=== PATIENT | female | born 1995 | race Caucasian/White ===

== ENCOUNTER 2021-10-31 20:53 | Inpatient (IN) | payer OTHER ==
--- OUTSIDE RECORDS SUMMARY | 2021-10-31 21:09 | EXTERNAL MEDICAL SUMMARY RPT | Continuity of Care Document ---
:1995 Author Organization [facility] Address [address] [place] [address] Phone Allergies and Intolerances date description facility type (no date) No Known Drug Allergies [facility] (unkn own) Encounters No information. Functional Status No information. Immunizations No information. Medications date description facility [id number] 0.5 ML Bordetella pertussis [facility] hemagglutinin vaccine, inactivated 0.01 MG/ML / Bordetella pertussis fimbriae 2/3 vacc ine, inactivated 0.01 MG/ML / Bordetella pert ussis pertactin vaccine, inactivated 0.006 MG/ ML / Bordetella pertussis toxoid vaccine, inactivated 0.005 MG/ML / diphtheria tox oid vaccine, inactivated 4 UNT/ML / tetanus toxoid vaccine, inactivated 10 UNT/ML Prefilled Syringe Problems No information. Procedures date description facility +0000 [facility] [id number] [facility] [id number] [facility] Results/Labs test date author facility value unit interpret ation Result panel 1 (unknown) (no (unknown) (unknown) (no value) (units (unk nown) date) unknown) (unknown) (no (unknown) (unknown) (no value) (units (unk nown) date) unknown) (unknown) (no (unknown) (unknown) (no value) (units (unk nown) date) unknown) (unknown) (no (unknown) (unknown) 08/03/21 (units (unkno wn) date) unknown) (unknown) (no (unknown) (unknown) 13:40 (units (unkno wn) date) unknown) (unknown) (no (unknown) (unknown) [place], [place] (units ( unknown) date) [id number] unknown) (unknown) (no (unknown) (unknown) Draft (units (unkno wn) date) unknown) (unknown) (no (unknown) (unknown) [facility] ([facility] unknown) (unknown) (no (unknown) (unknown) Gynecology Visit (units (unknown) date) unknown) (unknown) (no (unknown) (unknown) (no value) (units (unk nown) date) unknown) (unknown) (no (unknown) (unknown) [id number] (units (unkn own) date) unknown) (unknown) (no (unknown) (unknown) 08/03/21 (units (unkno wn) date) unknown) (unknown) (no (unknown) (unknown) Age/Sex: 25 / F (units (unknown) date) Date of unknown) Service: (unknown) (no (unknown) (unknown) Allergies (units (unkn own) date) unknown) (unknown) (no (unknown) (unknown) Attending Dr: (units ( unknown) date) Katharine Martinez MD unknown) (unknown) (no (unknown) (unknown) BMI 25.7 (units (un known) date) unknown) (unknown) (no (unknown) (unknown) BP 106/62 (units (u nknown) date) unknown) (unknown) (no (unknown) (unknown) Blood Pressure (units (unknown) date) Location Rt unknown) brachial (unknown) (no (unknown) (unknown) : 1995 (units (unknown) date) Acct:[id number] unknown) (unknown) (no (unknown) (unknown) Dept at (units (unkno wn) date) . unknown) (unknown) (no (unknown) (unknown) Diet and (units (unkno wn) date) Exercise unknown) (unknown) (no (unknown) (unknown) Documented By: (units (unknown) date) Katharine Martinez MD unknown) 08/03/21 1339 (unknown) (no (unknown) (unknown) Family History (units (unknown) date) (Updated 04/08/21 unknown) @ 08:07 by Sena Espinal RN) (unknown) (no (unknown) (unknown) Father (units (unkno wn) date) Metabolic unknown) syndrome (unknown) (no (unknown) (unknown) Grandmother (units (un known) date) Breast cancer unknown) (unknown) (no (unknown) (unknown) H/O wisdom tooth (units (unknown) date) extraction unknown) (unknown) (no (unknown) (unknown) Height 5 ft (units (unknown) date) unknown) (unknown) (no (unknown) (unknown) History of PCOS (units (unknown) date) unknown) (unknown) (no (unknown) (unknown) Intake (units (unkno wn) date) unknown) (unknown) (no (unknown) (unknown) Intake Note: (units (u nknown) date) unknown) (unknown) (no (unknown) (unknown) Loc: [facility] (units (unkno wn) date) unknown) (unknown) (no (unknown) (unknown) Medical History (units (unknown) date) (Updated 04/08/21 unknown) @ 08:06 by Sena Espinal RN) (unknown) (no (unknown) (unknown) No Known Drug (units ( unknown) date) Allergies Allergy unknown) (Unverified 07/22/21 15:29) (unknown) (no (unknown) (unknown) PFSH (units (unkno wn) date) unknown) (unknown) (no (unknown) (unknown) Patient: (units (unkno wn) date) Sally Thurston Y unknown) MR#: M (unknown) (no (unknown) (unknown) Position (units (unkno wn) date) Sitting unknown) (unknown) (no (unknown) (unknown) 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) (unknown) (no (unknown) (unknown) Reason For Visit (units (unknown) date) unknown) (unknown) (no (unknown) (unknown) Safety (units (unkno wn) date) unknown) (unknown) (no (unknown) (unknown) Signed By: (units (unk nown) date) unknown) (unknown) (no (unknown) (unknown) Smoking Status: (units (unknown) date) Never smoker unknown) (unknown) (no (unknown) (unknown) Social History (units (unknown) date) unknown) (unknown) (no (unknown) (unknown) Surgical History (units (unknown) date) (Updated 04/08/21 unknown) @ 08:06 by Sena Espinal RN) (unknown) (no (unknown) (unknown) This note may (units ( unknown) date) have been all or unknown) partially generated using voice recognition (unknown) (no (unknown) (unknown) Tobacco + (units (unkn own) date) Substance Use unknown) (unknown) (no (unknown) (unknown) Tobacco Status (units (unknown) date) unknown) (unknown) (no (unknown) (unknown) Type(s) of (units (unk nown) date) exercise: unknown) irregular exercise (unknown) (no (unknown) (unknown) Visit Reasons: (units (unknown) date) 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 unknown) (unknown) (no (unknown) (unknown) Vitals (units (unkno wn) date) unknown) (unknown) (no (unknown) (unknown) Weight 132 lb (units (unknown) date) unknown) (unknown) (no (unknown) (unknown) alcohol intake: (units (unknown) date) former (stopped unknown) with , always light) (unknown) (no (unknown) (unknown) caffeine: Yes (units ( unknown) date) (200mg) unknown) (unknown) (no (unknown) (unknown) carbon monox (units (u nknown) date) detector in home: unknown) Yes (unknown) (no (unknown) (unknown) current (units (unkno wn) date) occupational unknown) exposures/hazards : No (unknown) (no (unknown) (unknown) daily servings (units (unknown) date) fruits/ve-1 unknown) (unknown) (no (unknown) (unknown) do you feel safe (units (unknown) date) at home: Yes unknown) (unknown) (no (unknown) (unknown) during the past (units (unknown) date) year weight has: unknown) remained stable (unknown) (no (unknown) (unknown) education level: (units (unknown) date) other (YVONNE) unknown) (unknown) (no (unknown) (unknown) fire (units (unkno wn) date) extinguisher in unknown) home: No (unknown) (no (unknown) (unknown) firearms in (units (un known) date) home: No unknown) (unknown) (no (unknown) (unknown) have occurred. (units (unknown) date) If there are any unknown) questions, please contact the Medical Records (unknown) (no (unknown) (unknown) household (units (unkn own) date) members: spouse unknown) (unknown) (no (unknown) (unknown) housing: house (units (unknown) date) unknown) (unknown) (no (unknown) (unknown) lives (units (unkno wn) date) independently: unknown) Yes (unknown) (no (unknown) (unknown) marital status: (units (unknown) date) unknown) (unknown) (no (unknown) (unknown) may occur. (units (unk nown) date) Occasional unknown) wrong-word or 'sound-alike' substitutions may have (unknown) (no (unknown) (unknown) number of (units (unkn own) date) children: 0 unknown) (unknown) (no (unknown) (unknown) occupational (units (u nknown) date) status: employed unknown) (unknown) (no (unknown) (unknown) occurred due to (units (unknown) date) the inherent unknown) limitations of voice recognition software. Please (unknown) (no (unknown) (unknown) pets and (units (unkno wn) date) animals: No unknown) (unknown) (no (unknown) (unknown) read the note (units ( unknown) date) carefully and unknown) recognize, using context, where these substitutions (unknown) (no (unknown) (unknown) seatbelt use: (units ( unknown) date) always unknown) (unknown) (no (unknown) (unknown) second hand (units (un known) date) exposure: No unknown) (unknown) (no (unknown) (unknown) software. (units (unkn own) date) Although every unknown) effort is made to edit content, director family errors (unknown) (no (unknown) (unknown) substance use (units ( unknown) date) type: does not unknown) use (unknown) (no (unknown) (unknown) water heater (units (u nknown) date) temp set < 120 unknown) deg: Yes (will check) (unknown) (no (unknown) (unknown) well-balanced (units ( unknown) date) diet: about half unknown) the time (unknown) (no (unknown) (unknown) working smoke (units ( unknown) date) detector in home: unknown) Yes Result panel 2 (unknown) (no (unknown) (unknown) (no value) (units (unk nown) date) unknown) (unknown) (no (unknown) (unknown) 10/20/19 5-6 (units (u nknown) date) spontaneous unknown) (unknown) (no (unknown) (unknown) N Yes no (units (unknown) date) 146 absent unknown) 4 wks (unknown) (no (unknown) (unknown) N Yes no (units (unknown) date) 150 21 unknown) absent 4 wks (unknown) (no (unknown) (unknown) This patient is (units (unknown) date) a 25yo @11+0 unknown) presenting to follow up 10 days of brown (unknown) (no (unknown) (unknown) This patient is (units (unknown) date) a 25yo @12+4 unknown) presenting for routine obstetric care. (unknown) (no (unknown) (unknown) This patient is (units (unknown) date) a 25yo @16+4 unknown) presenting for routine OB care. Patient (unknown) (no (unknown) (unknown) This patient is (units (unknown) date) a 25yo @22+0 unknown) presenting for routine OB care. Patient (unknown) (no (unknown) (unknown) This patient is (units (unknown) date) a 25yo unknown) @8+4 presenting to initiate care. (unknown) (no (unknown) (unknown) (no value) (units (unk nown) date) unknown) (unknown) (no (unknown) (unknown) none (units (unkno wn) date) unknown) (unknown) (no (unknown) (unknown) (no value) (units (unk nown) date) unknown) (unknown) (no (unknown) (unknown) (+2 lb 1 oz) (units (u nknown) date) 104/58 N unknown) (unknown) (no (unknown) (unknown) (+2 lb 3 oz) (units (u nknown) date) 106/60 N unknown) (unknown) (no (unknown) (unknown) (+20 lb) (units (unkno wn) date) 92/58 N unknown) (unknown) (no (unknown) (unknown) (+3 lb) (units (unkno wn) date) 100/60 N unknown) (unknown) (no (unknown) (unknown) (+9 lb 7 oz) (units (u nknown) date) 110/60 N unknown) (unknown) (no (unknown) (unknown) 04/19/21 (units (unkno wn) date) unknown) (unknown) (no (unknown) (unknown) 05/06/21 (units (unkno wn) date) unknown) (unknown) (no (unknown) (unknown) 05/17/21 (units (unkno wn) date) unknown) (unknown) (no (unknown) (unknown) 06/14/21 (units (unkno wn) date) unknown) (unknown) (no (unknown) (unknown) 07/22/21 (units (unkno wn) date) unknown) (unknown) (no (unknown) (unknown) 08/03/21 (units (unkno wn) date) unknown) (unknown) (no (unknown) (unknown) 11w 0d 113 lb (units (unknown) date) unknown) (unknown) (no (unknown) (unknown) 12w 4d 112 lb (units (unknown) date) 3 oz unknown) (unknown) (no (unknown) (unknown) 13:40 (units (unkno wn) date) unknown) (unknown) (no (unknown) (unknown) 16w 4d 119 lb (units (unknown) date) 7 oz unknown) (unknown) (no (unknown) (unknown) 22w 0d 130 lb (units (unknown) date) unknown) (unknown) (no (unknown) (unknown) 8w 4d 112 lb (units (unknown) date) 1 oz unknown) (unknown) (no (unknown) (unknown) [place], [place] (units ( unknown) date) [id number] unknown) (unknown) (no (unknown) (unknown) Cancelled (units (unkn own) date) unknown) (unknown) (no (unknown) (unknown) Current Estimate (units (unknown) date) 11/25/21 unknown) Ultrasound #1 23w 5d (unknown) (no (unknown) (unknown) Draft (units (unkno wn) date) unknown) (unknown) (no (unknown) (unknown) Estimated (units (unkn own) date) Delivery Date unknown) Method Current (unknown) (no (unknown) (unknown) [facility] ([facility] unknown) (unknown) (no (unknown) (unknown) Gynecology Visit (units (unknown) date) unknown) (unknown) (no (unknown) (unknown) KF (units (unkno wn) date) unknown) (unknown) (no (unknown) (unknown) N 167 (units (unkno wn) date) absent wnl unknown) (unknown) (no (unknown) (unknown) OB Office Visit (units (unknown) date) unknown) (unknown) (no (unknown) (unknown) Other Estimates (units (unknown) date) 11/09/21 unknown) LMP (Uncertain) 26w 0d (unknown) (no (unknown) (unknown) TR 152 (units (unkn own) date) absent 4 w unknown) (unknown) (no (unknown) (unknown) TR 164 (units (unkn own) date) absent wnl unknown) (unknown) (no (unknown) (unknown) (no value) (units (unk nown) date) unknown) (unknown) (no (unknown) (unknown) 4 wks (units (unkno wn) date) unknown) (unknown) (no (unknown) (unknown) Genetic (units (unkn own) date) Screening/Teratol unknown) ogy Counseling - Includes patient, baby's father, or (unknown) (no (unknown) (unknown) - Bipolar - (units (un known) date) Stable on unknown) lamotrigine, fluoxitine, and wellbutrin. Of note, did not (unknown) (no (unknown) (unknown) - Declined (units (unk nown) date) aneuploidy unknown) screening, for MSAFP (unknown) (no (unknown) (unknown) - New OB labs (units ( unknown) date) showed UTI, for unknown) MCKENZIE- sent 05/17 (unknown) (no (unknown) (unknown) - Placenta low (units (unknown) date) lying at 1.8cm, unknown) for follow up at 28 weeks. (unknown) (no (unknown) (unknown) - Varicella (units (un known) date) non-immune unknown) (unknown) (no (unknown) (unknown) -?-?-?-?-?-?-?-? (units (unknown) date) -?-?-?-?- unknown) (unknown) (no (unknown) (unknown) [id number] (units (unkn own) date) unknown) (unknown) (no (unknown) (unknown) 08/03/21 (units (unkno wn) date) unknown) (unknown) (no (unknown) (unknown) Abnormal lab (units (u nknown) date) values 1st unknown) trimester: discussed (unknown) (no (unknown) (unknown) Abnormal lab (units (u nknown) date) values 2nd unknown) trimester: discussed (unknown) (no (unknown) (unknown) Add'l Plan (units (unk nown) date) Details unknown) (unknown) (no (unknown) (unknown) Age/Sex: 25 / F (units (unknown) date) Date of unknown) Service: (unknown) (no (unknown) (unknown) Allergies (units (unkn own) date) unknown) (unknown) (no (unknown) (unknown) Aneuploidy (units (unk nown) date) Screening unknown) Offered: Accepted (considering options) (unknown) (no (unknown) (unknown) Anticipated (units (un known) date) course of unknown) care: discussed (unknown) (no (unknown) (unknown) Assessment and (units (unknown) date) Plan unknown) (unknown) (no (unknown) (unknown) Attending Dr: (units ( unknown) date) Katharine Martinez MD unknown) (unknown) (no (unknown) (unknown) BMI 25.7 (units (un known) date) unknown) (unknown) (no (unknown) (unknown) BP 106/62 (units (u nknown) date) unknown) (unknown) (no (unknown) (unknown) (units (unkno wn) date) Plan/Preferences unknown) (unknown) (no (unknown) (unknown) Planning (units (unknown) date) unknown) (unknown) (no (unknown) (unknown) Blood Pressure (units (unknown) date) Location Rt unknown) brachial (unknown) (no (unknown) (unknown) Blood (units (unkno wn) date) transfusions?: unknown) yes (unknown) (no (unknown) (unknown) Breastfeed (units (unk nown) date) Preg Comp Name unknown) (unknown) (no (unknown) (unknown) CRL, no gross (units ( unknown) date) abnormalities unknown) noted. Ovaries not visualized. (unknown) (no (unknown) (unknown) Caffeine use, (units ( unknown) date) Exercise and unknown) activity, work/environmenta l/hazards, Sexual (unknown) (no (unknown) (unknown) Childbirth (units (unk nown) date) Classes: unknown) discussed (unknown) (no (unknown) (unknown) Current (units (unkno wn) date) History unknown) (unknown) (no (unknown) (unknown) : 1995 (units (unknown) date) Acct:[id number] unknown) (unknown) (no (unknown) (unknown) Date (units (unkno wn) date) unknown) (unknown) (no (unknown) (unknown) Date of positive (units (unknown) date) home unknown) test: 03/20/21 (unknown) (no (unknown) (unknown) Del. Date (units (unkn own) date) GA/Weeks Labor unknown) Lgth Wt Sex Route Outcome Anesthesia Place (unknown) (no (unknown) (unknown) Delv (units (unkno wn) date) unknown) (unknown) (no (unknown) (unknown) Denies Congenital (units (unknown) date) Heart Defect, unknown) Denies Down Syndrome, Denies Muscular Dystrophy, (unknown) (no (unknown) (unknown) Denies Maternal (units (unknown) date) Metabolic unknown) Disorder (EG,TYPE 1 Diabetes, PKU), Denies Patient or (unknown) (no (unknown) (unknown) Denies Neural (units ( unknown) date) Tube Defect unknown) (Meningomyelocele , Spina Bifida, or Anencephaly), (unknown) (no (unknown) (unknown) Denies Sickle (units ( unknown) date) Cell Disease or unknown) Trait (), Denies Hemophilia or other blood (unknown) (no (unknown) (unknown) Denies Moustapha-Sachs (units (unknown) date) (Ashkenazi unknown) Adventism, Cajun, English Nigerien), Denies Sebastián (unknown) (no (unknown) (unknown) Denies other (units (u nknown) date) unknown) (unknown) (no (unknown) (unknown) Denies over the (units (unknown) date) counter unknown) medications, Denies alcohol, Denies illicit drugs and (unknown) (no (unknown) (unknown) Depression: (units (un known) date) discussed unknown) (unknown) (no (unknown) (unknown) Dept at (units (unkno wn) date) . unknown) (unknown) (no (unknown) (unknown) Diet and (units (unkno wn) date) Exercise unknown) (unknown) (no (unknown) (unknown) Discussed (units (unkn own) date) Zofran. Patient unknown) declines aneuploidy screening, MSAFP at next visit. (unknown) (no (unknown) (unknown) Disease (units (unkno wn) date) (Ashkenazi unknown) Adventism), Denies Familial Dysautonomia (Ashkenazi Adventism), (unknown) (no (unknown) (unknown) Documented By: (units (unknown) date) Katharine Martinez MD unknown) 08/03/21 1339 (unknown) (no (unknown) (unknown) Documented By: (units (unknown) date) Katharine Martinez MD unknown) 08/03/21 1352 (unknown) (no (unknown) (unknown) RERE Calculator (units (unknown) date) unknown) (unknown) (no (unknown) (unknown) EGA Weight BP (units ( unknown) date) UGlucose unknown) (unknown) (no (unknown) (unknown) Family History (units (unknown) date) (Updated 04/08/21 unknown) @ 08:07 by Sena Espinal RN) (unknown) (no (unknown) (unknown) Father (units (unkno wn) date) Metabolic unknown) syndrome (unknown) (no (unknown) (unknown) Father of Baby: (units (unknown) date) Abiam unknown) (unknown) (no (unknown) (unknown) First Trimester (units (unknown) date) Education unknown) Checklist (unknown) (no (unknown) (unknown) Genetic (units (unkno wn) date) Screening unknown) (unknown) (no (unknown) (unknown) Genetic (units (unkno wn) date) Screening + unknown) Counseling (unknown) (no (unknown) (unknown) Grandmother (units (un known) date) Breast cancer unknown) (unknown) (no (unknown) (unknown) 2 (units (unknown) date) Multiple unknown) births (unknown) (no (unknown) (unknown) H/O wisdom tooth (units (unknown) date) extraction unknown) (unknown) (no (unknown) (unknown) HIV risk (units (unkno wn) date) evaluation: low unknown) risk (unknown) (no (unknown) (unknown) Health Center (units ( unknown) date) Education unknown) (unknown) (no (unknown) (unknown) Health center (units ( unknown) date) information: unknown) nature of practice discussed, personnel (unknown) (no (unknown) (unknown) Height 5 ft (units (unknown) date) unknown) (unknown) (no (unknown) (unknown) Hepatitis C risk (units (unknown) date) evaluation: low unknown) risk (unknown) (no (unknown) (unknown) History of (units (unk nown) date) Hepatitis B: No unknown) (unknown) (no (unknown) (unknown) History of (units (unk nown) date) Hepatitis C: No unknown) (unknown) (no (unknown) (unknown) History of PCOS (units (unknown) date) unknown) (unknown) (no (unknown) (unknown) Hospital[facility] (units (u nknown) date) unknown) (unknown) (no (unknown) (unknown) [facility] (units (u nknown) date) Chorea, Denies unknown) Other inherited genetic or chromosomal disorder, (unknown) (no (unknown) (unknown) Hx # (units (u nknown) date) Pregnancies unknown) Elective abortions (unknown) (no (unknown) (unknown) Hx # Term (units (unkn own) date) Pregnancies unknown) Ectopic pregnancies (unknown) (no (unknown) (unknown) will be (units (unknown) date) adopted?: no unknown) (unknown) (no (unknown) (unknown) Infection (units (unkn own) date) History unknown) (unknown) (no (unknown) (unknown) Infectious (units (unk nown) date) Disease Education unknown) (unknown) (no (unknown) (unknown) Infectious (units (unk nown) date) disease exposure: unknown) chicken pox immunity discussed, hepatitis risk (unknown) (no (unknown) (unknown) Initial Weight: (units (unknown) date) 110 lb unknown) (unknown) (no (unknown) (unknown) Initials (units (unkno wn) date) unknown) (unknown) (no (unknown) (unknown) Intake (units (unkno wn) date) unknown) (unknown) (no (unknown) (unknown) Intake Note: (units (u nknown) date) unknown) (unknown) (no (unknown) (unknown) Live with (units (unkn own) date) someone with TB unknown) or exposed to TB: No (unknown) (no (unknown) (unknown) Loc: [facility] (units (unkno wn) date) unknown) (unknown) (no (unknown) (unknown) Marital status: (units (unknown) date) unknown) (unknown) (no (unknown) (unknown) Medical History (units (unknown) date) (Updated 04/08/21 unknown) @ 08:06 by Sena Espinal RN) (unknown) (no (unknown) (unknown) No Known Drug (units ( unknown) date) Allergies Allergy unknown) (Unverified 07/22/21 15:29) (unknown) (no (unknown) (unknown) Notes (units (unkno wn) date) unknown) (unknown) (no (unknown) (unknown) Number of Living (units (unknown) date) Children unknown) (unknown) (no (unknown) (unknown) Number of (units (unkn own) date) fetuses:: Single unknown) (unknown) (no (unknown) (unknown) Nutrition and (units ( unknown) date) weight gain unknown) counseling: special diet: discussed (unknown) (no (unknown) (unknown) OB Visit Log (units (u nknown) date) unknown) (unknown) (no (unknown) (unknown) On control (units (unknown) date) at conception?: unknown) No (unknown) (no (unknown) (unknown) PFSH (units (unkno wn) date) unknown) (unknown) (no (unknown) (unknown) Para 0 (units ( unknown) date) Spontaneous unknown) abortions 1 (unknown) (no (unknown) (unknown) Partner history (units (unknown) date) of STD: denies hx unknown) (unknown) (no (unknown) (unknown) Partner history (units (unknown) date) of genital unknown) herpes: No (unknown) (no (unknown) (unknown) Partner: Abiam (units (unknown) date) unknown) (unknown) (no (unknown) (unknown) Past Pregnancies (units (unknown) date) unknown) (unknown) (no (unknown) (unknown) Patient was (units (un known) date) recently treated unknown) for UTI with resolution of symptoms, no further (unknown) (no (unknown) (unknown) Patient's age 33 (units (unknown) date) years or older as unknown) of estimated date of delivery: No (unknown) (no (unknown) (unknown) Patient: (units (unkno wn) date) Sally Thurston Y unknown) MR#: M (unknown) (no (unknown) (unknown) 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) (unknown) (no (unknown) (unknown) Personal history (units (unknown) date) of STD: denies hx unknown) (unknown) (no (unknown) (unknown) Personal history (units (unknown) date) of genital unknown) herpes: No (unknown) (no (unknown) (unknown) Position (units (unkno wn) date) Sitting unknown) (unknown) (no (unknown) (unknown) (units (unkn own) date) History unknown) (unknown) (no (unknown) (unknown) type:: (units (unknown) date) Other Normal unknown) (unknown) (no (unknown) (unknown) (units (unkno wn) date) Education unknown) (unknown) (no (unknown) (unknown) Initial (units (unknown) date) Assessment unknown) (unknown) (no (unknown) (unknown) (units (unkno wn) date) Specific unknown) Issues/Plans (unknown) (no (unknown) (unknown) (units (unkno wn) date) Testing: unknown) discussed (unknown) (no (unknown) (unknown) Visit (units (unknown) date) unknown) (unknown) (no (unknown) (unknown) (units (unkno wn) date) education packet: unknown) Child education/plan, symptoms, (unknown) (no (unknown) (unknown) Primary Care (units (u nknown) date) Provider: MANISH unknown) Kristopher (unknown) (no (unknown) (unknown) Primary Ob (units (unk nown) date) Provider: unknown) [place] ([place]) (no (unknown) (unknown) Providers (units (unkn own) date) unknown) (unknown) (no (unknown) (unknown) 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) (unknown) (no (unknown) (unknown) 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) (unknown) (no (unknown) (unknown) Rash or viral (units ( unknown) date) illness since unknown) last menstrual period: No (unknown) (no (unknown) (unknown) Reason For Visit (units (unknown) date) unknown) (unknown) (no (unknown) (unknown) Recurrent (units (unkn own) date) loss or unknown) a stillbirth: No (unknown) (no (unknown) (unknown) Safety (units (unkno wn) date) unknown) (unknown) (no (unknown) (unknown) Seatbelt use and (units (unknown) date) Influenza vaccine unknown) (ad thia fall) (unknown) (no (unknown) (unknown) Second Trimester (units (unknown) date) Education unknown) Checklist (unknown) (no (unknown) (unknown) Signed By: (units (unk nown) date) unknown) (unknown) (no (unknown) (unknown) Smoking Status: (units (unknown) date) Never smoker unknown) (unknown) (no (unknown) (unknown) Social History (units (unknown) date) unknown) (unknown) (no (unknown) (unknown) Surgical History (units (unknown) date) (Updated 04/08/21 unknown) @ 08:06 by Sena Espinal RN) (unknown) (no (unknown) (unknown) Surrogate (units (unkn own) date) ?: no unknown) (unknown) (no (unknown) (unknown) Symptoms since (units (unknown) date) LMP: Reports unknown) amenorrhea, nausea, vomiting, breast tenderness, (unknown) (no (unknown) (unknown) Tdap status: (units (u nknown) date) immunized unknown) (unknown) (no (unknown) (unknown) Teratogen (units (unkn own) date) Exposures since unknown) LMP/Conception: Denies prescription medications, (unknown) (no (unknown) (unknown) Testing (units (unkno wn) date) Education unknown) (unknown) (no (unknown) (unknown) Testing (units (unkno wn) date) education unknown) completed: Genetic testing, group B strep and Spina bifida (unknown) (no (unknown) (unknown) The patient has (units (unknown) date) irregular menses, unknown) and was dated by ultrasound today. She denies (unknown) (no (unknown) (unknown) This note may (units ( unknown) date) have been all or unknown) partially generated using voice recognition (unknown) (no (unknown) (unknown) Tobacco + (units (unkn own) date) Substance Use unknown) (unknown) (no (unknown) (unknown) Tobacco Status (units (unknown) date) unknown) (unknown) (no (unknown) (unknown) Type(s) of (units (unk nown) date) exercise: unknown) irregular exercise (unknown) (no (unknown) (unknown) UProtein Movement (units (unknown) date) PreLabor FHR Fndl unknown) Ht Pres Edema Cerv Exam US/Comment Next Appt (unknown) (no (unknown) (unknown) Ultrasound (units (unk nown) date) unknown) (unknown) (no (unknown) (unknown) Ultrasound (units (unk nown) date) Details:: TAUS unknown) performed. Viable SIUP visualized measuring 8+4 by (unknown) (no (unknown) (unknown) Varicella/chicke (units (unknown) date) n pox status: unknown) immunized (unknown) (no (unknown) (unknown) Visit Date: (units (un known) date) 04/19/21 Last unknown) Updated by: Katharine Martinez MD (unknown) (no (unknown) (unknown) Visit Date: (units (un known) date) 05/06/21 Last unknown) Updated by: Katharine Martinez MD (unknown) (no (unknown) (unknown) Visit Date: (units (un known) date) 05/17/21 Last unknown) Updated by: Katharine Martinez MD (unknown) (no (unknown) (unknown) Visit Date: (units (un known) date) 06/14/21 Last unknown) Updated by: Katharine Martinez MD (unknown) (no (unknown) (unknown) Visit Date: (units (un known) date) 07/22/21 Last unknown) Updated by: Katharine Martinez MD (unknown) (no (unknown) (unknown) Visit Reasons: (units (unknown) date) 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 unknown) (unknown) (no (unknown) (unknown) Vitals (units (unkno wn) date) unknown) (unknown) (no (unknown) (unknown) Vitamins and (units (u nknown) date) iron, Diet and unknown) weight gain, Fish and mercury intake, Smoking, (unknown) (no (unknown) (unknown) WG (units (unkno wn) date) unknown) (unknown) (no (unknown) (unknown) Weight 132 lb (units (unknown) date) unknown) (unknown) (no (unknown) (unknown) Zika virus (units (unk nown) date) exposure: No unknown) (unknown) (no (unknown) (unknown) activity, X-ray (units (unknown) date) exposure, unknown) Medication use, ETOH use, Sauna/hot tub use, Dental (unknown) (no (unknown) (unknown) alcohol intake: (units (unknown) date) former (stopped unknown) with , always light) (unknown) (no (unknown) (unknown) aneuploidy (units (unk nown) date) screening. unknown) (unknown) (no (unknown) (unknown) any significant (units (unknown) date) history, unknown) medications for bipolar disorder were discussed with (unknown) (no (unknown) (unknown) anyone in either (units (unknown) date) family with: unknown) (unknown) (no (unknown) (unknown) baby's father (units ( unknown) date) had a child with unknown) defects not listed above and Denies Other (unknown) (no (unknown) (unknown) bloating and (units (u nknown) date) other (night unknown) sweats, constipation) (unknown) (no (unknown) (unknown) but no other (units (u nknown) date) abnormal unknown) discharge. Patient today reports longstanding dizziness (unknown) (no (unknown) (unknown) caffeine: Yes (units ( unknown) date) (200mg) unknown) (unknown) (no (unknown) (unknown) carbon monox (units (u nknown) date) detector in home: unknown) Yes (unknown) (no (unknown) (unknown) care, HIV (units (unkn own) date) education, unknown) Marijuana use, Substance use, Domestic violence, Travel, (unknown) (no (unknown) (unknown) cramping or (units (un known) date) bleeding. Patient unknown) does report that nausea was worse over the (unknown) (no (unknown) (unknown) current (units (unkno wn) date) occupational unknown) exposures/hazards : No (unknown) (no (unknown) (unknown) daily servings (units (unknown) date) fruits/ve-1 unknown) (unknown) (no (unknown) (unknown) defects. Care in (units (unknown) date) our clinic and unknown) aneuploidy screening discussed. Antepartum (unknown) (no (unknown) (unknown) described, visit (units (unknown) date) schedule unknown) reviewed, ultrasounds policy reviewed, coverage 24 (unknown) (no (unknown) (unknown) discussed and (units ( unknown) date) ordered. unknown) Antepartum precautions discussed. (unknown) (no (unknown) (unknown) discussed (units (unkno wn) date) precautions for unknown) return. Ovaries not visualized on TAUS today. Declines (unknown) (no (unknown) (unknown) discussed, (units (unk nown) date) tuberculosis unknown) exposure discussed, CMV discussed, Toxoplasmosis (unknown) (no (unknown) (unknown) disorders, (units (unk nown) date) Denies Cystic unknown) Fibrosis, Denies Mental Retardation/Autis m, Denies (unknown) (no (unknown) (unknown) do you feel safe (units (unknown) date) at home: Yes unknown) (unknown) (no (unknown) (unknown) during the past (units (unknown) date) year weight has: unknown) remained stable (unknown) (no (unknown) (unknown) education level: (units (unknown) date) other (YVONNE) unknown) (unknown) (no (unknown) (unknown) endorse at (units (unk nown) date) initial visit. unknown) (unknown) (no (unknown) (unknown) fire (units (unkno wn) date) extinguisher in unknown) home: No (unknown) (no (unknown) (unknown) firearms in (units (un known) date) home: No unknown) (unknown) (no (unknown) (unknown) have occurred. (units (unknown) date) If there are any unknown) questions, please contact the Medical Records (unknown) (no (unknown) (unknown) hours a day and (units (unknown) date) participation of unknown) father in care and office visits (unknown) (no (unknown) (unknown) household (units (unkn own) date) members: spouse unknown) (unknown) (no (unknown) (unknown) housing: house (units (unknown) date) unknown) (unknown) (no (unknown) (unknown) ks (units (unkno wn) date) unknown) (unknown) (no (unknown) (unknown) lives (units (unkno wn) date) independently: unknown) Yes (unknown) (no (unknown) (unknown) marital status: (units (unknown) date) unknown) (unknown) (no (unknown) (unknown) may occur. (units (unk nown) date) Occasional unknown) wrong-word or 'sound-alike' substitutions may have (unknown) (no (unknown) (unknown) movement. No (units (u nknown) date) other symptoms or unknown) concerns, anatomy scan already scheduled. MSAFP (unknown) (no (unknown) (unknown) number of (units (unkn own) date) children: 0 unknown) (unknown) (no (unknown) (unknown) occupational (units (u nknown) date) status: employed unknown) (unknown) (no (unknown) (unknown) occurred due to (units (unknown) date) the inherent unknown) limitations of voice recognition software. Please (unknown) (no (unknown) (unknown) pets and (units (unkno wn) date) animals: No unknown) (unknown) (no (unknown) (unknown) placenta 1.8 cm (units (unknown) date) from os unknown) posteriorly, discussed follow up at 28 weeks. Also 88%, (unknown) (no (unknown) (unknown) precautions (units (un known) date) discussed. unknown) (unknown) (no (unknown) (unknown) precautions, (units (u nknown) date) Listeriosis unknown) prevention and Rubella Immunization (unknown) (no (unknown) (unknown) predating her (units ( unknown) date) . UA unknown) wnl, plans to try OTC monistat 7 instead of Affirm, (unknown) (no (unknown) (unknown) read the note (units ( unknown) date) carefully and unknown) recognize, using context, where these substitutions (unknown) (no (unknown) (unknown) reports feeling (units (unknown) date) movement, no ctx unknown) no LOF or VB. Recent anatomy scan showing (unknown) (no (unknown) (unknown) reports feeling (units (unknown) date) well with no UTI unknown) sx, no cramping or bleeding, starting to feel (unknown) (no (unknown) (unknown) seatbelt use: (units ( unknown) date) always unknown) (unknown) (no (unknown) (unknown) second hand (units (un known) date) exposure: No unknown) (unknown) (no (unknown) (unknown) software. (units (unkn own) date) Although every unknown) effort is made to edit content, director family errors (unknown) (no (unknown) (unknown) spotting and RLQ (units (unknown) date) cramping. Viable unknown) SIUP seen via TAUS, +movement. 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 (unknown) (no (unknown) (unknown) well-balanced (units ( unknown) date) diet: about half unknown) the time (unknown) (no (unknown) (unknown) will do growth (units (unknown) date) US at that time. unknown) Antepartum precautions discussed. (unknown) (no (unknown) (unknown) working smoke (units ( unknown) date) detector in home: unknown) Yes Result panel 3 (unknown) (no (unknown) (unknown) (no value) (units (unk nown) date) unknown) (unknown) (no (unknown) (unknown) 10/20/19 5-6 (units (u nknown) date) spontaneous unknown) (unknown) (no (unknown) (unknown) N Yes no (units (unknown) date) 146 absent unknown) 4 wks (unknown) (no (unknown) (unknown) N Yes no (units (unknown) date) 150 21 unknown) absent 4 wks (unknown) (no (unknown) (unknown) This patient is (units (unknown) date) a 25yo @11+0 unknown) presenting to follow up 10 days of brown (unknown) (no (unknown) (unknown) This patient is (units (unknown) date) a 25yo @12+4 unknown) presenting for routine obstetric care. (unknown) (no (unknown) (unknown) This patient is (units (unknown) date) a 25yo @16+4 unknown) presenting for routine OB care. Patient (unknown) (no (unknown) (unknown) This patient is (units (unknown) date) a 25yo @22+0 unknown) presenting for routine OB care. Patient (unknown) (no (unknown) (unknown) This patient is (units (unknown) date) a 25yo unknown) @8+4 presenting to initiate care. (unknown) (no (unknown) (unknown) (no value) (units (unk nown) date) unknown) (unknown) (no (unknown) (unknown) none (units (unkno wn) date) unknown) (unknown) (no (unknown) (unknown) (no value) (units (unk nown) date) unknown) (unknown) (no (unknown) (unknown) (+2 lb 1 oz) (units (u nknown) date) 104/58 N unknown) (unknown) (no (unknown) (unknown) (+2 lb 3 oz) (units (u nknown) date) 106/60 N unknown) (unknown) (no (unknown) (unknown) (+20 lb) (units (unkno wn) date) 92/58 N unknown) (unknown) (no (unknown) (unknown) (+3 lb) (units (unkno wn) date) 100/60 N unknown) (unknown) (no (unknown) (unknown) (+9 lb 7 oz) (units (u nknown) date) 110/60 N unknown) (unknown) (no (unknown) (unknown) 04/19/21 (units (unkno wn) date) unknown) (unknown) (no (unknown) (unknown) 05/06/21 (units (unkno wn) date) unknown) (unknown) (no (unknown) (unknown) 05/17/21 (units (unkno wn) date) unknown) (unknown) (no (unknown) (unknown) 06/14/21 (units (unkno wn) date) unknown) (unknown) (no (unknown) (unknown) 07/22/21 (units (unkno wn) date) unknown) (unknown) (no (unknown) (unknown) 08/03/21 (units (unkno wn) date) unknown) (unknown) (no (unknown) (unknown) 11w 0d 113 lb (units (unknown) date) unknown) (unknown) (no (unknown) (unknown) 12w 4d 112 lb (units (unknown) date) 3 oz unknown) (unknown) (no (unknown) (unknown) 13:40 (units (unkno wn) date) unknown) (unknown) (no (unknown) (unknown) 16w 4d 119 lb (units (unknown) date) 7 oz unknown) (unknown) (no (unknown) (unknown) 22w 0d 130 lb (units (unknown) date) unknown) (unknown) (no (unknown) (unknown) 8w 4d 112 lb (units (unknown) date) 1 oz unknown) (unknown) (no (unknown) (unknown) [place], [place] (units ( unknown) date) [id number] unknown) (unknown) (no (unknown) (unknown) Current Estimate (units (unknown) date) 11/25/21 unknown) Ultrasound #1 23w 5d (unknown) (no (unknown) (unknown) Draft (units (unkno wn) date) unknown) (unknown) (no (unknown) (unknown) Estimated (units (unkn own) date) Delivery Date unknown) Method Current (unknown) (no (unknown) (unknown) [facility]) (unknown) (no (unknown) (unknown) KF (units (unkno wn) date) unknown) (unknown) (no (unknown) (unknown) N 167 (units (unkno wn) date) absent wnl unknown) (unknown) (no (unknown) (unknown) OB Office Visit (units (unknown) date) unknown) (unknown) (no (unknown) (unknown) Other Estimates (units (unknown) date) 11/09/21 unknown) LMP (Uncertain) 26w 0d (unknown) (no (unknown) (unknown) TR 152 (units (unkn own) date) absent 4 w unknown) (unknown) (no (unknown) (unknown) TR 164 (units (unkn own) date) absent wnl unknown) (unknown) (no (unknown) (unknown) (no value) (units (unk nown) date) unknown) (unknown) (no (unknown) (unknown) 4 wks (units (unkno wn) date) unknown) (unknown) (no (unknown) (unknown) Genetic (units (unkn own) date) Screening/Teratol unknown) ogy Counseling - Includes patient, baby's father, or (unknown) (no (unknown) (unknown) - Bipolar - (units (un known) date) Stable on unknown) lamotrigine, fluoxitine, and wellbutrin. Of note, did not (unknown) (no (unknown) (unknown) - Declined (units (unk nown) date) aneuploidy unknown) screening, for MSAFP (unknown) (no (unknown) (unknown) - New OB labs (units ( unknown) date) showed UTI, for unknown) MCKENZIE- sent 05/17 (unknown) (no (unknown) (unknown) - Placenta low (units (unknown) date) lying at 1.8cm, unknown) for follow up at 28 weeks. (unknown) (no (unknown) (unknown) - Varicella (units (un known) date) non-immune unknown) (unknown) (no (unknown) (unknown) -?-?-?-?-?-?-?-? (units (unknown) date) -?-?-?-?- unknown) (unknown) (no (unknown) (unknown) [id number] (units (unkn own) date) unknown) (unknown) (no (unknown) (unknown) 08/03/21 (units (unkno wn) date) unknown) (unknown) (no (unknown) (unknown) Abnormal lab (units (u nknown) date) values 1st unknown) trimester: discussed (unknown) (no (unknown) (unknown) Abnormal lab (units (u nknown) date) values 2nd unknown) trimester: discussed (unknown) (no (unknown) (unknown) Add'l Plan (units (unk nown) date) Details unknown) (unknown) (no (unknown) (unknown) Age/Sex: 25 / F (units (unknown) date) Date of unknown) Service: (unknown) (no (unknown) (unknown) Allergies (units (unkn own) date) unknown) (unknown) (no (unknown) (unknown) Aneuploidy (units (unk nown) date) Screening unknown) Offered: Accepted (considering options) (unknown) (no (unknown) (unknown) Anticipated (units (un known) date) course of unknown) care: discussed (unknown) (no (unknown) (unknown) Assessment and (units (unknown) date) Plan unknown) (unknown) (no (unknown) (unknown) Attending Dr: (units ( unknown) date) Katharine Martinez MD unknown) (unknown) (no (unknown) (unknown) BMI 25.7 (units (un known) date) unknown) (unknown) (no (unknown) (unknown) BP 106/62 (units (u nknown) date) unknown) (unknown) (no (unknown) (unknown) (units (unkno wn) date) Plan/Preferences unknown) (unknown) (no (unknown) (unknown) Planning (units (unknown) date) unknown) (unknown) (no (unknown) (unknown) Blood Pressure (units (unknown) date) Location Rt unknown) brachial (unknown) (no (unknown) (unknown) Blood (units (unkno wn) date) transfusions?: unknown) yes (unknown) (no (unknown) (unknown) Breastfeed (units (unk nown) date) Preg Comp Name unknown) (unknown) (no (unknown) (unknown) CRL, no gross (units ( unknown) date) abnormalities unknown) noted. Ovaries not visualized. (unknown) (no (unknown) (unknown) Caffeine use, (units ( unknown) date) Exercise and unknown) activity, work/environmenta l/hazards, Sexual (unknown) (no (unknown) (unknown) Childbirth (units (unk nown) date) Classes: unknown) discussed (unknown) (no (unknown) (unknown) Current (units (o wn) date) History unknown) (unknown) (no (unknown) (unknown) : 1995 (units (unknown) date) Acct:[id number] unknown) (unknown) (no (unknown) (unknown) Date (units (unkno wn) date) unknown) (unknown) (no (unknown) (unknown) Date of positive (units (unknown) date) home unknown) test: 03/20/21 (unknown) (no (unknown) (unknown) Del. Date (units (unkn own) date) GA/Weeks Labor unknown) Lgth Wt Sex Route Outcome Anesthesia Place (unknown) (no (unknown) (unknown) Delv (units (unkno wn) date) unknown) (unknown) (no (unknown) (unknown) Denies Congenital (units (unknown) date) Heart Defect, unknown) Denies Down Syndrome, Denies Muscular Dystrophy, (unknown) (no (unknown) (unknown) Denies Maternal (units (unknown) date) Metabolic unknown) Disorder (EG,TYPE 1 Diabetes, PKU), Denies Patient or (unknown) (no (unknown) (unknown) Denies Neural (units ( unknown) date) Tube Defect unknown) (Meningomyelocele , Spina Bifida, or Anencephaly), (unknown) (no (unknown) (unknown) Denies Sickle (units ( unknown) date) Cell Disease or unknown) Trait (), Denies Hemophilia or other blood (unknown) (no (unknown) (unknown) Denies Moustapha-Sachs (units (unknown) date) (Ashkenazi unknown) Adventism, Cajun, English Nigerien), Denies Sebastián (unknown) (no (unknown) (unknown) Denies other (units (u nknown) date) unknown) (unknown) (no (unknown) (unknown) Denies over the (units (unknown) date) counter unknown) medications, Denies alcohol, Denies illicit drugs and (unknown) (no (unknown) (unknown) Depression: (units (un known) date) discussed unknown) (unknown) (no (unknown) (unknown) Dept at (units (unkno wn) date) . unknown) (unknown) (no (unknown) (unknown) Diet and (units (unkno wn) date) Exercise unknown) (unknown) (no (unknown) (unknown) Discussed (units (unkn own) date) Zofran. Patient unknown) declines aneuploidy screening, MSAFP at next visit. (unknown) (no (unknown) (unknown) Disease (units (unkno wn) date) (Ashkenazi unknown) Adventism), Denies Familial Dysautonomia (Ashkenazi Adventism), (unknown) (no (unknown) (unknown) Documented By: (units (unknown) date) Katharine Martinez MD unknown) 08/03/21 1352 (unknown) (no (unknown) (unknown) RERE Calculator (units (unknown) date) unknown) (unknown) (no (unknown) (unknown) EGA Weight BP (units ( unknown) date) UGlucose unknown) (unknown) (no (unknown) (unknown) Family History (units (unknown) date) (Updated 04/08/21 unknown) @ 08:07 by Sena Espinal RN) (unknown) (no (unknown) (unknown) Father (units (unkno wn) date) Metabolic unknown) syndrome (unknown) (no (unknown) (unknown) Father of Baby: (units (unknown) date) Abiam unknown) (unknown) (no (unknown) (unknown) First Trimester (units (unknown) date) Education unknown) Checklist (unknown) (no (unknown) (unknown) Monday naval was (units (unknown) date) 'full of liquid' unknown) pt flushed w/bulb syringe (unknown) (no (unknown) (unknown) Genetic (units (unkno wn) date) Screening unknown) (unknown) (no (unknown) (unknown) Genetic (units (unkno wn) date) Screening + unknown) Counseling (unknown) (no (unknown) (unknown) Grandmother (units (un known) date) Breast cancer unknown) (unknown) (no (unknown) (unknown) 2 (units (unknown) date) Multiple unknown) births (unknown) (no (unknown) (unknown) H/O wisdom tooth (units (unknown) date) extraction unknown) (unknown) (no (unknown) (unknown) HIV risk (units (unkno wn) date) evaluation: low unknown) risk (unknown) (no (unknown) (unknown) Health Center (units ( unknown) date) Education unknown) (unknown) (no (unknown) (unknown) Health center (units ( unknown) date) information: unknown) nature of practice discussed, personnel (unknown) (no (unknown) (unknown) Height 5 ft (units (unknown) date) unknown) (unknown) (no (unknown) (unknown) Hepatitis C risk (units (unknown) date) evaluation: low unknown) risk (unknown) (no (unknown) (unknown) History of (units (unk nown) date) Hepatitis B: No unknown) (unknown) (no (unknown) (unknown) History of (units (unk nown) date) Hepatitis C: No unknown) (unknown) (no (unknown) (unknown) History of PCOS (units (unknown) date) unknown) (unknown) (no (unknown) (unknown) Hospital[facility] (units (u nknown) date) unknown) (unknown) (no (unknown) (unknown) [facility] (units (u nknown) date) Chorea, Denies unknown) Other inherited genetic or chromosomal disorder, (unknown) (no (unknown) (unknown) Hx # (units (u nknown) date) Pregnancies unknown) Elective abortions (unknown) (no (unknown) (unknown) Hx # Term (units (unkn own) date) Pregnancies unknown) Ectopic pregnancies (unknown) (no (unknown) (unknown) will be (units (unknown) date) adopted?: no unknown) (unknown) (no (unknown) (unknown) Infection (units (unkn own) date) History unknown) (unknown) (no (unknown) (unknown) Infectious (units (unk nown) date) Disease Education unknown) (unknown) (no (unknown) (unknown) Infectious (units (unk nown) date) disease exposure: unknown) chicken pox immunity discussed, hepatitis risk (unknown) (no (unknown) (unknown) Initial Weight: (units (unknown) date) 110 lb unknown) (unknown) (no (unknown) (unknown) Initials (units (unkno wn) date) unknown) (unknown) (no (unknown) (unknown) Intake (units (unkno wn) date) unknown) (unknown) (no (unknown) (unknown) Intake Note: (units (u nknown) date) unknown) (unknown) (no (unknown) (unknown) Live with (units (unkn own) date) someone with TB unknown) or exposed to TB: No (unknown) (no (unknown) (unknown) Loc: [facility] (units (unkno wn) date) unknown) (unknown) (no (unknown) (unknown) Marital status: (units (unknown) date) unknown) (unknown) (no (unknown) (unknown) Medical History (units (unknown) date) (Updated 04/08/21 unknown) @ 08:06 by Sena Espinal RN) (unknown) (no (unknown) (unknown) No Known Drug (units ( unknown) date) Allergies Allergy unknown) (Unverified 07/22/21 15:29) (unknown) (no (unknown) (unknown) Notes (units (unkno wn) date) unknown) (unknown) (no (unknown) (unknown) Number of Living (units (unknown) date) Children unknown) (unknown) (no (unknown) (unknown) Number of (units (unkn own) date) fetuses:: Single unknown) (unknown) (no (unknown) (unknown) Nutrition and (units ( unknown) date) weight gain unknown) counseling: special diet: discussed (unknown) (no (unknown) (unknown) OB Visit Log (units (u nknown) date) unknown) (unknown) (no (unknown) (unknown) On control (units (unknown) date) at conception?: unknown) No (unknown) (no (unknown) (unknown) PFSH (units (unkno wn) date) unknown) (unknown) (no (unknown) (unknown) Para 0 (units ( unknown) date) Spontaneous unknown) abortions 1 (unknown) (no (unknown) (unknown) Partner history (units (unknown) date) of STD: denies hx unknown) (unknown) (no (unknown) (unknown) Partner history (units (unknown) date) of genital unknown) herpes: No (unknown) (no (unknown) (unknown) Partner: Abiam (units (unknown) date) unknown) (unknown) (no (unknown) (unknown) Past Pregnancies (units (unknown) date) unknown) (unknown) (no (unknown) (unknown) Patient was (units (un known) date) recently treated unknown) for UTI with resolution of symptoms, no further (unknown) (no (unknown) (unknown) Patient's age 33 (units (unknown) date) years or older as unknown) of estimated date of delivery: No (unknown) (no (unknown) (unknown) Patient: (units (unkno wn) date) Sally Thurston Y unknown) MR#: M (unknown) (no (unknown) (unknown) 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) (unknown) (no (unknown) (unknown) Personal history (units (unknown) date) of STD: denies hx unknown) (unknown) (no (unknown) (unknown) Personal history (units (unknown) date) of genital unknown) herpes: No (unknown) (no (unknown) (unknown) Position (units (unkno wn) date) Sitting unknown) (unknown) (no (unknown) (unknown) (units (unkn own) date) History unknown) (unknown) (no (unknown) (unknown) type:: (units (unknown) date) Other Normal unknown) (unknown) (no (unknown) (unknown) (units (unkno wn) date) Education unknown) (unknown) (no (unknown) (unknown) Initial (units (unknown) date) Assessment unknown) (unknown) (no (unknown) (unknown) (units (unkno wn) date) Specific unknown) Issues/Plans (unknown) (no (unknown) (unknown) (units (unkno wn) date) Testing: unknown) discussed (unknown) (no (unknown) (unknown) Visit (units (unknown) date) unknown) (unknown) (no (unknown) (unknown) (units (unkno wn) date) education packet: unknown) Child education/plan, symptoms, (unknown) (no (unknown) (unknown) Primary Care (units (u nknown) date) Provider: MANISH unknown) Kristopher (unknown) (no (unknown) (unknown) Primary Ob (units (unk nown) date) Provider: unknown) Katharine Martinez (unknown) (no (unknown) (unknown) Providers (units (unkn own) date) unknown) (unknown) (no (unknown) (unknown) 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 (unknown) (no (unknown) (unknown) Rash or viral (units ( unknown) date) illness since unknown) last menstrual period: No (unknown) (no (unknown) (unknown) Reason For Visit (units (unknown) date) unknown) (unknown) (no (unknown) (unknown) Recurrent (units (unkn own) date) loss or unknown) a stillbirth: No (unknown) (no (unknown) (unknown) Safety (units (unkno wn) date) unknown) (unknown) (no (unknown) (unknown) Seatbelt use and (units (unknown) date) Influenza vaccine unknown) (ad thia fall) (unknown) (no (unknown) (unknown) Second Trimester (units (unknown) date) Education unknown) Checklist (unknown) (no (unknown) (unknown) Signed By: (units (unk nown) date) unknown) (unknown) (no (unknown) (unknown) Smoking Status: (units (unknown) date) Never smoker unknown) (unknown) (no (unknown) (unknown) Social History (units (unknown) date) unknown) (unknown) (no (unknown) (unknown) Surgical History (units (unknown) date) (Updated 04/08/21 unknown) @ 08:06 by Sena Espinal RN) (unknown) (no (unknown) (unknown) Surrogate (units (unkn own) date) ?: no unknown) (unknown) (no (unknown) (unknown) Symptoms since (units (unknown) date) LMP: Reports unknown) amenorrhea, nausea, vomiting, breast tenderness, (unknown) (no (unknown) (unknown) Tdap status: (units (u nknown) date) immunized unknown) (unknown) (no (unknown) (unknown) Teratogen (units (unkn own) date) Exposures since unknown) LMP/Conception: Denies prescription medications, (unknown) (no (unknown) (unknown) Testing (units (unkno wn) date) Education unknown) (unknown) (no (unknown) (unknown) Testing (units (unkno wn) date) education unknown) completed: Genetic testing, group B strep and Spina bifida (unknown) (no (unknown) (unknown) The patient has (units (unknown) date) irregular menses, unknown) and was dated by ultrasound today. She denies (unknown) (no (unknown) (unknown) This note may (units ( unknown) date) have been all or unknown) partially generated using voice recognition (unknown) (no (unknown) (unknown) Tobacco + (units (unkn own) date) Substance Use unknown) (unknown) (no (unknown) (unknown) Tobacco Status (units (unknown) date) unknown) (unknown) (no (unknown) (unknown) Type(s) of (units (unk nown) date) exercise: unknown) irregular exercise (unknown) (no (unknown) (unknown) UProtein Movement (units (unknown) date) PreLabor FHR Fndl unknown) Ht Pres Edema Cerv Exam US/Comment Next Appt (unknown) (no (unknown) (unknown) Ultrasound (units (unk nown) date) unknown) (unknown) (no (unknown) (unknown) Ultrasound (units (unk nown) date) Details:: TAUS unknown) performed. Viable SIUP visualized measuring 8+4 by (unknown) (no (unknown) (unknown) Varicella/chicke (units (unknown) date) n pox status: unknown) immunized (unknown) (no (unknown) (unknown) Visit Date: (units (un known) date) 04/19/21 Last unknown) Updated by: Katharine Martinez MD (unknown) (no (unknown) (unknown) Visit Date: (units (un known) date) 05/06/21 Last unknown) Updated by: Katharine Martinez MD (unknown) (no (unknown) (unknown) Visit Date: (units (un known) date) 05/17/21 Last unknown) Updated by: Katharine Martinez MD (unknown) (no (unknown) (unknown) Visit Date: (units (un known) date) 06/14/21 Last unknown) Updated by: Katharine Martinez MD (unknown) (no (unknown) (unknown) Visit Date: (units (un known) date) 07/22/21 Last unknown) Updated by: Katharine Martinez MD (unknown) (no (unknown) (unknown) Visit Reasons: (units (unknown) date) 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 unknown) (unknown) (no (unknown) (unknown) Vitals (units (unkno wn) date) unknown) (unknown) (no (unknown) (unknown) Vitamins and (units (u nknown) date) iron, Diet and unknown) weight gain, Fish and mercury intake, Smoking, (unknown) (no (unknown) (unknown) WG (units (unkno wn) date) unknown) (unknown) (no (unknown) (unknown) Weight 132 lb (units (unknown) date) unknown) (unknown) (no (unknown) (unknown) Zika virus (units (unk nown) date) exposure: No unknown) (unknown) (no (unknown) (unknown) activity, X-ray (units (unknown) date) exposure, unknown) Medication use, ETOH use, Sauna/hot tub use, Dental (unknown) (no (unknown) (unknown) alcohol intake: (units (unknown) date) former (stopped unknown) with , always light) (unknown) (no (unknown) (unknown) aneuploidy (units (unk nown) date) screening. unknown) (unknown) (no (unknown) (unknown) any significant (units (unknown) date) history, unknown) medications for bipolar disorder were discussed with (unknown) (no (unknown) (unknown) anyone in either (units (unknown) date) family with: unknown) (unknown) (no (unknown) (unknown) baby's father (units ( unknown) date) had a child with unknown) defects not listed above and Denies Other (unknown) (no (unknown) (unknown) bloating and (units (u nknown) date) other (night unknown) sweats, constipation) (unknown) (no (unknown) (unknown) but no other (units (u nknown) date) abnormal unknown) discharge. Patient today reports longstanding dizziness (unknown) (no (unknown) (unknown) caffeine: Yes (units ( unknown) date) (200mg) unknown) (unknown) (no (unknown) (unknown) carbon monox (units (u nknown) date) detector in home: unknown) Yes (unknown) (no (unknown) (unknown) care, HIV (units (unkn own) date) education, unknown) Marijuana use, Substance use, Domestic violence, Travel, (unknown) (no (unknown) (unknown) cramping or (units (un known) date) bleeding. Patient unknown) does report that nausea was worse over the (unknown) (no (unknown) (unknown) current (units (unkno wn) date) occupational unknown) exposures/hazards : No (unknown) (no (unknown) (unknown) daily servings (units (unknown) date) fruits/ve-1 unknown) (unknown) (no (unknown) (unknown) defects. Care in (units (unknown) date) our clinic and unknown) aneuploidy screening discussed. Antepartum (unknown) (no (unknown) (unknown) described, visit (units (unknown) date) schedule unknown) reviewed, ultrasounds policy reviewed, coverage 24 (unknown) (no (unknown) (unknown) discussed and (units ( unknown) date) ordered. unknown) Antepartum precautions discussed. (unknown) (no (unknown) (unknown) discussed (units (unkno wn) date) precautions for unknown) return. Ovaries not visualized on TAUS today. Declines (unknown) (no (unknown) (unknown) discussed, (units (unk nown) date) tuberculosis unknown) exposure discussed, CMV discussed, Toxoplasmosis (unknown) (no (unknown) (unknown) disorders, (units (unk nown) date) Denies Cystic unknown) Fibrosis, Denies Mental Retardation/Autis m, Denies (unknown) (no (unknown) (unknown) do you feel safe (units (unknown) date) at home: Yes unknown) (unknown) (no (unknown) (unknown) during the past (units (unknown) date) year weight has: unknown) remained stable (unknown) (no (unknown) (unknown) education level: (units (unknown) date) other (YVONNE) unknown) (unknown) (no (unknown) (unknown) endorse at (units (unk nown) date) initial visit. unknown) (unknown) (no (unknown) (unknown) fire (units (unkno wn) date) extinguisher in unknown) home: No (unknown) (no (unknown) (unknown) firearms in (units (un known) date) home: No unknown) (unknown) (no (unknown) (unknown) have occurred. (units (unknown) date) If there are any unknown) questions, please contact the Medical Records (unknown) (no (unknown) (unknown) hours a day and (units (unknown) date) participation of unknown) father in care and office visits (unknown) (no (unknown) (unknown) household (units (unkn own) date) members: spouse unknown) (unknown) (no (unknown) (unknown) housing: house (units (unknown) date) unknown) (unknown) (no (unknown) (unknown) ks (units (unkno wn) date) unknown) (unknown) (no (unknown) (unknown) lives (units (unkno wn) date) independently: unknown) Yes (unknown) (no (unknown) (unknown) marital status: (units (unknown) date) unknown) (unknown) (no (unknown) (unknown) may occur. (units (unk nown) date) Occasional unknown) wrong-word or 'sound-alike' substitutions may have (unknown) (no (unknown) (unknown) movement. No (units (u nknown) date) other symptoms or unknown) concerns, anatomy scan already scheduled. MSAFP (unknown) (no (unknown) (unknown) noticed foul odor (units (unknown) date) of last unknown) week and some debris in naval denies any pain (unknown) (no (unknown) (unknown) number of (units (unkn own) date) children: 0 unknown) (unknown) (no (unknown) (unknown) occupational (units (u nknown) date) status: employed unknown) (unknown) (no (unknown) (unknown) occurred due to (units (unknown) date) the inherent unknown) limitations of voice recognition software. Please (unknown) (no (unknown) (unknown) pets and (units (unkno wn) date) animals: No unknown) (unknown) (no (unknown) (unknown) placenta 1.8 cm (units (unknown) date) from os unknown) posteriorly, discussed follow up at 28 weeks. Also 88%, (unknown) (no (unknown) (unknown) precautions (units (un known) date) discussed. unknown) (unknown) (no (unknown) (unknown) precautions, (units (u nknown) date) Listeriosis unknown) prevention and Rubella Immunization (unknown) (no (unknown) (unknown) predating her (units ( unknown) date) . UA unknown) wnl, plans to try OTC monistat 7 instead of Affirm, (unknown) (no (unknown) (unknown) read the note (units ( unknown) date) carefully and unknown) recognize, using context, where these substitutions (unknown) (no (unknown) (unknown) reports feeling (units (unknown) date) movement, no ctx unknown) no LOF or VB. Recent anatomy scan showing (unknown) (no (unknown) (unknown) reports feeling (units (unknown) date) well with no UTI unknown) sx, no cramping or bleeding, starting to feel (unknown) (no (unknown) (unknown) seatbelt use: (units ( unknown) date) always unknown) (unknown) (no (unknown) (unknown) second hand (units (un known) date) exposure: No unknown) (unknown) (no (unknown) (unknown) software. (units (unkn own) date) Although every unknown) effort is made to edit content, director family errors (unknown) (no (unknown) (unknown) spotting and RLQ (units (unknown) date) cramping. Viable unknown) SIUP seen via TAUS, +movement. 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 (unknown) (no (unknown) (unknown) well-balanced (units ( unknown) date) diet: about half unknown) the time (unknown) (no (unknown) (unknown) will do growth (units (unknown) date) US at that time. unknown) Antepartum precautions discussed. (unknown) (no (unknown) (unknown) working smoke (units ( unknown) date) detector in home: unknown) Yes Result panel 4 (unknown) (no (unknown) (unknown) (no value) (units (unk nown) date) unknown) (unknown) (no (unknown) (unknown) 10/20/19 5-6 (units (u nknown) date) spontaneous unknown) (unknown) (no (unknown) (unknown) N Yes no (units (unknown) date) 146 absent unknown) 4 wks (unknown) (no (unknown) (unknown) N Yes no (units (unknown) date) 150 21 unknown) absent 4 wks (unknown) (no (unknown) (unknown) This patient is (units (unknown) date) a 25yo @11+0 unknown) presenting to follow up 10 days of brown (unknown) (no (unknown) (unknown) This patient is (units (unknown) date) a 25yo @12+4 unknown) presenting for routine obstetric care. (unknown) (no (unknown) (unknown) This patient is (units (unknown) date) a 25yo @16+4 unknown) presenting for routine OB care. Patient (unknown) (no (unknown) (unknown) This patient is (units (unknown) date) a 25yo @22+0 unknown) presenting for routine OB care. Patient (unknown) (no (unknown) (unknown) This patient is (units (unknown) date) a 25yo @23+5 unknown) presenting for an unscheduled visit due (unknown) (no (unknown) (unknown) This patient is (units (unknown) date) a 25yo unknown) @8+4 presenting to initiate care. (unknown) (no (unknown) (unknown) (no value) (units (unk nown) date) unknown) (unknown) (no (unknown) (unknown) none (units (unkno wn) date) unknown) (unknown) (no (unknown) (unknown) (no value) (units (unk nown) date) unknown) (unknown) (no (unknown) (unknown) (+2 lb 1 oz) (units (u nknown) date) 104/58 N unknown) (unknown) (no (unknown) (unknown) (+2 lb 3 oz) (units (u nknown) date) 106/60 N unknown) (unknown) (no (unknown) (unknown) (+20 lb) (units (unkno wn) date) 92/58 N unknown) (unknown) (no (unknown) (unknown) (+22 lb) (units (unkno wn) date) 106/62 unknown) (unknown) (no (unknown) (unknown) (+3 lb) (units (unkno wn) date) 100/60 N unknown) (unknown) (no (unknown) (unknown) (+9 lb 7 oz) (units (u nknown) date) 110/60 N unknown) (unknown) (no (unknown) (unknown) 04/19/21 (units (unkno wn) date) unknown) (unknown) (no (unknown) (unknown) 05/06/21 (units (unkno wn) date) unknown) (unknown) (no (unknown) (unknown) 05/17/21 (units (unkno wn) date) unknown) (unknown) (no (unknown) (unknown) 06/14/21 (units (unkno wn) date) unknown) (unknown) (no (unknown) (unknown) 07/22/21 (units (unkno wn) date) unknown) (unknown) (no (unknown) (unknown) 08/03/21 (units (unkno wn) date) unknown) (unknown) (no (unknown) (unknown) 08/03/21 1414 (units ( unknown) date) unknown) (unknown) (no (unknown) (unknown) 11w 0d 113 lb (units (unknown) date) unknown) (unknown) (no (unknown) (unknown) 12w 4d 112 lb (units (unknown) date) 3 oz unknown) (unknown) (no (unknown) (unknown) 13:40 (units (unkno wn) date) unknown) (unknown) (no (unknown) (unknown) 16w 4d 119 lb (units (unknown) date) 7 oz unknown) (unknown) (no (unknown) (unknown) 22w 0d 130 lb (units (unknown) date) unknown) (unknown) (no (unknown) (unknown) 23w 5d 132 lb (units (unknown) date) unknown) (unknown) (no (unknown) (unknown) 8w 4d 112 lb (units (unknown) date) 1 oz unknown) (unknown) (no (unknown) (unknown) ROSARIO Jeong (units ( unknown) date) 19702 unknown) (unknown) (no (unknown) (unknown) Current Estimate (units (unknown) date) 11/25/21 unknown) Ultrasound #1 23w 5d (unknown) (no (unknown) (unknown) Estimated (units (unkn own) date) Delivery Date unknown) Method Current (unknown) (no (unknown) (unknown) [facility]) (unknown) (no (unknown) (unknown) KF (units (unkno wn) date) unknown) (unknown) (no (unknown) (unknown) N 167 (units (unkno wn) date) absent wnl unknown) (unknown) (no (unknown) (unknown) OB Office Visit (units (unknown) date) unknown) (unknown) (no (unknown) (unknown) Other Estimates (units (unknown) date) 11/09/21 unknown) LMP (Uncertain) 26w 0d (unknown) (no (unknown) (unknown) Signed (units (unkno wn) date) unknown) (unknown) (no (unknown) (unknown) TR 152 (units (unkn own) date) absent 4 w unknown) (unknown) (no (unknown) (unknown) TR 164 (units (unkn own) date) absent wnl unknown) (unknown) (no (unknown) (unknown) Yes no (units (u nknown) date) 153 absent unknown) (unknown) (no (unknown) (unknown) (no value) (units (unk nown) date) unknown) (unknown) (no (unknown) (unknown) 4 wks (units (unkno wn) date) unknown) (unknown) (no (unknown) (unknown) as scheduled (units (u nknown) date) unknown) (unknown) (no (unknown) (unknown) Genetic (units (unkn own) date) Screening/Teratol unknown) ogy Counseling - Includes patient, baby's father, or (unknown) (no (unknown) (unknown) - Bipolar - (units (un known) date) Stable on unknown) lamotrigine, fluoxitine, and wellbutrin. Of note, did not (unknown) (no (unknown) (unknown) - Declined (units (unk nown) date) aneuploidy unknown) screening, for MSAFP (unknown) (no (unknown) (unknown) - New OB labs (units ( unknown) date) showed UTI, for unknown) MCKENZIE- sent 05/17 (unknown) (no (unknown) (unknown) - Placenta low (units (unknown) date) lying at 1.8cm, unknown) for follow up at 28 weeks. (unknown) (no (unknown) (unknown) - Varicella (units (un known) date) non-immune unknown) (unknown) (no (unknown) (unknown) -?-?-?-?-?-?-?-? (units (unknown) date) -?-?-?-?- unknown) (unknown) (no (unknown) (unknown) [id number] (units (unkn own) date) unknown) (unknown) (no (unknown) (unknown) 08/03/21 (units (unkno wn) date) unknown) (unknown) (no (unknown) (unknown) Abnormal lab (units (u nknown) date) values 1st unknown) trimester: discussed (unknown) (no (unknown) (unknown) Abnormal lab (units (u nknown) date) values 2nd unknown) trimester: discussed (unknown) (no (unknown) (unknown) Add'l Plan (units (unk nown) date) Details unknown) (unknown) (no (unknown) (unknown) Age/Sex: 25 / F (units (unknown) date) Date of unknown) Service: (unknown) (no (unknown) (unknown) Allergies (units (unkn own) date) unknown) (unknown) (no (unknown) (unknown) Aneuploidy (units (unk nown) date) Screening unknown) Offered: Accepted (considering options) (unknown) (no (unknown) (unknown) Anticipated (units (un known) date) course of unknown) care: discussed (unknown) (no (unknown) (unknown) Assessment and (units (unknown) date) Plan unknown) (unknown) (no (unknown) (unknown) Attending Dr: (units ( unknown) date) Katharine Martinez MD unknown) (unknown) (no (unknown) (unknown) BMI 25.7 (units (un known) date) unknown) (unknown) (no (unknown) (unknown) BP 106/62 (units (u nknown) date) unknown) (unknown) (no (unknown) (unknown) (units (unkno wn) date) Plan/Preferences unknown) (unknown) (no (unknown) (unknown) Planning (units (unknown) date) unknown) (unknown) (no (unknown) (unknown) Blood Pressure (units (unknown) date) Location Rt unknown) brachial (unknown) (no (unknown) (unknown) Blood (units (unkno wn) date) transfusions?: unknown) yes (unknown) (no (unknown) (unknown) Breastfeed (units (unk nown) date) Preg Comp Name unknown) (unknown) (no (unknown) (unknown) CRL, no gross (units ( unknown) date) abnormalities unknown) noted. Ovaries not visualized. (unknown) (no (unknown) (unknown) Caffeine use, (units ( unknown) date) Exercise and unknown) activity, work/environmenta l/hazards, Sexual (unknown) (no (unknown) (unknown) Childbirth (units (unk nown) date) Classes: unknown) discussed (unknown) (no (unknown) (unknown) Current (units (unkno wn) date) History unknown) (unknown) (no (unknown) (unknown) : 1995 (units (unknown) date) Acct:[id number] unknown) (unknown) (no (unknown) (unknown) Date (units (unkno wn) date) unknown) (unknown) (no (unknown) (unknown) Date of positive (units (unknown) date) home unknown) test: 03/20/21 (unknown) (no (unknown) (unknown) Del. Date (units (unkn own) date) GA/Weeks Labor unknown) Lgth Wt Sex Route Outcome Anesthesia Place (unknown) (no (unknown) (unknown) Delv (units (unkno wn) date) unknown) (unknown) (no (unknown) (unknown) Denies Congenital (units (unknown) date) Heart Defect, unknown) Denies Down Syndrome, Denies Muscular Dystrophy, (unknown) (no (unknown) (unknown) Denies Maternal (units (unknown) date) Metabolic unknown) Disorder (EG,TYPE 1 Diabetes, PKU), Denies Patient or (unknown) (no (unknown) (unknown) Denies Neural (units ( unknown) date) Tube Defect unknown) (Meningomyelocele , Spina Bifida, or Anencephaly), (unknown) (no (unknown) (unknown) Denies Sickle (units ( unknown) date) Cell Disease or unknown) Trait (), Denies Hemophilia or other blood (unknown) (no (unknown) (unknown) Denies Moustapha-Sachs (units (unknown) date) (Ashkenazi unknown) Adventism, Cajun, English Nigerien), Denies Sebastián (unknown) (no (unknown) (unknown) Denies other (units (u nknown) date) unknown) (unknown) (no (unknown) (unknown) Denies over the (units (unknown) date) counter unknown) medications, Denies alcohol, Denies illicit drugs and (unknown) (no (unknown) (unknown) Depression: (units (un known) date) discussed unknown) (unknown) (no (unknown) (unknown) Dept at (units (unkno wn) date) . unknown) (unknown) (no (unknown) (unknown) Diet and (units (unkno wn) date) Exercise unknown) (unknown) (no (unknown) (unknown) Discussed (units (unkn own) date) Zofran. Patient unknown) declines aneuploidy screening, MSAFP at next visit. (unknown) (no (unknown) (unknown) Disease (units (unkno wn) date) (Ashkenazi unknown) Adventism), Denies Familial Dysautonomia (Ashkenazi Adventism), (unknown) (no (unknown) (unknown) Documented By: (units (unknown) date) Katharine Martinez MD unknown) 08/03/21 1352 (unknown) (no (unknown) (unknown) RERE Calculator (units (unknown) date) unknown) (unknown) (no (unknown) (unknown) EGA Weight BP (units ( unknown) date) UGlucose unknown) (unknown) (no (unknown) (unknown) Family History (units (unknown) date) (Updated 04/08/21 unknown) @ 08:07 by Sena Espinal RN) (unknown) (no (unknown) (unknown) Father (units (unkno wn) date) Metabolic unknown) syndrome (unknown) (no (unknown) (unknown) Father of Baby: (units (unknown) date) Abiam unknown) (unknown) (no (unknown) (unknown) First Trimester (units (unknown) date) Education unknown) Checklist (unknown) (no (unknown) (unknown) Monday naval was (units (unknown) date) 'full of liquid' unknown) pt flushed w/bulb syringe (unknown) (no (unknown) (unknown) Genetic (units (unkno wn) date) Screening unknown) (unknown) (no (unknown) (unknown) Genetic (units (unkno wn) date) Screening + unknown) Counseling (unknown) (no (unknown) (unknown) Grandmother (units (un known) date) Breast cancer unknown) (unknown) (no (unknown) (unknown) 2 (units (unknown) date) Multiple unknown) births (unknown) (no (unknown) (unknown) H/O wisdom tooth (units (unknown) date) extraction unknown) (unknown) (no (unknown) (unknown) HIV risk (units (unkno wn) date) evaluation: low unknown) risk (unknown) (no (unknown) (unknown) Health Center (units ( unknown) date) Education unknown) (unknown) (no (unknown) (unknown) Health center (units ( unknown) date) information: unknown) nature of practice discussed, personnel (unknown) (no (unknown) (unknown) Height 5 ft (units (unknown) date) unknown) (unknown) (no (unknown) (unknown) Hepatitis C risk (units (unknown) date) evaluation: low unknown) risk (unknown) (no (unknown) (unknown) History of (units (unk nown) date) Hepatitis B: No unknown) (unknown) (no (unknown) (unknown) History of (units (unk nown) date) Hepatitis C: No unknown) (unknown) (no (unknown) (unknown) History of PCOS (units (unknown) date) unknown) (unknown) (no (unknown) (unknown) [facility] ([facility] unknown) (unknown) (no (unknown) (unknown) Vahid's (units (u nknown) date) Chorea, Denies unknown) Other inherited genetic or chromosomal disorder, (unknown) (no (unknown) (unknown) Hx # (units (u nknown) date) Pregnancies unknown) Elective abortions (unknown) (no (unknown) (unknown) Hx # Term (units (unkn own) date) Pregnancies unknown) Ectopic pregnancies (unknown) (no (unknown) (unknown) will be (units (unknown) date) adopted?: no unknown) (unknown) (no (unknown) (unknown) Infection (units (unkn own) date) History unknown) (unknown) (no (unknown) (unknown) Infectious (units (unk nown) date) Disease Education unknown) (unknown) (no (unknown) (unknown) Infectious (units (unk nown) date) disease exposure: unknown) chicken pox immunity discussed, hepatitis risk (unknown) (no (unknown) (unknown) Initial Weight: (units (unknown) date) 110 lb unknown) (unknown) (no (unknown) (unknown) Initials (units (unkno wn) date) unknown) (unknown) (no (unknown) (unknown) Intake (units (unkno wn) date) unknown) (unknown) (no (unknown) (unknown) Intake Note: (units (u nknown) date) unknown) (unknown) (no (unknown) (unknown) Live with (units (unkn own) date) someone with TB unknown) or exposed to TB: No (unknown) (no (unknown) (unknown) Loc: [facility] (units (unkno wn) date) unknown) (unknown) (no (unknown) (unknown) Marital status: (units (unknown) date) unknown) (unknown) (no (unknown) (unknown) Medical History (units (unknown) date) (Updated 04/08/21 unknown) @ 08:06 by Sena Espinal RN) (unknown) (no (unknown) (unknown) No Known Drug (units ( unknown) date) Allergies Allergy unknown) (Unverified 07/22/21 15:29) (unknown) (no (unknown) (unknown) Notes (units (unkno wn) date) unknown) (unknown) (no (unknown) (unknown) Number of Living (units (unknown) date) Children unknown) (unknown) (no (unknown) (unknown) Number of (units (unkn own) date) fetuses:: Single unknown) (unknown) (no (unknown) (unknown) Nutrition and (units ( unknown) date) weight gain unknown) counseling: special diet: discussed (unknown) (no (unknown) (unknown) OB Visit Log (units (u nknown) date) unknown) (unknown) (no (unknown) (unknown) On control (units (unknown) date) at conception?: unknown) No (unknown) (no (unknown) (unknown) PFSH (units (unkno wn) date) unknown) (unknown) (no (unknown) (unknown) Para 0 (units ( unknown) date) Spontaneous unknown) abortions 1 (unknown) (no (unknown) (unknown) Partner history (units (unknown) date) of STD: denies hx unknown) (unknown) (no (unknown) (unknown) Partner history (units (unknown) date) of genital unknown) herpes: No (unknown) (no (unknown) (unknown) Partner: Abiam (units (unknown) date) unknown) (unknown) (no (unknown) (unknown) Past Pregnancies (units (unknown) date) unknown) (unknown) (no (unknown) (unknown) Patient was (units (un known) date) recently treated unknown) for UTI with resolution of symptoms, no further (unknown) (no (unknown) (unknown) Patient's age 33 (units (unknown) date) years or older as unknown) of estimated date of delivery: No (unknown) (no (unknown) (unknown) Patient: (units (unkno wn) date) Sally Thurston Y unknown) MR#: M (unknown) (no (unknown) (unknown) 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) (unknown) (no (unknown) (unknown) Personal history (units (unknown) date) of STD: denies hx unknown) (unknown) (no (unknown) (unknown) Personal history (units (unknown) date) of genital unknown) herpes: No (unknown) (no (unknown) (unknown) Position (units (unkno wn) date) Sitting unknown) (unknown) (no (unknown) (unknown) (units (unkn own) date) History unknown) (unknown) (no (unknown) (unknown) type:: (units (unknown) date) Other Normal unknown) (unknown) (no (unknown) (unknown) (units (unkno wn) date) Education unknown) (unknown) (no (unknown) (unknown) Initial (units (unknown) date) Assessment unknown) (unknown) (no (unknown) (unknown) (units (unkno wn) date) Specific unknown) Issues/Plans (unknown) (no (unknown) (unknown) (units (unkno wn) date) Testing: unknown) discussed (unknown) (no (unknown) (unknown) Visit (units (unknown) date) unknown) (unknown) (no (unknown) (unknown) (units (unkno wn) date) education packet: unknown) Child education/plan, symptoms, (unknown) (no (unknown) (unknown) Primary Care (units (u nknown) date) Provider: MANISH unknownSaeid Summers (unknown) (no (unknown) (unknown) Primary Ob (units (unk nown) date) Provider: unknown) Katharine Martinez (unknown) (no (unknown) (unknown) Providers (units (unkn own) date) unknown) (unknown) (no (unknown) (unknown) 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 (unknown) (no (unknown) (unknown) Rash or viral (units ( unknown) date) illness since unknown) last menstrual period: No (unknown) (no (unknown) (unknown) Reason For Visit (units (unknown) date) unknown) (unknown) (no (unknown) (unknown) Recurrent (units (unkn own) date) loss or unknown) a stillbirth: No (unknown) (no (unknown) (unknown) Safety (units (unkno wn) date) unknown) (unknown) (no (unknown) (unknown) Seatbelt use and (units (unknown) date) Influenza vaccine unknown) (ad thia fall) (unknown) (no (unknown) (unknown) Second Trimester (units (unknown) date) Education unknown) Checklist (unknown) (no (unknown) (unknown) Signed By: (units (unk nown) date) <Electronically unknown) signed by Katharine Martinez MD> (unknown) (no (unknown) (unknown) Smoking Status: (units (unknown) date) Never smoker unknown) (unknown) (no (unknown) (unknown) Social History (units (unknown) date) unknown) (unknown) (no (unknown) (unknown) Surgical History (units (unknown) date) (Updated 04/08/21 unknown) @ 08:06 by Sena Espinal RN) (unknown) (no (unknown) (unknown) Surrogate (units (unkn own) date) ?: no unknown) (unknown) (no (unknown) (unknown) Symptoms since (units (unknown) date) LMP: Reports unknown) amenorrhea, nausea, vomiting, breast tenderness, (unknown) (no (unknown) (unknown) Tdap status: (units (u nknown) date) immunized unknown) (unknown) (no (unknown) (unknown) Teratogen (units (unkn own) date) Exposures since unknown) LMP/Conception: Denies prescription medications, (unknown) (no (unknown) (unknown) Testing (units (unkno wn) date) Education unknown) (unknown) (no (unknown) (unknown) Testing (units (unkno wn) date) education unknown) completed: Genetic testing, group B strep and Spina bifida (unknown) (no (unknown) (unknown) The patient has (units (unknown) date) irregular menses, unknown) and was dated by ultrasound today. She denies (unknown) (no (unknown) (unknown) The umbilicus (units ( unknown) date) was cleaned with unknown) a chlorhexadine swab, and we discussed keeping (unknown) (no (unknown) (unknown) This note may (units ( unknown) date) have been all or unknown) partially generated using voice recognition (unknown) (no (unknown) (unknown) Tobacco + (units (unkn own) date) Substance Use unknown) (unknown) (no (unknown) (unknown) Tobacco Status (units (unknown) date) unknown) (unknown) (no (unknown) (unknown) Type(s) of (units (unk nown) date) exercise: unknown) irregular exercise (unknown) (no (unknown) (unknown) UProtein Movement (units (unknown) date) PreLabor FHR Fndl unknown) Ht Pres Edema Cerv Exam US/Comment Next Appt (unknown) (no (unknown) (unknown) Ultrasound (units (unk nown) date) unknown) (unknown) (no (unknown) (unknown) Ultrasound (units (unk nown) date) Details:: TAUS unknown) performed. Viable SIUP visualized measuring 8+4 by (unknown) (no (unknown) (unknown) Varicella/chicke (units (unknown) date) n pox status: unknown) immunized (unknown) (no (unknown) (unknown) Visit Date: (units (un known) date) 04/19/21 Last unknown) Updated by: Katharine Martinez MD (unknown) (no (unknown) (unknown) Visit Date: (units (un known) date) 05/06/21 Last unknown) Updated by: Katharine Martinez MD (unknown) (no (unknown) (unknown) Visit Date: (units (un known) date) 05/17/21 Last unknown) Updated by: Katharine Martinez MD (unknown) (no (unknown) (unknown) Visit Date: (units (un known) date) 06/14/21 Last unknown) Updated by: Katharine Martinez MD (unknown) (no (unknown) (unknown) Visit Date: (units (un known) date) 07/22/21 Last unknown) Updated by: Katharine Martinez MD (unknown) (no (unknown) (unknown) Visit Date: (units (un known) date) 08/03/21 Last unknown) Updated by: Katharine Martinez MD (unknown) (no (unknown) (unknown) Visit Reasons: (units (unknown) date) 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 unknown) (unknown) (no (unknown) (unknown) Vitals (units (unkno wn) date) unknown) (unknown) (no (unknown) (unknown) Vitamins and (units (u nknown) date) iron, Diet and unknown) weight gain, Fish and mercury intake, Smoking, (unknown) (no (unknown) (unknown) WG (units (unkno wn) date) unknown) (unknown) (no (unknown) (unknown) Weight 132 lb (units (unknown) date) unknown) (unknown) (no (unknown) (unknown) Zika virus (units (unk nown) date) exposure: No unknown) (unknown) (no (unknown) (unknown) activity, X-ray (units (unknown) date) exposure, unknown) Medication use, ETOH use, Sauna/hot tub use, Dental (unknown) (no (unknown) (unknown) alcohol intake: (units (unknown) date) former (stopped unknown) with , always light) (unknown) (no (unknown) (unknown) aneuploidy (units (unk nown) date) screening. unknown) (unknown) (no (unknown) (unknown) any significant (units (unknown) date) history, unknown) medications for bipolar disorder were discussed with (unknown) (no (unknown) (unknown) anyone in either (units (unknown) date) family with: unknown) (unknown) (no (unknown) (unknown) baby's father (units ( unknown) date) had a child with unknown) defects not listed above and Denies Other (unknown) (no (unknown) (unknown) bloating and (units (u nknown) date) other (night unknown) sweats, constipation) (unknown) (no (unknown) (unknown) but no other (units (u nknown) date) abnormal unknown) discharge. Patient today reports longstanding dizziness (unknown) (no (unknown) (unknown) caffeine: Yes (units ( unknown) date) (200mg) unknown) (unknown) (no (unknown) (unknown) carbon monox (units (u nknown) date) detector in home: unknown) Yes (unknown) (no (unknown) (unknown) care, HIV (units (unkn own) date) education, unknown) Marijuana use, Substance use, Domestic violence, Travel, (unknown) (no (unknown) (unknown) cramping or (units (un known) date) bleeding. Patient unknown) does report that nausea was worse over the (unknown) (no (unknown) (unknown) current (units (unkno wn) date) occupational unknown) exposures/hazards : No (unknown) (no (unknown) (unknown) daily servings (units (unknown) date) fruits/ve-1 unknown) (unknown) (no (unknown) (unknown) defects. Care in (units (unknown) date) our clinic and unknown) aneuploidy screening discussed. Antepartum (unknown) (no (unknown) (unknown) described, visit (units (unknown) date) schedule unknown) reviewed, ultrasounds policy reviewed, coverage 24 (unknown) (no (unknown) (unknown) despite her (units (un known) date) efforts to keep unknown) the area clean with a bulb syringe. She denies (unknown) (no (unknown) (unknown) discussed and (units ( unknown) date) ordered. unknown) Antepartum precautions discussed. (unknown) (no (unknown) (unknown) discussed (units (unkno wn) date) precautions for unknown) return. Ovaries not visualized on TAUS today. Declines (unknown) (no (unknown) (unknown) discussed, (units (unk nown) date) tuberculosis unknown) exposure discussed, CMV discussed, Toxoplasmosis (unknown) (no (unknown) (unknown) disorders, (units (unk nown) date) Denies Cystic unknown) Fibrosis, Denies Mental Retardation/Autis m, Denies (unknown) (no (unknown) (unknown) do you feel safe (units (unknown) date) at home: Yes unknown) (unknown) (no (unknown) (unknown) during the past (units (unknown) date) year weight has: unknown) remained stable (unknown) (no (unknown) (unknown) education level: (units (unknown) date) other (YVONNE) unknown) (unknown) (no (unknown) (unknown) encouraged to (units ( unknown) date) call with any unknown) questions or concerns. (unknown) (no (unknown) (unknown) endorse at (units (unk nown) date) initial visit. unknown) (unknown) (no (unknown) (unknown) fevers, chills, (units (unknown) date) or any other unknown) symptoms or obstetrical complaints. The area was (unknown) (no (unknown) (unknown) fire (units (unkno wn) date) extinguisher in unknown) home: No (unknown) (no (unknown) (unknown) firearms in (units (un known) date) home: No unknown) (unknown) (no (unknown) (unknown) green, opaque (units ( unknown) date) drainage from her unknown) belly button. This has continued intermittently (unknown) (no (unknown) (unknown) have occurred. (units (unknown) date) If there are any unknown) questions, please contact the Medical Records (unknown) (no (unknown) (unknown) hours a day and (units (unknown) date) participation of unknown) father in care and office visits (unknown) (no (unknown) (unknown) household (units (unkn own) date) members: spouse unknown) (unknown) (no (unknown) (unknown) housing: house (units (unknown) date) unknown) (unknown) (no (unknown) (unknown) ks (units (unkno wn) date) unknown) (unknown) (no (unknown) (unknown) lives (units (unkno wn) date) independently: unknown) Yes (unknown) (no (unknown) (unknown) marital status: (units (unknown) date) unknown) (unknown) (no (unknown) (unknown) may occur. (units (unk nown) date) Occasional unknown) wrong-word or 'sound-alike' substitutions may have (unknown) (no (unknown) (unknown) movement. No (units (u nknown) date) other symptoms or unknown) concerns, anatomy scan already scheduled. MSAFP (unknown) (no (unknown) (unknown) noted to be (units (un known) date) mildly unknown) erythmatous. A forceps was used to spread the umbilicus and (unknown) (no (unknown) (unknown) noticed foul odor (units (unknown) date) of last unknown) week and some debris in naval denies any pain (unknown) (no (unknown) (unknown) number of (units (unkn own) date) children: 0 unknown) (unknown) (no (unknown) (unknown) occupational (units (u nknown) date) status: employed unknown) (unknown) (no (unknown) (unknown) occurred due to (units (unknown) date) the inherent unknown) limitations of voice recognition software. Please (unknown) (no (unknown) (unknown) pets and (units (unkno wn) date) animals: No unknown) (unknown) (no (unknown) (unknown) placenta 1.8 cm (units (unknown) date) from os unknown) posteriorly, discussed follow up at 28 weeks. Also 88%, (unknown) (no (unknown) (unknown) precautions (units (un known) date) discussed. unknown) (unknown) (no (unknown) (unknown) precautions, (units (u nknown) date) Listeriosis unknown) prevention and Rubella Immunization (unknown) (no (unknown) (unknown) predating her (units ( unknown) date) . UA unknown) wnl, plans to try OTC monistat 7 instead of Affirm, (unknown) (no (unknown) (unknown) read the note (units ( unknown) date) carefully and unknown) recognize, using context, where these substitutions (unknown) (no (unknown) (unknown) reports feeling (units (unknown) date) movement, no ctx unknown) no LOF or VB. Recent anatomy scan showing (unknown) (no (unknown) (unknown) reports feeling (units (unknown) date) well with no UTI unknown) sx, no cramping or bleeding, starting to feel (unknown) (no (unknown) (unknown) seatbelt use: (units ( unknown) date) always unknown) (unknown) (no (unknown) (unknown) second hand (units (un known) date) exposure: No unknown) (unknown) (no (unknown) (unknown) software. (units (unkn own) date) Although every unknown) effort is made to edit content, director family errors (unknown) (no (unknown) (unknown) spotting and RLQ (units (unknown) date) cramping. Viable unknown) SIUP seen via TAUS, +movement. Reports the (unknown) (no (unknown) (unknown) spotting has (units (un known) date) resolved and the unknown) cramping remains moderate, some vaginal irritation (unknown) (no (unknown) (unknown) still having (units (u nknown) date) small amount of unknown) discharge (unknown) (no (unknown) (unknown) substance use (units ( unknown) date) type: does not unknown) use (unknown) (no (unknown) (unknown) testing (units (unkno wn) date) unknown) (unknown) (no (unknown) (unknown) the area clean (units (unknown) date) and dry, using unknown) topical antifungal cream, and monitoring. She was (unknown) (no (unknown) (unknown) to belly button (units (unknown) date) drainage. 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 (unknown) (no (unknown) (unknown) water heater (units (u nknown) date) temp set < 120 unknown) deg: Yes (will check) (unknown) (no (unknown) (unknown) weekend, did (units (u nknown) date) have streaks of unknown) blood in her vomit x1 that has since resolved. (unknown) (no (unknown) (unknown) well-balanced (units ( unknown) date) diet: about half unknown) the time (unknown) (no (unknown) (unknown) will do growth (units (unknown) date) US at that time. unknown) Antepartum precautions discussed. (unknown) (no (unknown) (unknown) working smoke (units ( unknown) date) detector in home: unknown) Yes Result panel 5 (unknown) (no date) (unknown) (unknown) 12.0 g/dL (unkn own) (unknown) (no date) (unknown) (unknown) 34.3 % (unkn own) Result panel 6 (unknown) (no (unknown) (unknown) (no value) (units (unk nown) date) unknown) (unknown) (no (unknown) (unknown) 10/20/19 5-6 (units (u nknown) date) spontaneous unknown) (unknown) (no (unknown) (unknown) N Yes no (units (unknown) date) 146 absent unknown) 4 wks (unknown) (no (unknown) (unknown) N Yes no (units (unknown) date) 150 21 unknown) absent 4 wks (unknown) (no (unknown) (unknown) This patient is (units (unknown) date) a 25yo @11+0 unknown) presenting to follow up 10 days of brown (unknown) (no (unknown) (unknown) This patient is (units (unknown) date) a 25yo @12+4 unknown) presenting for routine obstetric care. (unknown) (no (unknown) (unknown) This patient is (units (unknown) date) a 25yo @16+4 unknown) presenting for routine OB care. Patient (unknown) (no (unknown) (unknown) This patient is (units (unknown) date) a 25yo @22+0 unknown) presenting for routine OB care. Patient (unknown) (no (unknown) (unknown) This patient is (units (unknown) date) a 25yo @23+5 unknown) presenting for an unscheduled visit due (unknown) (no (unknown) (unknown) This patient is (units (unknown) date) a 25yo unknown) @8+4 presenting to initiate care. (unknown) (no (unknown) (unknown) (no value) (units (unk nown) date) unknown) (unknown) (no (unknown) (unknown) none (units (unkno wn) date) unknown) (unknown) (no (unknown) (unknown) (no value) (units (unk nown) date) unknown) (unknown) (no (unknown) (unknown) (+2 lb 1 oz) (units (u nknown) date) 104/58 N unknown) (unknown) (no (unknown) (unknown) (+2 lb 3 oz) (units (u nknown) date) 106/60 N unknown) (unknown) (no (unknown) (unknown) (+20 lb) (units (unkno wn) date) 92/58 N unknown) (unknown) (no (unknown) (unknown) (+22 lb) (units (unkno wn) date) 106/62 unknown) (unknown) (no (unknown) (unknown) (+3 lb) (units (unkno wn) date) 100/60 N unknown) (unknown) (no (unknown) (unknown) (+9 lb 7 oz) (units (u nknown) date) 110/60 N unknown) (unknown) (no (unknown) (unknown) 04/19/21 (units (unkno wn) date) unknown) (unknown) (no (unknown) (unknown) 05/06/21 (units (unkno wn) date) unknown) (unknown) (no (unknown) (unknown) 05/17/21 (units (unkno wn) date) unknown) (unknown) (no (unknown) (unknown) 06/14/21 (units (unkno wn) date) unknown) (unknown) (no (unknown) (unknown) 07/22/21 (units (unkno wn) date) unknown) (unknown) (no (unknown) (unknown) 08/03/21 (units (unkno wn) date) unknown) (unknown) (no (unknown) (unknown) 08/23/21 (units (unkno wn) date) unknown) (unknown) (no (unknown) (unknown) 11w 0d 113 lb (units (unknown) date) unknown) (unknown) (no (unknown) (unknown) 12w 4d 112 lb (units (unknown) date) 3 oz unknown) (unknown) (no (unknown) (unknown) 16:38 (units (unkno wn) date) unknown) (unknown) (no (unknown) (unknown) 16w 4d 119 lb (units (unknown) date) 7 oz unknown) (unknown) (no (unknown) (unknown) 22w 0d 130 lb (units (unknown) date) unknown) (unknown) (no (unknown) (unknown) 23w 5d 132 lb (units (unknown) date) unknown) (unknown) (no (unknown) (unknown) 8w 4d 112 lb (units (unknown) date) 1 oz unknown) (unknown) (no (unknown) (unknown) ROSARIO Jeong (units ( unknown) date) [id number] unknown) (unknown) (no (unknown) (unknown) Current Estimate (units (unknown) date) 11/25/21 unknown) Ultrasound #1 26w 4d (unknown) (no (unknown) (unknown) Draft (units (unkno wn) date) unknown) (unknown) (no (unknown) (unknown) Estimated (units (unkn own) date) Delivery Date unknown) Method Current (unknown) (no (unknown) (unknown) [facility] (unknown) (no (unknown) (unknown) [facility] (units (unkno wn) date) unknown) (unknown) (no (unknown) (unknown) N 167 (units (unkno wn) date) absent wnl unknown) (unknown) (no (unknown) (unknown) OB Office Visit (units (unknown) date) unknown) (unknown) (no (unknown) (unknown) Other Estimates (units (unknown) date) 11/09/21 unknown) LMP (Uncertain) 28w 6d (unknown) (no (unknown) (unknown) TR 152 (units (unkn own) date) absent 4 w unknown) (unknown) (no (unknown) (unknown) TR 164 (units (unkn own) date) absent wnl unknown) (unknown) (no (unknown) (unknown) Yes no (units (u nknown) date) 153 absent unknown) (unknown) (no (unknown) (unknown) (no value) (units (unk nown) date) unknown) (unknown) (no (unknown) (unknown) 4 wks (units (unkno wn) date) unknown) (unknown) (no (unknown) (unknown) as scheduled (units (u nknown) date) unknown) (unknown) (no (unknown) (unknown) Genetic (units (unkn own) date) Screening/Teratol unknown) ogy Counseling - Includes patient, baby's father, or (unknown) (no (unknown) (unknown) - Bipolar - (units (un known) date) Stable on unknown) lamotrigine, fluoxitine, and wellbutrin. Of note, did not (unknown) (no (unknown) (unknown) - Declined (units (unk nown) date) aneuploidy unknown) screening, for MSAFP (unknown) (no (unknown) (unknown) - New OB labs (units ( unknown) date) showed UTI, for unknown) MCKENZIE- sent 05/17 (unknown) (no (unknown) (unknown) - Placenta low (units (unknown) date) lying at 1.8cm, unknown) for follow up at 28 weeks. (unknown) (no (unknown) (unknown) - Varicella (units (un known) date) non-immune unknown) (unknown) (no (unknown) (unknown) -?-?-?-?-?-?-?-? (units (unknown) date) -?-?-?-?- unknown) (unknown) (no (unknown) (unknown) [phone] (units (unkn own) date) unknown) (unknown) (no (unknown) (unknown) 08/23/21 (units (unkno wn) date) unknown) (unknown) (no (unknown) (unknown) Abnormal lab (units (u nknown) date) values 1st unknown) trimester: discussed (unknown) (no (unknown) (unknown) Abnormal lab (units (u nknown) date) values 2nd unknown) trimester: discussed (unknown) (no (unknown) (unknown) Add'l Plan (units (unk nown) date) Details unknown) (unknown) (no (unknown) (unknown) Age/Sex: 25 / F (units (unknown) date) Date of unknown) Service: (unknown) (no (unknown) (unknown) Allergies (units (unkn own) date) unknown) (unknown) (no (unknown) (unknown) Aneuploidy (units (unk nown) date) Screening unknown) Offered: Accepted (considering options) (unknown) (no (unknown) (unknown) Anticipated (units (un known) date) course of unknown) care: discussed (unknown) (no (unknown) (unknown) Assessment and (units (unknown) date) Plan unknown) (unknown) (no (unknown) (unknown) Attending Dr: (units ( unknown) date) Katharine Martinez MD unknown) (unknown) (no (unknown) (unknown) BMI 27.1 (units (un known) date) unknown) (unknown) (no (unknown) (unknown) BP 94/52 L (units ( unknown) date) unknown) (unknown) (no (unknown) (unknown) (units (unkno wn) date) Plan/Preferences unknown) (unknown) (no (unknown) (unknown) Planning (units (unknown) date) unknown) (unknown) (no (unknown) (unknown) Blood Pressure (units (unknown) date) Location Rt unknown) brachial (unknown) (no (unknown) (unknown) Blood (units (unkno wn) date) transfusions?: unknown) yes (unknown) (no (unknown) (unknown) Breastfeed (units (unk nown) date) Preg Comp Name unknown) (unknown) (no (unknown) (unknown) CRL, no gross (units ( unknown) date) abnormalities unknown) noted. Ovaries not visualized. (unknown) (no (unknown) (unknown) Caffeine use, (units ( unknown) date) Exercise and unknown) activity, work/environmenta l/hazards, Sexual (unknown) (no (unknown) (unknown) Childbirth (units (unk nown) date) Classes: unknown) discussed (unknown) (no (unknown) (unknown) Current (units (unkno wn) date) History unknown) (unknown) (no (unknown) (unknown) : 1995 (units (unknown) date) Acct:[id number] unknown) (unknown) (no (unknown) (unknown) Date (units (unkno wn) date) unknown) (unknown) (no (unknown) (unknown) Date of positive (units (unknown) date) home unknown) test: 03/20/21 (unknown) (no (unknown) (unknown) Del. Date (units (unkn own) date) GA/Weeks Labor unknown) Lgth Wt Sex Route Outcome Anesthesia Place (unknown) (no (unknown) (unknown) Delv (units (unkno wn) date) unknown) (unknown) (no (unknown) (unknown) Denies Congenital (units (unknown) date) Heart Defect, unknown) Denies Down Syndrome, Denies Muscular Dystrophy, (unknown) (no (unknown) (unknown) Denies Maternal (units (unknown) date) Metabolic unknown) Disorder (EG,TYPE 1 Diabetes, PKU), Denies Patient or (unknown) (no (unknown) (unknown) Denies Neural (units ( unknown) date) Tube Defect unknown) (Meningomyelocele , Spina Bifida, or Anencephaly), (unknown) (no (unknown) (unknown) Denies Sickle (units ( unknown) date) Cell Disease or unknown) Trait (), Denies Hemophilia or other blood (unknown) (no (unknown) (unknown) Denies Moustapha-Sachs (units (unknown) date) (Ashkenazi unknown) Adventism, Cajun, English Nigerien), Denies Sebastián (unknown) (no (unknown) (unknown) Denies other (units (u nknown) date) unknown) (unknown) (no (unknown) (unknown) Denies over the (units (unknown) date) counter unknown) medications, Denies alcohol, Denies illicit drugs and (unknown) (no (unknown) (unknown) Depression: (units (un known) date) discussed unknown) (unknown) (no (unknown) (unknown) Dept at (units (unkno wn) date) . unknown) (unknown) (no (unknown) (unknown) Diet and (units (unkno wn) date) Exercise unknown) (unknown) (no (unknown) (unknown) Discussed (units (unkn own) date) Zofran. Patient unknown) declines aneuploidy screening, MSAFP at next visit. (unknown) (no (unknown) (unknown) Disease (units (unkno wn) date) (Ashkenazi unknown) Adventism), Denies Familial Dysautonomia (Ashkenazi Adventism), (unknown) (no (unknown) (unknown) Documented By: (units (unknown) date) Katharine Martinez MD unknown) 08/23/21 1637 (unknown) (no (unknown) (unknown) RERE Calculator (units (unknown) date) unknown) (unknown) (no (unknown) (unknown) EGA Weight BP (units ( unknown) date) UGlucose unknown) (unknown) (no (unknown) (unknown) Family History (units (unknown) date) (Updated 04/08/21 unknown) @ 08:07 by Sena Espinal RN) (unknown) (no (unknown) (unknown) Father (units (unkno wn) date) Metabolic unknown) syndrome (unknown) (no (unknown) (unknown) Father of Baby: (units (unknown) date) Abiam unknown) (unknown) (no (unknown) (unknown) First Trimester (units (unknown) date) Education unknown) Checklist (unknown) (no (unknown) (unknown) Genetic (units (unkno wn) date) Screening unknown) (unknown) (no (unknown) (unknown) Genetic (units (unkno wn) date) Screening + unknown) Counseling (unknown) (no (unknown) (unknown) Grandmother (units (un known) date) Breast cancer unknown) (unknown) (no (unknown) (unknown) 2 (units (unknown) date) Multiple unknown) births (unknown) (no (unknown) (unknown) H/O wisdom tooth (units (unknown) date) extraction unknown) (unknown) (no (unknown) (unknown) HIV risk (units (unkno wn) date) evaluation: low unknown) risk (unknown) (no (unknown) (unknown) Health Center (units ( unknown) date) Education unknown) (unknown) (no (unknown) (unknown) Health center (units ( unknown) date) information: unknown) nature of practice discussed, personnel (unknown) (no (unknown) (unknown) Height 5 ft (units (unknown) date) unknown) (unknown) (no (unknown) (unknown) Hepatitis C risk (units (unknown) date) evaluation: low unknown) risk (unknown) (no (unknown) (unknown) History of (units (unk nown) date) Hepatitis B: No unknown) (unknown) (no (unknown) (unknown) History of (units (unk nown) date) Hepatitis C: No unknown) (unknown) (no (unknown) (unknown) History of PCOS (units (unknown) date) unknown) (unknown) (no (unknown) (unknown) [facility] (units (u nknown) date) unknown) (unknown) (no (unknown) (unknown) Vahid's (units (u nknown) date) Chorea, Denies unknown) Other inherited genetic or chromosomal disorder, (unknown) (no (unknown) (unknown) Hx # (units (u nknown) date) Pregnancies unknown) Elective abortions (unknown) (no (unknown) (unknown) Hx # Term (units (unkn own) date) Pregnancies unknown) Ectopic pregnancies (unknown) (no (unknown) (unknown) Infant will be (units (unknown) date) adopted?: no unknown) (unknown) (no (unknown) (unknown) Infection (units (unkn own) date) History unknown) (unknown) (no (unknown) (unknown) Infectious (units (unk nown) date) Disease Education unknown) (unknown) (no (unknown) (unknown) Infectious (units (unk nown) date) disease exposure: unknown) chicken pox immunity discussed, hepatitis risk (unknown) (no (unknown) (unknown) Initial Weight: (units (unknown) date) 110 lb unknown) (unknown) (no (unknown) (unknown) Initials (units (unkno wn) date) unknown) (unknown) (no (unknown) (unknown) Intake (units (unkno wn) date) unknown) (unknown) (no (unknown) (unknown) Intake Clinical (units (unknown) date) Staff unknown) (unknown) (no (unknown) (unknown) Intake Note: (units (u nknown) date) unknown) (unknown) (no (unknown) (unknown) Intake performed (units (unknown) date) by: Jeniffer Akers unknown) (unknown) (no (unknown) (unknown) Live with (units (unkn own) date) someone with TB unknown) or exposed to TB: No (unknown) (no (unknown) (unknown) Loc: [facility] (units (unkno wn) date) unknown) (unknown) (no (unknown) (unknown) Marital status: (units (unknown) date) unknown) (unknown) (no (unknown) (unknown) Medical History (units (unknown) date) (Updated 04/08/21 unknown) @ 08:06 by Sena Espinal RN) (unknown) (no (unknown) (unknown) No Known Drug (units ( unknown) date) Allergies Allergy unknown) (Unverified 07/22/21 15:29) (unknown) (no (unknown) (unknown) Notes (units (unkno wn) date) unknown) (unknown) (no (unknown) (unknown) Number of Living (units (unknown) date) Children unknown) (unknown) (no (unknown) (unknown) Number of (units (unkn own) date) fetuses:: Single unknown) (unknown) (no (unknown) (unknown) Nutrition and (units ( unknown) date) weight gain unknown) counseling: special diet: discussed (unknown) (no (unknown) (unknown) OB Visit Log (units (u nknown) date) unknown) (unknown) (no (unknown) (unknown) On control (units (unknown) date) at conception?: unknown) No (unknown) (no (unknown) (unknown) PFSH (units (unkno wn) date) unknown) (unknown) (no (unknown) (unknown) Para 0 (units ( unknown) date) Spontaneous unknown) abortions 1 (unknown) (no (unknown) (unknown) Partner history (units (unknown) date) of STD: denies hx unknown) (unknown) (no (unknown) (unknown) Partner history (units (unknown) date) of genital unknown) herpes: No (unknown) (no (unknown) (unknown) Partner: Abiam (units (unknown) date) unknown) (unknown) (no (unknown) (unknown) Past Pregnancies (units (unknown) date) unknown) (unknown) (no (unknown) (unknown) Patient was (units (un known) date) recently treated unknown) for UTI with resolution of symptoms, no further (unknown) (no (unknown) (unknown) Patient's age 33 (units (unknown) date) years or older as unknown) of estimated date of delivery: No (unknown) (no (unknown) (unknown) Patient: (units (unkno wn) date) Sally Thurston Y unknown) MR#: M (unknown) (no (unknown) (unknown) 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) (unknown) (no (unknown) (unknown) Personal history (units (unknown) date) of STD: denies hx unknown) (unknown) (no (unknown) (unknown) Personal history (units (unknown) date) of genital unknown) herpes: No (unknown) (no (unknown) (unknown) Position (units (unkno wn) date) Sitting unknown) (unknown) (no (unknown) (unknown) (units (unkn own) date) History unknown) (unknown) (no (unknown) (unknown) type:: (units (unknown) date) Other Normal unknown) (unknown) (no (unknown) (unknown) (units (unkno wn) date) Education unknown) (unknown) (no (unknown) (unknown) Initial (units (unknown) date) Assessment unknown) (unknown) (no (unknown) (unknown) (units (unkno wn) date) Specific unknown) Issues/Plans (unknown) (no (unknown) (unknown) (units (unkno wn) date) Testing: unknown) discussed (unknown) (no (unknown) (unknown) Visit (units (unknown) date) unknown) (unknown) (no (unknown) (unknown) (units (unkno wn) date) education packet: unknown) Child education/plan, symptoms, (unknown) (no (unknown) (unknown) Primary Care (units (u nknown) date) Provider: MANISH unknown) Kristopher (unknown) (no (unknown) (unknown) Primary Ob (units (unk nown) date) Provider: unknown) Katharine Martinez (unknown) (no (unknown) (unknown) Providers (units (unkn own) date) unknown) (unknown) (no (unknown) (unknown) Pt here for OB (units (unknown) date) Check unknown) (unknown) (no (unknown) (unknown) Rash or viral (units ( unknown) date) illness since unknown) last menstrual period: No (unknown) (no (unknown) (unknown) Reason For Visit (units (unknown) date) unknown) (unknown) (no (unknown) (unknown) Recurrent (units (unkn own) date) loss or unknown) a stillbirth: No (unknown) (no (unknown) (unknown) Safety (units (unkno wn) date) unknown) (unknown) (no (unknown) (unknown) Seatbelt use and (units (unknown) date) Influenza vaccine unknown) (ad thia fall) (unknown) (no (unknown) (unknown) Second Trimester (units (unknown) date) Education unknown) Checklist (unknown) (no (unknown) (unknown) Signed By: (units (unk nown) date) unknown) (unknown) (no (unknown) (unknown) Smoking Status: (units (unknown) date) Never smoker unknown) (unknown) (no (unknown) (unknown) Social History (units (unknown) date) unknown) (unknown) (no (unknown) (unknown) Surgical History (units (unknown) date) (Updated 04/08/21 unknown) @ 08:06 by Sena Espinal RN) (unknown) (no (unknown) (unknown) Surrogate (units (unkn own) date) ?: no unknown) (unknown) (no (unknown) (unknown) Symptoms since (units (unknown) date) LMP: Reports unknown) amenorrhea, nausea, vomiting, breast tenderness, (unknown) (no (unknown) (unknown) Tdap status: (units (u nknown) date) immunized unknown) (unknown) (no (unknown) (unknown) Teratogen (units (unkn own) date) Exposures since unknown) LMP/Conception: Denies prescription medications, (unknown) (no (unknown) (unknown) Testing (units (unkno wn) date) Education unknown) (unknown) (no (unknown) (unknown) Testing (units (unkno wn) date) education unknown) completed: Genetic testing, group B strep and Spina bifida (unknown) (no (unknown) (unknown) The patient has (units (unknown) date) irregular menses, unknown) and was dated by ultrasound today. She denies (unknown) (no (unknown) (unknown) The umbilicus (units ( unknown) date) was cleaned with unknown) a chlorhexadine swab, and we discussed keeping (unknown) (no (unknown) (unknown) This note may (units ( unknown) date) have been all or unknown) partially generated using voice recognition (unknown) (no (unknown) (unknown) Tobacco + (units (unkn own) date) Substance Use unknown) (unknown) (no (unknown) (unknown) Tobacco Status (units (unknown) date) unknown) (unknown) (no (unknown) (unknown) Trimester:: 2nd (units (unknown) date) Trimester unknown) (14-<28wks) (unknown) (no (unknown) (unknown) Type(s) of (units (unk nown) date) exercise: unknown) irregular exercise (unknown) (no (unknown) (unknown) UProtein Movement (units (unknown) date) PreLabor FHR Fndl unknown) Ht Pres Edema Cerv Exam US/Comment Next Appt (unknown) (no (unknown) (unknown) Ultrasound (units (unk nown) date) unknown) (unknown) (no (unknown) (unknown) Ultrasound (units (unk nown) date) Details:: TAUS unknown) performed. Viable SIUP visualized measuring 8+4 by (unknown) (no (unknown) (unknown) Varicella/chicke (units (unknown) date) n pox status: unknown) immunized (unknown) (no (unknown) (unknown) Visit Date: (units (un known) date) 04/19/21 Last unknown) Updated by: Katharine Martinez MD (unknown) (no (unknown) (unknown) Visit Date: (units (un known) date) 05/06/21 Last unknown) Updated by: Katharine Martinez MD (unknown) (no (unknown) (unknown) Visit Date: (units (un known) date) 05/17/21 Last unknown) Updated by: Katharine Martinez MD (unknown) (no (unknown) (unknown) Visit Date: (units (un known) date) 06/14/21 Last unknown) Updated by: Katharine Martinez MD (unknown) (no (unknown) (unknown) Visit Date: (units (un known) date) 07/22/21 Last unknown) Updated by: Katharine Martinez MD (unknown) (no (unknown) (unknown) Visit Date: (units (un known) date) 08/03/21 Last unknown) Updated by: Katharine Martinez MD (unknown) (no (unknown) (unknown) Visit Reasons: (units (unknown) date) OB Check unknown) (unknown) (no (unknown) (unknown) Vitals (units (unkno wn) date) unknown) (unknown) (no (unknown) (unknown) Vitamins and (units (u nknown) date) iron, Diet and unknown) weight gain, Fish and mercury intake, Smoking, (unknown) (no (unknown) (unknown) WG (units (unkno wn) date) unknown) (unknown) (no (unknown) (unknown) Weeks (units (unkno wn) date) gestation:: 26 unknown) (unknown) (no (unknown) (unknown) Weight 139 lb (units (unknown) date) unknown) (unknown) (no (unknown) (unknown) Zika virus (units (unk nown) date) exposure: No unknown) (unknown) (no (unknown) (unknown) activity, X-ray (units (unknown) date) exposure, unknown) Medication use, ETOH use, Sauna/hot tub use, Dental (unknown) (no (unknown) (unknown) alcohol intake: (units (unknown) date) former (stopped unknown) with , always light) (unknown) (no (unknown) (unknown) aneuploidy (units (unk nown) date) screening. unknown) (unknown) (no (unknown) (unknown) any significant (units (unknown) date) history, unknown) medications for bipolar disorder were discussed with (unknown) (no (unknown) (unknown) anyone in either (units (unknown) date) family with: unknown) (unknown) (no (unknown) (unknown) baby's father (units ( unknown) date) had a child with unknown) defects not listed above and Denies Other (unknown) (no (unknown) (unknown) bloating and (units (u nknown) date) other (night unknown) sweats, constipation) (unknown) (no (unknown) (unknown) but no other (units (u nknown) date) abnormal unknown) discharge. Patient today reports longstanding dizziness (unknown) (no (unknown) (unknown) caffeine: Yes (units ( unknown) date) (200mg) unknown) (unknown) (no (unknown) (unknown) carbon monox (units (u nknown) date) detector in home: unknown) Yes (unknown) (no (unknown) (unknown) care, HIV (units (unkn own) date) education, unknown) Marijuana use, Substance use, Domestic violence, Travel, (unknown) (no (unknown) (unknown) cramping or (units (un known) date) bleeding. Patient unknown) does report that nausea was worse over the (unknown) (no (unknown) (unknown) current (units (unkno wn) date) occupational unknown) exposures/hazards : No (unknown) (no (unknown) (unknown) daily servings (units (unknown) date) fruits/ve-1 unknown) (unknown) (no (unknown) (unknown) defects. Care in (units (unknown) date) our clinic and unknown) aneuploidy screening discussed. Antepartum (unknown) (no (unknown) (unknown) described, visit (units (unknown) date) schedule unknown) reviewed, ultrasounds policy reviewed, coverage 24 (unknown) (no (unknown) (unknown) despite her (units (un known) date) efforts to keep unknown) the area clean with a bulb syringe. She denies (unknown) (no (unknown) (unknown) discussed and (units ( unknown) date) ordered. unknown) Antepartum precautions discussed. (unknown) (no (unknown) (unknown) discussed (units (unkno wn) date) precautions for unknown) return. Ovaries not visualized on TAUS today. Declines (unknown) (no (unknown) (unknown) discussed, (units (unk nown) date) tuberculosis unknown) exposure discussed, CMV discussed, Toxoplasmosis (unknown) (no (unknown) (unknown) disorders, (units (unk nown) date) Denies Cystic unknown) Fibrosis, Denies Mental Retardation/Autis m, Denies (unknown) (no (unknown) (unknown) do you feel safe (units (unknown) date) at home: Yes unknown) (unknown) (no (unknown) (unknown) during the past (units (unknown) date) year weight has: unknown) remained stable (unknown) (no (unknown) (unknown) education level: (units (unknown) date) other (YVONNE) unknown) (unknown) (no (unknown) (unknown) encouraged to (units ( unknown) date) call with any unknown) questions or concerns. (unknown) (no (unknown) (unknown) endorse at (units (unk nown) date) initial visit. unknown) (unknown) (no (unknown) (unknown) fevers, chills, (units (unknown) date) or any other unknown) symptoms or obstetrical complaints. The area was (unknown) (no (unknown) (unknown) fire (units (unkno wn) date) extinguisher in unknown) home: No (unknown) (no (unknown) (unknown) firearms in (units (un known) date) home: No unknown) (unknown) (no (unknown) (unknown) green, opaque (units ( unknown) date) drainage from her unknown) belly button. This has continued intermittently (unknown) (no (unknown) (unknown) have occurred. (units (unknown) date) If there are any unknown) questions, please contact the Medical Records (unknown) (no (unknown) (unknown) hours a day and (units (unknown) date) participation of unknown) father in care and office visits (unknown) (no (unknown) (unknown) household (units (unkn own) date) members: spouse unknown) (unknown) (no (unknown) (unknown) housing: house (units (unknown) date) unknown) (unknown) (no (unknown) (unknown) ks (units (unkno wn) date) unknown) (unknown) (no (unknown) (unknown) lives (units (unkno wn) date) independently: unknown) Yes (unknown) (no (unknown) (unknown) marital status: (units (unknown) date) unknown) (unknown) (no (unknown) (unknown) may occur. (units (unk nown) date) Occasional unknown) wrong-word or 'sound-alike' substitutions may have (unknown) (no (unknown) (unknown) movement. No (units (u nknown) date) other symptoms or unknown) concerns, anatomy scan already scheduled. MSAFP (unknown) (no (unknown) (unknown) noted to be (units (un known) date) mildly unknown) erythmatous. A forceps was used to spread the umbilicus and (unknown) (no (unknown) (unknown) number of (units (unkn own) date) children: 0 unknown) (unknown) (no (unknown) (unknown) occupational (units (u nknown) date) status: employed unknown) (unknown) (no (unknown) (unknown) occurred due to (units (unknown) date) the inherent unknown) limitations of voice recognition software. Please (unknown) (no (unknown) (unknown) pets and (units (unkno wn) date) animals: No unknown) (unknown) (no (unknown) (unknown) placenta 1.8 cm (units (unknown) date) from os unknown) posteriorly, discussed follow up at 28 weeks. Also 88%, (unknown) (no (unknown) (unknown) precautions (units (un known) date) discussed. unknown) (unknown) (no (unknown) (unknown) precautions, (units (u nknown) date) Listeriosis unknown) prevention and Rubella Immunization (unknown) (no (unknown) (unknown) predating her (units ( unknown) date) . UA unknown) wnl, plans to try OTC monistat 7 instead of Affirm, (unknown) (no (unknown) (unknown) read the note (units ( unknown) date) carefully and unknown) recognize, using context, where these substitutions (unknown) (no (unknown) (unknown) reports feeling (units (unknown) date) movement, no ctx unknown) no LOF or VB. Recent anatomy scan showing (unknown) (no (unknown) (unknown) reports feeling (units (unknown) date) well with no UTI unknown) sx, no cramping or bleeding, starting to feel (unknown) (no (unknown) (unknown) seatbelt use: (units ( unknown) date) always unknown) (unknown) (no (unknown) (unknown) second hand (units (un known) date) exposure: No unknown) (unknown) (no (unknown) (unknown) software. (units (unkn own) date) Although every unknown) effort is made to edit content, director family errors (unknown) (no (unknown) (unknown) spotting and RLQ (units (unknown) date) cramping. Viable unknown) SIUP seen via TAUS, +movement. Reports the (unknown) (no (unknown) (unknown) spotting has (units (un known) date) resolved and the unknown) cramping remains moderate, some vaginal irritation (unknown) (no (unknown) (unknown) substance use (units ( unknown) date) type: does not unknown) use (unknown) (no (unknown) (unknown) testing (units (unkno wn) date) unknown) (unknown) (no (unknown) (unknown) the area clean (units (unknown) date) and dry, using unknown) topical antifungal cream, and monitoring. She was (unknown) (no (unknown) (unknown) to belly button (units (unknown) date) drainage. 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 (unknown) (no (unknown) (unknown) water heater (units (u nknown) date) temp set < 120 unknown) deg: Yes (will check) (unknown) (no (unknown) (unknown) weekend, did (units (u nknown) date) have streaks of unknown) blood in her vomit x1 that has since resolved. (unknown) (no (unknown) (unknown) well-balanced (units ( unknown) date) diet: about half unknown) the time (unknown) (no (unknown) (unknown) will do growth (units (unknown) date) US at that time. unknown) Antepartum precautions discussed. (unknown) (no (unknown) (unknown) working smoke (units ( unknown) date) detector in home: unknown) Yes Result panel 7 (unknown) (no date) (unknown) (unknown) 132 mg/dL (unkn own) Result panel 8 (unknown) (no (unknown) (unknown) (no value) (units (unk nown) date) unknown) (unknown) (no (unknown) (unknown) 10/20/19 5-6 (units (u nknown) date) spontaneous unknown) (unknown) (no (unknown) (unknown) N Yes no (units (unknown) date) 146 absent unknown) 4 wks (unknown) (no (unknown) (unknown) N Yes no (units (unknown) date) 150 21 unknown) absent 4 wks (unknown) (no (unknown) (unknown) This patient is (units (unknown) date) a 25yo @11+0 unknown) presenting to follow up 10 days of brown (unknown) (no (unknown) (unknown) This patient is (units (unknown) date) a 25yo @12+4 unknown) presenting for routine obstetric care. (unknown) (no (unknown) (unknown) This patient is (units (unknown) date) a 25yo @16+4 unknown) presenting for routine OB care. Patient (unknown) (no (unknown) (unknown) This patient is (units (unknown) date) a 25yo @22+0 unknown) presenting for routine OB care. Patient (unknown) (no (unknown) (unknown) This patient is (units (unknown) date) a 25yo @23+5 unknown) presenting for an unscheduled visit due (unknown) (no (unknown) (unknown) This patient is (units (unknown) date) a 25yo @26+4 unknown) presenting for routine care. (unknown) (no (unknown) (unknown) This patient is (units (unknown) date) a 25yo unknown) @8+4 presenting to initiate care. (unknown) (no (unknown) (unknown) (no value) (units (unk nown) date) unknown) (unknown) (no (unknown) (unknown) none (units (unkno wn) date) unknown) (unknown) (no (unknown) (unknown) (no value) (units (unk nown) date) unknown) (unknown) (no (unknown) (unknown) (+2 lb 1 oz) (units (u nknown) date) 104/58 N unknown) (unknown) (no (unknown) (unknown) (+2 lb 3 oz) (units (u nknown) date) 106/60 N unknown) (unknown) (no (unknown) (unknown) (+20 lb) (units (unkno wn) date) 92/58 N unknown) (unknown) (no (unknown) (unknown) (+22 lb) (units (unkno wn) date) 106/62 unknown) (unknown) (no (unknown) (unknown) (+29 lb) (units (unkno wn) date) 94/52 N unknown) (unknown) (no (unknown) (unknown) (+3 lb) (units (unkno wn) date) 100/60 N unknown) (unknown) (no (unknown) (unknown) (+9 lb 7 oz) (units (u nknown) date) 110/60 N unknown) (unknown) (no (unknown) (unknown) 04/19/21 (units (unkno wn) date) unknown) (unknown) (no (unknown) (unknown) 05/06/21 (units (unkno wn) date) unknown) (unknown) (no (unknown) (unknown) 05/17/21 (units (unkno wn) date) unknown) (unknown) (no (unknown) (unknown) 06/14/21 (units (unkno wn) date) unknown) (unknown) (no (unknown) (unknown) 07/22/21 (units (unkno wn) date) unknown) (unknown) (no (unknown) (unknown) 08/03/21 (units (unkno wn) date) unknown) (unknown) (no (unknown) (unknown) 08/23/21 (units (unkno wn) date) unknown) (unknown) (no (unknown) (unknown) 08/24/21 1558 (units ( unknown) date) unknown) (unknown) (no (unknown) (unknown) 11w 0d 113 lb (units (unknown) date) unknown) (unknown) (no (unknown) (unknown) 12w 4d 112 lb (units (unknown) date) 3 oz unknown) (unknown) (no (unknown) (unknown) 16:38 (units (unkno wn) date) unknown) (unknown) (no (unknown) (unknown) 16w 4d 119 lb (units (unknown) date) 7 oz unknown) (unknown) (no (unknown) (unknown) 22w 0d 130 lb (units (unknown) date) unknown) (unknown) (no (unknown) (unknown) 23w 5d 132 lb (units (unknown) date) unknown) (unknown) (no (unknown) (unknown) 26w 4d 139 lb (units (unknown) date) unknown) (unknown) (no (unknown) (unknown) 8w 4d 112 lb (units (unknown) date) 1 oz unknown) (unknown) (no (unknown) (unknown) [place], [place] (units ( unknown) date) [id number] unknown) (unknown) (no (unknown) (unknown) Current Estimate (units (unknown) date) 11/25/21 unknown) Ultrasound #1 26w 5d (unknown) (no (unknown) (unknown) Estimated (units (unkn own) date) Delivery Date unknown) Method Current (unknown) (no (unknown) (unknown) [facility]) (unknown) (no (unknown) (unknown) KF (units (unkno wn) date) unknown) (unknown) (no (unknown) (unknown) N 167 (units (unkno wn) date) absent wnl unknown) (unknown) (no (unknown) (unknown) OB Office Visit (units (unknown) date) unknown) (unknown) (no (unknown) (unknown) Other Estimates (units (unknown) date) 11/09/21 unknown) LMP (Uncertain) 29w 0d (unknown) (no (unknown) (unknown) Signed (units (unkno wn) date) unknown) (unknown) (no (unknown) (unknown) TR 152 (units (unkn own) date) absent 4 w unknown) (unknown) (no (unknown) (unknown) TR 164 (units (unkn own) date) absent wnl unknown) (unknown) (no (unknown) (unknown) TR (units (unkno wn) date) unknown) (unknown) (no (unknown) (unknown) Yes no (units (u nknown) date) 153 absent unknown) (unknown) (no (unknown) (unknown) (no value) (units (unk nown) date) unknown) (unknown) (no (unknown) (unknown) N Yes no (units (unknown) date) 148 27 unknown) Breech absent See below 3 (unknown) (no (unknown) (unknown) 4 wks (units (unkno wn) date) unknown) (unknown) (no (unknown) (unknown) as scheduled (units (u nknown) date) unknown) (unknown) (no (unknown) (unknown) Genetic (units (unkn own) date) Screening/Teratol unknown) ogy Counseling - Includes patient, baby's father, or (unknown) (no (unknown) (unknown) - Bipolar - (units (un known) date) Stable on unknown) lamotrigine, fluoxitine, and wellbutrin. Of note, did not (unknown) (no (unknown) (unknown) - Declined (units (unk nown) date) aneuploidy unknown) screening, MSAFP wnl (unknown) (no (unknown) (unknown) - New OB labs (units ( unknown) date) showed UTI, for unknown) MCKENZIE- sent 05/17 (unknown) (no (unknown) (unknown) - Placenta (units (unk nown) date) previously low unknown) lying, resolved (unknown) (no (unknown) (unknown) - Varicella (units (un known) date) non-immune unknown) (unknown) (no (unknown) (unknown) -?-?-?-?-?-?-?-? (units (unknown) date) -?-?-?-?- unknown) (unknown) (no (unknown) (unknown) [id number] (units (unkn own) date) unknown) (unknown) (no (unknown) (unknown) 08/23/21 (units (unkno wn) date) unknown) (unknown) (no (unknown) (unknown) 2#2, 53%, MVP (units ( unknown) date) 4.3cm. Breech unknown) presentation. Antepartum precautions discussed. (unknown) (no (unknown) (unknown) Abnormal lab (units (u nknown) date) values 1st unknown) trimester: discussed (unknown) (no (unknown) (unknown) Abnormal lab (units (u nknown) date) values 2nd unknown) trimester: discussed (unknown) (no (unknown) (unknown) Add'l Plan (units (unk nown) date) Details unknown) (unknown) (no (unknown) (unknown) Age/Sex: 25 / F (units (unknown) date) Date of unknown) Service: (unknown) (no (unknown) (unknown) Allergies (units (unkn own) date) unknown) (unknown) (no (unknown) (unknown) Aneuploidy (units (unk nown) date) Screening unknown) Offered: Accepted (considering options) (unknown) (no (unknown) (unknown) Anticipated (units (un known) date) course of unknown) care: discussed (unknown) (no (unknown) (unknown) Assessment and (units (unknown) date) Plan unknown) (unknown) (no (unknown) (unknown) Attending Dr: (units ( unknown) date) Katharine Martinez MD unknown) (unknown) (no (unknown) (unknown) BMI 27.1 (units (un known) date) unknown) (unknown) (no (unknown) (unknown) BP 94/52 L (units ( unknown) date) unknown) (unknown) (no (unknown) (unknown) (units (unkno wn) date) Plan/Preferences unknown) (unknown) (no (unknown) (unknown) Planning (units (unknown) date) unknown) (unknown) (no (unknown) (unknown) Blood Pressure (units (unknown) date) Location Rt unknown) brachial (unknown) (no (unknown) (unknown) Blood (units (unkno wn) date) transfusions?: unknown) yes (unknown) (no (unknown) (unknown) Breastfeed (units (unk nown) date) Preg Comp Name unknown) (unknown) (no (unknown) (unknown) CRL, no gross (units ( unknown) date) abnormalities unknown) noted. Ovaries not visualized. (unknown) (no (unknown) (unknown) Caffeine use, (units ( unknown) date) Exercise and unknown) activity, work/environmenta l/hazards, Sexual (unknown) (no (unknown) (unknown) Childbirth (units (unk nown) date) Classes: unknown) discussed (unknown) (no (unknown) (unknown) Current (units (unkno wn) date) History unknown) (unknown) (no (unknown) (unknown) : 1995 (units (unknown) date) Acct:[id number] unknown) (unknown) (no (unknown) (unknown) Date (units (unkno wn) date) unknown) (unknown) (no (unknown) (unknown) Date of positive (units (unknown) date) home unknown) test: 03/20/21 (unknown) (no (unknown) (unknown) Del. Date (units (unkn own) date) GA/Weeks Labor unknown) Lgth Wt Sex Route Outcome Anesthesia Place (unknown) (no (unknown) (unknown) Delv (units (unkno wn) date) unknown) (unknown) (no (unknown) (unknown) Denies Congenital (units (unknown) date) Heart Defect, unknown) Denies Down Syndrome, Denies Muscular Dystrophy, (unknown) (no (unknown) (unknown) Denies Neural (units ( unknown) date) Tube Defect unknown) (Meningomyelocele , Spina Bifida, or Anencephaly), (unknown) (no (unknown) (unknown) Denies Sickle (units ( unknown) date) Cell Disease or unknown) Trait (), Denies Hemophilia or other blood (unknown) (no (unknown) (unknown) Denies Moustapha-Sachs (units (unknown) date) (Ashkenazi unknown) Adventism, Cajun, English Nigerien), Denies Sebastián (unknown) (no (unknown) (unknown) Denies other (units (u nknown) date) unknown) (unknown) (no (unknown) (unknown) Denies over the (units (unknown) date) counter unknown) medications, Denies alcohol, Denies illicit drugs and (unknown) (no (unknown) (unknown) Depression: (units (un known) date) discussed unknown) (unknown) (no (unknown) (unknown) Dept at (units (unkno wn) date) . unknown) (unknown) (no (unknown) (unknown) Diet and (units (unkno wn) date) Exercise unknown) (unknown) (no (unknown) (unknown) Discussed (units (unkn own) date) Zofran. Patient unknown) declines aneuploidy screening, MSAFP at next visit. (unknown) (no (unknown) (unknown) Disease (units (unkno wn) date) (Ashkenazi unknown) Adventism), Denies Familial Dysautonomia (Ashkenazi Adventism), (unknown) (no (unknown) (unknown) Documented By: (units (unknown) date) [place],Katharine RAMÍREZ unknown) 08/23/21 1637 (unknown) (no (unknown) (unknown) RERE Calculator (units (unknown) date) unknown) (unknown) (no (unknown) (unknown) EGA Weight BP (units ( unknown) date) UGlucose unknown) (unknown) (no (unknown) (unknown) Family History (units (unknown) date) (Updated 04/08/21 unknown) @ 08:07 by Sena Espinal RN) (unknown) (no (unknown) (unknown) Father (units (unkno wn) date) Metabolic unknown) syndrome (unknown) (no (unknown) (unknown) Father of Baby: (units (unknown) date) Abiam unknown) (unknown) (no (unknown) (unknown) First Trimester (units (unknown) date) Education unknown) Checklist (unknown) (no (unknown) (unknown) Genetic (units (unkno wn) date) Screening unknown) (unknown) (no (unknown) (unknown) Genetic (units (unkno wn) date) Screening + unknown) Counseling (unknown) (no (unknown) (unknown) Grandmother (units (un known) date) Breast cancer unknown) (unknown) (no (unknown) (unknown) 2 (units (unknown) date) Multiple unknown) births (unknown) (no (unknown) (unknown) H/O wisdom tooth (units (unknown) date) extraction unknown) (unknown) (no (unknown) (unknown) HIV risk (units (unkno wn) date) evaluation: low unknown) risk (unknown) (no (unknown) (unknown) Health Center (units ( unknown) date) Education unknown) (unknown) (no (unknown) (unknown) Health center (units ( unknown) date) information: unknown) nature of practice discussed, personnel (unknown) (no (unknown) (unknown) Height 5 ft (units (unknown) date) unknown) (unknown) (no (unknown) (unknown) Hepatitis C risk (units (unknown) date) evaluation: low unknown) risk (unknown) (no (unknown) (unknown) History of (units (unk nown) date) Hepatitis B: No unknown) (unknown) (no (unknown) (unknown) History of (units (unk nown) date) Hepatitis C: No unknown) (unknown) (no (unknown) (unknown) History of PCOS (units (unknown) date) unknown) (unknown) (no (unknown) (unknown) [facility] (units (u [facility]known[facility]) unknown) (unknown) (no (unknown) (unknown) [facility] (units (u nknown) date) Chorea, Denies unknown) Other inherited genetic or chromosomal disorder, De (unknown) (no (unknown) (unknown) Hx # (units (u nknown) date) Pregnancies unknown) Elective abortions (unknown) (no (unknown) (unknown) Hx # Term (units (unkn own) date) Pregnancies unknown) Ectopic pregnancies (unknown) (no (unknown) (unknown) will be (units (unknown) date) adopted?: no unknown) (unknown) (no (unknown) (unknown) Infection (units (unkn own) date) History unknown) (unknown) (no (unknown) (unknown) Infectious (units (unk nown) date) Disease Education unknown) (unknown) (no (unknown) (unknown) Infectious (units (unk nown) date) disease exposure: unknown) chicken pox immunity discussed, hepatitis risk (unknown) (no (unknown) (unknown) Initial Weight: (units (unknown) date) 110 lb unknown) (unknown) (no (unknown) (unknown) Initials (units (unkno wn) date) unknown) (unknown) (no (unknown) (unknown) Intake (units (unkno wn) date) unknown) (unknown) (no (unknown) (unknown) Intake Clinical (units (unknown) date) Staff unknown) (unknown) (no (unknown) (unknown) Intake Note: (units (u nknown) date) unknown) (unknown) (no (unknown) (unknown) Intake performed (units (unknown) date) by: Jeniffer Akers unknown) (unknown) (no (unknown) (unknown) Live with (units (unkn own) date) someone with TB unknown) or exposed to TB: No (unknown) (no (unknown) (unknown) Loc: [facility] (units (unkno wn) date) unknown) (unknown) (no (unknown) (unknown) Marital status: (units (unknown) date) unknown) (unknown) (no (unknown) (unknown) Medical History (units (unknown) date) (Updated 04/08/21 unknown) @ 08:06 by Sena Espinal RN) (unknown) (no (unknown) (unknown) No Known Drug (units ( unknown) date) Allergies Allergy unknown) (Unverified 07/22/21 15:29) (unknown) (no (unknown) (unknown) Notes (units (unkno wn) date) unknown) (unknown) (no (unknown) (unknown) Number of Living (units (unknown) date) Children unknown) (unknown) (no (unknown) (unknown) Number of (units (unkn own) date) fetuses:: Single unknown) (unknown) (no (unknown) (unknown) Nutrition and (units ( unknown) date) weight gain unknown) counseling: special diet: discussed (unknown) (no (unknown) (unknown) OB Visit Log (units (u nknown) date) unknown) (unknown) (no (unknown) (unknown) On control (units (unknown) date) at conception?: unknown) No (unknown) (no (unknown) (unknown) PFSH (units (unkno wn) date) unknown) (unknown) (no (unknown) (unknown) Para 0 (units ( unknown) date) Spontaneous unknown) abortions 1 (unknown) (no (unknown) (unknown) Partner history (units (unknown) date) of STD: denies hx unknown) (unknown) (no (unknown) (unknown) Partner history (units (unknown) date) of genital unknown) herpes: No (unknown) (no (unknown) (unknown) Partner: Abiam (units (unknown) date) unknown) (unknown) (no (unknown) (unknown) Past Pregnancies (units (unknown) date) unknown) (unknown) (no (unknown) (unknown) Patient was (units (un known) date) recently treated unknown) for UTI with resolution of symptoms, no further (unknown) (no (unknown) (unknown) Patient's age 33 (units (unknown) date) years or older as unknown) of estimated date of delivery: No (unknown) (no (unknown) (unknown) Patient: (units (unkno wn) date) Sally Tuhrston unknown) MR#: M (unknown) (no (unknown) (unknown) 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) (unknown) (no (unknown) (unknown) Personal history (units (unknown) date) of STD: denies hx unknown) (unknown) (no (unknown) (unknown) Personal history (units (unknown) date) of genital unknown) herpes: No (unknown) (no (unknown) (unknown) Position (units (unkno wn) date) Sitting unknown) (unknown) (no (unknown) (unknown) (units (unkn own) date) History unknown) (unknown) (no (unknown) (unknown) type:: (units (unknown) date) Other Normal unknown) (unknown) (no (unknown) (unknown) (units (unkno wn) date) Education unknown) (unknown) (no (unknown) (unknown) Initial (units (unknown) date) Assessment unknown) (unknown) (no (unknown) (unknown) (units (unkno wn) date) Specific unknown) Issues/Plans (unknown) (no (unknown) (unknown) (units (unkno wn) date) Testing: unknown) discussed (unknown) (no (unknown) (unknown) Visit (units (unknown) date) unknown) (unknown) (no (unknown) (unknown) (units (unkno wn) date) education packet: unknown) Child education/plan, symptoms, (unknown) (no (unknown) (unknown) Primary Care (units (u nknown) date) Provider: MANISH unknown) Kristopher (unknown) (no (unknown) (unknown) Primary Ob (units (unk nown) date) Provider: unknown) Katharine Martinez (unknown) (no (unknown) (unknown) Providers (units (unkn own) date) unknown) (unknown) (no (unknown) (unknown) Pt here for OB (units (unknown) date) Check unknown) (unknown) (no (unknown) (unknown) Rash or viral (units ( unknown) date) illness since unknown) last menstrual period: No (unknown) (no (unknown) (unknown) Reason For Visit (units (unknown) date) unknown) (unknown) (no (unknown) (unknown) Recurrent (units (unkn own) date) loss or unknown) a stillbirth: No (unknown) (no (unknown) (unknown) Referred for 3rd (units (unknown) date) tri labs. unknown) (unknown) (no (unknown) (unknown) Reports good (units (u nknown) date) movement, unknown) no LOF or VB, no ctx, no further umbilical drain (unknown) (no (unknown) (unknown) Safety (units (unkno wn) date) unknown) (unknown) (no (unknown) (unknown) Seatbelt use and (units (unknown) date) Influenza vaccine unknown) (ad thia fall) (unknown) (no (unknown) (unknown) Second Trimester (units (unknown) date) Education unknown) Checklist (unknown) (no (unknown) (unknown) Signed By: (units (unk nown) date) <Electronically unknown) signed by Katharine Martinez MD> (unknown) (no (unknown) (unknown) Smoking Status: (units (unknown) date) Never smoker unknown) (unknown) (no (unknown) (unknown) Social History (units (unknown) date) unknown) (unknown) (no (unknown) (unknown) Surgical History (units (unknown) date) (Updated 04/08/21 unknown) @ 08:06 by Sena Espinal RN) (unknown) (no (unknown) (unknown) Surrogate (units (unkn own) date) ?: no unknown) (unknown) (no (unknown) (unknown) Symptoms since (units (unknown) date) LMP: Reports unknown) amenorrhea, nausea, vomiting, breast tenderness, (unknown) (no (unknown) (unknown) Tdap status: (units (u nknown) date) immunized unknown) (unknown) (no (unknown) (unknown) Teratogen (units (unkn own) date) Exposures since unknown) LMP/Conception: Denies prescription medications, (unknown) (no (unknown) (unknown) Testing (units (unkno wn) date) Education unknown) (unknown) (no (unknown) (unknown) Testing (units (unkno wn) date) education unknown) completed: Genetic testing, group B strep and Spina bifida (unknown) (no (unknown) (unknown) The patient has (units (unknown) date) irregular menses, unknown) and was dated by ultrasound today. She denies (unknown) (no (unknown) (unknown) The umbilicus (units ( unknown) date) was cleaned with unknown) a chlorhexadine swab, and we discussed keeping (unknown) (no (unknown) (unknown) This note may (units ( unknown) date) have been all or unknown) partially generated using voice recognition (unknown) (no (unknown) (unknown) Tobacco + (units (unkn own) date) Substance Use unknown) (unknown) (no (unknown) (unknown) Tobacco Status (units (unknown) date) unknown) (unknown) (no (unknown) (unknown) Trimester:: 2nd (units (unknown) date) Trimester unknown) (14-<28wks) (unknown) (no (unknown) (unknown) Type(s) of (units (unk nown) date) exercise: unknown) irregular exercise (unknown) (no (unknown) (unknown) UProtein Movement (units (unknown) date) PreLabor FHR Fndl unknown) Ht Pres Edema Cerv Exam US/Comment Next Appt (unknown) (no (unknown) (unknown) Ultrasound (units (unk nown) date) unknown) (unknown) (no (unknown) (unknown) Ultrasound (units (unk nown) date) Details:: TAUS unknown) performed. Viable SIUP visualized measuring 8+4 by (unknown) (no (unknown) (unknown) Varicella/chicke (units (unknown) date) n pox status: unknown) immunized (unknown) (no (unknown) (unknown) Visit Date: (units (un known) date) 04/19/21 Last unknown) Updated by: Katharine Martinez MD (unknown) (no (unknown) (unknown) Visit Date: (units (un known) date) 05/06/21 Last unknown) Updated by: Katharine Martinez MD (unknown) (no (unknown) (unknown) Visit Date: (units (un known) date) 05/17/21 Last unknown) Updated by: Katharine Martinez MD (unknown) (no (unknown) (unknown) Visit Date: (units (un known) date) 06/14/21 Last unknown) Updated by: Katharine Martinez MD (unknown) (no (unknown) (unknown) Visit Date: (units (un known) date) 07/22/21 Last unknown) Updated by: Katharine Martinez MD (unknown) (no (unknown) (unknown) Visit Date: (units (un known) date) 08/03/21 Last unknown) Updated by: Katharine Martinez MD (unknown) (no (unknown) (unknown) Visit Date: (units (un known) date) 08/23/21 Last unknown) Updated by: Katharine Martinez MD (unknown) (no (unknown) (unknown) Visit Reasons: (units (unknown) date) OB Check unknown) (unknown) (no (unknown) (unknown) Vitals (units (unkno wn) date) unknown) (unknown) (no (unknown) (unknown) Vitamins and (units (u nknown) date) iron, Diet and unknown) weight gain, Fish and mercury intake, Smoking, (unknown) (no (unknown) (unknown) WG (units (unkno wn) date) unknown) (unknown) (no (unknown) (unknown) Weeks (units (unkno wn) date) gestation:: 26 unknown) (unknown) (no (unknown) (unknown) Weight 139 lb (units (unknown) date) unknown) (unknown) (no (unknown) (unknown) Zika virus (units (unk nown) date) exposure: No unknown) (unknown) (no (unknown) (unknown) activity, X-ray (units (unknown) date) exposure, unknown) Medication use, ETOH use, Sauna/hot tub use, Dental (unknown) (no (unknown) (unknown) age. TVUS (units (unkno wn) date) performed and unknown) placenta now >4cm from cervix. Growth US performed and (unknown) (no (unknown) (unknown) alcohol intake: (units (unknown) date) former (stopped unknown) with , always light) (unknown) (no (unknown) (unknown) aneuploidy (units (unk nown) date) screening. unknown) (unknown) (no (unknown) (unknown) any significant (units (unknown) date) history, unknown) medications for bipolar disorder were discussed with (unknown) (no (unknown) (unknown) anyone in either (units (unknown) date) family with: unknown) (unknown) (no (unknown) (unknown) baby's father (units ( unknown) date) had a child with unknown) defects not listed above and Denies Other (unknown) (no (unknown) (unknown) bloating and (units (u nknown) date) other (night unknown) sweats, constipation) (unknown) (no (unknown) (unknown) but no other (units (u nknown) date) abnormal unknown) discharge. Patient today reports longstanding dizziness (unknown) (no (unknown) (unknown) caffeine: Yes (units ( unknown) date) (200mg) unknown) (unknown) (no (unknown) (unknown) carbon monox (units (u nknown) date) detector in home: unknown) Yes (unknown) (no (unknown) (unknown) care, HIV (units (unkn own) date) education, unknown) Marijuana use, Substance use, Domestic violence, Travel, (unknown) (no (unknown) (unknown) cramping or (units (un known) date) bleeding. Patient unknown) does report that nausea was worse over the (unknown) (no (unknown) (unknown) current (units (unkno wn) date) occupational unknown) exposures/hazards : No (unknown) (no (unknown) (unknown) daily servings (units (unknown) date) fruits/ve-1 unknown) (unknown) (no (unknown) (unknown) defects. Care in (units (unknown) date) our clinic and unknown) aneuploidy screening discussed. Antepartum (unknown) (no (unknown) (unknown) described, visit (units (unknown) date) schedule unknown) reviewed, ultrasounds policy reviewed, coverage 24 (unknown) (no (unknown) (unknown) despite her (units (un known) date) efforts to keep unknown) the area clean with a bulb syringe. She denies (unknown) (no (unknown) (unknown) discussed and (units ( unknown) date) ordered. unknown) Antepartum precautions discussed. (unknown) (no (unknown) (unknown) discussed (units (unkno wn) date) precautions for unknown) return. Ovaries not visualized on TAUS today. Declines (unknown) (no (unknown) (unknown) discussed, (units (unk nown) date) tuberculosis unknown) exposure discussed, CMV discussed, Toxoplasmosis (unknown) (no (unknown) (unknown) disorders, (units (unk nown) date) Denies Cystic unknown) Fibrosis, Denies Mental Retardation/Autis m, Denies (unknown) (no (unknown) (unknown) do you feel safe (units (unknown) date) at home: Yes unknown) (unknown) (no (unknown) (unknown) during the past (units (unknown) date) year weight has: unknown) remained stable (unknown) (no (unknown) (unknown) education level: (units (unknown) date) other (YVONNE) unknown) (unknown) (no (unknown) (unknown) encouraged to (units ( unknown) date) call with any unknown) questions or concerns. (unknown) (no (unknown) (unknown) endorse at (units (unk nown) date) initial visit. unknown) (unknown) (no (unknown) (unknown) fevers, chills, (units (unknown) date) or any other unknown) symptoms or obstetrical complaints. The area was (unknown) (no (unknown) (unknown) fire (units (unkno wn) date) extinguisher in unknown) home: No (unknown) (no (unknown) (unknown) firearms in (units (un known) date) home: No unknown) (unknown) (no (unknown) (unknown) green, opaque (units ( unknown) date) drainage from her unknown) belly button. This has continued intermittently (unknown) (no (unknown) (unknown) have occurred. (units (unknown) date) If there are any unknown) questions, please contact the Medical Records (unknown) (no (unknown) (unknown) hours a day and (units (unknown) date) participation of unknown) father in care and office visits (unknown) (no (unknown) (unknown) household (units (unkn own) date) members: spouse unknown) (unknown) (no (unknown) (unknown) housing: house (units (unknown) date) unknown) (unknown) (no (unknown) (unknown) ks (units (unkno wn) date) unknown) (unknown) (no (unknown) (unknown) lives (units (unkno wn) date) independently: unknown) Yes (unknown) (no (unknown) (unknown) marital status: (units (unknown) date) unknown) (unknown) (no (unknown) (unknown) may occur. (units (unk nown) date) Occasional unknown) wrong-word or 'sound-alike' substitutions may have (unknown) (no (unknown) (unknown) movement. No (units (u nknown) date) other symptoms or unknown) concerns, anatomy scan already scheduled. MSAFP (unknown) (no (unknown) (unknown) nies Maternal (units ( unknown) date) Metabolic unknown) Disorder (EG,TYPE 1 Diabetes, PKU), Denies Patient or (unknown) (no (unknown) (unknown) noted to be (units (un known) date) mildly unknown) erythmatous. A forceps was used to spread the umbilicus and (unknown) (no (unknown) (unknown) number of (units (unkn own) date) children: 0 unknown) (unknown) (no (unknown) (unknown) occupational (units (u nknown) date) status: employed unknown) (unknown) (no (unknown) (unknown) occurred due to (units (unknown) date) the inherent unknown) limitations of voice recognition software. Please (unknown) (no (unknown) (unknown) pets and (units (unkno wn) date) animals: No unknown) (unknown) (no (unknown) (unknown) placenta 1.8 cm (units (unknown) date) from os unknown) posteriorly, discussed follow up at 28 weeks. Also 88%, (unknown) (no (unknown) (unknown) precautions (units (un known) date) discussed. unknown) (unknown) (no (unknown) (unknown) precautions, (units (u nknown) date) Listeriosis unknown) prevention and Rubella Immunization (unknown) (no (unknown) (unknown) predating her (units ( unknown) date) . UA unknown) wnl, plans to try OTC monistat 7 instead of Affirm, (unknown) (no (unknown) (unknown) read the note (units ( unknown) date) carefully and unknown) recognize, using context, where these substitutions (unknown) (no (unknown) (unknown) reports feeling (units (unknown) date) movement, no ctx unknown) no LOF or VB. Recent anatomy scan showing (unknown) (no (unknown) (unknown) reports feeling (units (unknown) date) well with no UTI unknown) sx, no cramping or bleeding, starting to feel (unknown) (no (unknown) (unknown) seatbelt use: (units ( unknown) date) always unknown) (unknown) (no (unknown) (unknown) second hand (units (un known) date) exposure: No unknown) (unknown) (no (unknown) (unknown) software. (units (unkn own) date) Although every unknown) effort is made to edit content, director family errors (unknown) (no (unknown) (unknown) spotting and RLQ (units (unknown) date) cramping. Viable unknown) SIUP seen via TAUS, +movement. Reports the (unknown) (no (unknown) (unknown) spotting has (units (un known) date) resolved and the unknown) cramping remains moderate, some vaginal irritation (unknown) (no (unknown) (unknown) substance use (units ( unknown) date) type: does not unknown) use (unknown) (no (unknown) (unknown) testing (units (unkno wn) date) unknown) (unknown) (no (unknown) (unknown) the area clean (units (unknown) date) and dry, using unknown) topical antifungal cream, and monitoring. She was (unknown) (no (unknown) (unknown) to belly button (units (unknown) date) drainage. 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 (unknown) (no (unknown) (unknown) water heater (units (u nknown) date) temp set < 120 unknown) deg: Yes (will check) (unknown) (no (unknown) (unknown) weekend, did (units (u nknown) date) have streaks of unknown) blood in her vomit x1 that has since resolved. (unknown) (no (unknown) (unknown) well-balanced (units ( unknown) date) diet: about half unknown) the time (unknown) (no (unknown) (unknown) will do growth (units (unknown) date) US at that time. unknown) Antepartum precautions discussed. (unknown) (no (unknown) (unknown) wks (units (unkno wn) date) unknown) (unknown) (no (unknown) (unknown) working smoke (units ( unknown) date) detector in home: unknown) Yes Result panel 9 (unknown) (no (unknown) (unknown) (no value) (units (unk nown) date) unknown) (unknown) (no (unknown) (unknown) 10/20/19 5-6 (units (u nknown) date) spontaneous unknown) (unknown) (no (unknown) (unknown) N Yes no (units (unknown) date) 146 absent unknown) 4 wks (unknown) (no (unknown) (unknown) N Yes no (units (unknown) date) 150 21 unknown) absent 4 wks (unknown) (no (unknown) (unknown) This patient is (units (unknown) date) a 25yo @11+0 unknown) presenting to follow up 10 days of brown (unknown) (no (unknown) (unknown) This patient is (units (unknown) date) a 25yo @12+4 unknown) presenting for routine obstetric care. (unknown) (no (unknown) (unknown) This patient is (units (unknown) date) a 25yo @16+4 unknown) presenting for routine OB care. Patient (unknown) (no (unknown) (unknown) This patient is (units (unknown) date) a 25yo @22+0 unknown) presenting for routine OB care. Patient (unknown) (no (unknown) (unknown) This patient is (units (unknown) date) a 25yo @23+5 unknown) presenting for an unscheduled visit due (unknown) (no (unknown) (unknown) This patient is (units (unknown) date) a 25yo @26+4 unknown) presenting for routine care. (unknown) (no (unknown) (unknown) This patient is (units (unknown) date) a 25yo unknown) @8+4 presenting to initiate care. (unknown) (no (unknown) (unknown) (no value) (units (unk nown) date) unknown) (unknown) (no (unknown) (unknown) none (units (unkno wn) date) unknown) (unknown) (no (unknown) (unknown) (no value) (units (unk nown) date) unknown) (unknown) (no (unknown) (unknown) (+2 lb 1 oz) (units (u nknown) date) 104/58 N unknown) (unknown) (no (unknown) (unknown) (+2 lb 3 oz) (units (u nknown) date) 106/60 N unknown) (unknown) (no (unknown) (unknown) (+20 lb) (units (unkno wn) date) 92/58 N unknown) (unknown) (no (unknown) (unknown) (+22 lb) (units (unkno wn) date) 106/62 unknown) (unknown) (no (unknown) (unknown) (+29 lb) (units (unkno wn) date) 94/52 N unknown) (unknown) (no (unknown) (unknown) (+3 lb) (units (unkno wn) date) 100/60 N unknown) (unknown) (no (unknown) (unknown) (+9 lb 7 oz) (units (u nknown) date) 110/60 N unknown) (unknown) (no (unknown) (unknown) 04/19/21 (units (unkno wn) date) unknown) (unknown) (no (unknown) (unknown) 05/06/21 (units (unkno wn) date) unknown) (unknown) (no (unknown) (unknown) 05/17/21 (units (unkno wn) date) unknown) (unknown) (no (unknown) (unknown) 06/14/21 (units (unkno wn) date) unknown) (unknown) (no (unknown) (unknown) 07/22/21 (units (unkno wn) date) unknown) (unknown) (no (unknown) (unknown) 08/03/21 (units (unkno wn) date) unknown) (unknown) (no (unknown) (unknown) 08/23/21 (units (unkno wn) date) unknown) (unknown) (no (unknown) (unknown) 11w 0d 113 lb (units (unknown) date) unknown) (unknown) (no (unknown) (unknown) 12w 4d 112 lb (units (unknown) date) 3 oz unknown) (unknown) (no (unknown) (unknown) 16w 4d 119 lb (units (unknown) date) 7 oz unknown) (unknown) (no (unknown) (unknown) 22w 0d 130 lb (units (unknown) date) unknown) (unknown) (no (unknown) (unknown) 23w 5d 132 lb (units (unknown) date) unknown) (unknown) (no (unknown) (unknown) 26w 4d 139 lb (units (unknown) date) unknown) (unknown) (no (unknown) (unknown) 8w 4d 112 lb (units (unknown) date) 1 oz unknown) (unknown) (no (unknown) (unknown) [place] (units ( unknown) date) [id number] unknown) (unknown) (no (unknown) (unknown) Current Estimate (units (unknown) date) 11/25/21 unknown) Ultrasound #1 28w 5d (unknown) (no (unknown) (unknown) Draft (units (unkno wn) date) unknown) (unknown) (no (unknown) (unknown) Estimated (units (unkn own) date) Delivery Date unknown) Method Current (unknown) (no (unknown) (unknown) [facility]) (unknown) (no (unknown) (unknown) K[facility] (units (unkno wn) date) unknown) (unknown) (no (unknown) (unknown) N 167 (units (unkno wn) date) absent wnl unknown) (unknown) (no (unknown) (unknown) OB Office Visit (units (unknown) date) unknown) (unknown) (no (unknown) (unknown) Other Estimates (units (unknown) date) 11/09/21 unknown) LMP (Uncertain) 31w 0d (unknown) (no (unknown) (unknown) TR 152 (units (unkn own) date) absent 4 w unknown) (unknown) (no (unknown) (unknown) TR 164 (units (unkn own) date) absent wnl unknown) (unknown) (no (unknown) (unknown) TR (units (unkno wn) date) unknown) (unknown) (no (unknown) (unknown) Yes no (units (u nknown) date) 153 absent unknown) (unknown) (no (unknown) (unknown) (no value) (units (unk nown) date) unknown) (unknown) (no (unknown) (unknown) N Yes no (units (unknown) date) 148 27 unknown) Breech absent See below 3 (unknown) (no (unknown) (unknown) 4 wks (units (unkno wn) date) unknown) (unknown) (no (unknown) (unknown) as scheduled (units (u nknown) date) unknown) (unknown) (no (unknown) (unknown) Genetic (units (unkn own) date) Screening/Teratol unknown) ogy Counseling - Includes patient, baby's father, or (unknown) (no (unknown) (unknown) - Bipolar - (units (un known) date) Stable on unknown) lamotrigine, fluoxitine, and wellbutrin. Of note, did not (unknown) (no (unknown) (unknown) - Declined (units (unk nown) date) aneuploidy unknown) screening, MSAFP wnl (unknown) (no (unknown) (unknown) - New OB labs (units ( unknown) date) showed UTI, for unknown) MCKENZIE- sent 05/17 (unknown) (no (unknown) (unknown) - Placenta (units (unk nown) date) previously low unknown) lying, resolved (unknown) (no (unknown) (unknown) - Varicella (units (un known) date) non-immune unknown) (unknown) (no (unknown) (unknown) -?-?-?-?-?-?-?-? (units (unknown) date) -?-?-?-?- unknown) (unknown) (no (unknown) (unknown) [id number] (units (unkn own) date) unknown) (unknown) (no (unknown) (unknown) 09/07/21 (units (unkno wn) date) unknown) (unknown) (no (unknown) (unknown) 2#2, 53%, MVP (units ( unknown) date) 4.3cm. Breech unknown) presentation. Antepartum precautions discussed. (unknown) (no (unknown) (unknown) Abnormal lab (units (u nknown) date) values 1st unknown) trimester: discussed (unknown) (no (unknown) (unknown) Abnormal lab (units (u nknown) date) values 2nd unknown) trimester: discussed (unknown) (no (unknown) (unknown) Add'l Plan (units (unk nown) date) Details unknown) (unknown) (no (unknown) (unknown) Age/Sex: 25 / F (units (unknown) date) Date of unknown) Service: (unknown) (no (unknown) (unknown) Allergies (units (unkn own) date) unknown) (unknown) (no (unknown) (unknown) Aneuploidy (units (unk nown) date) Screening unknown) Offered: Accepted (considering options) (unknown) (no (unknown) (unknown) Anticipated (units (un known) date) course of unknown) care: discussed (unknown) (no (unknown) (unknown) Assessment and (units (unknown) date) Plan unknown) (unknown) (no (unknown) (unknown) Attending Dr: (units ( unknown) date) Katharine Martinez MD unknown) (unknown) (no (unknown) (unknown) (units (unkno wn) date) Plan/Preferences unknown) (unknown) (no (unknown) (unknown) Planning (units (unknown) date) unknown) (unknown) (no (unknown) (unknown) Blood (units (unkno wn) date) transfusions?: unknown) yes (unknown) (no (unknown) (unknown) Breastfeed (units (unk nown) date) Preg Comp Name unknown) (unknown) (no (unknown) (unknown) CRL, no gross (units ( unknown) date) abnormalities unknown) noted. Ovaries not visualized. (unknown) (no (unknown) (unknown) Caffeine use, (units ( unknown) date) Exercise and unknown) activity, work/environmenta l/hazards, Sexual (unknown) (no (unknown) (unknown) Childbirth (units (unk nown) date) Classes: unknown) discussed (unknown) (no (unknown) (unknown) Current (units (unkno wn) date) History unknown) (unknown) (no (unknown) (unknown) : 1995 (units (unknown) date) Acct:[id number] unknown) (unknown) (no (unknown) (unknown) Date (units (unkno wn) date) unknown) (unknown) (no (unknown) (unknown) Date of positive (units (unknown) date) home unknown) test: 03/20/21 (unknown) (no (unknown) (unknown) Del. Date (units (unkn own) date) GA/Weeks Labor unknown) Lgth Wt Sex Route Outcome Anesthesia Place (unknown) (no (unknown) (unknown) Delv (units (unkno wn) date) unknown) (unknown) (no (unknown) (unknown) Denies Congenital (units (unknown) date) Heart Defect, unknown) Denies Down Syndrome, Denies Muscular Dystrophy, (unknown) (no (unknown) (unknown) Denies Neural (units ( unknown) date) Tube Defect unknown) (Meningomyelocele , Spina Bifida, or Anencephaly), (unknown) (no (unknown) (unknown) Denies Sickle (units ( unknown) date) Cell Disease or unknown) Trait (), Denies Hemophilia or other blood (unknown) (no (unknown) (unknown) Denies Moustapha-Sachs (units (unknown) date) (Ashkenazi unknown) Adventism, Cajun, English Nigerien), Denies Sebastián (unknown) (no (unknown) (unknown) Denies other (units (u nknown) date) unknown) (unknown) (no (unknown) (unknown) Denies over the (units (unknown) date) counter unknown) medications, Denies alcohol, Denies illicit drugs and (unknown) (no (unknown) (unknown) Depression: (units (un known) date) discussed unknown) (unknown) (no (unknown) (unknown) Dept at (units (unkno wn) date) . unknown) (unknown) (no (unknown) (unknown) Diet and (units (unkno wn) date) Exercise unknown) (unknown) (no (unknown) (unknown) Discussed (units (unkn own) date) Zofran. Patient unknown) declines aneuploidy screening, MSAFP at next visit. (unknown) (no (unknown) (unknown) Disease (units (unkno wn) date) (Ashkenazi unknown) Adventism), Denies Familial Dysautonomia (Ashkenazi Adventism), (unknown) (no (unknown) (unknown) Documented By: (units (unknown) date) Katharine Martinez MD unknown) 09/07/21 1014 (unknown) (no (unknown) (unknown) RERE Calculator (units (unknown) date) unknown) (unknown) (no (unknown) (unknown) EGA Weight BP (units ( unknown) date) UGlucose unknown) (unknown) (no (unknown) (unknown) Family History (units (unknown) date) (Updated 04/08/21 unknown) @ 08:07 by Sena Espinal RN) (unknown) (no (unknown) (unknown) Father (units (unkno wn) date) Metabolic unknown) syndrome (unknown) (no (unknown) (unknown) Father of Baby: (units (unknown) date) Abiam unknown) (unknown) (no (unknown) (unknown) First Trimester (units (unknown) date) Education unknown) Checklist (unknown) (no (unknown) (unknown) Genetic (units (unkno wn) date) Screening unknown) (unknown) (no (unknown) (unknown) Genetic (units (unkno wn) date) Screening + unknown) Counseling (unknown) (no (unknown) (unknown) Grandmother (units (un known) date) Breast cancer unknown) (unknown) (no (unknown) (unknown) 2 (units (unknown) date) Multiple unknown) births (unknown) (no (unknown) (unknown) H/O wisdom tooth (units (unknown) date) extraction unknown) (unknown) (no (unknown) (unknown) HIV risk (units (unkno wn) date) evaluation: low unknown) risk (unknown) (no (unknown) (unknown) Health Center (units ( unknown) date) Education unknown) (unknown) (no (unknown) (unknown) Health center (units ( unknown) date) information: unknown) nature of practice discussed, personnel (unknown) (no (unknown) (unknown) Hepatitis C risk (units (unknown) date) evaluation: low unknown) risk (unknown) (no (unknown) (unknown) History of (units (unk nown) date) Hepatitis B: No unknown) (unknown) (no (unknown) (unknown) History of (units (unk nown) date) Hepatitis C: No unknown) (unknown) (no (unknown) (unknown) History of PCOS (units (unknown) date) unknown) (unknown) (no (unknown) (unknown) Hospital[facility] (units (u nknown) date) unknown) (unknown) (no (unknown) (unknown) [facility] (units (u nknown) date) Chorea, Denies unknown) Other inherited genetic or chromosomal disorder, De (unknown) (no (unknown) (unknown) Hx # (units (u nknown) date) Pregnancies unknown) Elective abortions (unknown) (no (unknown) (unknown) Hx # Term (units (unkn own) date) Pregnancies unknown) Ectopic pregnancies (unknown) (no (unknown) (unknown) Infant will be (units (unknown) date) adopted?: no unknown) (unknown) (no (unknown) (unknown) Infection (units (unkn own) date) History unknown) (unknown) (no (unknown) (unknown) Infectious (units (unk nown) date) Disease Education unknown) (unknown) (no (unknown) (unknown) Infectious (units (unk nown) date) disease exposure: unknown) chicken pox immunity discussed, hepatitis risk (unknown) (no (unknown) (unknown) Initial Weight: (units (unknown) date) 110 lb unknown) (unknown) (no (unknown) (unknown) Initials (units (unkno wn) date) unknown) (unknown) (no (unknown) (unknown) Intake (units (unkno wn) date) unknown) (unknown) (no (unknown) (unknown) Live with (units (unkn own) date) someone with TB unknown) or exposed to TB: No (unknown) (no (unknown) (unknown) Loc: [facility] (units (unkno wn) date) unknown) (unknown) (no (unknown) (unknown) Marital status: (units (unknown) date) unknown) (unknown) (no (unknown) (unknown) Medical History (units (unknown) date) (Updated 04/08/21 unknown) @ 08:06 by Sena Espinal RN) (unknown) (no (unknown) (unknown) No Known Drug (units ( unknown) date) Allergies Allergy unknown) (Unverified 07/22/21 15:29) (unknown) (no (unknown) (unknown) Non-Stress Test (units (unknown) date) performed?: No unknown) (unknown) (no (unknown) (unknown) Notes (units (unkno wn) date) unknown) (unknown) (no (unknown) (unknown) Number of Living (units (unknown) date) Children unknown) (unknown) (no (unknown) (unknown) Number of (units (unkn own) date) fetuses:: Single unknown) (unknown) (no (unknown) (unknown) Nutrition and (units ( unknown) date) weight gain unknown) counseling: special diet: discussed (unknown) (no (unknown) (unknown) OB Visit Log (units (u nknown) date) unknown) (unknown) (no (unknown) (unknown) On control (units (unknown) date) at conception?: unknown) No (unknown) (no (unknown) (unknown) PFSH (units (unkno wn) date) unknown) (unknown) (no (unknown) (unknown) Pap performed?: (units (unknown) date) No unknown) (unknown) (no (unknown) (unknown) Para 0 (units ( unknown) date) Spontaneous unknown) abortions 1 (unknown) (no (unknown) (unknown) Partner history (units (unknown) date) of STD: denies hx unknown) (unknown) (no (unknown) (unknown) Partner history (units (unknown) date) of genital unknown) herpes: No (unknown) (no (unknown) (unknown) Partner: Abiam (units (unknown) date) unknown) (unknown) (no (unknown) (unknown) Past Pregnancies (units (unknown) date) unknown) (unknown) (no (unknown) (unknown) Patient was (units (un known) date) recently treated unknown) for UTI with resolution of symptoms, no further (unknown) (no (unknown) (unknown) Patient's age 33 (units (unknown) date) years or older as unknown) of estimated date of delivery: No (unknown) (no (unknown) (unknown) Patient: (units (unkno wn) date) Sally Thurston Y unknown) MR#: M (unknown) (no (unknown) (unknown) 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) (unknown) (no (unknown) (unknown) Personal history (units (unknown) date) of STD: denies hx unknown) (unknown) (no (unknown) (unknown) Personal history (units (unknown) date) of genital unknown) herpes: No (unknown) (no (unknown) (unknown) (units (unkn own) date) History unknown) (unknown) (no (unknown) (unknown) type:: (units (unknown) date) Other Normal unknown) (unknown) (no (unknown) (unknown) (units (unkno wn) date) Education unknown) (unknown) (no (unknown) (unknown) Initial (units (unknown) date) Assessment unknown) (unknown) (no (unknown) (unknown) (units (unkno wn) date) Specific unknown) Issues/Plans (unknown) (no (unknown) (unknown) (units (unkno wn) date) Testing: unknown) discussed (unknown) (no (unknown) (unknown) Visit (units (unknown) date) unknown) (unknown) (no (unknown) (unknown) (units (unkno wn) date) education packet: unknown) Child education/plan, symptoms, (unknown) (no (unknown) (unknown) Primary Care (units (u nknown) date) Provider: MANISH unknown) Kristopher (unknown) (no (unknown) (unknown) Primary Ob (units (unk nown) date) Provider: unknown) Katharine Martinez (unknown) (no (unknown) (unknown) Providers (units (unkn own) date) unknown) (unknown) (no (unknown) (unknown) Rash or viral (units ( unknown) date) illness since unknown) last menstrual period: No (unknown) (no (unknown) (unknown) Reason For Visit (units (unknown) date) unknown) (unknown) (no (unknown) (unknown) Recurrent (units (unkn own) date) loss or unknown) a stillbirth: No (unknown) (no (unknown) (unknown) Referred for 3rd (units (unknown) date) tri labs. unknown) (unknown) (no (unknown) (unknown) Reports good (units (u nknown) date) movement, unknown) no LOF or VB, no ctx, no further umbilical drain (unknown) (no (unknown) (unknown) Safety (units (unkno wn) date) unknown) (unknown) (no (unknown) (unknown) Seatbelt use and (units (unknown) date) Influenza vaccine unknown) (ad thia fall) (unknown) (no (unknown) (unknown) Second Trimester (units (unknown) date) Education unknown) Checklist (unknown) (no (unknown) (unknown) Signed By: (units (unk nown) date) unknown) (unknown) (no (unknown) (unknown) Smoking Status: (units (unknown) date) Never smoker unknown) (unknown) (no (unknown) (unknown) Social History (units (unknown) date) unknown) (unknown) (no (unknown) (unknown) Surgical History (units (unknown) date) (Updated 04/08/21 unknown) @ 08:06 by Sena Espinal RN) (unknown) (no (unknown) (unknown) Surrogate (units (unkn own) date) ?: no unknown) (unknown) (no (unknown) (unknown) Symptoms since (units (unknown) date) LMP: Reports unknown) amenorrhea, nausea, vomiting, breast tenderness, (unknown) (no (unknown) (unknown) Tdap status: (units (u nknown) date) immunized unknown) (unknown) (no (unknown) (unknown) Teratogen (units (unkn own) date) Exposures since unknown) LMP/Conception: Denies prescription medications, (unknown) (no (unknown) (unknown) Testing (units (unkno wn) date) Education unknown) (unknown) (no (unknown) (unknown) Testing (units (unkno wn) date) education unknown) completed: Genetic testing, group B strep and Spina bifida (unknown) (no (unknown) (unknown) The patient has (units (unknown) date) irregular menses, unknown) and was dated by ultrasound today. She denies (unknown) (no (unknown) (unknown) The umbilicus (units ( unknown) date) was cleaned with unknown) a chlorhexadine swab, and we discussed keeping (unknown) (no (unknown) (unknown) This note may (units ( unknown) date) have been all or unknown) partially generated using voice recognition (unknown) (no (unknown) (unknown) Tobacco + (units (unkn own) date) Substance Use unknown) (unknown) (no (unknown) (unknown) Tobacco Status (units (unknown) date) unknown) (unknown) (no (unknown) (unknown) Trimester:: 3rd (units (unknown) date) Trimester unknown) (28wks-Del) (unknown) (no (unknown) (unknown) Type(s) of (units (unk nown) date) exercise: unknown) irregular exercise (unknown) (no (unknown) (unknown) UProtein Movement (units (unknown) date) PreLabor FHR Fndl unknown) Ht Pres Edema Cerv Exam US/Comment Next Appt (unknown) (no (unknown) (unknown) Ultrasound (units (unk nown) date) unknown) (unknown) (no (unknown) (unknown) Ultrasound (units (unk nown) date) Details:: TAUS unknown) performed. Viable SIUP visualized measuring 8+4 by (unknown) (no (unknown) (unknown) Ultrasound (units (unk nown) date) performed?: No unknown) (unknown) (no (unknown) (unknown) Varicella/chicke (units (unknown) date) n pox status: unknown) immunized (unknown) (no (unknown) (unknown) Visit Date: (units (un known) date) 04/19/21 Last unknown) Updated by: Katharine Martinez MD (unknown) (no (unknown) (unknown) Visit Date: (units (un known) date) 05/06/21 Last unknown) Updated by: Katharine Martinez MD (unknown) (no (unknown) (unknown) Visit Date: (units (un known) date) 05/17/21 Last unknown) Updated by: Katharine Martinez MD (unknown) (no (unknown) (unknown) Visit Date: (units (un known) date) 06/14/21 Last unknown) Updated by: Katharine Martinez MD (unknown) (no (unknown) (unknown) Visit Date: (units (un known) date) 07/22/21 Last unknown) Updated by: Katharine Martinez MD (unknown) (no (unknown) (unknown) Visit Date: (units (un known) date) 08/03/21 Last unknown) Updated by: Katharine Martinez MD (unknown) (no (unknown) (unknown) Visit Date: (units (un known) date) 08/23/21 Last unknown) Updated by: Katharine Martinez MD (unknown) (no (unknown) (unknown) Visit Reasons: (units (unknown) date) OB Check unknown) (unknown) (no (unknown) (unknown) Vitamins and (units (u nknown) date) iron, Diet and unknown) weight gain, Fish and mercury intake, Smoking, (unknown) (no (unknown) (unknown) WG (units (unkno wn) date) unknown) (unknown) (no (unknown) (unknown) Weeks (units (unkno wn) date) gestation:: 28 unknown) (unknown) (no (unknown) (unknown) Zika virus (units (unk nown) date) exposure: No unknown) (unknown) (no (unknown) (unknown) activity, X-ray (units (unknown) date) exposure, unknown) Medication use, ETOH use, Sauna/hot tub use, Dental (unknown) (no (unknown) (unknown) age. TVUS (units (unkno wn) date) performed and unknown) placenta now >4cm from cervix. Growth US performed and (unknown) (no (unknown) (unknown) alcohol intake: (units (unknown) date) former (stopped unknown) with , always light) (unknown) (no (unknown) (unknown) aneuploidy (units (unk nown) date) screening. unknown) (unknown) (no (unknown) (unknown) any significant (units (unknown) date) history, unknown) medications for bipolar disorder were discussed with (unknown) (no (unknown) (unknown) anyone in either (units (unknown) date) family with: unknown) (unknown) (no (unknown) (unknown) baby's father (units ( unknown) date) had a child with unknown) defects not listed above and Denies Other (unknown) (no (unknown) (unknown) bloating and (units (u nknown) date) other (night unknown) sweats, constipation) (unknown) (no (unknown) (unknown) but no other (units (u nknown) date) abnormal unknown) discharge. Patient today reports longstanding dizziness (unknown) (no (unknown) (unknown) caffeine: Yes (units ( unknown) date) (200mg) unknown) (unknown) (no (unknown) (unknown) carbon monox (units (u nknown) date) detector in home: unknown) Yes (unknown) (no (unknown) (unknown) care, HIV (units (unkn own) date) education, unknown) Marijuana use, Substance use, Domestic violence, Travel, (unknown) (no (unknown) (unknown) cramping or (units (un known) date) bleeding. Patient unknown) does report that nausea was worse over the (unknown) (no (unknown) (unknown) current (units (unkno wn) date) occupational unknown) exposures/hazards : No (unknown) (no (unknown) (unknown) daily servings (units (unknown) date) fruits/ve-1 unknown) (unknown) (no (unknown) (unknown) defects. Care in (units (unknown) date) our clinic and unknown) aneuploidy screening discussed. Antepartum (unknown) (no (unknown) (unknown) described, visit (units (unknown) date) schedule unknown) reviewed, ultrasounds policy reviewed, coverage 24 (unknown) (no (unknown) (unknown) despite her (units (un known) date) efforts to keep unknown) the area clean with a bulb syringe. She denies (unknown) (no (unknown) (unknown) discussed and (units ( unknown) date) ordered. unknown) Antepartum precautions discussed. (unknown) (no (unknown) (unknown) discussed (units (unkno wn) date) precautions for unknown) return. Ovaries not visualized on TAUS today. Declines (unknown) (no (unknown) (unknown) discussed, (units (unk nown) date) tuberculosis unknown) exposure discussed, CMV discussed, Toxoplasmosis (unknown) (no (unknown) (unknown) disorders, (units (unk nown) date) Denies Cystic unknown) Fibrosis, Denies Mental Retardation/Autis m, Denies (unknown) (no (unknown) (unknown) do you feel safe (units (unknown) date) at home: Yes unknown) (unknown) (no (unknown) (unknown) during the past (units (unknown) date) year weight has: unknown) remained stable (unknown) (no (unknown) (unknown) education level: (units (unknown) date) other (YVONNE) unknown) (unknown) (no (unknown) (unknown) encouraged to (units ( unknown) date) call with any unknown) questions or concerns. (unknown) (no (unknown) (unknown) endorse at (units (unk nown) date) initial visit. unknown) (unknown) (no (unknown) (unknown) fevers, chills, (units (unknown) date) or any other unknown) symptoms or obstetrical complaints. The area was (unknown) (no (unknown) (unknown) fire (units (unkno wn) date) extinguisher in unknown) home: No (unknown) (no (unknown) (unknown) firearms in (units (un known) date) home: No unknown) (unknown) (no (unknown) (unknown) green, opaque (units ( unknown) date) drainage from her unknown) belly button. This has continued intermittently (unknown) (no (unknown) (unknown) have occurred. (units (unknown) date) If there are any unknown) questions, please contact the Medical Records (unknown) (no (unknown) (unknown) hours a day and (units (unknown) date) participation of unknown) father in care and office visits (unknown) (no (unknown) (unknown) household (units (unkn own) date) members: spouse unknown) (unknown) (no (unknown) (unknown) housing: house (units (unknown) date) unknown) (unknown) (no (unknown) (unknown) ks (units (unkno wn) date) unknown) (unknown) (no (unknown) (unknown) lives (units (unkno wn) date) independently: unknown) Yes (unknown) (no (unknown) (unknown) marital status: (units (unknown) date) unknown) (unknown) (no (unknown) (unknown) may occur. (units (unk nown) date) Occasional unknown) wrong-word or 'sound-alike' substitutions may have (unknown) (no (unknown) (unknown) movement. No (units (u nknown) date) other symptoms or unknown) concerns, anatomy scan already scheduled. MSAFP (unknown) (no (unknown) (unknown) nies Maternal (units ( unknown) date) Metabolic unknown) Disorder (EG,TYPE 1 Diabetes, PKU), Denies Patient or (unknown) (no (unknown) (unknown) noted to be (units (un known) date) mildly unknown) erythmatous. A forceps was used to spread the umbilicus and (unknown) (no (unknown) (unknown) number of (units (unkn own) date) children: 0 unknown) (unknown) (no (unknown) (unknown) occupational (units (u nknown) date) status: employed unknown) (unknown) (no (unknown) (unknown) occurred due to (units (unknown) date) the inherent unknown) limitations of voice recognition software. Please (unknown) (no (unknown) (unknown) pets and (units (unkno wn) date) animals: No unknown) (unknown) (no (unknown) (unknown) placenta 1.8 cm (units (unknown) date) from os unknown) posteriorly, discussed follow up at 28 weeks. Also 88%, (unknown) (no (unknown) (unknown) precautions (units (un known) date) discussed. unknown) (unknown) (no (unknown) (unknown) precautions, (units (u nknown) date) Listeriosis unknown) prevention and Rubella Immunization (unknown) (no (unknown) (unknown) predating her (units ( unknown) date) . UA unknown) wnl, plans to try OTC monistat 7 instead of Affirm, (unknown) (no (unknown) (unknown) read the note (units ( unknown) date) carefully and unknown) recognize, using context, where these substitutions (unknown) (no (unknown) (unknown) reports feeling (units (unknown) date) movement, no ctx unknown) no LOF or VB. Recent anatomy scan showing (unknown) (no (unknown) (unknown) reports feeling (units (unknown) date) well with no UTI unknown) sx, no cramping or bleeding, starting to feel (unknown) (no (unknown) (unknown) seatbelt use: (units ( unknown) date) always unknown) (unknown) (no (unknown) (unknown) second hand (units (un known) date) exposure: No unknown) (unknown) (no (unknown) (unknown) software. (units (unkn own) date) Although every unknown) effort is made to edit content, director family errors (unknown) (no (unknown) (unknown) spotting and RLQ (units (unknown) date) cramping. Viable unknown) SIUP seen via TAUS, +movement. Reports the (unknown) (no (unknown) (unknown) spotting has (units (un known) date) resolved and the unknown) cramping remains moderate, some vaginal irritation (unknown) (no (unknown) (unknown) substance use (units ( unknown) date) type: does not unknown) use (unknown) (no (unknown) (unknown) testing (units (unkno wn) date) unknown) (unknown) (no (unknown) (unknown) the area clean (units (unknown) date) and dry, using unknown) topical antifungal cream, and monitoring. She was (unknown) (no (unknown) (unknown) to belly button (units (unknown) date) drainage. 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 (unknown) (no (unknown) (unknown) water heater (units (u nknown) date) temp set < 120 unknown) deg: Yes (will check) (unknown) (no (unknown) (unknown) weekend, did (units (u nknown) date) have streaks of unknown) blood in her vomit x1 that has since resolved. (unknown) (no (unknown) (unknown) well-balanced (units ( unknown) date) diet: about half unknown) the time (unknown) (no (unknown) (unknown) will do growth (units (unknown) date) US at that time. unknown) Antepartum precautions discussed. (unknown) (no (unknown) (unknown) wks (units (unkno wn) date) unknown) (unknown) (no (unknown) (unknown) working smoke (units ( unknown) date) detector in home: unknown) Yes Result panel 10 (unknown) (no (unknown) (unknown) (no value) (units (unk nown) date) unknown) (unknown) (no (unknown) (unknown) 10/20/19 5-6 (units (u nknown) date) spontaneous unknown) (unknown) (no (unknown) (unknown) N Yes no (units (unknown) date) 146 absent unknown) 4 wks (unknown) (no (unknown) (unknown) N Yes no (units (unknown) date) 150 21 unknown) absent 4 wks (unknown) (no (unknown) (unknown) Orders: (units (unkno wn) date) unknown) (unknown) (no (unknown) (unknown) This patient is (units (unknown) date) a 25yo @11+0 unknown) presenting to follow up 10 days of brown (unknown) (no (unknown) (unknown) This patient is (units (unknown) date) a 25yo @12+4 unknown) presenting for routine obstetric care. (unknown) (no (unknown) (unknown) This patient is (units (unknown) date) a 25yo @16+4 unknown) presenting for routine OB care. Patient (unknown) (no (unknown) (unknown) This patient is (units (unknown) date) a 25yo @22+0 unknown) presenting for routine OB care. Patient (unknown) (no (unknown) (unknown) This patient is (units (unknown) date) a 25yo @23+5 unknown) presenting for an unscheduled visit due (unknown) (no (unknown) (unknown) This patient is (units (unknown) date) a 25yo @26+4 unknown) presenting for routine care. (unknown) (no (unknown) (unknown) This patient is (units (unknown) date) a 25yo unknown) @8+4 presenting to initiate care. (unknown) (no (unknown) (unknown) (no value) (units (unk nown) date) unknown) (unknown) (no (unknown) (unknown) none (units (unkno wn) date) unknown) (unknown) (no (unknown) (unknown) (no value) (units (unk nown) date) unknown) (unknown) (no (unknown) (unknown) (+2 lb 1 oz) (units (u nknown) date) 104/58 N unknown) (unknown) (no (unknown) (unknown) (+2 lb 3 oz) (units (u nknown) date) 106/60 N unknown) (unknown) (no (unknown) (unknown) (+20 lb) (units (unkno wn) date) 92/58 N unknown) (unknown) (no (unknown) (unknown) (+22 lb) (units (unkno wn) date) 106/62 unknown) (unknown) (no (unknown) (unknown) (+29 lb) (units (unkno wn) date) 94/52 N unknown) (unknown) (no (unknown) (unknown) (+3 lb) (units (unkno wn) date) 100/60 N unknown) (unknown) (no (unknown) (unknown) (+9 lb 7 oz) (units (u nknown) date) 110/60 N unknown) (unknown) (no (unknown) (unknown) 04/19/21 (units (unkno wn) date) unknown) (unknown) (no (unknown) (unknown) 05/06/21 (units (unkno wn) date) unknown) (unknown) (no (unknown) (unknown) 05/17/21 (units (unkno wn) date) unknown) (unknown) (no (unknown) (unknown) 06/14/21 (units (unkno wn) date) unknown) (unknown) (no (unknown) (unknown) 07/22/21 (units (unkno wn) date) unknown) (unknown) (no (unknown) (unknown) 08/03/21 (units (unkno wn) date) unknown) (unknown) (no (unknown) (unknown) 08/23/21 (units (unkno wn) date) unknown) (unknown) (no (unknown) (unknown) 09/07/21 (units (unkno wn) date) unknown) (unknown) (no (unknown) (unknown) 10:26 (units (unkno wn) date) unknown) (unknown) (no (unknown) (unknown) 11w 0d 113 lb (units (unknown) date) unknown) (unknown) (no (unknown) (unknown) 12w 4d 112 lb (units (unknown) date) 3 oz unknown) (unknown) (no (unknown) (unknown) 16w 4d 119 lb (units (unknown) date) 7 oz unknown) (unknown) (no (unknown) (unknown) 22w 0d 130 lb (units (unknown) date) unknown) (unknown) (no (unknown) (unknown) 23w 5d 132 lb (units (unknown) date) unknown) (unknown) (no (unknown) (unknown) 26w 4d 139 lb (units (unknown) date) unknown) (unknown) (no (unknown) (unknown) 8w 4d 112 lb (units (unknown) date) 1 oz unknown) (unknown) (no (unknown) (unknown) [place], [place] (units ( unknown) date) [id number] unknown) (unknown) (no (unknown) (unknown) Current Estimate (units (unknown) date) 11/25/21 unknown) Ultrasound #1 28w 5d (unknown) (no (unknown) (unknown) Dose Route (units (unknown) date) Admin Location unknown) Lot Number Expiration Date NDC (unknown) (no (unknown) (unknown) Draft (units (unkno wn) date) unknown) (unknown) (no (unknown) (unknown) Eligibility (units (un known) date) Eligibility Date unknown) Funding Source (unknown) (no (unknown) (unknown) Estimated (units (unkn own) date) Delivery Date unknown) Method Current (unknown) (no (unknown) (unknown) [facility]) (unknown) (no (unknown) (unknown) KF (units (unkno wn) date) unknown) (unknown) (no (unknown) (unknown) N 167 (units (unkno wn) date) absent wnl unknown) (unknown) (no (unknown) (unknown) OB Office Visit (units (unknown) date) unknown) (unknown) (no (unknown) (unknown) Other Estimates (units (unknown) date) 11/09/21 unknown) LMP (Uncertain) 31w 0d (unknown) (no (unknown) (unknown) TR 152 (units (unkn own) date) absent 4 w unknown) (unknown) (no (unknown) (unknown) TR 164 (units (unkn own) date) absent wnl unknown) (unknown) (no (unknown) (unknown) TR (units (unkno wn) date) unknown) (unknown) (no (unknown) (unknown) VIS Given Date (units (unknown) date) VIS Provided unknown) VIS Publication Date (unknown) (no (unknown) (unknown) Yes no (units (u nknown) date) 153 absent unknown) (unknown) (no (unknown) (unknown) (no value) (units (unk nown) date) unknown) (unknown) (no (unknown) (unknown) 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 Of note, did not (unknown) (no (unknown) (unknown) - Declined (units (unk nown) date) aneuploidy unknown) screening, MSAFP wnl (unknown) (no (unknown) (unknown) - New OB labs (units ( unknown) date) showed UTI, for unknown) MCKENZIE- sent 05/17 (unknown) (no (unknown) (unknown) - Placenta (units (unk nown) date) previously low unknown) lying, resolved (unknown) (no (unknown) (unknown) - Varicella (units (un known) date) non-immune unknown) (unknown) (no (unknown) (unknown) -?-?-?-?-?-?-?-? (units (unknown) date) -?-?-?-?- unknown) (unknown) (no (unknown) (unknown) 0.5 mL IM Left (units (unknown) date) Deltoid [id number] unknown) 08/26/23 [id number] SANOFI-PASTEUR (unknown) (no (unknown) (unknown) [id number] (units (unkn own) date) unknown) (unknown) (no (unknown) (unknown) 09/07/21 (units (unkno wn) date) unknown) (unknown) (no (unknown) (unknown) 09/07/21 Single (units (unknown) date) Vaccine 10/02/20 unknown) (unknown) (no (unknown) (unknown) 2#2, 53%, MVP (units ( unknown) date) 4.3cm. Breech unknown) presentation. Antepartum precautions discussed. (unknown) (no (unknown) (unknown) Abnormal lab (units (u nknown) date) values 1st unknown) trimester: discussed (unknown) (no (unknown) (unknown) Abnormal lab (units (u nknown) date) values 2nd unknown) trimester: discussed (unknown) (no (unknown) (unknown) Adacel(Tdap (units (un known) date) Adolesn/Adult)(PF unknown) ) (unknown) (no (unknown) (unknown) Add'l Plan (units (unk nown) date) Details unknown) (unknown) (no (unknown) (unknown) Administered by: (units (unknown) date) Juanita Wei on unknown) 09/07/21 10:28 (unknown) (no (unknown) (unknown) Age/Sex: 25 / F (units (unknown) date) Date of unknown) Service: (unknown) (no (unknown) (unknown) Allergies (units (unkn own) date) unknown) (unknown) (no (unknown) (unknown) Aneuploidy (units (unk nown) date) Screening unknown) Offered: Accepted (considering options) (unknown) (no (unknown) (unknown) Anticipated (units (un known) date) course of unknown) care: discussed (unknown) (no (unknown) (unknown) Assessment and (units (unknown) date) Plan unknown) (unknown) (no (unknown) (unknown) Attending Dr: (units ( unknown) date) Katharine Martinez MD unknown) (unknown) (no (unknown) (unknown) BMI 27.9 (units (un known) date) unknown) (unknown) (no (unknown) (unknown) BP 102/62 (units (u nknown) date) unknown) (unknown) (no (unknown) (unknown) (units (unkno wn) date) Plan/Preferences unknown) (unknown) (no (unknown) (unknown) Planning (units (unknown) date) unknown) (unknown) (no (unknown) (unknown) Blood Pressure (units (unknown) date) Location Lt unknown) brachial (unknown) (no (unknown) (unknown) Blood (units (unkno wn) date) transfusions?: unknown) yes (unknown) (no (unknown) (unknown) Breastfeed (units (unk nown) date) Preg Comp Name unknown) (unknown) (no (unknown) (unknown) CRL, no gross (units ( unknown) date) abnormalities unknown) noted. Ovaries not visualized. (unknown) (no (unknown) (unknown) Caffeine use, (units ( unknown) date) Exercise and unknown) activity, work/environmenta l/hazards, Sexual (unknown) (no (unknown) (unknown) Childbirth (units (unk nown) date) Classes: unknown) discussed (unknown) (no (unknown) (unknown) Current (units (unkno wn) date) History unknown) (unknown) (no (unknown) (unknown) : 1995 (units (unknown) date) Acct:[id number] unknown) (unknown) (no (unknown) (unknown) Date (units (unkno wn) date) unknown) (unknown) (no (unknown) (unknown) Date of positive (units (unknown) date) home unknown) test: 03/20/21 (unknown) (no (unknown) (unknown) Del. Date (units (unkn own) date) GA/Weeks Labor unknown) Lgth Wt Sex Route Outcome Anesthesia Place (unknown) (no (unknown) (unknown) Delv (units (unkno wn) date) unknown) (unknown) (no (unknown) (unknown) Denies Congenital (units (unknown) date) Heart Defect, unknown) Denies Down Syndrome, Denies Muscular Dystrophy, (unknown) (no (unknown) (unknown) Denies Neural (units ( unknown) date) Tube Defect unknown) (Meningomyelocele , Spina Bifida, or Anencephaly), (unknown) (no (unknown) (unknown) Denies Sickle (units ( unknown) date) Cell Disease or unknown) Trait (), Denies Hemophilia or other blood (unknown) (no (unknown) (unknown) Denies Moustapha-Sachs (units (unknown) date) (Ashkenazi unknown) Adventism, Cajun, English Nigerien), Denies Sebastián (unknown) (no (unknown) (unknown) Denies other (units (u nknown) date) unknown) (unknown) (no (unknown) (unknown) Denies over the (units (unknown) date) counter unknown) medications, Denies alcohol, Denies illicit drugs and (unknown) (no (unknown) (unknown) Depression: (units (un known) date) discussed unknown) (unknown) (no (unknown) (unknown) Dept at (units (unkno wn) date) . unknown) (unknown) (no (unknown) (unknown) Diet and (units (unkno wn) date) Exercise unknown) (unknown) (no (unknown) (unknown) Discussed (units (unkn own) date) Zofran. Patient unknown) declines aneuploidy screening, MSAFP at next visit. (unknown) (no (unknown) (unknown) Disease (units (unkno wn) date) (Ashkenazi unknown) Adventism), Denies Familial Dysautonomia (Ashkenazi Adventism), (unknown) (no (unknown) (unknown) Documented By: (units (unknown) date) Katharine Martinez MD unknown) 09/07/21 1014 (unknown) (no (unknown) (unknown) RERE Calculator (units (unknown) date) unknown) (unknown) (no (unknown) (unknown) EGA Weight BP (units ( unknown) date) UGlucose unknown) (unknown) (no (unknown) (unknown) Family History (units (unknown) date) (Updated 04/08/21 unknown) @ 08:07 by Sena Espinal RN) (unknown) (no (unknown) (unknown) Father (units (unkno wn) date) Metabolic unknown) syndrome (unknown) (no (unknown) (unknown) Father of Baby: (units (unknown) date) Abiam unknown) (unknown) (no (unknown) (unknown) First Trimester (units (unknown) date) Education unknown) Checklist (unknown) (no (unknown) (unknown) Genetic (units (unkno wn) date) Screening unknown) (unknown) (no (unknown) (unknown) Genetic (units (unkno wn) date) Screening + unknown) Counseling (unknown) (no (unknown) (unknown) Grandmother (units (un known) date) Breast cancer unknown) (unknown) (no (unknown) (unknown) 2 (units (unknown) date) Multiple unknown) births (unknown) (no (unknown) (unknown) H/O wisdom tooth (units (unknown) date) extraction unknown) (unknown) (no (unknown) (unknown) HIV risk (units (unkno wn) date) evaluation: low unknown) risk (unknown) (no (unknown) (unknown) Health Center (units ( unknown) date) Education unknown) (unknown) (no (unknown) (unknown) Health center (units ( unknown) date) information: unknown) nature of practice discussed, personnel (unknown) (no (unknown) (unknown) Height 5 ft (units (unknown) date) unknown) (unknown) (no (unknown) (unknown) Hepatitis C risk (units (unknown) date) evaluation: low unknown) risk (unknown) (no (unknown) (unknown) History of (units (unk nown) date) Hepatitis B: No unknown) (unknown) (no (unknown) (unknown) History of (units (unk nown) date) Hepatitis C: No unknown) (unknown) (no (unknown) (unknown) History of PCOS (units (unknown) date) unknown) (unknown) (no (unknown) (unknown) Hospital: (units (u nknown) date) unknown) (unknown) (no (unknown) (unknown) [facility] (units (u nknown) date) Chorea, Denies unknown) Other inherited genetic or chromosomal disorder, De (unknown) (no (unknown) (unknown) Hx # (units (u nknown) date) Pregnancies unknown) Elective abortions (unknown) (no (unknown) (unknown) Hx # Term (units (unkn own) date) Pregnancies unknown) Ectopic pregnancies (unknown) (no (unknown) (unknown) Immunizations (units ( unknown) date) unknown) (unknown) (no (unknown) (unknown) will be (units (unknown) date) adopted?: no unknown) (unknown) (no (unknown) (unknown) Infection (units (unkn own) date) History unknown) (unknown) (no (unknown) (unknown) Infectious (units (unk nown) date) Disease Education unknown) (unknown) (no (unknown) (unknown) Infectious (units (unk nown) date) disease exposure: unknown) chicken pox immunity discussed, hepatitis risk (unknown) (no (unknown) (unknown) Initial Weight: (units (unknown) date) 110 lb unknown) (unknown) (no (unknown) (unknown) Initials (units (unkno wn) date) unknown) (unknown) (no (unknown) (unknown) Intake (units (unkno wn) date) unknown) (unknown) (no (unknown) (unknown) Live with (units (unkn own) date) someone with TB unknown) or exposed to TB: No (unknown) (no (unknown) (unknown) Loc: [facility] (units (unkno wn) date) unknown) (unknown) (no (unknown) (unknown) Marital status: (units (unknown) date) unknown) (unknown) (no (unknown) (unknown) Medical History (units (unknown) date) (Updated 04/08/21 unknown) @ 08:06 by Sena Espinal RN) (unknown) (no (unknown) (unknown) No Known Drug (units ( unknown) date) Allergies Allergy unknown) (Unverified 07/22/21 15:29) (unknown) (no (unknown) (unknown) Non-Stress Test (units (unknown) date) performed?: No unknown) (unknown) (no (unknown) (unknown) Not [facility] Eligible (units (unknown) date) 09/07/21 Private unknown) Funds (unknown) (no (unknown) (unknown) Notes (units (unkno wn) date) unknown) (unknown) (no (unknown) (unknown) Number of Living (units (unknown) date) Children unknown) (unknown) (no (unknown) (unknown) Number of (units (unkn own) date) fetuses:: Single unknown) (unknown) (no (unknown) (unknown) Nutrition and (units ( unknown) date) weight gain unknown) counseling: special diet: discussed (unknown) (no (unknown) (unknown) OB Visit Log (units (u nknown) date) unknown) (unknown) (no (unknown) (unknown) On control (units (unknown) date) at conception?: unknown) No (unknown) (no (unknown) (unknown) Orders (units (unkno wn) date) unknown) (unknown) (no (unknown) (unknown) PFSH (units (unkno wn) date) unknown) (unknown) (no (unknown) (unknown) Pap performed?: (units (unknown) date) No unknown) (unknown) (no (unknown) (unknown) Para 0 (units ( unknown) date) Spontaneous unknown) abortions 1 (unknown) (no (unknown) (unknown) Partner history (units (unknown) date) of STD: denies hx unknown) (unknown) (no (unknown) (unknown) Partner history (units (unknown) date) of genital unknown) herpes: No (unknown) (no (unknown) (unknown) Partner: Abiam (units (unknown) date) unknown) (unknown) (no (unknown) (unknown) Past Pregnancies (units (unknown) date) unknown) (unknown) (no (unknown) (unknown) Patient was (units (un known) date) recently treated unknown) for UTI with resolution of symptoms, no further (unknown) (no (unknown) (unknown) Patient's age 33 (units (unknown) date) years or older as unknown) of estimated date of delivery: No (unknown) (no (unknown) (unknown) Patient: (units (unkno wn) date) Sally Thurston Y unknown) MR#: M (unknown) (no (unknown) (unknown) 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) (unknown) (no (unknown) (unknown) Performing (units (unk nown) date) Provider: Katharine unknown) MD Juan (unknown) (no (unknown) (unknown) Personal history (units (unknown) date) of STD: denies hx unknown) (unknown) (no (unknown) (unknown) Personal history (units (unknown) date) of genital unknown) herpes: No (unknown) (no (unknown) (unknown) Position (units (unkno wn) date) Sitting unknown) (unknown) (no (unknown) (unknown) (units (unkn own) date) History unknown) (unknown) (no (unknown) (unknown) type:: (units (unknown) date) Other Normal unknown) (unknown) (no (unknown) (unknown) (units (unkno wn) date) Education unknown) (unknown) (no (unknown) (unknown) Initial (units (unknown) date) Assessment unknown) (unknown) (no (unknown) (unknown) (units (unkno wn) date) Specific unknown) Issues/Plans (unknown) (no (unknown) (unknown) (units (unkno wn) date) Testing: unknown) discussed (unknown) (no (unknown) (unknown) Visit (units (unknown) date) unknown) (unknown) (no (unknown) (unknown) (units (unkno wn) date) education packet: unknown) Child education/plan, symptoms, (unknown) (no (unknown) (unknown) Primary Care (units (u nknown) date) Provider: MANISH unknown) Kristopher (unknown) (no (unknown) (unknown) Primary Ob (units (unk nown) date) Provider: unknown) Katharine Martinez (unknown) (no (unknown) (unknown) Providers (units (unkn own) date) unknown) (unknown) (no (unknown) (unknown) Rash or viral (units ( unknown) date) illness since unknown) last menstrual period: No (unknown) (no (unknown) (unknown) Reason For Visit (units (unknown) date) unknown) (unknown) (no (unknown) (unknown) Recurrent (units (unkn own) date) loss or unknown) a stillbirth: No (unknown) (no (unknown) (unknown) Referred for 3rd (units (unknown) date) tri labs. unknown) (unknown) (no (unknown) (unknown) Reports good (units (u nknown) date) movement, unknown) no LOF or VB, no ctx, no further umbilical drain (unknown) (no (unknown) (unknown) Safety (units (unkno wn) date) unknown) (unknown) (no (unknown) (unknown) Seatbelt use and (units (unknown) date) Influenza vaccine unknown) (ad thia fall) (unknown) (no (unknown) (unknown) Second Trimester (units (unknown) date) Education unknown) Checklist (unknown) (no (unknown) (unknown) Signed By: (units (unk nown) date) unknown) (unknown) (no (unknown) (unknown) Smoking Status: (units (unknown) date) Never smoker unknown) (unknown) (no (unknown) (unknown) Social History (units (unknown) date) unknown) (unknown) (no (unknown) (unknown) Surgical History (units (unknown) date) (Updated 04/08/21 unknown) @ 08:06 by Sena Espinal RN) (unknown) (no (unknown) (unknown) Surrogate (units (unkn own) date) ?: no unknown) (unknown) (no (unknown) (unknown) Symptoms since (units (unknown) date) LMP: Reports unknown) amenorrhea, nausea, vomiting, breast tenderness, (unknown) (no (unknown) (unknown) Tdap Adult (units (unk nown) date) (Adacel) Today unknown) Z23 - Encounter for immunization (unknown) (no (unknown) (unknown) Tdap status: (units (u nknown) date) immunized unknown) (unknown) (no (unknown) (unknown) Teratogen (units (unkn own) date) Exposures since unknown) LMP/Conception: Denies prescription medications, (unknown) (no (unknown) (unknown) Testing (units (unkno wn) date) Education unknown) (unknown) (no (unknown) (unknown) Testing (units (unkno wn) date) education unknown) completed: Genetic testing, group B strep and Spina bifida (unknown) (no (unknown) (unknown) The patient has (units (unknown) date) irregular menses, unknown) and was dated by ultrasound today. She denies (unknown) (no (unknown) (unknown) The umbilicus (units ( unknown) date) was cleaned with unknown) a chlorhexadine swab, and we discussed keeping (unknown) (no (unknown) (unknown) This note may (units ( unknown) date) have been all or unknown) partially generated using voice recognition (unknown) (no (unknown) (unknown) Tobacco + (units (unkn own) date) Substance Use unknown) (unknown) (no (unknown) (unknown) Tobacco Status (units (unknown) date) unknown) (unknown) (no (unknown) (unknown) Trimester:: 3rd (units (unknown) date) Trimester unknown) (28wks-Del) (unknown) (no (unknown) (unknown) Type(s) of (units (unk nown) date) exercise: unknown) irregular exercise (unknown) (no (unknown) (unknown) UProtein Movement (units (unknown) date) PreLabor FHR Fndl unknown) Ht Pres Edema Cerv Exam US/Comment Next Appt (unknown) (no (unknown) (unknown) Ultrasound (units (unk nown) date) unknown) (unknown) (no (unknown) (unknown) Ultrasound (units (unk nown) date) Details:: TAUS unknown) performed. Viable SIUP visualized measuring 8+4 by (unknown) (no (unknown) (unknown) Ultrasound (units (unk nown) date) performed?: No unknown) (unknown) (no (unknown) (unknown) Varicella/chicke (units (unknown) date) n pox status: unknown) immunized (unknown) (no (unknown) (unknown) Visit Date: (units (un known) date) 04/19/21 Last unknown) Updated by: Katharine Martinez MD (unknown) (no (unknown) (unknown) Visit Date: (units (un known) date) 05/06/21 Last unknown) Updated by: Katharine Martinez MD (unknown) (no (unknown) (unknown) Visit Date: (units (un known) date) 05/17/21 Last unknown) Updated by: Katharine Martinez MD (unknown) (no (unknown) (unknown) Visit Date: (units (un known) date) 06/14/21 Last unknown) Updated by: Katharine Martinez MD (unknown) (no (unknown) (unknown) Visit Date: (units (un known) date) 07/22/21 Last unknown) Updated by: Katharine Martinez MD (unknown) (no (unknown) (unknown) Visit Date: (units (un known) date) 08/03/21 Last unknown) Updated by: Katharine Martinez MD (unknown) (no (unknown) (unknown) Visit Date: (units (un known) date) 08/23/21 Last unknown) Updated by: Katharine Martinez MD (unknown) (no (unknown) (unknown) Visit Reasons: (units (unknown) date) OB Check unknown) (unknown) (no (unknown) (unknown) Vitals (units (unkno wn) date) unknown) (unknown) (no (unknown) (unknown) Vitamins and (units (u nknown) date) iron, Diet and unknown) weight gain, Fish and mercury intake, Smoking, (unknown) (no (unknown) (unknown) WG (units (unkno wn) date) unknown) (unknown) (no (unknown) (unknown) Weeks (units (unkno wn) date) gestation:: 28 unknown) (unknown) (no (unknown) (unknown) Weight 143 lb (units (unknown) date) unknown) (unknown) (no (unknown) (unknown) Zika virus (units (unk nown) date) exposure: No unknown) (unknown) (no (unknown) (unknown) activity, X-ray (units (unknown) date) exposure, unknown) Medication use, ETOH use, Sauna/hot tub use, Dental (unknown) (no (unknown) (unknown) age. TVUS (units (unkno wn) date) performed and unknown) placenta now >4cm from cervix. Growth US performed and (unknown) (no (unknown) (unknown) alcohol intake: (units (unknown) date) former (stopped unknown) with , always light) (unknown) (no (unknown) (unknown) aneuploidy (units (unk nown) date) screening. unknown) (unknown) (no (unknown) (unknown) any significant (units (unknown) date) history, unknown) medications for bipolar disorder were discussed with (unknown) (no (unknown) (unknown) anyone in either (units (unknown) date) family with: unknown) (unknown) (no (unknown) (unknown) baby's father (units ( unknown) date) had a child with unknown) defects not listed above and Denies Other (unknown) (no (unknown) (unknown) bloating and (units (u nknown) date) other (night unknown) sweats, constipation) (unknown) (no (unknown) (unknown) but no other (units (u nknown) date) abnormal unknown) discharge. Patient today reports longstanding dizziness (unknown) (no (unknown) (unknown) caffeine: Yes (units ( unknown) date) (200mg) unknown) (unknown) (no (unknown) (unknown) carbon monox (units (u nknown) date) detector in home: unknown) Yes (unknown) (no (unknown) (unknown) care, HIV (units (unkn own) date) education, unknown) Marijuana use, Substance use, Domestic violence, Travel, (unknown) (no (unknown) (unknown) cramping or (units (un known) date) bleeding. Patient unknown) does report that nausea was worse over the (unknown) (no (unknown) (unknown) current (units (unkno wn) date) occupational unknown) exposures/hazards : No (unknown) (no (unknown) (unknown) daily servings (units (unknown) date) fruits/ve-1 unknown) (unknown) (no (unknown) (unknown) defects. Care in (units (unknown) date) our clinic and unknown) aneuploidy screening discussed. Antepartum (unknown) (no (unknown) (unknown) described, visit (units (unknown) date) schedule unknown) reviewed, ultrasounds policy reviewed, coverage 24 (unknown) (no (unknown) (unknown) despite her (units (un known) date) efforts to keep unknown) the area clean with a bulb syringe. She denies (unknown) (no (unknown) (unknown) discussed and (units ( unknown) date) ordered. unknown) Antepartum precautions discussed. (unknown) (no (unknown) (unknown) discussed (units (unkno wn) date) precautions for unknown) return. Ovaries not visualized on TAUS today. Declines (unknown) (no (unknown) (unknown) discussed, (units (unk nown) date) tuberculosis unknown) exposure discussed, CMV discussed, Toxoplasmosis (unknown) (no (unknown) (unknown) disorders, (units (unk nown) date) Denies Cystic unknown) Fibrosis, Denies Mental Retardation/Autis m, Denies (unknown) (no (unknown) (unknown) do you feel safe (units (unknown) date) at home: Yes unknown) (unknown) (no (unknown) (unknown) during the past (units (unknown) date) year weight has: unknown) remained stable (unknown) (no (unknown) (unknown) education level: (units (unknown) date) other (YVONNE) unknown) (unknown) (no (unknown) (unknown) encouraged to (units ( unknown) date) call with any unknown) questions or concerns. (unknown) (no (unknown) (unknown) endorse at (units (unk nown) date) initial visit. unknown) (unknown) (no (unknown) (unknown) fevers, chills, (units (unknown) date) or any other unknown) symptoms or obstetrical complaints. The area was (unknown) (no (unknown) (unknown) fire (units (unkno wn) date) extinguisher in unknown) home: No (unknown) (no (unknown) (unknown) firearms in (units (un known) date) home: No unknown) (unknown) (no (unknown) (unknown) green, opaque (units ( unknown) date) drainage from her unknown) belly button. This has continued intermittently (unknown) (no (unknown) (unknown) have occurred. (units (unknown) date) If there are any unknown) questions, please contact the Medical Records (unknown) (no (unknown) (unknown) hours a day and (units (unknown) date) participation of unknown) father in care and office visits (unknown) (no (unknown) (unknown) household (units (unkn own) date) members: spouse unknown) (unknown) (no (unknown) (unknown) housing: house (units (unknown) date) unknown) (unknown) (no (unknown) (unknown) ks (units (unkno wn) date) unknown) (unknown) (no (unknown) (unknown) lives (units (unkno wn) date) independently: unknown) Yes (unknown) (no (unknown) (unknown) marital status: (units (unknown) date) unknown) (unknown) (no (unknown) (unknown) may occur. (units (unk nown) date) Occasional unknown) wrong-word or 'sound-alike' substitutions may have (unknown) (no (unknown) (unknown) movement. No (units (u nknown) date) other symptoms or unknown) concerns, anatomy scan already scheduled. MSAFP (unknown) (no (unknown) (unknown) nies Maternal (units ( unknown) date) Metabolic unknown) Disorder (EG,TYPE 1 Diabetes, PKU), Denies Patient or (unknown) (no (unknown) (unknown) noted to be (units (un known) date) mildly unknown) erythmatous. A forceps was used to spread the umbilicus and (unknown) (no (unknown) (unknown) number of (units (unkn own) date) children: 0 unknown) (unknown) (no (unknown) (unknown) occupational (units (u nknown) date) status: employed unknown) (unknown) (no (unknown) (unknown) occurred due to (units (unknown) date) the inherent unknown) limitations of voice recognition software. Please (unknown) (no (unknown) (unknown) pets and (units (unkno wn) date) animals: No unknown) (unknown) (no (unknown) (unknown) placenta 1.8 cm (units (unknown) date) from os unknown) posteriorly, discussed follow up at 28 weeks. Also 88%, (unknown) (no (unknown) (unknown) precautions (units (un known) date) discussed. unknown) (unknown) (no (unknown) (unknown) precautions, (units (u nknown) date) Listeriosis unknown) prevention and Rubella Immunization (unknown) (no (unknown) (unknown) predating her (units ( unknown) date) . UA unknown) wnl, plans to try OTC monistat 7 instead of Affirm, (unknown) (no (unknown) (unknown) read the note (units ( unknown) date) carefully and unknown) recognize, using context, where these substitutions (unknown) (no (unknown) (unknown) reports feeling (units (unknown) date) movement, no ctx unknown) no LOF or VB. Recent anatomy scan showing (unknown) (no (unknown) (unknown) reports feeling (units (unknown) date) well with no UTI unknown) sx, no cramping or bleeding, starting to feel (unknown) (no (unknown) (unknown) seatbelt use: (units ( unknown) date) always unknown) (unknown) (no (unknown) (unknown) second hand (units (un known) date) exposure: No unknown) (unknown) (no (unknown) (unknown) software. (units (unkn own) date) Although every unknown) effort is made to edit content, director family errors (unknown) (no (unknown) (unknown) spotting and RLQ (units (unknown) date) cramping. Viable unknown) SIUP seen via TAUS, +movement. Reports the (unknown) (no (unknown) (unknown) spotting has (units (un known) date) resolved and the unknown) cramping remains moderate, some vaginal irritation (unknown) (no (unknown) (unknown) substance use (units ( unknown) date) type: does not unknown) use (unknown) (no (unknown) (unknown) testing (units (unkno wn) date) unknown) (unknown) (no (unknown) (unknown) the area clean (units (unknown) date) and dry, using unknown) topical antifungal cream, and monitoring. She was (unknown) (no (unknown) (unknown) to belly button (units (unknown) date) drainage. 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 (unknown) (no (unknown) (unknown) water heater (units (u nknown) date) temp set < 120 unknown) deg: Yes (will check) (unknown) (no (unknown) (unknown) weekend, did (units (u nknown) date) have streaks of unknown) blood in her vomit x1 that has since resolved. (unknown) (no (unknown) (unknown) well-balanced (units ( unknown) date) diet: about half unknown) the time (unknown) (no (unknown) (unknown) will do growth (units (unknown) date) US at that time. unknown) Antepartum precautions discussed. (unknown) (no (unknown) (unknown) wks (units (unkno wn) date) unknown) (unknown) (no (unknown) (unknown) working smoke (units ( unknown) date) detector in home: unknown) Yes Result panel 11 (unknown) (no (unknown) (unknown) (no value) (units (unk nown) date) unknown) (unknown) (no (unknown) (unknown) 10/20/19 5-6 (units (u nknown) date) spontaneous unknown) (unknown) (no (unknown) (unknown) N Yes no (units (unknown) date) 146 absent unknown) 4 wks (unknown) (no (unknown) (unknown) N Yes no (units (unknown) date) 150 21 unknown) absent 4 wks (unknown) (no (unknown) (unknown) Orders: (units (unkno wn) date) unknown) (unknown) (no (unknown) (unknown) This patient is (units (unknown) date) a 25yo @11+0 unknown) presenting to follow up 10 days of brown (unknown) (no (unknown) (unknown) This patient is (units (unknown) date) a 25yo @12+4 unknown) presenting for routine obstetric care. (unknown) (no (unknown) (unknown) This patient is (units (unknown) date) a 25yo @16+4 unknown) presenting for routine OB care. Patient (unknown) (no (unknown) (unknown) This patient is (units (unknown) date) a 25yo @22+0 unknown) presenting for routine OB care. Patient (unknown) (no (unknown) (unknown) This patient is (units (unknown) date) a 25yo @23+5 unknown) presenting for an unscheduled visit due (unknown) (no (unknown) (unknown) This patient is (units (unknown) date) a 25yo @26+4 unknown) presenting for routine care. (unknown) (no (unknown) (unknown) This patient is (units (unknown) date) a 25yo @28+5 unknown) presenting for routine care. (unknown) (no (unknown) (unknown) This patient is (units (unknown) date) a 25yo unknown) @8+4 presenting to initiate care. (unknown) (no (unknown) (unknown) (no value) (units (unk nown) date) unknown) (unknown) (no (unknown) (unknown) none (units (unkno wn) date) unknown) (unknown) (no (unknown) (unknown) (no value) (units (unk nown) date) unknown) (unknown) (no (unknown) (unknown) (+2 lb 1 oz) (units (u nknown) date) 104/58 N unknown) (unknown) (no (unknown) (unknown) (+2 lb 3 oz) (units (u nknown) date) 106/60 N unknown) (unknown) (no (unknown) (unknown) (+20 lb) (units (unkno wn) date) 92/58 N unknown) (unknown) (no (unknown) (unknown) (+22 lb) (units (unkno wn) date) 106/62 unknown) (unknown) (no (unknown) (unknown) (+29 lb) (units (unkno wn) date) 94/52 N unknown) (unknown) (no (unknown) (unknown) (+3 lb) (units (unkno wn) date) 100/60 N unknown) (unknown) (no (unknown) (unknown) (+33 lb) (units (unkno wn) date) 102/62 unknown) (unknown) (no (unknown) (unknown) (+9 lb 7 oz) (units (u nknown) date) 110/60 N unknown) (unknown) (no (unknown) (unknown) 04/19/21 (units (unkno wn) date) unknown) (unknown) (no (unknown) (unknown) 05/06/21 (units (unkno wn) date) unknown) (unknown) (no (unknown) (unknown) 05/17/21 (units (unkno wn) date) unknown) (unknown) (no (unknown) (unknown) 06/14/21 (units (unkno wn) date) unknown) (unknown) (no (unknown) (unknown) 07/22/21 (units (unkno wn) date) unknown) (unknown) (no (unknown) (unknown) 08/03/21 (units (unkno wn) date) unknown) (unknown) (no (unknown) (unknown) 08/23/21 (units (unkno wn) date) unknown) (unknown) (no (unknown) (unknown) 09/07/21 (units (unkno wn) date) unknown) (unknown) (no (unknown) (unknown) 09/07/21 1043 (units ( unknown) date) unknown) (unknown) (no (unknown) (unknown) 10:26 (units (unkno wn) date) unknown) (unknown) (no (unknown) (unknown) 11w 0d 113 lb (units (unknown) date) unknown) (unknown) (no (unknown) (unknown) 12w 4d 112 lb (units (unknown) date) 3 oz unknown) (unknown) (no (unknown) (unknown) 16w 4d 119 lb (units (unknown) date) 7 oz unknown) (unknown) (no (unknown) (unknown) 22w 0d 130 lb (units (unknown) date) unknown) (unknown) (no (unknown) (unknown) 23w 5d 132 lb (units (unknown) date) unknown) (unknown) (no (unknown) (unknown) 26w 4d 139 lb (units (unknown) date) unknown) (unknown) (no (unknown) (unknown) 28w 5d 143 lb (units (unknown) date) unknown) (unknown) (no (unknown) (unknown) 8w 4d 112 lb (units (unknown) date) 1 oz unknown) (unknown) (no (unknown) (unknown) [place] (units ( unknown) date) [id number] unknown) (unknown) (no (unknown) (unknown) Current Estimate (units (unknown) date) 11/25/21 unknown) Ultrasound #1 28w 5d (unknown) (no (unknown) (unknown) Dose Route (units (unknown) date) Admin Location unknown) Lot Number Expiration Date NDC (unknown) (no (unknown) (unknown) Eligibility (units (un known) date) Eligibility Date unknown) Funding Source (unknown) (no (unknown) (unknown) Estimated (units (unkn own) date) Delivery Date unknown) Method Current (unknown) (no (unknown) (unknown) [facility]) (unknown) (no (unknown) (unknown) KF (units (unkno wn) date) unknown) (unknown) (no (unknown) (unknown) N 167 (units (unkno wn) date) absent wnl unknown) (unknown) (no (unknown) (unknown) OB Office Visit (units (unknown) date) unknown) (unknown) (no (unknown) (unknown) Other Estimates (units (unknown) date) 11/09/21 unknown) LMP (Uncertain) 31w 0d (unknown) (no (unknown) (unknown) Signed (units (unkno wn) date) unknown) (unknown) (no (unknown) (unknown) TR 152 (units (unkn own) date) absent 4 w unknown) (unknown) (no (unknown) (unknown) TR 164 (units (unkn own) date) absent wnl unknown) (unknown) (no (unknown) (unknown) TR (units (unkno wn) date) unknown) (unknown) (no (unknown) (unknown) VIS Given Date (units (unknown) date) VIS Provided unknown) VIS Publication Date (unknown) (no (unknown) (unknown) Yes no (units (u nknown) date) 153 absent unknown) (unknown) (no (unknown) (unknown) Yes no (units (unk nown) date) 143 28 unknown) absent 2 wks (unknown) (no (unknown) (unknown) (no value) (units (unk nown) date) unknown) (unknown) (no (unknown) (unknown) 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 Of note, did not (unknown) (no (unknown) (unknown) - Declined (units (unk nown) date) aneuploidy unknown) screening, MSAFP wnl (unknown) (no (unknown) (unknown) - New OB labs (units ( unknown) date) showed UTI, for unknown) MCKENZIE- sent 05/17 (unknown) (no (unknown) (unknown) - Placenta (units (unk nown) date) previously low unknown) lying, resolved (unknown) (no (unknown) (unknown) - Varicella (units (un known) date) non-immune unknown) (unknown) (no (unknown) (unknown) -?-?-?-?-?-?-?-? (units (unknown) date) -?-?-?-?- unknown) (unknown) (no (unknown) (unknown) 0.5 mL IM Left (units (unknown) date) Deltoid [id number] unknown) 08/26/23 [id number] [facility]-PASTEUR (unknown) (no (unknown) (unknown) [id number] (units (unkn own) date) unknown) (unknown) (no (unknown) (unknown) 09/07/21 (units (unkno wn) date) unknown) (unknown) (no (unknown) (unknown) 09/07/21 Single (units (unknown) date) Vaccine 10/02/20 unknown) (unknown) (no (unknown) (unknown) Abnormal lab (units (u nknown) date) values 1st unknown) trimester: discussed (unknown) (no (unknown) (unknown) Abnormal lab (units (u nknown) date) values 2nd unknown) trimester: discussed (unknown) (no (unknown) (unknown) Adacel(Tdap (units (un known) date) Adolesn/Adult)(PF unknown) ) (unknown) (no (unknown) (unknown) Add'l Plan (units (unk nown) date) Details unknown) (unknown) (no (unknown) (unknown) Administered by: (units (unknown) date) Juanita Wei on unknown) 09/07/21 10:28 (unknown) (no (unknown) (unknown) Age/Sex: 25 / F (units (unknown) date) Date of unknown) Service: (unknown) (no (unknown) (unknown) Allergies (units (unkn own) date) unknown) (unknown) (no (unknown) (unknown) Aneuploidy (units (unk nown) date) Screening unknown) Offered: Accepted (considering options) (unknown) (no (unknown) (unknown) Antepartum (units (unk nown) date) precautions and unknown) kick counts discussed. (unknown) (no (unknown) (unknown) Anticipated (units (un known) date) course of unknown) care: discussed (unknown) (no (unknown) (unknown) Assessment and (units (unknown) date) Plan unknown) (unknown) (no (unknown) (unknown) Attending Dr: (units ( unknown) date) Katharine Martinez MD unknown) (unknown) (no (unknown) (unknown) BMI 27.9 (units (un known) date) unknown) (unknown) (no (unknown) (unknown) BP 102/62 (units (u nknown) date) unknown) (unknown) (no (unknown) (unknown) (units (unkno wn) date) Plan/Preferences unknown) (unknown) (no (unknown) (unknown) Planning (units (unknown) date) unknown) (unknown) (no (unknown) (unknown) Blood Pressure (units (unknown) date) Location Lt unknown) brachial (unknown) (no (unknown) (unknown) Blood (units (unkno wn) date) transfusions?: unknown) yes (unknown) (no (unknown) (unknown) Breastfeed (units (unk nown) date) Preg Comp Name unknown) (unknown) (no (unknown) (unknown) CRL, no gross (units ( unknown) date) abnormalities unknown) noted. Ovaries not visualized. (unknown) (no (unknown) (unknown) Caffeine use, (units ( unknown) date) Exercise and unknown) activity, work/environmenta l/hazards, Sexual (unknown) (no (unknown) (unknown) Childbirth (units (unk nown) date) Classes: unknown) discussed (unknown) (no (unknown) (unknown) Current (units (unkno wn) date) History unknown) (unknown) (no (unknown) (unknown) : 1995 (units (unknown) date) Acct:[id number] unknown) (unknown) (no (unknown) (unknown) Date (units (unkno wn) date) unknown) (unknown) (no (unknown) (unknown) Date of positive (units (unknown) date) home unknown) test: 03/20/21 (unknown) (no (unknown) (unknown) Del. Date (units (unkn own) date) GA/Weeks Labor unknown) Lgth Wt Sex Route Outcome Anesthesia Place (unknown) (no (unknown) (unknown) Delv (units (unkno wn) date) unknown) (unknown) (no (unknown) (unknown) Denies Congenital (units (unknown) date) Heart Defect, unknown) Denies Down Syndrome, Denies Muscular Dystrophy, (unknown) (no (unknown) (unknown) Denies Maternal (units (unknown) date) Metabolic unknown) Disorder (EG,TYPE 1 Diabetes, PKU), Denies Patient or (unknown) (no (unknown) (unknown) Denies Neural (units ( unknown) date) Tube Defect unknown) (Meningomyelocele , Spina Bifida, or Anencephaly), (unknown) (no (unknown) (unknown) Denies Sickle (units ( unknown) date) Cell Disease or unknown) Trait (), Denies Hemophilia or other blood (unknown) (no (unknown) (unknown) Denies Moustapha-Sachs (units (unknown) date) (Ashkenazi unknown) Adventism, Cajun, English Nigerien), Denies Sebastián (unknown) (no (unknown) (unknown) Denies other (units (u nknown) date) unknown) (unknown) (no (unknown) (unknown) Denies over the (units (unknown) date) counter unknown) medications, Denies alcohol, Denies illicit drugs and (unknown) (no (unknown) (unknown) Depression: (units (un known) date) discussed unknown) (unknown) (no (unknown) (unknown) Dept at (units (unkno wn) date) . unknown) (unknown) (no (unknown) (unknown) Diet and (units (unkno wn) date) Exercise unknown) (unknown) (no (unknown) (unknown) Discussed (units (unkn own) date) Zofran. Patient unknown) declines aneuploidy screening, MSAFP at next visit. (unknown) (no (unknown) (unknown) Disease (units (unkno wn) date) (Ashkenazi unknown) Adventism), Denies Familial Dysautonomia (Ashkenazi Adventism), (unknown) (no (unknown) (unknown) Documented By: (units (unknown) date) [place],Katharine RAMÍREZ unknown) 09/07/21 1014 (unknown) (no (unknown) (unknown) RERE Calculator (units (unknown) date) unknown) (unknown) (no (unknown) (unknown) EGA Weight BP (units ( unknown) date) UGlucose unknown) (unknown) (no (unknown) (unknown) Family History (units (unknown) date) (Updated 04/08/21 unknown) @ 08:07 by Sena Espinal RN) (unknown) (no (unknown) (unknown) Father (units (unkno wn) date) Metabolic unknown) syndrome (unknown) (no (unknown) (unknown) Father of Baby: (units (unknown) date) Abiam unknown) (unknown) (no (unknown) (unknown) First Trimester (units (unknown) date) Education unknown) Checklist (unknown) (no (unknown) (unknown) Genetic (units (unkno wn) date) Screening unknown) (unknown) (no (unknown) (unknown) Genetic (units (unkno wn) date) Screening + unknown) Counseling (unknown) (no (unknown) (unknown) Grandmother (units (un known) date) Breast cancer unknown) (unknown) (no (unknown) (unknown) 2 (units (unknown) date) Multiple unknown) births (unknown) (no (unknown) (unknown) H/O wisdom tooth (units (unknown) date) extraction unknown) (unknown) (no (unknown) (unknown) HIV risk (units (unkno wn) date) evaluation: low unknown) risk (unknown) (no (unknown) (unknown) Health Center (units ( unknown) date) Education unknown) (unknown) (no (unknown) (unknown) Health center (units ( unknown) date) information: unknown) nature of practice discussed, personnel (unknown) (no (unknown) (unknown) Height 5 ft (units (unknown) date) unknown) (unknown) (no (unknown) (unknown) Hepatitis C risk (units (unknown) date) evaluation: low unknown) risk (unknown) (no (unknown) (unknown) History of (units (unk nown) date) Hepatitis B: No unknown) (unknown) (no (unknown) (unknown) History of (units (unk nown) date) Hepatitis C: No unknown) (unknown) (no (unknown) (unknown) History of PCOS (units (unknown) date) unknown) (unknown) (no (unknown) (unknown) [facility] (units (u nknown) date) unknown) (unknown) (no (unknown) (unknown) [facility] (units (u nknown) date) Chorea, Denies unknown) Other inherited genetic or chromosomal disorder, (unknown) (no (unknown) (unknown) Hx # (units (u nknown) date) Pregnancies unknown) Elective abortions (unknown) (no (unknown) (unknown) Hx # Term (units (unkn own) date) Pregnancies unknown) Ectopic pregnancies (unknown) (no (unknown) (unknown) Immunizations (units ( unknown) date) unknown) (unknown) (no (unknown) (unknown) will be (units (unknown) date) adopted?: no unknown) (unknown) (no (unknown) (unknown) Infection (units (unkn own) date) History unknown) (unknown) (no (unknown) (unknown) Infectious (units (unk nown) date) Disease Education unknown) (unknown) (no (unknown) (unknown) Infectious (units (unk nown) date) disease exposure: unknown) chicken pox immunity discussed, hepatitis risk (unknown) (no (unknown) (unknown) Initial Weight: (units (unknown) date) 110 lb unknown) (unknown) (no (unknown) (unknown) Initials (units (unkno wn) date) unknown) (unknown) (no (unknown) (unknown) Intake (units (unkno wn) date) unknown) (unknown) (no (unknown) (unknown) Live with (units (unkn own) date) someone with TB unknown) or exposed to TB: No (unknown) (no (unknown) (unknown) Loc: [facility] (units (unkno wn) date) unknown) (unknown) (no (unknown) (unknown) Marital status: (units (unknown) date) unknown) (unknown) (no (unknown) (unknown) Medical History (units (unknown) date) (Updated 04/08/21 unknown) @ 08:06 by Sena Espinal RN) (unknown) (no (unknown) (unknown) No Known Drug (units ( unknown) date) Allergies Allergy unknown) (Unverified 07/22/21 15:29) (unknown) (no (unknown) (unknown) Non-Stress Test (units (unknown) date) performed?: No unknown) (unknown) (no (unknown) (unknown) Not VFC Eligible (units (unknown) date) 09/07/21 Private unknown) Funds (unknown) (no (unknown) (unknown) Notes (units (unkno wn) date) unknown) (unknown) (no (unknown) (unknown) Number of Living (units (unknown) date) Children unknown) (unknown) (no (unknown) (unknown) Number of (units (unkn own) date) fetuses:: Single unknown) (unknown) (no (unknown) (unknown) Nutrition and (units ( unknown) date) weight gain unknown) counseling: special diet: discussed (unknown) (no (unknown) (unknown) OB Visit Log (units (u nknown) date) unknown) (unknown) (no (unknown) (unknown) On control (units (unknown) date) at conception?: unknown) No (unknown) (no (unknown) (unknown) Orders (units (unkno wn) date) unknown) (unknown) (no (unknown) (unknown) PFSH (units (unkno wn) date) unknown) (unknown) (no (unknown) (unknown) Pap performed?: (units (unknown) date) No unknown) (unknown) (no (unknown) (unknown) Para 0 (units ( unknown) date) Spontaneous unknown) abortions 1 (unknown) (no (unknown) (unknown) Partner history (units (unknown) date) of STD: denies hx unknown) (unknown) (no (unknown) (unknown) Partner history (units (unknown) date) of genital unknown) herpes: No (unknown) (no (unknown) (unknown) Partner: Abiam (units (unknown) date) unknown) (unknown) (no (unknown) (unknown) Past Pregnancies (units (unknown) date) unknown) (unknown) (no (unknown) (unknown) Patient was (units (un known) date) recently treated unknown) for UTI with resolution of symptoms, no further (unknown) (no (unknown) (unknown) Patient's age 33 (units (unknown) date) years or older as unknown) of estimated date of delivery: No (unknown) (no (unknown) (unknown) Patient: (units (unkno wn) date) Sally Thurston Y unknown) MR#: [id number] (unknown) (no (unknown) (unknown) 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) (unknown) (no (unknown) (unknown) Performing (units (unk nown) date) Provider: Katharine unknown) MD Juan (unknown) (no (unknown) (unknown) Personal history (units (unknown) date) of STD: denies hx unknown) (unknown) (no (unknown) (unknown) Personal history (units (unknown) date) of genital unknown) herpes: No (unknown) (no (unknown) (unknown) Position (units (unkno wn) date) Sitting unknown) (unknown) (no (unknown) (unknown) (units (unkn own) date) History unknown) (unknown) (no (unknown) (unknown) type:: (units (unknown) date) Other Normal unknown) (unknown) (no (unknown) (unknown) (units (unkno wn) date) Education unknown) (unknown) (no (unknown) (unknown) Initial (units (unknown) date) Assessment unknown) (unknown) (no (unknown) (unknown) (units (unkno wn) date) Specific unknown) Issues/Plans (unknown) (no (unknown) (unknown) (units (unkno wn) date) Testing: unknown) discussed (unknown) (no (unknown) (unknown) Visit (units (unknown) date) unknown) (unknown) (no (unknown) (unknown) (units (unkno wn) date) education packet: unknown) Child education/plan, symptoms, (unknown) (no (unknown) (unknown) Primary Care (units (u nknown) date) Provider: MANISH unknownSaeid Sumemrs (unknown) (no (unknown) (unknown) Primary Ob (units (unk nown) date) Provider: unknown) Katharine Martinez (unknown) (no (unknown) (unknown) Providers (units (unkn own) date) unknown) (unknown) (no (unknown) (unknown) Rash or viral (units ( unknown) date) illness since unknown) last menstrual period: No (unknown) (no (unknown) (unknown) Reason For Visit (units (unknown) date) unknown) (unknown) (no (unknown) (unknown) Recurrent (units (unkn own) date) loss or unknown) a stillbirth: No (unknown) (no (unknown) (unknown) Referred for 3rd (units (unknown) date) tri labs. unknown) (unknown) (no (unknown) (unknown) Reports good (units (u nknown) date) movement, unknown) no LOF or VB, no ctx, no further umbilical (unknown) (no (unknown) (unknown) Reports good (units (u nknown) date) movement, unknown) no LOF or VB, no ctx. Third tri labs wnl. (unknown) (no (unknown) (unknown) Safety (units (unkno wn) date) unknown) (unknown) (no (unknown) (unknown) Seatbelt use and (units (unknown) date) Influenza vaccine unknown) (ad thia fall) (unknown) (no (unknown) (unknown) Second Trimester (units (unknown) date) Education unknown) Checklist (unknown) (no (unknown) (unknown) Signed By: (units (unk nown) date) <Electronically unknown) signed by Katharine Martinze MD> (unknown) (no (unknown) (unknown) Smoking Status: (units (unknown) date) Never smoker unknown) (unknown) (no (unknown) (unknown) Social History (units (unknown) date) unknown) (unknown) (no (unknown) (unknown) Surgical History (units (unknown) date) (Updated 04/08/21 unknown) @ 08:06 by Sena Espinal RN) (unknown) (no (unknown) (unknown) Surrogate (units (unkn own) date) ?: no unknown) (unknown) (no (unknown) (unknown) Symptoms since (units (unknown) date) LMP: Reports unknown) amenorrhea, nausea, vomiting, breast tenderness, (unknown) (no (unknown) (unknown) Tdap Adult (units (unk nown) date) (Adacel) Today unknown) Z23 - Encounter for immunization (unknown) (no (unknown) (unknown) Tdap status: (units (u nknown) date) immunized unknown) (unknown) (no (unknown) (unknown) Teratogen (units (unkn own) date) Exposures since unknown) LMP/Conception: Denies prescription medications, (unknown) (no (unknown) (unknown) Testing (units (unkno wn) date) Education unknown) (unknown) (no (unknown) (unknown) Testing (units (unkno wn) date) education unknown) completed: Genetic testing, group B strep and Spina bifida (unknown) (no (unknown) (unknown) The patient has (units (unknown) date) irregular menses, unknown) and was dated by ultrasound today. She denies (unknown) (no (unknown) (unknown) The umbilicus (units ( unknown) date) was cleaned with unknown) a chlorhexadine swab, and we discussed keeping (unknown) (no (unknown) (unknown) This note may (units ( unknown) date) have been all or unknown) partially generated using voice recognition (unknown) (no (unknown) (unknown) Tobacco + (units (unkn own) date) Substance Use unknown) (unknown) (no (unknown) (unknown) Tobacco Status (units (unknown) date) unknown) (unknown) (no (unknown) (unknown) Trimester:: 3rd (units (unknown) date) Trimester unknown) (28wks-Del) (unknown) (no (unknown) (unknown) Type(s) of (units (unk nown) date) exercise: unknown) irregular exercise (unknown) (no (unknown) (unknown) UProtein Movement (units (unknown) date) PreLabor FHR Fndl unknown) Ht Pres Edema Cerv Exam US/Comment Next Appt (unknown) (no (unknown) (unknown) Ultrasound (units (unk nown) date) unknown) (unknown) (no (unknown) (unknown) Ultrasound (units (unk nown) date) Details:: TAUS unknown) performed. Viable SIUP visualized measuring 8+4 by (unknown) (no (unknown) (unknown) Ultrasound (units (unk nown) date) performed?: No unknown) (unknown) (no (unknown) (unknown) Varicella/chicke (units (unknown) date) n pox status: unknown) immunized (unknown) (no (unknown) (unknown) Visit Date: (units (un known) date) 04/19/21 Last unknown) Updated by: Katharine Martinez MD (unknown) (no (unknown) (unknown) Visit Date: (units (un known) date) 05/06/21 Last unknown) Updated by: Katharine Martinez MD (unknown) (no (unknown) (unknown) Visit Date: (units (un known) date) 05/17/21 Last unknown) Updated by: Katharine Martinez MD (unknown) (no (unknown) (unknown) Visit Date: (units (un known) date) 06/14/21 Last unknown) Updated by: Katharine Martinez MD (unknown) (no (unknown) (unknown) Visit Date: (units (un known) date) 07/22/21 Last unknown) Updated by: Katharine Martinez MD (unknown) (no (unknown) (unknown) Visit Date: (units (un known) date) 08/03/21 Last unknown) Updated by: Katharine Martinez MD (unknown) (no (unknown) (unknown) Visit Date: (units (un known) date) 08/23/21 Last unknown) Updated by: Katharine Martinez MD (unknown) (no (unknown) (unknown) Visit Date: (units (un known) date) 09/07/21 Last unknown) Updated by: Katharine Martinez MD (unknown) (no (unknown) (unknown) Visit Reasons: (units (unknown) date) OB Check unknown) (unknown) (no (unknown) (unknown) Vitals (units (unkno wn) date) unknown) (unknown) (no (unknown) (unknown) Vitamins and (units (u nknown) date) iron, Diet and unknown) weight gain, Fish and mercury intake, Smoking, (unknown) (no (unknown) (unknown) WG (units (unkno wn) date) unknown) (unknown) (no (unknown) (unknown) Weeks (units (unkno wn) date) gestation:: 28 unknown) (unknown) (no (unknown) (unknown) Weight 143 lb (units (unknown) date) unknown) (unknown) (no (unknown) (unknown) Zika virus (units (unk nown) date) exposure: No unknown) (unknown) (no (unknown) (unknown) activity, X-ray (units (unknown) date) exposure, unknown) Medication use, ETOH use, Sauna/hot tub use, Dental (unknown) (no (unknown) (unknown) alcohol intake: (units (unknown) date) former (stopped unknown) with , always light) (unknown) (no (unknown) (unknown) and 2#2, 53%, (units ( unknown) date) MVP 4.3cm. Breech unknown) presentation. Antepartum precautions discussed. (unknown) (no (unknown) (unknown) aneuploidy (units (unk nown) date) screening. unknown) (unknown) (no (unknown) (unknown) any significant (units (unknown) date) history, unknown) medications for bipolar disorder were discussed with (unknown) (no (unknown) (unknown) anyone in either (units (unknown) date) family with: unknown) (unknown) (no (unknown) (unknown) baby's father (units ( unknown) date) had a child with unknown) defects not listed above and Denies Other (unknown) (no (unknown) (unknown) bloating and (units (u nknown) date) other (night unknown) sweats, constipation) (unknown) (no (unknown) (unknown) but no other (units (u nknown) date) abnormal unknown) discharge. Patient today reports longstanding dizziness (unknown) (no (unknown) (unknown) caffeine: Yes (units ( unknown) date) (200mg) unknown) (unknown) (no (unknown) (unknown) carbon monox (units (u nknown) date) detector in home: unknown) Yes (unknown) (no (unknown) (unknown) care, HIV (units (unkn own) date) education, unknown) Marijuana use, Substance use, Domestic violence, Travel, (unknown) (no (unknown) (unknown) cramping or (units (un known) date) bleeding. Patient unknown) does report that nausea was worse over the (unknown) (no (unknown) (unknown) current (units (unkno wn) date) occupational unknown) exposures/hazards : No (unknown) (no (unknown) (unknown) daily servings (units (unknown) date) fruits/ve-1 unknown) (unknown) (no (unknown) (unknown) defects. Care in (units (unknown) date) our clinic and unknown) aneuploidy screening discussed. Antepartum (unknown) (no (unknown) (unknown) described, visit (units (unknown) date) schedule unknown) reviewed, ultrasounds policy reviewed, coverage 24 (unknown) (no (unknown) (unknown) despite her (units (un known) date) efforts to keep unknown) the area clean with a bulb syringe. She denies (unknown) (no (unknown) (unknown) discussed and (units ( unknown) date) ordered. unknown) Antepartum precautions discussed. (unknown) (no (unknown) (unknown) discussed (units (unkno wn) date) precautions for unknown) return. Ovaries not visualized on TAUS today. Declines (unknown) (no (unknown) (unknown) discussed, (units (unk nown) date) tuberculosis unknown) exposure discussed, CMV discussed, Toxoplasmosis (unknown) (no (unknown) (unknown) disorders, (units (unk nown) date) Denies Cystic unknown) Fibrosis, Denies Mental Retardation/Autis m, Denies (unknown) (no (unknown) (unknown) do you feel safe (units (unknown) date) at home: Yes unknown) (unknown) (no (unknown) (unknown) drainage. TVUS (units ( unknown) date) performed and unknown) placenta now >4cm from cervix. Growth US performed (unknown) (no (unknown) (unknown) during the past (units (unknown) date) year weight has: unknown) remained stable (unknown) (no (unknown) (unknown) education level: (units (unknown) date) other (YVONNE) unknown) (unknown) (no (unknown) (unknown) encouraged to (units ( unknown) date) call with any unknown) questions or concerns. (unknown) (no (unknown) (unknown) endorse at (units (unk nown) date) initial visit. unknown) (unknown) (no (unknown) (unknown) fevers, chills, (units (unknown) date) or any other unknown) symptoms or obstetrical complaints. The area was (unknown) (no (unknown) (unknown) fire (units (unkno wn) date) extinguisher in unknown) home: No (unknown) (no (unknown) (unknown) firearms in (units (un known) date) home: No unknown) (unknown) (no (unknown) (unknown) green, opaque (units ( unknown) date) drainage from her unknown) belly button. This has continued intermittently (unknown) (no (unknown) (unknown) have occurred. (units (unknown) date) If there are any unknown) questions, please contact the Medical Records (unknown) (no (unknown) (unknown) hours a day and (units (unknown) date) participation of unknown) father in care and office visits (unknown) (no (unknown) (unknown) household (units (unkn own) date) members: spouse unknown) (unknown) (no (unknown) (unknown) housing: house (units (unknown) date) unknown) (unknown) (no (unknown) (unknown) ks (units (unkno wn) date) unknown) (unknown) (no (unknown) (unknown) lives (units (unkno wn) date) independently: unknown) Yes (unknown) (no (unknown) (unknown) marital status: (units (unknown) date) unknown) (unknown) (no (unknown) (unknown) may occur. (units (unk nown) date) Occasional unknown) wrong-word or 'sound-alike' substitutions may have (unknown) (no (unknown) (unknown) movement. No (units (u nknown) date) other symptoms or unknown) concerns, anatomy scan already scheduled. MSAFP (unknown) (no (unknown) (unknown) noted to be (units (un known) date) mildly unknown) erythmatous. A forceps was used to spread the umbilicus and (unknown) (no (unknown) (unknown) number of (units (unkn own) date) children: 0 unknown) (unknown) (no (unknown) (unknown) occupational (units (u nknown) date) status: employed unknown) (unknown) (no (unknown) (unknown) occurred due to (units (unknown) date) the inherent unknown) limitations of voice recognition software. Please (unknown) (no (unknown) (unknown) pets and (units (unkno wn) date) animals: No unknown) (unknown) (no (unknown) (unknown) placenta 1.8 cm (units (unknown) date) from os unknown) posteriorly, discussed follow up at 28 weeks. Also 88%, (unknown) (no (unknown) (unknown) precautions (units (un known) date) discussed. unknown) (unknown) (no (unknown) (unknown) precautions, (units (u nknown) date) Listeriosis unknown) prevention and Rubella Immunization (unknown) (no (unknown) (unknown) predating her (units ( unknown) date) . UA unknown) wnl, plans to try OTC monistat 7 instead of Affirm, (unknown) (no (unknown) (unknown) read the note (units ( unknown) date) carefully and unknown) recognize, using context, where these substitutions (unknown) (no (unknown) (unknown) reports feeling (units (unknown) date) movement, no ctx unknown) no LOF or VB. Recent anatomy scan showing (unknown) (no (unknown) (unknown) reports feeling (units (unknown) date) well with no UTI unknown) sx, no cramping or bleeding, starting to feel (unknown) (no (unknown) (unknown) seatbelt use: (units ( unknown) date) always unknown) (unknown) (no (unknown) (unknown) second hand (units (un known) date) exposure: No unknown) (unknown) (no (unknown) (unknown) software. (units (unkn own) date) Although every unknown) effort is made to edit content, director family errors (unknown) (no (unknown) (unknown) spotting and RLQ (units (unknown) date) cramping. Viable unknown) SIUP seen via TAUS, +movement. Reports the (unknown) (no (unknown) (unknown) spotting has (units (un known) date) resolved and the unknown) cramping remains moderate, some vaginal irritation (unknown) (no (unknown) (unknown) substance use (units ( unknown) date) type: does not unknown) use (unknown) (no (unknown) (unknown) testing (units (unkno wn) date) unknown) (unknown) (no (unknown) (unknown) the area clean (units (unknown) date) and dry, using unknown) topical antifungal cream, and monitoring. She was (unknown) (no (unknown) (unknown) to belly button (units (unknown) date) drainage. 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 (unknown) (no (unknown) (unknown) water heater (units (u nknown) date) temp set < 120 unknown) deg: Yes (will check) (unknown) (no (unknown) (unknown) weekend, did (units (u nknown) date) have streaks of unknown) blood in her vomit x1 that has since resolved. (unknown) (no (unknown) (unknown) well-balanced (units ( unknown) date) diet: about half unknown) the time (unknown) (no (unknown) (unknown) will do growth (units (unknown) date) US at that time. unknown) Antepartum precautions discussed. (unknown) (no (unknown) (unknown) wks (units (unkno wn) date) unknown) (unknown) (no (unknown) (unknown) working smoke (units ( unknown) date) detector in home: unknown) Yes Result panel 12 (unknown) (no (unknown) (unknown) (no value) (units (unk nown) date) unknown) (unknown) (no (unknown) (unknown) 10/20/19 5-6 (units (u nknown) date) spontaneous unknown) (unknown) (no (unknown) (unknown) N Yes no (units (unknown) date) 143 28 unknown) absent 2 wks (unknown) (no (unknown) (unknown) N Yes no (units (unknown) date) 146 absent unknown) 4 wks (unknown) (no (unknown) (unknown) N Yes no (units (unknown) date) 150 21 unknown) absent 4 wks (unknown) (no (unknown) (unknown) This patient is (units (unknown) date) a 25yo @11+0 unknown) presenting to follow up 10 days of brown (unknown) (no (unknown) (unknown) This patient is (units (unknown) date) a 25yo @12+4 unknown) presenting for routine obstetric care. (unknown) (no (unknown) (unknown) This patient is (units (unknown) date) a 25yo @16+4 unknown) presenting for routine OB care. Patient (unknown) (no (unknown) (unknown) This patient is (units (unknown) date) a 25yo @22+0 unknown) presenting for routine OB care. Patient (unknown) (no (unknown) (unknown) This patient is (units (unknown) date) a 25yo @23+5 unknown) presenting for an unscheduled visit due (unknown) (no (unknown) (unknown) This patient is (units (unknown) date) a 25yo @26+4 unknown) presenting for routine care. (unknown) (no (unknown) (unknown) This patient is (units (unknown) date) a 25yo @28+5 unknown) presenting for routine care. (unknown) (no (unknown) (unknown) This patient is (units (unknown) date) a 25yo unknown) @8+4 presenting to initiate care. (unknown) (no (unknown) (unknown) (no value) (units (unk nown) date) unknown) (unknown) (no (unknown) (unknown) none (units (unkno wn) date) unknown) (unknown) (no (unknown) (unknown) (no value) (units (unk nown) date) unknown) (unknown) (no (unknown) (unknown) (+2 lb 1 oz) (units (u nknown) date) 104/58 N unknown) (unknown) (no (unknown) (unknown) (+2 lb 3 oz) (units (u nknown) date) 106/60 N unknown) (unknown) (no (unknown) (unknown) (+20 lb) (units (unkno wn) date) 92/58 N unknown) (unknown) (no (unknown) (unknown) (+22 lb) (units (unkno wn) date) 106/62 unknown) (unknown) (no (unknown) (unknown) (+29 lb) (units (unkno wn) date) 94/52 N unknown) (unknown) (no (unknown) (unknown) (+3 lb) (units (unkno wn) date) 100/60 N unknown) (unknown) (no (unknown) (unknown) (+33 lb) (units (unkno wn) date) 102/62 N unknown) (unknown) (no (unknown) (unknown) (+9 lb 7 oz) (units (u nknown) date) 110/60 N unknown) (unknown) (no (unknown) (unknown) 04/19/21 (units (unkno wn) date) unknown) (unknown) (no (unknown) (unknown) 05/06/21 (units (unkno wn) date) unknown) (unknown) (no (unknown) (unknown) 05/17/21 (units (unkno wn) date) unknown) (unknown) (no (unknown) (unknown) 06/14/21 (units (unkno wn) date) unknown) (unknown) (no (unknown) (unknown) 07/22/21 (units (unkno wn) date) unknown) (unknown) (no (unknown) (unknown) 08/03/21 (units (unkno wn) date) unknown) (unknown) (no (unknown) (unknown) 08/23/21 (units (unkno wn) date) unknown) (unknown) (no (unknown) (unknown) 09/07/21 (units (unkno wn) date) unknown) (unknown) (no (unknown) (unknown) 09/23/21 (units (unkno wn) date) unknown) (unknown) (no (unknown) (unknown) 11w 0d 113 lb (units (unknown) date) unknown) (unknown) (no (unknown) (unknown) 12w 4d 112 lb (units (unknown) date) 3 oz unknown) (unknown) (no (unknown) (unknown) 16w 4d 119 lb (units (unknown) date) 7 oz unknown) (unknown) (no (unknown) (unknown) 22w 0d 130 lb (units (unknown) date) unknown) (unknown) (no (unknown) (unknown) 23w 5d 132 lb (units (unknown) date) unknown) (unknown) (no (unknown) (unknown) 26w 4d 139 lb (units (unknown) date) unknown) (unknown) (no (unknown) (unknown) 28w 5d 143 lb (units (unknown) date) unknown) (unknown) (no (unknown) (unknown) 31w 0d (units (unkno wn) date) unknown) (unknown) (no (unknown) (unknown) 8w 4d 112 lb (units (unknown) date) 1 oz unknown) (unknown) (no (unknown) (unknown) [place] (units ( unknown) date) [id number] unknown) (unknown) (no (unknown) (unknown) Current Estimate (units (unknown) date) 11/25/21 unknown) Ultrasound #1 31w 0d (unknown) (no (unknown) (unknown) Draft (units (unkno wn) date) unknown) (unknown) (no (unknown) (unknown) Estimated (units (unkn own) date) Delivery Date unknown) Method Current (unknown) (no (unknown) (unknown) [facility]) (unknown) (no (unknown) (unknown) KF (units (unkno wn) date) unknown) (unknown) (no (unknown) (unknown) N 167 (units (unkno wn) date) absent wnl unknown) (unknown) (no (unknown) (unknown) OB Office Visit (units (unknown) date) unknown) (unknown) (no (unknown) (unknown) Other Estimates (units (unknown) date) 11/09/21 unknown) LMP (Uncertain) 33w 2d (unknown) (no (unknown) (unknown) TR 152 (units (unkn own) date) absent 4 w unknown) (unknown) (no (unknown) (unknown) TR 164 (units (unkn own) date) absent wnl unknown) (unknown) (no (unknown) (unknown) TR (units (unkno wn) date) unknown) (unknown) (no (unknown) (unknown) Yes no (units (u nknown) date) 153 absent unknown) (unknown) (no (unknown) (unknown) (no value) (units (unk nown) date) unknown) (unknown) (no (unknown) (unknown) N Yes no (units (unknown) date) 148 27 unknown) Breech absent See below 3 (unknown) (no (unknown) (unknown) 4 wks (units (unkno wn) date) unknown) (unknown) (no (unknown) (unknown) as scheduled (units (u nknown) date) unknown) (unknown) (no (unknown) (unknown) Genetic (units (unkn own) date) Screening/Teratol unknown) ogy Counseling - Includes patient, baby's father, or (unknown) (no (unknown) (unknown) - Bipolar - (units (un known) date) Stable on unknown) lamotrigine, fluoxetine, and wellbutrin. Of note, did not (unknown) (no (unknown) (unknown) - Declined (units (unk nown) date) aneuploidy unknown) screening, MSAFP wnl (unknown) (no (unknown) (unknown) - New OB labs (units ( unknown) date) showed UTI, for unknown) MCKENZIE- sent 05/17 (unknown) (no (unknown) (unknown) - Placenta (units (unk nown) date) previously low unknown) lying, resolved (unknown) (no (unknown) (unknown) - Varicella (units (un known) date) non-immune unknown) (unknown) (no (unknown) (unknown) -?-?-?-?-?-?-?-? (units (unknown) date) -?-?-?-?- unknown) (unknown) (no (unknown) (unknown) [id number] (units (unkn own) date) unknown) (unknown) (no (unknown) (unknown) 02 (units (unkno wn) date) unknown) (unknown) (no (unknown) (unknown) 09/23/21 (units (unkno wn) date) unknown) (unknown) (no (unknown) (unknown) Abnormal lab (units (u nknown) date) values 1st unknown) trimester: discussed (unknown) (no (unknown) (unknown) Abnormal lab (units (u nknown) date) values 2nd unknown) trimester: discussed (unknown) (no (unknown) (unknown) Add'l Plan (units (unk nown) date) Details unknown) (unknown) (no (unknown) (unknown) Age/Sex: 25 / F (units (unknown) date) Date of unknown) Service: (unknown) (no (unknown) (unknown) Allergies (units (unkn own) date) unknown) (unknown) (no (unknown) (unknown) Aneuploidy (units (unk nown) date) Screening unknown) Offered: Accepted (considering options) (unknown) (no (unknown) (unknown) Antepartum (units (unk nown) date) precautions and unknown) kick counts discussed. (unknown) (no (unknown) (unknown) Anticipated (units (un known) date) course of unknown) care: discussed (unknown) (no (unknown) (unknown) Assessment and (units (unknown) date) Plan unknown) (unknown) (no (unknown) (unknown) Attending Dr: (units ( unknown) date) Clare Araya unknown) Prudence RAMÍREZ (unknown) (no (unknown) (unknown) (units (unkno wn) date) Plan/Preferences unknown) (unknown) (no (unknown) (unknown) Planning (units (unknown) date) unknown) (unknown) (no (unknown) (unknown) Blood (units (unkno wn) date) transfusions?: unknown) yes (unknown) (no (unknown) (unknown) Breastfeed (units (unk nown) date) Preg Comp Name unknown) (unknown) (no (unknown) (unknown) CRL, no gross (units ( unknown) date) abnormalities unknown) noted. Ovaries not visualized. (unknown) (no (unknown) (unknown) Caffeine use, (units ( unknown) date) Exercise and unknown) activity, work/environmenta l/hazards, Sexual (unknown) (no (unknown) (unknown) Childbirth (units (unk nown) date) Classes: unknown) discussed (unknown) (no (unknown) (unknown) Current (units (unkno wn) date) History unknown) (unknown) (no (unknown) (unknown) : 1995 (units (unknown) date) Acct:[id number] unknown) (unknown) (no (unknown) (unknown) Date (units (unkno wn) date) unknown) (unknown) (no (unknown) (unknown) Date of positive (units (unknown) date) home unknown) test: 03/20/21 (unknown) (no (unknown) (unknown) Del. Date (units (unkn own) date) GA/Weeks Labor unknown) Lgth Wt Sex Route Outcome Anesthesia Place (unknown) (no (unknown) (unknown) Delv (units (unkno wn) date) unknown) (unknown) (no (unknown) (unknown) Denies Congenital (units (unknown) date) Heart Defect, unknown) Denies Down Syndrome, Denies Muscular Dystrophy, (unknown) (no (unknown) (unknown) Denies Maternal (units (unknown) date) Metabolic unknown) Disorder (EG,TYPE 1 Diabetes, PKU), Denies Patient or (unknown) (no (unknown) (unknown) Denies Neural (units ( unknown) date) Tube Defect unknown) (Meningomyelocele , Spina Bifida, or Anencephaly), (unknown) (no (unknown) (unknown) Denies Sickle (units ( unknown) date) Cell Disease or unknown) Trait (), Denies Hemophilia or other blood (unknown) (no (unknown) (unknown) Denies Moustapha-Sachs (units (unknown) date) (Ashkenazi unknown) Adventism, Cajun, English Nigerien), Denies Sebastián (unknown) (no (unknown) (unknown) Denies other (units (u nknown) date) unknown) (unknown) (no (unknown) (unknown) Denies over the (units (unknown) date) counter unknown) medications, Denies alcohol, Denies illicit drugs and (unknown) (no (unknown) (unknown) Depression: (units (un known) date) discussed unknown) (unknown) (no (unknown) (unknown) Dept at (units (unkno wn) date) . unknown) (unknown) (no (unknown) (unknown) Diet and (units (unkno wn) date) Exercise unknown) (unknown) (no (unknown) (unknown) Discussed (units (unkn own) date) Zofran. Patient unknown) declines aneuploidy screening, MSAFP at next visit. (unknown) (no (unknown) (unknown) Disease (units (unkno wn) date) (Ashkenazi unknown) Adventism), Denies Familial Dysautonomia (Ashkenazi Adventism), (unknown) (no (unknown) (unknown) Documented By: (units (unknown) date) Clare Foss unknown) Quiana RAMÍREZ 09/23/21 08 (unknown) (no (unknown) (unknown) RERE Calculator (units (unknown) date) unknown) (unknown) (no (unknown) (unknown) EGA Weight BP (units ( unknown) date) UGlucose unknown) (unknown) (no (unknown) (unknown) Family History (units (unknown) date) (Updated 04/08/21 unknown) @ 08:07 by Sena Espinal RN) (unknown) (no (unknown) (unknown) Father (units (unkno wn) date) Metabolic unknown) syndrome (unknown) (no (unknown) (unknown) Father of Baby: (units (unknown) date) Abiam unknown) (unknown) (no (unknown) (unknown) First Trimester (units (unknown) date) Education unknown) Checklist (unknown) (no (unknown) (unknown) Genetic (units (unkno wn) date) Screening unknown) (unknown) (no (unknown) (unknown) Genetic (units (unkno wn) date) Screening + unknown) Counseling (unknown) (no (unknown) (unknown) Grandmother (units (un known) date) Breast cancer unknown) (unknown) (no (unknown) (unknown) 2 (units (unknown) date) Multiple unknown) births (unknown) (no (unknown) (unknown) H/O wisdom tooth (units (unknown) date) extraction unknown) (unknown) (no (unknown) (unknown) HIV risk (units (unkno wn) date) evaluation: low unknown) risk (unknown) (no (unknown) (unknown) Health Center (units ( unknown) date) Education unknown) (unknown) (no (unknown) (unknown) Health center (units ( unknown) date) information: unknown) nature of practice discussed, personnel (unknown) (no (unknown) (unknown) Hepatitis C risk (units (unknown) date) evaluation: low unknown) risk (unknown) (no (unknown) (unknown) History of (units (unk nown) date) Hepatitis B: No unknown) (unknown) (no (unknown) (unknown) History of (units (unk nown) date) Hepatitis C: No unknown) (unknown) (no (unknown) (unknown) History of PCOS (units (unknown) date) unknown) (unknown) (no (unknown) (unknown) Hospital: (units (u nknown) date) unknown) (unknown) (no (unknown) (unknown) [facility] (units (u nknown) date) Chorea, Denies unknown) Other inherited genetic or chromosomal disorder, (unknown) (no (unknown) (unknown) Hx # (units (u nknown) date) Pregnancies unknown) Elective abortions (unknown) (no (unknown) (unknown) Hx # Term (units (unkn own) date) Pregnancies unknown) Ectopic pregnancies (unknown) (no (unknown) (unknown) Infant will be (units (unknown) date) adopted?: no unknown) (unknown) (no (unknown) (unknown) Infection (units (unkn own) date) History unknown) (unknown) (no (unknown) (unknown) Infectious (units (unk nown) date) Disease Education unknown) (unknown) (no (unknown) (unknown) Infectious (units (unk nown) date) disease exposure: unknown) chicken pox immunity discussed, hepatitis risk (unknown) (no (unknown) (unknown) Initial Weight: (units (unknown) date) 110 lb unknown) (unknown) (no (unknown) (unknown) Initials (units (unkno wn) date) unknown) (unknown) (no (unknown) (unknown) Intake (units (unkno wn) date) unknown) (unknown) (no (unknown) (unknown) Live with (units (unkn own) date) someone with TB unknown) or exposed to TB: No (unknown) (no (unknown) (unknown) Loc: [facility] (units (unkno wn) date) unknown) (unknown) (no (unknown) (unknown) Marital status: (units (unknown) date) unknown) (unknown) (no (unknown) (unknown) Medical History (units (unknown) date) (Updated 04/08/21 unknown) @ 08:06 by Sena Espinal RN) (unknown) (no (unknown) (unknown) No Known Drug (units ( unknown) date) Allergies Allergy unknown) (Unverified 07/22/21 15:29) (unknown) (no (unknown) (unknown) Non-Stress Test (units (unknown) date) performed?: No unknown) (unknown) (no (unknown) (unknown) Notes (units (unkno wn) date) unknown) (unknown) (no (unknown) (unknown) Number of Living (units (unknown) date) Children unknown) (unknown) (no (unknown) (unknown) Number of (units (unkn own) date) fetuses:: Single unknown) (unknown) (no (unknown) (unknown) Nutrition and (units ( unknown) date) weight gain unknown) counseling: special diet: discussed (unknown) (no (unknown) (unknown) OB Visit Log (units (u nknown) date) unknown) (unknown) (no (unknown) (unknown) On control (units (unknown) date) at conception?: unknown) No (unknown) (no (unknown) (unknown) PFSH (units (unkno wn) date) unknown) (unknown) (no (unknown) (unknown) Pap performed?: (units (unknown) date) No unknown) (unknown) (no (unknown) (unknown) Para 0 (units ( unknown) date) Spontaneous unknown) abortions 1 (unknown) (no (unknown) (unknown) Partner history (units (unknown) date) of STD: denies hx unknown) (unknown) (no (unknown) (unknown) Partner history (units (unknown) date) of genital unknown) herpes: No (unknown) (no (unknown) (unknown) Partner: Abiam (units (unknown) date) unknown) (unknown) (no (unknown) (unknown) Past Pregnancies (units (unknown) date) unknown) (unknown) (no (unknown) (unknown) Patient was (units (un known) date) recently treated unknown) for UTI with resolution of symptoms, no further (unknown) (no (unknown) (unknown) Patient's age 33 (units (unknown) date) years or older as unknown) of estimated date of delivery: No (unknown) (no (unknown) (unknown) Patient: (units (unkno wn) date) Sally Thurston unknown) MR#: M (unknown) (no (unknown) (unknown) 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) (unknown) (no (unknown) (unknown) Personal history (units (unknown) date) of STD: denies hx unknown) (unknown) (no (unknown) (unknown) Personal history (units (unknown) date) of genital unknown) herpes: No (unknown) (no (unknown) (unknown) (units (unkn own) date) History unknown) (unknown) (no (unknown) (unknown) type:: (units (unknown) date) Other Normal unknown) (unknown) (no (unknown) (unknown) (units (unkno wn) date) Education unknown) (unknown) (no (unknown) (unknown) Initial (units (unknown) date) Assessment unknown) (unknown) (no (unknown) (unknown) (units (unkno wn) date) Specific unknown) Issues/Plans (unknown) (no (unknown) (unknown) (units (unkno wn) date) Testing: unknown) discussed (unknown) (no (unknown) (unknown) Visit (units (unknown) date) unknown) (unknown) (no (unknown) (unknown) (units (unkno wn) date) education packet: unknown) Child education/plan, symptoms, (unknown) (no (unknown) (unknown) Primary Care (units (u nknown) date) Provider: MANISH unknown) Kristopher (unknown) (no (unknown) (unknown) Primary Ob (units (unk nown) date) Provider: unknown) Katharine Martinez (unknown) (no (unknown) (unknown) Providers (units (unkn own) date) unknown) (unknown) (no (unknown) (unknown) Rash or viral (units ( unknown) date) illness since unknown) last menstrual period: No (unknown) (no (unknown) (unknown) Reason For Visit (units (unknown) date) unknown) (unknown) (no (unknown) (unknown) Recurrent (units (unkn own) date) loss or unknown) a stillbirth: No (unknown) (no (unknown) (unknown) Referred for 3rd (units (unknown) date) tri labs. unknown) (unknown) (no (unknown) (unknown) Reports good (units (u nknown) date) movement, unknown) no LOF or VB, no ctx, no further umbilical (unknown) (no (unknown) (unknown) Reports good (units (u nknown) date) movement, unknown) no LOF or VB, no ctx. Third tri labs wnl. (unknown) (no (unknown) (unknown) Safety (units (unkno wn) date) unknown) (unknown) (no (unknown) (unknown) Seatbelt use and (units (unknown) date) Influenza vaccine unknown) (ad thia fall) (unknown) (no (unknown) (unknown) Second Trimester (units (unknown) date) Education unknown) Checklist (unknown) (no (unknown) (unknown) Signed By: (units (unk nown) date) unknown) (unknown) (no (unknown) (unknown) Smoking Status: (units (unknown) date) Never smoker unknown) (unknown) (no (unknown) (unknown) Social History (units (unknown) date) unknown) (unknown) (no (unknown) (unknown) Surgical History (units (unknown) date) (Updated 04/08/21 unknown) @ 08:06 by Sena Espinal RN) (unknown) (no (unknown) (unknown) Surrogate (units (unkn own) date) ?: no unknown) (unknown) (no (unknown) (unknown) Symptoms since (units (unknown) date) LMP: Reports unknown) amenorrhea, nausea, vomiting, breast tenderness, (unknown) (no (unknown) (unknown) Tdap status: (units (u nknown) date) immunized unknown) (unknown) (no (unknown) (unknown) Teratogen (units (unkn own) date) Exposures since unknown) LMP/Conception: Denies prescription medications, (unknown) (no (unknown) (unknown) Testing (units (unkno wn) date) Education unknown) (unknown) (no (unknown) (unknown) Testing (units (unkno wn) date) education unknown) completed: Genetic testing, group B strep and Spina bifida (unknown) (no (unknown) (unknown) The patient has (units (unknown) date) irregular menses, unknown) and was dated by ultrasound today. She denies (unknown) (no (unknown) (unknown) The umbilicus (units ( unknown) date) was cleaned with unknown) a chlorhexadine swab, and we discussed keeping (unknown) (no (unknown) (unknown) This note may (units ( unknown) date) have been all or unknown) partially generated using voice recognition (unknown) (no (unknown) (unknown) Tobacco + (units (unkn own) date) Substance Use unknown) (unknown) (no (unknown) (unknown) Tobacco Status (units (unknown) date) unknown) (unknown) (no (unknown) (unknown) Trimester:: 3rd (units (unknown) date) Trimester unknown) (28wks-Del) (unknown) (no (unknown) (unknown) Type(s) of (units (unk nown) date) exercise: unknown) irregular exercise (unknown) (no (unknown) (unknown) UProtein Movement (units (unknown) date) PreLabor FHR Fndl unknown) Ht Pres Edema Cerv Exam US/Comment Next Appt (unknown) (no (unknown) (unknown) Ultrasound (units (unk nown) date) unknown) (unknown) (no (unknown) (unknown) Ultrasound (units (unk nown) date) Details:: TAUS unknown) performed. Viable SIUP visualized measuring 8+4 by (unknown) (no (unknown) (unknown) Ultrasound (units (unk nown) date) performed?: No unknown) (unknown) (no (unknown) (unknown) Varicella/chicke (units (unknown) date) n pox status: unknown) immunized (unknown) (no (unknown) (unknown) Visit Date: (units (un known) date) 04/19/21 Last unknown) Updated by: Katharine Martinez MD (unknown) (no (unknown) (unknown) Visit Date: (units (un known) date) 05/06/21 Last unknown) Updated by: Katharine Martinez MD (unknown) (no (unknown) (unknown) Visit Date: (units (un known) date) 05/17/21 Last unknown) Updated by: Katharine Martinez MD (unknown) (no (unknown) (unknown) Visit Date: (units (un known) date) 06/14/21 Last unknown) Updated by: Katharine Martinez MD (unknown) (no (unknown) (unknown) Visit Date: (units (un known) date) 07/22/21 Last unknown) Updated by: Katharine Martinez MD (unknown) (no (unknown) (unknown) Visit Date: (units (un known) date) 08/03/21 Last unknown) Updated by: Katharine Martinez MD (unknown) (no (unknown) (unknown) Visit Date: (units (un known) date) 08/23/21 Last unknown) Updated by: Katharine Martinez MD (unknown) (no (unknown) (unknown) Visit Date: (units (un known) date) 09/07/21 Last unknown) Updated by: Katharine Martinez MD (unknown) (no (unknown) (unknown) Visit Reasons: (units (unknown) date) OB check *[place] unknown) (unknown) (no (unknown) (unknown) Vitamins and (units (u nknown) date) iron, Diet and unknown) weight gain, Fish and mercury intake, Smoking, (unknown) (no (unknown) (unknown) WG (units (unkno wn) date) unknown) (unknown) (no (unknown) (unknown) Weeks (units (unkno wn) date) gestation:: 31 unknown) (unknown) (no (unknown) (unknown) Zika virus (units (unk nown) date) exposure: No unknown) (unknown) (no (unknown) (unknown) activity, X-ray (units (unknown) date) exposure, unknown) Medication use, ETOH use, Sauna/hot tub use, Dental (unknown) (no (unknown) (unknown) alcohol intake: (units (unknown) date) former (stopped unknown) with , always light) (unknown) (no (unknown) (unknown) and 2#2, 53%, (units ( unknown) date) MVP 4.3cm. Breech unknown) presentation. Antepartum precautions discussed. (unknown) (no (unknown) (unknown) aneuploidy (units (unk nown) date) screening. unknown) (unknown) (no (unknown) (unknown) any significant (units (unknown) date) history, unknown) medications for bipolar disorder were discussed with (unknown) (no (unknown) (unknown) anyone in either (units (unknown) date) family with: unknown) (unknown) (no (unknown) (unknown) baby's father (units ( unknown) date) had a child with unknown) defects not listed above and Denies Other (unknown) (no (unknown) (unknown) bloating and (units (u nknown) date) other (night unknown) sweats, constipation) (unknown) (no (unknown) (unknown) but no other (units (u nknown) date) abnormal unknown) discharge. Patient today reports longstanding dizziness (unknown) (no (unknown) (unknown) caffeine: Yes (units ( unknown) date) (200mg) unknown) (unknown) (no (unknown) (unknown) carbon monox (units (u nknown) date) detector in home: unknown) Yes (unknown) (no (unknown) (unknown) care, HIV (units (unkn own) date) education, unknown) Marijuana use, Substance use, Domestic violence, Travel, (unknown) (no (unknown) (unknown) cramping or (units (un known) date) bleeding. Patient unknown) does report that nausea was worse over the (unknown) (no (unknown) (unknown) current (units (unkno wn) date) occupational unknown) exposures/hazards : No (unknown) (no (unknown) (unknown) daily servings (units (unknown) date) fruits/ve-1 unknown) (unknown) (no (unknown) (unknown) defects. Care in (units (unknown) date) our clinic and unknown) aneuploidy screening discussed. Antepartum (unknown) (no (unknown) (unknown) described, visit (units (unknown) date) schedule unknown) reviewed, ultrasounds policy reviewed, coverage 24 (unknown) (no (unknown) (unknown) despite her (units (un known) date) efforts to keep unknown) the area clean with a bulb syringe. She denies (unknown) (no (unknown) (unknown) discussed and (units ( unknown) date) ordered. unknown) Antepartum precautions discussed. (unknown) (no (unknown) (unknown) discussed (units (unkno wn) date) precautions for unknown) return. Ovaries not visualized on TAUS today. Declines (unknown) (no (unknown) (unknown) discussed, (units (unk nown) date) tuberculosis unknown) exposure discussed, CMV discussed, Toxoplasmosis (unknown) (no (unknown) (unknown) disorders, (units (unk nown) date) Denies Cystic unknown) Fibrosis, Denies Mental Retardation/Autis m, Denies (unknown) (no (unknown) (unknown) do you feel safe (units (unknown) date) at home: Yes unknown) (unknown) (no (unknown) (unknown) drainage. TVUS (units ( unknown) date) performed and unknown) placenta now >4cm from cervix. Growth US performed (unknown) (no (unknown) (unknown) during the past (units (unknown) date) year weight has: unknown) remained stable (unknown) (no (unknown) (unknown) education level: (units (unknown) date) other (YVONNE) unknown) (unknown) (no (unknown) (unknown) encouraged to (units ( unknown) date) call with any unknown) questions or concerns. (unknown) (no (unknown) (unknown) endorse at (units (unk nown) date) initial visit. unknown) (unknown) (no (unknown) (unknown) fevers, chills, (units (unknown) date) or any other unknown) symptoms or obstetrical complaints. The area was (unknown) (no (unknown) (unknown) fire (units (unkno wn) date) extinguisher in unknown) home: No (unknown) (no (unknown) (unknown) firearms in (units (un known) date) home: No unknown) (unknown) (no (unknown) (unknown) green, opaque (units ( unknown) date) drainage from her unknown) belly button. This has continued intermittently (unknown) (no (unknown) (unknown) have occurred. (units (unknown) date) If there are any unknown) questions, please contact the Medical Records (unknown) (no (unknown) (unknown) hours a day and (units (unknown) date) participation of unknown) father in care and office visits (unknown) (no (unknown) (unknown) household (units (unkn own) date) members: spouse unknown) (unknown) (no (unknown) (unknown) housing: house (units (unknown) date) unknown) (unknown) (no (unknown) (unknown) ks (units (unkno wn) date) unknown) (unknown) (no (unknown) (unknown) lives (units (unkno wn) date) independently: unknown) Yes (unknown) (no (unknown) (unknown) marital status: (units (unknown) date) unknown) (unknown) (no (unknown) (unknown) may occur. (units (unk nown) date) Occasional unknown) wrong-word or 'sound-alike' substitutions may have (unknown) (no (unknown) (unknown) movement. No (units (u nknown) date) other symptoms or unknown) concerns, anatomy scan already scheduled. MSAFP (unknown) (no (unknown) (unknown) noted to be (units (un known) date) mildly unknown) erythmatous. A forceps was used to spread the umbilicus and (unknown) (no (unknown) (unknown) number of (units (unkn own) date) children: 0 unknown) (unknown) (no (unknown) (unknown) occupational (units (u nknown) date) status: employed unknown) (unknown) (no (unknown) (unknown) occurred due to (units (unknown) date) the inherent unknown) limitations of voice recognition software. Please (unknown) (no (unknown) (unknown) pets and (units (unkno wn) date) animals: No unknown) (unknown) (no (unknown) (unknown) placenta 1.8 cm (units (unknown) date) from os unknown) posteriorly, discussed follow up at 28 weeks. Also 88%, (unknown) (no (unknown) (unknown) precautions (units (un known) date) discussed. unknown) (unknown) (no (unknown) (unknown) precautions, (units (u nknown) date) Listeriosis unknown) prevention and Rubella Immunization (unknown) (no (unknown) (unknown) predating her (units ( unknown) date) . UA unknown) wnl, plans to try OTC monistat 7 instead of Affirm, (unknown) (no (unknown) (unknown) read the note (units ( unknown) date) carefully and unknown) recognize, using context, where these substitutions (unknown) (no (unknown) (unknown) reports feeling (units (unknown) date) movement, no ctx unknown) no LOF or VB. Recent anatomy scan showing (unknown) (no (unknown) (unknown) reports feeling (units (unknown) date) well with no UTI unknown) sx, no cramping or bleeding, starting to feel (unknown) (no (unknown) (unknown) seatbelt use: (units ( unknown) date) always unknown) (unknown) (no (unknown) (unknown) second hand (units (un known) date) exposure: No unknown) (unknown) (no (unknown) (unknown) software. (units (unkn own) date) Although every unknown) effort is made to edit content, director family errors (unknown) (no (unknown) (unknown) spotting and RLQ (units (unknown) date) cramping. Viable unknown) SIUP seen via TAUS, +movement. Reports the (unknown) (no (unknown) (unknown) spotting has (units (un known) date) resolved and the unknown) cramping remains moderate, some vaginal irritation (unknown) (no (unknown) (unknown) substance use (units ( unknown) date) type: does not unknown) use (unknown) (no (unknown) (unknown) testing (units (unkno wn) date) unknown) (unknown) (no (unknown) (unknown) the area clean (units (unknown) date) and dry, using unknown) topical antifungal cream, and monitoring. She was (unknown) (no (unknown) (unknown) to belly button (units (unknown) date) drainage. 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 (unknown) (no (unknown) (unknown) water heater (units (u nknown) date) temp set < 120 unknown) deg: Yes (will check) (unknown) (no (unknown) (unknown) weekend, did (units (u nknown) date) have streaks of unknown) blood in her vomit x1 that has since resolved. (unknown) (no (unknown) (unknown) well-balanced (units ( unknown) date) diet: about half unknown) the time (unknown) (no (unknown) (unknown) will do growth (units (unknown) date) US at that time. unknown) Antepartum precautions discussed. (unknown) (no (unknown) (unknown) wks (units (unkno wn) date) unknown) (unknown) (no (unknown) (unknown) working smoke (units ( unknown) date) detector in home: unknown) Yes Result panel 13 (unknown) (no (unknown) (unknown) (no value) (units (unk nown) date) unknown) (unknown) (no (unknown) (unknown) 10/20/19 5-6 (units (u nknown) date) spontaneous unknown) (unknown) (no (unknown) (unknown) [id number] here (units ( unknown) date) for a routine OB unknown) appt at 31 weeks. She denies any problems. (unknown) (no (unknown) (unknown) N Yes no (units (unknown) date) 143 28 unknown) absent 2 wks (unknown) (no (unknown) (unknown) N Yes no (units (unknown) date) 146 absent unknown) 4 wks (unknown) (no (unknown) (unknown) N Yes no (units (unknown) date) 150 21 unknown) absent 4 wks (unknown) (no (unknown) (unknown) Status: Acute (units ( unknown) date) unknown) (unknown) (no (unknown) (unknown) This patient is (units (unknown) date) a 25yo @11+0 unknown) presenting to follow up 10 days of brown (unknown) (no (unknown) (unknown) This patient is (units (unknown) date) a 25yo @12+4 unknown) presenting for routine obstetric care. (unknown) (no (unknown) (unknown) This patient is (units (unknown) date) a 25yo @16+4 unknown) presenting for routine OB care. Patient (unknown) (no (unknown) (unknown) This patient is (units (unknown) date) a 25yo @22+0 unknown) presenting for routine OB care. Patient (unknown) (no (unknown) (unknown) This patient is (units (unknown) date) a 25yo @23+5 unknown) presenting for an unscheduled visit due (unknown) (no (unknown) (unknown) This patient is (units (unknown) date) a 25yo @26+4 unknown) presenting for routine care. (unknown) (no (unknown) (unknown) This patient is (units (unknown) date) a 25yo @28+5 unknown) presenting for routine care. (unknown) (no (unknown) (unknown) This patient is (units (unknown) date) a 25yo unknown) @8+4 presenting to initiate care. (unknown) (no (unknown) (unknown) (no value) (units (unk nown) date) unknown) (unknown) (no (unknown) (unknown) none (units (unkno wn) date) unknown) (unknown) (no (unknown) (unknown) (no value) (units (unk nown) date) unknown) (unknown) (no (unknown) (unknown) (+2 lb 1 oz) (units (u nknown) date) 104/58 N unknown) (unknown) (no (unknown) (unknown) (+2 lb 3 oz) (units (u nknown) date) 106/60 N unknown) (unknown) (no (unknown) (unknown) (+20 lb) (units (unkno wn) date) 92/58 N unknown) (unknown) (no (unknown) (unknown) (+22 lb) (units (unkno wn) date) 106/62 unknown) (unknown) (no (unknown) (unknown) (+29 lb) (units (unkno wn) date) 94/52 N unknown) (unknown) (no (unknown) (unknown) (+3 lb) (units (unkno wn) date) 100/60 N unknown) (unknown) (no (unknown) (unknown) (+33 lb) (units (unkno wn) date) 102/62 N unknown) (unknown) (no (unknown) (unknown) (+36 lb) (units (unkno wn) date) 98/62 unknown) (unknown) (no (unknown) (unknown) (+9 lb 7 oz) (units (u nknown) date) 110/60 N unknown) (unknown) (no (unknown) (unknown) 04/19/21 (units (unkno wn) date) unknown) (unknown) (no (unknown) (unknown) 05/06/21 (units (unkno wn) date) unknown) (unknown) (no (unknown) (unknown) 05/17/21 (units (unkno wn) date) unknown) (unknown) (no (unknown) (unknown) 06/14/21 (units (unkno wn) date) unknown) (unknown) (no (unknown) (unknown) 07/22/21 (units (unkno wn) date) unknown) (unknown) (no (unknown) (unknown) 08/03/21 (units (unkno wn) date) unknown) (unknown) (no (unknown) (unknown) 08/23/21 (units (unkno wn) date) unknown) (unknown) (no (unknown) (unknown) 09/07/21 (units (unkno wn) date) unknown) (unknown) (no (unknown) (unknown) 09/23/21 (units (unkno wn) date) unknown) (unknown) (no (unknown) (unknown) 09/23/21 0826 (units ( unknown) date) unknown) (unknown) (no (unknown) (unknown) 11w 0d 113 lb (units (unknown) date) unknown) (unknown) (no (unknown) (unknown) 12w 4d 112 lb (units (unknown) date) 3 oz unknown) (unknown) (no (unknown) (unknown) 16w 4d 119 lb (units (unknown) date) 7 oz unknown) (unknown) (no (unknown) (unknown) 22w 0d 130 lb (units (unknown) date) unknown) (unknown) (no (unknown) (unknown) 23w 5d 132 lb (units (unknown) date) unknown) (unknown) (no (unknown) (unknown) 26w 4d 139 lb (units (unknown) date) unknown) (unknown) (no (unknown) (unknown) 28w 5d 143 lb (units (unknown) date) unknown) (unknown) (no (unknown) (unknown) 31w 0d 146 lb (units (unknown) date) unknown) (unknown) (no (unknown) (unknown) 8w 4d 112 lb (units (unknown) date) 1 oz unknown) (unknown) (no (unknown) (unknown) [place] (units ( unknown) date) [id number] unknown) (unknown) (no (unknown) (unknown) Current Estimate (units (unknown) date) 11/25/21 unknown) Ultrasound #1 31w 0d (unknown) (no (unknown) (unknown) Estimated (units (unkn own) date) Delivery Date unknown) Method Current (unknown) (no (unknown) (unknown) [facility]) (unknown) (no (unknown) (unknown) KF (units (unkno wn) date) unknown) (unknown) (no (unknown) (unknown) N 167 (units (unkno wn) date) absent wnl unknown) (unknown) (no (unknown) (unknown) OB Office Visit (units (unknown) date) unknown) (unknown) (no (unknown) (unknown) Other Estimates (units (unknown) date) 11/09/21 unknown) LMP (Uncertain) 33w 2d (unknown) (no (unknown) (unknown) Signed (units (unkno wn) date) unknown) (unknown) (no (unknown) (unknown) TR 152 (units (unkn own) date) absent 4 w unknown) (unknown) (no (unknown) (unknown) TR 164 (units (unkn own) date) absent wnl unknown) (unknown) (no (unknown) (unknown) TR (units (unkno wn) date) unknown) (unknown) (no (unknown) (unknown) Yes no (units (u nknown) date) 153 absent unknown) (unknown) (no (unknown) (unknown) Yes no (units (unk nown) date) 144 32 unknown) Vertex absent 2wk (unknown) (no (unknown) (unknown) amh (units (unkno wn) date) unknown) (unknown) (no (unknown) (unknown) (no value) (units (unk nown) date) unknown) (unknown) (no (unknown) (unknown) N Yes no (units (unknown) date) 148 27 unknown) Breech absent See below 3 (unknown) (no (unknown) (unknown) 4 wks (units (unkno wn) date) unknown) (unknown) (no (unknown) (unknown) Not feeling any (units (unknown) date) contractions. No unknown) cramping, leakage of fluid or vaginal (unknown) (no (unknown) (unknown) as scheduled (units (u nknown) date) unknown) (unknown) (no (unknown) (unknown) (1) Encounter (units ( unknown) date) for supervision unknown) of other normal , unspecified trimester: (unknown) (no (unknown) (unknown) (2) 31 weeks (units (u nknown) date) gestation of unknown) : (unknown) (no (unknown) (unknown) Genetic (units (unkn own) date) Screening/Teratol unknown) ogy Counseling - Includes patient, baby's father, or (unknown) (no (unknown) (unknown) - Bipolar - (units (un known) date) Stable on unknown) lamotrigine, fluoxetine, and wellbutrin. Of note, did not (unknown) (no (unknown) (unknown) - Declined (units (unk nown) date) aneuploidy unknown) screening, MSAFP wnl (unknown) (no (unknown) (unknown) - New OB labs (units ( unknown) date) showed UTI, for unknown) MCKENZIE- sent 05/17 (unknown) (no (unknown) (unknown) - Placenta (units (unk nown) date) previously low unknown) lying, resolved (unknown) (no (unknown) (unknown) - Varicella (units (un known) date) non-immune unknown) (unknown) (no (unknown) (unknown) -?-?-?-?-?-?-?-? (units (unknown) date) -?-?-?-?- unknown) (unknown) (no (unknown) (unknown) [id number] (units (unkn own) date) unknown) (unknown) (no (unknown) (unknown) 02 (units (unkno wn) date) unknown) (unknown) (no (unknown) (unknown) 09/23/21 (units (unkno wn) date) unknown) (unknown) (no (unknown) (unknown) Abnormal lab (units (u nknown) date) values 1st unknown) trimester: discussed (unknown) (no (unknown) (unknown) Abnormal lab (units (u nknown) date) values 2nd unknown) trimester: discussed (unknown) (no (unknown) (unknown) Add'l Plan (units (unk nown) date) Details unknown) (unknown) (no (unknown) (unknown) Advised to check (units (unknown) date) for her routine unknown) movement daily. (unknown) (no (unknown) (unknown) Age/Sex: 25 / F (units (unknown) date) Date of unknown) Service: (unknown) (no (unknown) (unknown) Allergies (units (unkn own) date) unknown) (unknown) (no (unknown) (unknown) Aneuploidy (units (unk nown) date) Screening unknown) Offered: Accepted (considering options) (unknown) (no (unknown) (unknown) Antepartum (units (unk nown) date) precautions and unknown) kick counts discussed. (unknown) (no (unknown) (unknown) Anticipated (units (un known) date) course of unknown) care: discussed (unknown) (no (unknown) (unknown) Assessment and (units (unknown) date) Plan unknown) (unknown) (no (unknown) (unknown) Attending Dr: (units ( unknown) date) Clare Araya unknown) Prudence RAMÍREZ (unknown) (no (unknown) (unknown) (units (unkno wn) date) Plan/Preferences unknown) (unknown) (no (unknown) (unknown) Planning (units (unknown) date) unknown) (unknown) (no (unknown) (unknown) Blood (units (unkno wn) date) transfusions?: unknown) yes (unknown) (no (unknown) (unknown) Breastfeed (units (unk nown) date) Preg Comp Name unknown) (unknown) (no (unknown) (unknown) CRL, no gross (units ( unknown) date) abnormalities unknown) noted. Ovaries not visualized. (unknown) (no (unknown) (unknown) Caffeine use, (units ( unknown) date) Exercise and unknown) activity, work/environmenta l/hazards, Sexual (unknown) (no (unknown) (unknown) Childbirth (units (unk nown) date) Classes: unknown) discussed (unknown) (no (unknown) (unknown) Current (units (unkno wn) date) History unknown) (unknown) (no (unknown) (unknown) : 1995 (units (unknown) date) Acct:[id number] unknown) (unknown) (no (unknown) (unknown) Date (units (unkno wn) date) unknown) (unknown) (no (unknown) (unknown) Date of positive (units (unknown) date) home unknown) test: 03/20/21 (unknown) (no (unknown) (unknown) Del. Date (units (unkn own) date) GA/Weeks Labor unknown) Lgth Wt Sex Route Outcome Anesthesia Place (unknown) (no (unknown) (unknown) Delv (units (unkno wn) date) unknown) (unknown) (no (unknown) (unknown) Denies Congenital (units (unknown) date) Heart Defect, unknown) Denies Down Syndrome, Denies Muscular Dystrophy, (unknown) (no (unknown) (unknown) Denies Maternal (units (unknown) date) Metabolic unknown) Disorder (EG,TYPE 1 Diabetes, PKU), Denies Patient or (unknown) (no (unknown) (unknown) Denies Neural (units ( unknown) date) Tube Defect unknown) (Meningomyelocele , Spina Bifida, or Anencephaly), (unknown) (no (unknown) (unknown) Denies Sickle (units ( unknown) date) Cell Disease or unknown) Trait (), Denies Hemophilia or other blood (unknown) (no (unknown) (unknown) Denies Moustapha-Sachs (units (unknown) date) (Ashkenazi unknown) Adventism, Cajun, English Nigerien), Denies Sebastián (unknown) (no (unknown) (unknown) Denies other (units (u nknown) date) unknown) (unknown) (no (unknown) (unknown) Denies over the (units (unknown) date) counter unknown) medications, Denies alcohol, Denies illicit drugs and (unknown) (no (unknown) (unknown) Depression: (units (un known) date) discussed unknown) (unknown) (no (unknown) (unknown) Dept at (units (unkno wn) date) . unknown) (unknown) (no (unknown) (unknown) Diet and (units (unkno wn) date) Exercise unknown) (unknown) (no (unknown) (unknown) Discussed (units (unkn own) date) Zofran. Patient unknown) declines aneuploidy screening, MSAFP at next visit. (unknown) (no (unknown) (unknown) Disease (units (unkno wn) date) (Ashkenazi unknown) Adventism), Denies Familial Dysautonomia (Ashkenazi Adventism), (unknown) (no (unknown) (unknown) Documented By: (units (unknown) date) Clare Foss unknown) Quiana RAMÍREZ 09/23/21 08 (unknown) (no (unknown) (unknown) RERE Calculator (units (unknown) date) unknown) (unknown) (no (unknown) (unknown) EGA Weight BP (units ( unknown) date) UGlucose unknown) (unknown) (no (unknown) (unknown) Family History (units (unknown) date) (Updated 04/08/21 unknown) @ 08:07 by Sena Espinal RN) (unknown) (no (unknown) (unknown) Father (units (unkno wn) date) Metabolic unknown) syndrome (unknown) (no (unknown) (unknown) Father of Baby: (units (unknown) date) Abiam unknown) (unknown) (no (unknown) (unknown) First Trimester (units (unknown) date) Education unknown) Checklist (unknown) (no (unknown) (unknown) Genetic (units (unkno wn) date) Screening unknown) (unknown) (no (unknown) (unknown) Genetic (units (unkno wn) date) Screening + unknown) Counseling (unknown) (no (unknown) (unknown) Grandmother (units (un known) date) Breast cancer unknown) (unknown) (no (unknown) (unknown) 2 (units (unknown) date) Multiple unknown) births (unknown) (no (unknown) (unknown) H/O wisdom tooth (units (unknown) date) extraction unknown) (unknown) (no (unknown) (unknown) HIV risk (units (unkno wn) date) evaluation: low unknown) risk (unknown) (no (unknown) (unknown) Health Center (units ( unknown) date) Education unknown) (unknown) (no (unknown) (unknown) Health center (units ( unknown) date) information: unknown) nature of practice discussed, personnel (unknown) (no (unknown) (unknown) Hepatitis C risk (units (unknown) date) evaluation: low unknown) risk (unknown) (no (unknown) (unknown) History of (units (unk nown) date) Hepatitis B: No unknown) (unknown) (no (unknown) (unknown) History of (units (unk nown) date) Hepatitis C: No unknown) (unknown) (no (unknown) (unknown) History of PCOS (units (unknown) date) unknown) (unknown) (no (unknown) (unknown) [facility] (units (u [facility]known) [facility]) unknown) (unknown) (no (unknown) (unknown) Vahid's (units (u nknown) date) Chorea, Denies unknown) Other inherited genetic or chromosomal disorder, (unknown) (no (unknown) (unknown) Hx # (units (u nknown) date) Pregnancies unknown) Elective abortions (unknown) (no (unknown) (unknown) Hx # Term (units (unkn own) date) Pregnancies unknown) Ectopic pregnancies (unknown) (no (unknown) (unknown) will be (units (unknown) date) adopted?: no unknown) (unknown) (no (unknown) (unknown) Infection (units (unkn own) date) History unknown) (unknown) (no (unknown) (unknown) Infectious (units (unk nown) date) Disease Education unknown) (unknown) (no (unknown) (unknown) Infectious (units (unk nown) date) disease exposure: unknown) chicken pox immunity discussed, hepatitis risk (unknown) (no (unknown) (unknown) Initial Weight: (units (unknown) date) 110 lb unknown) (unknown) (no (unknown) (unknown) Initials (units (unkno wn) date) unknown) (unknown) (no (unknown) (unknown) Intake (units (unkno wn) date) unknown) (unknown) (no (unknown) (unknown) Live with (units (unkn own) date) someone with TB unknown) or exposed to TB: No (unknown) (no (unknown) (unknown) Loc: [facility] (units (unkno wn) date) unknown) (unknown) (no (unknown) (unknown) Marital status: (units (unknown) date) unknown) (unknown) (no (unknown) (unknown) Medical History (units (unknown) date) (Updated 04/08/21 unknown) @ 08:06 by Sena Espinal RN) (unknown) (no (unknown) (unknown) No Known Drug (units ( unknown) date) Allergies Allergy unknown) (Unverified 07/22/21 15:29) (unknown) (no (unknown) (unknown) Non-Stress Test (units (unknown) date) performed?: No unknown) (unknown) (no (unknown) (unknown) Notes (units (unkno wn) date) unknown) (unknown) (no (unknown) (unknown) Number of Living (units (unknown) date) Children unknown) (unknown) (no (unknown) (unknown) Number of (units (unkn own) date) fetuses:: Single unknown) (unknown) (no (unknown) (unknown) Nutrition and (units ( unknown) date) weight gain unknown) counseling: special diet: discussed (unknown) (no (unknown) (unknown) OB Visit Log (units (u nknown) date) unknown) (unknown) (no (unknown) (unknown) On control (units (unknown) date) at conception?: unknown) No (unknown) (no (unknown) (unknown) PFSH (units (unkno wn) date) unknown) (unknown) (no (unknown) (unknown) Pap performed?: (units (unknown) date) No unknown) (unknown) (no (unknown) (unknown) Para 0 (units ( unknown) date) Spontaneous unknown) abortions 1 (unknown) (no (unknown) (unknown) Partner history (units (unknown) date) of STD: denies hx unknown) (unknown) (no (unknown) (unknown) Partner history (units (unknown) date) of genital unknown) herpes: No (unknown) (no (unknown) (unknown) Partner: Abiam (units (unknown) date) unknown) (unknown) (no (unknown) (unknown) Past Pregnancies (units (unknown) date) unknown) (unknown) (no (unknown) (unknown) Patient was (units (un known) date) recently treated unknown) for UTI with resolution of symptoms, no further (unknown) (no (unknown) (unknown) Patient's age 33 (units (unknown) date) years or older as unknown) of estimated date of delivery: No (unknown) (no (unknown) (unknown) Patient: (units (unkno wn) date) Sally Thurston Y unknown) MR#: M (unknown) (no (unknown) (unknown) 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) (unknown) (no (unknown) (unknown) Personal history (units (unknown) date) of STD: denies hx unknown) (unknown) (no (unknown) (unknown) Personal history (units (unknown) date) of genital unknown) herpes: No (unknown) (no (unknown) (unknown) (units (unkn own) date) History unknown) (unknown) (no (unknown) (unknown) type:: (units (unknown) date) Other Normal unknown) (unknown) (no (unknown) (unknown) (units (unkno wn) date) Education unknown) (unknown) (no (unknown) (unknown) Initial (units (unknown) date) Assessment unknown) (unknown) (no (unknown) (unknown) (units (unkno wn) date) Specific unknown) Issues/Plans (unknown) (no (unknown) (unknown) (units (unkno wn) date) Testing: unknown) discussed (unknown) (no (unknown) (unknown) Visit (units (unknown) date) unknown) (unknown) (no (unknown) (unknown) (units (unkno wn) date) education packet: unknown) Child education/plan, symptoms, (unknown) (no (unknown) (unknown) Primary Care (units (u nknown) date) Provider: MANISH unknown) Kristopher (unknown) (no (unknown) (unknown) Primary Ob (units (unk nown) date) Provider: unknown) Katharine Martinez (unknown) (no (unknown) (unknown) Providers (units (unkn own) date) unknown) (unknown) (no (unknown) (unknown) Rash or viral (units ( unknown) date) illness since unknown) last menstrual period: No (unknown) (no (unknown) (unknown) Reason For Visit (units (unknown) date) unknown) (unknown) (no (unknown) (unknown) Recurrent (units (unkn own) date) loss or unknown) a stillbirth: No (unknown) (no (unknown) (unknown) Referred for 3rd (units (unknown) date) tri labs. unknown) (unknown) (no (unknown) (unknown) Reports good (units (u nknown) date) movement, unknown) no LOF or VB, no ctx, no further umbilical (unknown) (no (unknown) (unknown) Reports good (units (u nknown) date) movement, unknown) no LOF or VB, no ctx. Third tri labs wnl. (unknown) (no (unknown) (unknown) Safety (units (unkno wn) date) unknown) (unknown) (no (unknown) (unknown) Seatbelt use and (units (unknown) date) Influenza vaccine unknown) (ad thia fall) (unknown) (no (unknown) (unknown) Second Trimester (units (unknown) date) Education unknown) Checklist (unknown) (no (unknown) (unknown) Signed By: (units (unk nown) date) <Electronically unknown) signed by Clare Foss MD> (unknown) (no (unknown) (unknown) Smoking Status: (units (unknown) date) Never smoker unknown) (unknown) (no (unknown) (unknown) Social History (units (unknown) date) unknown) (unknown) (no (unknown) (unknown) Surgical History (units (unknown) date) (Updated 04/08/21 unknown) @ 08:06 by Sena Espinal RN) (unknown) (no (unknown) (unknown) Surrogate (units (unkn own) date) ?: no unknown) (unknown) (no (unknown) (unknown) Symptoms since (units (unknown) date) LMP: Reports unknown) amenorrhea, nausea, vomiting, breast tenderness, (unknown) (no (unknown) (unknown) Tdap status: (units (u nknown) date) immunized unknown) (unknown) (no (unknown) (unknown) Teratogen (units (unkn own) date) Exposures since unknown) LMP/Conception: Denies prescription medications, (unknown) (no (unknown) (unknown) Testing (units (unkno wn) date) Education unknown) (unknown) (no (unknown) (unknown) Testing (units (unkno wn) date) education unknown) completed: Genetic testing, group B strep and Spina bifida (unknown) (no (unknown) (unknown) The patient has (units (unknown) date) irregular menses, unknown) and was dated by ultrasound today. She denies (unknown) (no (unknown) (unknown) The umbilicus (units ( unknown) date) was cleaned with unknown) a chlorhexadine swab, and we discussed keeping (unknown) (no (unknown) (unknown) This note may (units ( unknown) date) have been all or unknown) partially generated using voice recognition (unknown) (no (unknown) (unknown) Tobacco + (units (unkn own) date) Substance Use unknown) (unknown) (no (unknown) (unknown) Tobacco Status (units (unknown) date) unknown) (unknown) (no (unknown) (unknown) Trimester:: 3rd (units (unknown) date) Trimester unknown) (28wks-Del) (unknown) (no (unknown) (unknown) Type(s) of (units (unk nown) date) exercise: unknown) irregular exercise (unknown) (no (unknown) (unknown) UProtein Movement (units (unknown) date) PreLabor FHR Fndl unknown) Ht Pres Edema Cerv Exam US/Comment Next Appt (unknown) (no (unknown) (unknown) Ultrasound (units (unk nown) date) unknown) (unknown) (no (unknown) (unknown) Ultrasound (units (unk nown) date) Details:: TAUS unknown) performed. Viable SIUP visualized measuring 8+4 by (unknown) (no (unknown) (unknown) Ultrasound (units (unk nown) date) performed?: No unknown) (unknown) (no (unknown) (unknown) Varicella/chicke (units (unknown) date) n pox status: unknown) immunized (unknown) (no (unknown) (unknown) Visit Date: (units (un known) date) 04/19/21 Last unknown) Updated by: Katharine Martinez MD (unknown) (no (unknown) (unknown) Visit Date: (units (un known) date) 05/06/21 Last unknown) Updated by: Katharine Martinez MD (unknown) (no (unknown) (unknown) Visit Date: (units (un known) date) 05/17/21 Last unknown) Updated by: Katharine Martinez MD (unknown) (no (unknown) (unknown) Visit Date: (units (un known) date) 06/14/21 Last unknown) Updated by: Katharine Martinez MD (unknown) (no (unknown) (unknown) Visit Date: (units (un known) date) 07/22/21 Last unknown) Updated by: Katharine Martinez MD (unknown) (no (unknown) (unknown) Visit Date: (units (un known) date) 08/03/21 Last unknown) Updated by: Katharine Martinez MD (unknown) (no (unknown) (unknown) Visit Date: (units (un known) date) 08/23/21 Last unknown) Updated by: Katharine Martinez MD (unknown) (no (unknown) (unknown) Visit Date: (units (un known) date) 09/07/21 Last unknown) Updated by: Katharine Martinez MD (unknown) (no (unknown) (unknown) Visit Date: (units (un known) date) 09/23/21 Last unknown) Updated by: Clare Foss MD (unknown) (no (unknown) (unknown) Visit Reasons: (units (unknown) date) OB check *[place] unknown) (unknown) (no (unknown) (unknown) Vitamins and (units (u nknown) date) iron, Diet and unknown) weight gain, Fish and mercury intake, Smoking, (unknown) (no (unknown) (unknown) WG (units (unkno wn) date) unknown) (unknown) (no (unknown) (unknown) Weeks (units (unkno wn) date) gestation:: 31 unknown) (unknown) (no (unknown) (unknown) Zika virus (units (unk nown) date) exposure: No unknown) (unknown) (no (unknown) (unknown) activity, X-ray (units (unknown) date) exposure, unknown) Medication use, ETOH use, Sauna/hot tub use, Dental (unknown) (no (unknown) (unknown) alcohol intake: (units (unknown) date) former (stopped unknown) with , always light) (unknown) (no (unknown) (unknown) and 2#2, 53%, (units ( unknown) date) MVP 4.3cm. Breech unknown) presentation. Antepartum precautions discussed. (unknown) (no (unknown) (unknown) aneuploidy (units (unk nown) date) screening. unknown) (unknown) (no (unknown) (unknown) any significant (units (unknown) date) history, unknown) medications for bipolar disorder were discussed with (unknown) (no (unknown) (unknown) anyone in either (units (unknown) date) family with: unknown) (unknown) (no (unknown) (unknown) baby's father (units ( unknown) date) had a child with unknown) defects not listed above and Denies Other (unknown) (no (unknown) (unknown) bleeding. (units (unkn own) date) Feeling good unknown) movement. labor precautions reviewed. (unknown) (no (unknown) (unknown) bloating and (units (u nknown) date) other (night unknown) sweats, constipation) (unknown) (no (unknown) (unknown) but no other (units (u nknown) date) abnormal unknown) discharge. Patient today reports longstanding dizziness (unknown) (no (unknown) (unknown) caffeine: Yes (units ( unknown) date) (200mg) unknown) (unknown) (no (unknown) (unknown) carbon monox (units (u nknown) date) detector in home: unknown) Yes (unknown) (no (unknown) (unknown) care, HIV (units (unkn own) date) education, unknown) Marijuana use, Substance use, Domestic violence, Travel, (unknown) (no (unknown) (unknown) cramping or (units (un known) date) bleeding. Patient unknown) does report that nausea was worse over the (unknown) (no (unknown) (unknown) current (units (unkno wn) date) occupational unknown) exposures/hazards : No (unknown) (no (unknown) (unknown) daily servings (units (unknown) date) fruits/ve-1 unknown) (unknown) (no (unknown) (unknown) defects. Care in (units (unknown) date) our clinic and unknown) aneuploidy screening discussed. Antepartum (unknown) (no (unknown) (unknown) described, visit (units (unknown) date) schedule unknown) reviewed, ultrasounds policy reviewed, coverage 24 (unknown) (no (unknown) (unknown) despite her (units (un known) date) efforts to keep unknown) the area clean with a bulb syringe. She denies (unknown) (no (unknown) (unknown) discussed and (units ( unknown) date) ordered. unknown) Antepartum precautions discussed. (unknown) (no (unknown) (unknown) discussed (units (unkno wn) date) precautions for unknown) return. Ovaries not visualized on TAUS today. Declines (unknown) (no (unknown) (unknown) discussed, (units (unk nown) date) tuberculosis unknown) exposure discussed, CMV discussed, Toxoplasmosis (unknown) (no (unknown) (unknown) disorders, (units (unk nown) date) Denies Cystic unknown) Fibrosis, Denies Mental Retardation/Autis m, Denies (unknown) (no (unknown) (unknown) do you feel safe (units (unknown) date) at home: Yes unknown) (unknown) (no (unknown) (unknown) drainage. TVUS (units ( unknown) date) performed and unknown) placenta now >4cm from cervix. Growth US performed (unknown) (no (unknown) (unknown) during the past (units (unknown) date) year weight has: unknown) remained stable (unknown) (no (unknown) (unknown) education level: (units (unknown) date) other (YVONNE) unknown) (unknown) (no (unknown) (unknown) encouraged to (units ( unknown) date) call with any unknown) questions or concerns. (unknown) (no (unknown) (unknown) endorse at (units (unk nown) date) initial visit. unknown) (unknown) (no (unknown) (unknown) fevers, chills, (units (unknown) date) or any other unknown) symptoms or obstetrical complaints. The area was (unknown) (no (unknown) (unknown) fire (units (unkno wn) date) extinguisher in unknown) home: No (unknown) (no (unknown) (unknown) firearms in (units (un known) date) home: No unknown) (unknown) (no (unknown) (unknown) green, opaque (units ( unknown) date) drainage from her unknown) belly button. This has continued intermittently (unknown) (no (unknown) (unknown) have occurred. (units (unknown) date) If there are any unknown) questions, please contact the Medical Records (unknown) (no (unknown) (unknown) hours a day and (units (unknown) date) participation of unknown) father in care and office visits (unknown) (no (unknown) (unknown) household (units (unkn own) date) members: spouse unknown) (unknown) (no (unknown) (unknown) housing: house (units (unknown) date) unknown) (unknown) (no (unknown) (unknown) ks (units (unkno wn) date) unknown) (unknown) (no (unknown) (unknown) lives (units (unkno wn) date) independently: unknown) Yes (unknown) (no (unknown) (unknown) marital status: (units (unknown) date) unknown) (unknown) (no (unknown) (unknown) may occur. (units (unk nown) date) Occasional unknown) wrong-word or 'sound-alike' substitutions may have (unknown) (no (unknown) (unknown) movement. No (units (u nknown) date) other symptoms or unknown) concerns, anatomy scan already scheduled. MSAFP (unknown) (no (unknown) (unknown) noted to be (units (un known) date) mildly unknown) erythmatous. A forceps was used to spread the umbilicus and (unknown) (no (unknown) (unknown) number of (units (unkn own) date) children: 0 unknown) (unknown) (no (unknown) (unknown) occupational (units (u nknown) date) status: employed unknown) (unknown) (no (unknown) (unknown) occurred due to (units (unknown) date) the inherent unknown) limitations of voice recognition software. Please (unknown) (no (unknown) (unknown) pets and (units (unkno wn) date) animals: No unknown) (unknown) (no (unknown) (unknown) placenta 1.8 cm (units (unknown) date) from os unknown) posteriorly, discussed follow up at 28 weeks. Also 88%, (unknown) (no (unknown) (unknown) precautions (units (un known) date) discussed. unknown) (unknown) (no (unknown) (unknown) precautions, (units (u nknown) date) Listeriosis unknown) prevention and Rubella Immunization (unknown) (no (unknown) (unknown) predating her (units ( unknown) date) . UA unknown) wnl, plans to try OTC monistat 7 instead of Affirm, (unknown) (no (unknown) (unknown) read the note (units ( unknown) date) carefully and unknown) recognize, using context, where these substitutions (unknown) (no (unknown) (unknown) reports feeling (units (unknown) date) movement, no ctx unknown) no LOF or VB. Recent anatomy scan showing (unknown) (no (unknown) (unknown) reports feeling (units (unknown) date) well with no UTI unknown) sx, no cramping or bleeding, starting to feel (unknown) (no (unknown) (unknown) seatbelt use: (units ( unknown) date) always unknown) (unknown) (no (unknown) (unknown) second hand (units (un known) date) exposure: No unknown) (unknown) (no (unknown) (unknown) software. (units (unkn own) date) Although every unknown) effort is made to edit content, director family errors (unknown) (no (unknown) (unknown) spotting and RLQ (units (unknown) date) cramping. Viable unknown) SIUP seen via TAUS, +movement. Reports the (unknown) (no (unknown) (unknown) spotting has (units (un known) date) resolved and the unknown) cramping remains moderate, some vaginal irritation (unknown) (no (unknown) (unknown) substance use (units ( unknown) date) type: does not unknown) use (unknown) (no (unknown) (unknown) testing (units (unkno wn) date) unknown) (unknown) (no (unknown) (unknown) the area clean (units (unknown) date) and dry, using unknown) topical antifungal cream, and monitoring. She was (unknown) (no (unknown) (unknown) to belly button (units (unknown) date) drainage. 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 (unknown) (no (unknown) (unknown) water heater (units (u nknown) date) temp set < 120 unknown) deg: Yes (will check) (unknown) (no (unknown) (unknown) weekend, did (units (u nknown) date) have streaks of unknown) blood in her vomit x1 that has since resolved. (unknown) (no (unknown) (unknown) well-balanced (units ( unknown) date) diet: about half unknown) the time (unknown) (no (unknown) (unknown) will do growth (units (unknown) date) US at that time. unknown) Antepartum precautions discussed. (unknown) (no (unknown) (unknown) wks (units (unkno wn) date) unknown) (unknown) (no (unknown) (unknown) working smoke (units ( unknown) date) detector in home: unknown) Yes Result panel 14 (unknown) (no (unknown) (unknown) (no value) (units (unk nown) date) unknown) (unknown) (no (unknown) (unknown) 10/20/19 5-6 (units (u nknown) date) spontaneous unknown) (unknown) (no (unknown) (unknown) [id number] here (units ( unknown) date) for a routine OB unknown) appt at 31 weeks. She denies any problems. (unknown) (no (unknown) (unknown) N Yes no (units (unknown) date) 143 28 unknown) absent 2 wks (unknown) (no (unknown) (unknown) N Yes no (units (unknown) date) 144 32 unknown) Vertex absent 2wk (unknown) (no (unknown) (unknown) N Yes no (units (unknown) date) 146 absent unknown) 4 wks (unknown) (no (unknown) (unknown) N Yes no (units (unknown) date) 150 21 unknown) absent 4 wks (unknown) (no (unknown) (unknown) This patient is (units (unknown) date) a 25yo @11+0 unknown) presenting to follow up 10 days of brown (unknown) (no (unknown) (unknown) This patient is (units (unknown) date) a 25yo @12+4 unknown) presenting for routine obstetric care. (unknown) (no (unknown) (unknown) This patient is (units (unknown) date) a 25yo @16+4 unknown) presenting for routine OB care. Patient (unknown) (no (unknown) (unknown) This patient is (units (unknown) date) a 25yo @22+0 unknown) presenting for routine OB care. Patient (unknown) (no (unknown) (unknown) This patient is (units (unknown) date) a 25yo @23+5 unknown) presenting for an unscheduled visit due (unknown) (no (unknown) (unknown) This patient is (units (unknown) date) a 25yo @26+4 unknown) presenting for routine care. (unknown) (no (unknown) (unknown) This patient is (units (unknown) date) a 25yo @28+5 unknown) presenting for routine care. (unknown) (no (unknown) (unknown) This patient is (units (unknown) date) a 25yo unknown) @8+4 presenting to initiate care. (unknown) (no (unknown) (unknown) (no value) (units (unk nown) date) unknown) (unknown) (no (unknown) (unknown) none (units (unkno wn) date) unknown) (unknown) (no (unknown) (unknown) (no value) (units (unk nown) date) unknown) (unknown) (no (unknown) (unknown) (+2 lb 1 oz) (units (u nknown) date) 104/58 N unknown) (unknown) (no (unknown) (unknown) (+2 lb 3 oz) (units (u nknown) date) 106/60 N unknown) (unknown) (no (unknown) (unknown) (+20 lb) (units (unkno wn) date) 92/58 N unknown) (unknown) (no (unknown) (unknown) (+22 lb) (units (unkno wn) date) 106/62 unknown) (unknown) (no (unknown) (unknown) (+29 lb) (units (unkno wn) date) 94/52 N unknown) (unknown) (no (unknown) (unknown) (+3 lb) (units (unkno wn) date) 100/60 N unknown) (unknown) (no (unknown) (unknown) (+33 lb) (units (unkno wn) date) 102/62 N unknown) (unknown) (no (unknown) (unknown) (+36 lb) (units (unkno wn) date) 98/62 N unknown) (unknown) (no (unknown) (unknown) (+9 lb 7 oz) (units (u nknown) date) 110/60 N unknown) (unknown) (no (unknown) (unknown) 04/19/21 (units (unkno wn) date) unknown) (unknown) (no (unknown) (unknown) 05/06/21 (units (unkno wn) date) unknown) (unknown) (no (unknown) (unknown) 05/17/21 (units (unkno wn) date) unknown) (unknown) (no (unknown) (unknown) 06/14/21 (units (unkno wn) date) unknown) (unknown) (no (unknown) (unknown) 07/22/21 (units (unkno wn) date) unknown) (unknown) (no (unknown) (unknown) 08/03/21 (units (unkno wn) date) unknown) (unknown) (no (unknown) (unknown) 08/23/21 (units (unkno wn) date) unknown) (unknown) (no (unknown) (unknown) 09/07/21 (units (unkno wn) date) unknown) (unknown) (no (unknown) (unknown) 09/23/21 (units (unkno wn) date) unknown) (unknown) (no (unknown) (unknown) 10/06/21 (units (unkno wn) date) unknown) (unknown) (no (unknown) (unknown) 11w 0d 113 lb (units (unknown) date) unknown) (unknown) (no (unknown) (unknown) 12w 4d 112 lb (units (unknown) date) 3 oz unknown) (unknown) (no (unknown) (unknown) 16w 4d 119 lb (units (unknown) date) 7 oz unknown) (unknown) (no (unknown) (unknown) 22w 0d 130 lb (units (unknown) date) unknown) (unknown) (no (unknown) (unknown) 23w 5d 132 lb (units (unknown) date) unknown) (unknown) (no (unknown) (unknown) 26w 4d 139 lb (units (unknown) date) unknown) (unknown) (no (unknown) (unknown) 28w 5d 143 lb (units (unknown) date) unknown) (unknown) (no (unknown) (unknown) 31w 0d 146 lb (units (unknown) date) unknown) (unknown) (no (unknown) (unknown) 32w 6d (units (unkno wn) date) unknown) (unknown) (no (unknown) (unknown) 8w 4d 112 lb (units (unknown) date) 1 oz unknown) (unknown) (no (unknown) (unknown) [place], [place] (units ( unknown) date) [id number] unknown) (unknown) (no (unknown) (unknown) Current Estimate (units (unknown) date) 11/25/21 unknown) Ultrasound #1 32w 6d (unknown) (no (unknown) (unknown) Draft (units (unkno wn) date) unknown) (unknown) (no (unknown) (unknown) Estimated (units (unkn own) date) Delivery Date unknown) Method Current (unknown) (no (unknown) (unknown) [facility]) (unknown) (no (unknown) (unknown) KF (units (unkno wn) date) unknown) (unknown) (no (unknown) (unknown) N 167 (units (unkno wn) date) absent wnl unknown) (unknown) (no (unknown) (unknown) OB Office Visit (units (unknown) date) unknown) (unknown) (no (unknown) (unknown) Other Estimates (units (unknown) date) 11/09/21 unknown) LMP (Uncertain) 35w 1d (unknown) (no (unknown) (unknown) TR 152 (units (unkn own) date) absent 4 w unknown) (unknown) (no (unknown) (unknown) TR 164 (units (unkn own) date) absent wnl unknown) (unknown) (no (unknown) (unknown) TR (units (unkno wn) date) unknown) (unknown) (no (unknown) (unknown) Yes no (units (u nknown) date) 153 absent unknown) (unknown) (no (unknown) (unknown) amh (units (unkno wn) date) unknown) (unknown) (no (unknown) (unknown) (no value) (units (unk nown) date) unknown) (unknown) (no (unknown) (unknown) N Yes no (units (unknown) date) 148 27 unknown) Breech absent See below 3 (unknown) (no (unknown) (unknown) 4 wks (units (unkno wn) date) unknown) (unknown) (no (unknown) (unknown) Not feeling any (units (unknown) date) contractions. No unknown) cramping, leakage of fluid or vaginal (unknown) (no (unknown) (unknown) as scheduled (units (u nknown) date) unknown) (unknown) (no (unknown) (unknown) Genetic (units (unkn own) date) Screening/Teratol unknown) ogy Counseling - Includes patient, baby's father, or (unknown) (no (unknown) (unknown) - Bipolar - (units (un known) date) Stable on unknown) lamotrigine, fluoxetine, and wellbutrin. Of note, did not (unknown) (no (unknown) (unknown) - Declined (units (unk nown) date) aneuploidy unknown) screening, MSAFP wnl (unknown) (no (unknown) (unknown) - New OB labs (units ( unknown) date) showed UTI, for unknown) MCKENZIE- sent 05/17 (unknown) (no (unknown) (unknown) - Placenta (units (unk nown) date) previously low unknown) lying, resolved (unknown) (no (unknown) (unknown) - Varicella (units (un known) date) non-immune unknown) (unknown) (no (unknown) (unknown) -?-?-?-?-?-?-?-? (units (unknown) date) -?-?-?-?- unknown) (unknown) (no (unknown) (unknown) 00 (units (unkno wn) date) unknown) (unknown) (no (unknown) (unknown) [id number] (units (unkn own) date) unknown) (unknown) (no (unknown) (unknown) 10/06/21 (units (unkno wn) date) unknown) (unknown) (no (unknown) (unknown) Abnormal lab (units (u nknown) date) values 1st unknown) trimester: discussed (unknown) (no (unknown) (unknown) Abnormal lab (units (u nknown) date) values 2nd unknown) trimester: discussed (unknown) (no (unknown) (unknown) Add'l Plan (units (unk nown) date) Details unknown) (unknown) (no (unknown) (unknown) Advised to check (units (unknown) date) for her routine unknown) movement daily. (unknown) (no (unknown) (unknown) Age/Sex: 25 / F (units (unknown) date) Date of unknown) Service: (unknown) (no (unknown) (unknown) Allergies (units (unkn own) date) unknown) (unknown) (no (unknown) (unknown) Aneuploidy (units (unk nown) date) Screening unknown) Offered: Accepted (considering options) (unknown) (no (unknown) (unknown) Antepartum (units (unk nown) date) precautions and unknown) kick counts discussed. (unknown) (no (unknown) (unknown) Anticipated (units (un known) date) course of unknown) care: discussed (unknown) (no (unknown) (unknown) Assessment and (units (unknown) date) Plan unknown) (unknown) (no (unknown) (unknown) Attending Dr: (units ( unknown) date) Clare Araya unknown) Prudence RAMÍREZ (unknown) (no (unknown) (unknown) (units (unkno wn) date) Plan/Preferences unknown) (unknown) (no (unknown) (unknown) Planning (units (unknown) date) unknown) (unknown) (no (unknown) (unknown) Blood (units (unkno wn) date) transfusions?: unknown) yes (unknown) (no (unknown) (unknown) Breastfeed (units (unk nown) date) Preg Comp Name unknown) (unknown) (no (unknown) (unknown) CRL, no gross (units ( unknown) date) abnormalities unknown) noted. Ovaries not visualized. (unknown) (no (unknown) (unknown) Caffeine use, (units ( unknown) date) Exercise and unknown) activity, work/environmenta l/hazards, Sexual (unknown) (no (unknown) (unknown) Childbirth (units (unk nown) date) Classes: unknown) discussed (unknown) (no (unknown) (unknown) Current (units (unkno wn) date) History unknown) (unknown) (no (unknown) (unknown) : 1995 (units (unknown) date) Acct:[id number] unknown) (unknown) (no (unknown) (unknown) Date (units (unkno wn) date) unknown) (unknown) (no (unknown) (unknown) Date of positive (units (unknown) date) home unknown) test: 03/20/21 (unknown) (no (unknown) (unknown) Del. Date (units (unkn own) date) GA/Weeks Labor unknown) Lgth Wt Sex Route Outcome Anesthesia Place (unknown) (no (unknown) (unknown) Delv (units (unkno wn) date) unknown) (unknown) (no (unknown) (unknown) Denies Congenital (units (unknown) date) Heart Defect, unknown) Denies Down Syndrome, Denies Muscular Dystrophy, (unknown) (no (unknown) (unknown) Denies Maternal (units (unknown) date) Metabolic unknown) Disorder (EG,TYPE 1 Diabetes, PKU), Denies Patient or (unknown) (no (unknown) (unknown) Denies Neural (units ( unknown) date) Tube Defect unknown) (Meningomyelocele , Spina Bifida, or Anencephaly), (unknown) (no (unknown) (unknown) Denies Sickle (units ( unknown) date) Cell Disease or unknown) Trait (), Denies Hemophilia or other blood (unknown) (no (unknown) (unknown) Denies Moustapha-Sachs (units (unknown) date) (Ashkenazi unknown) Adventism, Cajun, English Nigerien), Denies Sebastián (unknown) (no (unknown) (unknown) Denies other (units (u nknown) date) unknown) (unknown) (no (unknown) (unknown) Denies over the (units (unknown) date) counter unknown) medications, Denies alcohol, Denies illicit drugs and (unknown) (no (unknown) (unknown) Depression: (units (un known) date) discussed unknown) (unknown) (no (unknown) (unknown) Dept at (units (unkno wn) date) . unknown) (unknown) (no (unknown) (unknown) Diet and (units (unkno wn) date) Exercise unknown) (unknown) (no (unknown) (unknown) Disease (units (unkno wn) date) (Ashkenazi unknown) Adventism), Denies Familial Dysautonomia (Ashkenazi Adventism), (unknown) (no (unknown) (unknown) Documented By: (units (unknown) date) Clare Foss unknown) Quiana RAMÍREZ 10/06/21 08 (unknown) (no (unknown) (unknown) RERE Calculator (units (unknown) date) unknown) (unknown) (no (unknown) (unknown) EGA Weight BP (units ( unknown) date) UGlucose unknown) (unknown) (no (unknown) (unknown) Family History (units (unknown) date) (Updated 04/08/21 unknown) @ 08:07 by Sena Espinal RN) (unknown) (no (unknown) (unknown) Father (units (unkno wn) date) Metabolic unknown) syndrome (unknown) (no (unknown) (unknown) Father of Baby: (units (unknown) date) Abiam unknown) (unknown) (no (unknown) (unknown) First Trimester (units (unknown) date) Education unknown) Checklist (unknown) (no (unknown) (unknown) Genetic (units (unkno wn) date) Screening unknown) (unknown) (no (unknown) (unknown) Genetic (units (unkno wn) date) Screening + unknown) Counseling (unknown) (no (unknown) (unknown) Grandmother (units (un known) date) Breast cancer unknown) (unknown) (no (unknown) (unknown) 2 (units (unknown) date) Multiple unknown) births (unknown) (no (unknown) (unknown) H/O wisdom tooth (units (unknown) date) extraction unknown) (unknown) (no (unknown) (unknown) HIV risk (units (unkno wn) date) evaluation: low unknown) risk (unknown) (no (unknown) (unknown) Health Center (units ( unknown) date) Education unknown) (unknown) (no (unknown) (unknown) Health center (units ( unknown) date) information: unknown) nature of practice discussed, personnel (unknown) (no (unknown) (unknown) Hepatitis C risk (units (unknown) date) evaluation: low unknown) risk (unknown) (no (unknown) (unknown) History of (units (unk nown) date) Hepatitis B: No unknown) (unknown) (no (unknown) (unknown) History of (units (unk nown) date) Hepatitis C: No unknown) (unknown) (no (unknown) (unknown) History of PCOS (units (unknown) date) unknown) (unknown) (no (unknown) (unknown) [facility] (units (u nknown) date) unknown) (unknown) (no (unknown) (unknown) Vahid's (units (u nknown) date) Chorea, Denies unknown) Other inherited genetic or chromosomal disorder, (unknown) (no (unknown) (unknown) Hx # (units (u nknown) date) Pregnancies unknown) Elective abortions (unknown) (no (unknown) (unknown) Hx # Term (units (unkn own) date) Pregnancies unknown) Ectopic pregnancies (unknown) (no (unknown) (unknown) will be (units (unknown) date) adopted?: no unknown) (unknown) (no (unknown) (unknown) Infection (units (unkn own) date) History unknown) (unknown) (no (unknown) (unknown) Infectious (units (unk nown) date) Disease Education unknown) (unknown) (no (unknown) (unknown) Infectious (units (unk nown) date) disease exposure: unknown) chicken pox immunity discussed, hepatitis risk (unknown) (no (unknown) (unknown) Initial Weight: (units (unknown) date) 110 lb unknown) (unknown) (no (unknown) (unknown) Initials (units (unkno wn) date) unknown) (unknown) (no (unknown) (unknown) Intake (units (unkno wn) date) unknown) (unknown) (no (unknown) (unknown) Live with (units (unkn own) date) someone with TB unknown) or exposed to TB: No (unknown) (no (unknown) (unknown) Loc: [facility] (units (unkno wn) date) unknown) (unknown) (no (unknown) (unknown) Marital status: (units (unknown) date) unknown) (unknown) (no (unknown) (unknown) Medical History (units (unknown) date) (Updated 04/08/21 unknown) @ 08:06 by Sena Espinal RN) (unknown) (no (unknown) (unknown) No Known Drug (units ( unknown) date) Allergies Allergy unknown) (Unverified 07/22/21 15:29) (unknown) (no (unknown) (unknown) Notes (units (unkno wn) date) unknown) (unknown) (no (unknown) (unknown) Number of Living (units (unknown) date) Children unknown) (unknown) (no (unknown) (unknown) Number of (units (unkn own) date) fetuses:: Single unknown) (unknown) (no (unknown) (unknown) Nutrition and (units ( unknown) date) weight gain unknown) counseling: special diet: discussed (unknown) (no (unknown) (unknown) OB Visit Log (units (u nknown) date) unknown) (unknown) (no (unknown) (unknown) On control (units (unknown) date) at conception?: unknown) No (unknown) (no (unknown) (unknown) PFSH (units (unkno wn) date) unknown) (unknown) (no (unknown) (unknown) Pap performed?: (units (unknown) date) No unknown) (unknown) (no (unknown) (unknown) Para 0 (units ( unknown) date) Spontaneous unknown) abortions 1 (unknown) (no (unknown) (unknown) Partner history (units (unknown) date) of STD: denies hx unknown) (unknown) (no (unknown) (unknown) Partner history (units (unknown) date) of genital unknown) herpes: No (unknown) (no (unknown) (unknown) Partner: Abiam (units (unknown) date) unknown) (unknown) (no (unknown) (unknown) Past Pregnancies (units (unknown) date) unknown) (unknown) (no (unknown) (unknown) Patient was (units (un known) date) recently treated unknown) for UTI with resolution of symptoms, no further c (unknown) (no (unknown) (unknown) Patient's age 33 (units (unknown) date) years or older as unknown) of estimated date of delivery: No (unknown) (no (unknown) (unknown) Patient: (units (unkno wn) date) Sally Thurston Y unknown) MR#: M (unknown) (no (unknown) (unknown) 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) (unknown) (no (unknown) (unknown) Personal history (units (unknown) date) of STD: denies hx unknown) (unknown) (no (unknown) (unknown) Personal history (units (unknown) date) of genital unknown) herpes: No (unknown) (no (unknown) (unknown) (units (unkn own) date) History unknown) (unknown) (no (unknown) (unknown) type:: (units (unknown) date) Other Normal unknown) (unknown) (no (unknown) (unknown) (units (unkno wn) date) Education unknown) (unknown) (no (unknown) (unknown) Initial (units (unknown) date) Assessment unknown) (unknown) (no (unknown) (unknown) (units (unkno wn) date) Specific unknown) Issues/Plans (unknown) (no (unknown) (unknown) (units (unkno wn) date) Testing: unknown) discussed (unknown) (no (unknown) (unknown) Visit (units (unknown) date) unknown) (unknown) (no (unknown) (unknown) (units (unkno wn) date) education packet: unknown) Child education/plan, symptoms, (unknown) (no (unknown) (unknown) Primary Care (units (u nknown) date) Provider: MANISH unknown) Kristopher (unknown) (no (unknown) (unknown) Primary Ob (units (unk nown) date) Provider: unknown) [place] (unknown) (no (unknown) (unknown) Providers (units (unkn own) date) unknown) (unknown) (no (unknown) (unknown) Rash or viral (units ( unknown) date) illness since unknown) last menstrual period: No (unknown) (no (unknown) (unknown) Reason For Visit (units (unknown) date) unknown) (unknown) (no (unknown) (unknown) Recurrent (units (unkn own) date) loss or unknown) a stillbirth: No (unknown) (no (unknown) (unknown) Referred for 3rd (units (unknown) date) tri labs. unknown) (unknown) (no (unknown) (unknown) Reports good (units (u nknown) date) movement, unknown) no LOF or VB, no ctx, no further umbilical (unknown) (no (unknown) (unknown) Reports good (units (u nknown) date) movement, unknown) no LOF or VB, no ctx. Third tri labs wnl. (unknown) (no (unknown) (unknown) Safety (units (unkno wn) date) unknown) (unknown) (no (unknown) (unknown) Seatbelt use and (units (unknown) date) Influenza vaccine unknown) (ad thia fall) (unknown) (no (unknown) (unknown) Second Trimester (units (unknown) date) Education unknown) Checklist (unknown) (no (unknown) (unknown) Signed By: (units (unk nown) date) unknown) (unknown) (no (unknown) (unknown) Smoking Status: (units (unknown) date) Never smoker unknown) (unknown) (no (unknown) (unknown) Social History (units (unknown) date) unknown) (unknown) (no (unknown) (unknown) Surgical History (units (unknown) date) (Updated 04/08/21 unknown) @ 08:06 by Sena Espinal RN) (unknown) (no (unknown) (unknown) Surrogate (units (unkn own) date) ?: no unknown) (unknown) (no (unknown) (unknown) Symptoms since (units (unknown) date) LMP: Reports unknown) amenorrhea, nausea, vomiting, breast tenderness, (unknown) (no (unknown) (unknown) Tdap status: (units (u nknown) date) immunized unknown) (unknown) (no (unknown) (unknown) Teratogen (units (unkn own) date) Exposures since unknown) LMP/Conception: Denies prescription medications, (unknown) (no (unknown) (unknown) Testing (units (unkno wn) date) Education unknown) (unknown) (no (unknown) (unknown) Testing (units (unkno wn) date) education unknown) completed: Genetic testing, group B strep and Spina bifida (unknown) (no (unknown) (unknown) The patient has (units (unknown) date) irregular menses, unknown) and was dated by ultrasound today. She denies (unknown) (no (unknown) (unknown) The umbilicus (units ( unknown) date) was cleaned with unknown) a chlorhexadine swab, and we discussed keeping (unknown) (no (unknown) (unknown) This note may (units ( unknown) date) have been all or unknown) partially generated using voice recognition (unknown) (no (unknown) (unknown) Tobacco + (units (unkn own) date) Substance Use unknown) (unknown) (no (unknown) (unknown) Tobacco Status (units (unknown) date) unknown) (unknown) (no (unknown) (unknown) Trimester:: 3rd (units (unknown) date) Trimester unknown) (28wks-Del) (unknown) (no (unknown) (unknown) Type(s) of (units (unk nown) date) exercise: unknown) irregular exercise (unknown) (no (unknown) (unknown) UProtein Movement (units (unknown) date) PreLabor FHR Fndl unknown) Ht Pres Edema Cerv Exam US/Comment Next Appt (unknown) (no (unknown) (unknown) Ultrasound (units (unk nown) date) unknown) (unknown) (no (unknown) (unknown) Ultrasound (units (unk nown) date) Details:: TAUS unknown) performed. Viable SIUP visualized measuring 8+4 by (unknown) (no (unknown) (unknown) Ultrasound (units (unk nown) date) performed?: No unknown) (unknown) (no (unknown) (unknown) Varicella/chicke (units (unknown) date) n pox status: unknown) immunized (unknown) (no (unknown) (unknown) Visit Date: (units (un known) date) 04/19/21 Last unknown) Updated by: Katharine Martinez MD (unknown) (no (unknown) (unknown) Visit Date: (units (un known) date) 05/06/21 Last unknown) Updated by: Katharine Martinez MD (unknown) (no (unknown) (unknown) Visit Date: (units (un known) date) 05/17/21 Last unknown) Updated by: Katharine Martinez MD (unknown) (no (unknown) (unknown) Visit Date: (units (un known) date) 06/14/21 Last unknown) Updated by: Katharine Martinez MD (unknown) (no (unknown) (unknown) Visit Date: (units (un known) date) 07/22/21 Last unknown) Updated by: Katharine Martinez MD (unknown) (no (unknown) (unknown) Visit Date: (units (un known) date) 08/03/21 Last unknown) Updated by: Katharine Martinez MD (unknown) (no (unknown) (unknown) Visit Date: (units (un known) date) 08/23/21 Last unknown) Updated by: Katharine Martinez MD (unknown) (no (unknown) (unknown) Visit Date: (units (un known) date) 09/07/21 Last unknown) Updated by: Katharine Martinez MD (unknown) (no (unknown) (unknown) Visit Date: (units (un known) date) 09/23/21 Last unknown) Updated by: Clare Foss MD (unknown) (no (unknown) (unknown) Visit Reasons: (units (unknown) date) OB unknown) (unknown) (no (unknown) (unknown) Vitamins and (units (u nknown) date) iron, Diet and unknown) weight gain, Fish and mercury intake, Smoking, (unknown) (no (unknown) (unknown) WG (units (unkno wn) date) unknown) (unknown) (no (unknown) (unknown) Weeks (units (unkno wn) date) gestation:: 33 unknown) (unknown) (no (unknown) (unknown) Zika virus (units (unk nown) date) exposure: No unknown) (unknown) (no (unknown) (unknown) Zofran. Patient (units (unknown) date) declines unknown) aneuploidy screening, MSAFP at next visit. (unknown) (no (unknown) (unknown) activity, X-ray (units (unknown) date) exposure, unknown) Medication use, ETOH use, Sauna/hot tub use, Dental (unknown) (no (unknown) (unknown) alcohol intake: (units (unknown) date) former (stopped unknown) with , always light) (unknown) (no (unknown) (unknown) and 2#2, 53%, (units ( unknown) date) MVP 4.3cm. Breech unknown) presentation. Antepartum precautions discussed. (unknown) (no (unknown) (unknown) aneuploidy (units (unk nown) date) screening. unknown) (unknown) (no (unknown) (unknown) any significant (units (unknown) date) history, unknown) medications for bipolar disorder were discussed with (unknown) (no (unknown) (unknown) anyone in either (units (unknown) date) family with: unknown) (unknown) (no (unknown) (unknown) baby's father (units ( unknown) date) had a child with unknown) defects not listed above and Denies Other (unknown) (no (unknown) (unknown) bleeding. (units (unkn own) date) Feeling good unknown) movement. labor precautions reviewed. (unknown) (no (unknown) (unknown) bloating and (units (u nknown) date) other (night unknown) sweats, constipation) (unknown) (no (unknown) (unknown) but no other (units (u nknown) date) abnormal unknown) discharge. Patient today reports longstanding dizziness (unknown) (no (unknown) (unknown) caffeine: Yes (units ( unknown) date) (200mg) unknown) (unknown) (no (unknown) (unknown) carbon monox (units (u nknown) date) detector in home: unknown) Yes (unknown) (no (unknown) (unknown) care, HIV (units (unkn own) date) education, unknown) Marijuana use, Substance use, Domestic violence, Travel, (unknown) (no (unknown) (unknown) current (units (unkno wn) date) occupational unknown) exposures/hazards : No (unknown) (no (unknown) (unknown) daily servings (units (unknown) date) fruits/ve-1 unknown) (unknown) (no (unknown) (unknown) defects. Care in (units (unknown) date) our clinic and unknown) aneuploidy screening discussed. Antepartum (unknown) (no (unknown) (unknown) described, visit (units (unknown) date) schedule unknown) reviewed, ultrasounds policy reviewed, coverage 24 (unknown) (no (unknown) (unknown) despite her (units (un known) date) efforts to keep unknown) the area clean with a bulb syringe. She denies (unknown) (no (unknown) (unknown) did have streaks (units (unknown) date) of blood in her unknown) vomit x1 that has since resolved. Discussed (unknown) (no (unknown) (unknown) discussed and (units ( unknown) date) ordered. unknown) Antepartum precautions discussed. (unknown) (no (unknown) (unknown) discussed (units (unkno wn) date) precautions for unknown) return. Ovaries not visualized on TAUS today. Declines (unknown) (no (unknown) (unknown) discussed, (units (unk nown) date) tuberculosis unknown) exposure discussed, CMV discussed, Toxoplasmosis (unknown) (no (unknown) (unknown) disorders, (units (unk nown) date) Denies Cystic unknown) Fibrosis, Denies Mental Retardation/Autis m, Denies (unknown) (no (unknown) (unknown) do you feel safe (units (unknown) date) at home: Yes unknown) (unknown) (no (unknown) (unknown) drainage. TVUS (units ( unknown) date) performed and unknown) placenta now >4cm from cervix. Growth US performed (unknown) (no (unknown) (unknown) during the past (units (unknown) date) year weight has: unknown) remained stable (unknown) (no (unknown) (unknown) education level: (units (unknown) date) other (YVONNE) unknown) (unknown) (no (unknown) (unknown) encouraged to (units ( unknown) date) call with any unknown) questions or concerns. (unknown) (no (unknown) (unknown) endorse at (units (unk nown) date) initial visit. unknown) (unknown) (no (unknown) (unknown) fevers, chills, (units (unknown) date) or any other unknown) symptoms or obstetrical complaints. The area was (unknown) (no (unknown) (unknown) fire (units (unkno wn) date) extinguisher in unknown) home: No (unknown) (no (unknown) (unknown) firearms in (units (un known) date) home: No unknown) (unknown) (no (unknown) (unknown) green, opaque (units ( unknown) date) drainage from her unknown) belly button. This has continued intermittently (unknown) (no (unknown) (unknown) have occurred. (units (unknown) date) If there are any unknown) questions, please contact the Medical Records (unknown) (no (unknown) (unknown) hours a day and (units (unknown) date) participation of unknown) father in care and office visits (unknown) (no (unknown) (unknown) household (units (unkn own) date) members: spouse unknown) (unknown) (no (unknown) (unknown) housing: house (units (unknown) date) unknown) (unknown) (no (unknown) (unknown) ks (units (unkno wn) date) unknown) (unknown) (no (unknown) (unknown) lives (units (unkno wn) date) independently: unknown) Yes (unknown) (no (unknown) (unknown) marital status: (units (unknown) date) unknown) (unknown) (no (unknown) (unknown) may occur. (units (unk nown) date) Occasional unknown) wrong-word or 'sound-alike' substitutions may have (unknown) (no (unknown) (unknown) movement. No (units (u nknown) date) other symptoms or unknown) concerns, anatomy scan already scheduled. MSAFP (unknown) (no (unknown) (unknown) noted to be (units (un known) date) mildly unknown) erythmatous. A forceps was used to spread the umbilicus and (unknown) (no (unknown) (unknown) number of (units (unkn own) date) children: 0 unknown) (unknown) (no (unknown) (unknown) occupational (units (u nknown) date) status: employed unknown) (unknown) (no (unknown) (unknown) occurred due to (units (unknown) date) the inherent unknown) limitations of voice recognition software. Please (unknown) (no (unknown) (unknown) pets and (units (unkno wn) date) animals: No unknown) (unknown) (no (unknown) (unknown) placenta 1.8 cm (units (unknown) date) from os unknown) posteriorly, discussed follow up at 28 weeks. Also 88%, (unknown) (no (unknown) (unknown) precautions (units (un known) date) discussed. unknown) (unknown) (no (unknown) (unknown) precautions, (units (u nknown) date) Listeriosis unknown) prevention and Rubella Immunization (unknown) (no (unknown) (unknown) predating her (units ( unknown) date) . UA unknown) wnl, plans to try OTC monistat 7 instead of Affirm, (unknown) (no (unknown) (unknown) ramping or (units (unkn own) date) bleeding. Patient unknown) does report that nausea was worse over the weekend, (unknown) (no (unknown) (unknown) read the note (units ( unknown) date) carefully and unknown) recognize, using context, where these substitutions (unknown) (no (unknown) (unknown) reports feeling (units (unknown) date) movement, no ctx unknown) no LOF or VB. Recent anatomy scan showing (unknown) (no (unknown) (unknown) reports feeling (units (unknown) date) well with no UTI unknown) sx, no cramping or bleeding, starting to feel (unknown) (no (unknown) (unknown) seatbelt use: (units ( unknown) date) always unknown) (unknown) (no (unknown) (unknown) second hand (units (un known) date) exposure: No unknown) (unknown) (no (unknown) (unknown) software. (units (unkn own) date) Although every unknown) effort is made to edit content, director family errors (unknown) (no (unknown) (unknown) spotting and RLQ (units (unknown) date) cramping. Viable unknown) SIUP seen via TAUS, +movement. Reports the (unknown) (no (unknown) (unknown) spotting has (units (un known) date) resolved and the unknown) cramping remains moderate, some vaginal irritation (unknown) (no (unknown) (unknown) substance use (units ( unknown) date) type: does not unknown) use (unknown) (no (unknown) (unknown) testing (units (unkno wn) date) unknown) (unknown) (no (unknown) (unknown) the area clean (units (unknown) date) and dry, using unknown) topical antifungal cream, and monitoring. She was (unknown) (no (unknown) (unknown) to belly button (units (unknown) date) drainage. 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 (unknown) (no (unknown) (unknown) water heater (units (u nknown) date) temp set < 120 unknown) deg: Yes (will check) (unknown) (no (unknown) (unknown) well-balanced (units ( unknown) date) diet: about half unknown) the time (unknown) (no (unknown) (unknown) will do growth (units (unknown) date) US at that time. unknown) Antepartum precautions discussed. (unknown) (no (unknown) (unknown) wks (units (unkno wn) date) unknown) (unknown) (no (unknown) (unknown) working smoke (units ( unknown) date) detector in home: unknown) Yes Result panel 15 (unknown) (no (unknown) (unknown) (no value) (units (unk nown) date) unknown) (unknown) (no (unknown) (unknown) 10/20/19 5-6 (units (u nknown) date) spontaneous unknown) (unknown) (no (unknown) (unknown) [id number] here (units ( unknown) date) for a routine OB unknown) appt at 31 weeks. She denies any problems. (unknown) (no (unknown) (unknown) N Yes no (units (unknown) date) 143 28 unknown) absent 2 wks (unknown) (no (unknown) (unknown) N Yes no (units (unknown) date) 144 32 unknown) Vertex absent 2wk (unknown) (no (unknown) (unknown) N Yes no (units (unknown) date) 146 absent unknown) 4 wks (unknown) (no (unknown) (unknown) N Yes no (units (unknown) date) 150 21 unknown) absent 4 wks (unknown) (no (unknown) (unknown) This patient is (units (unknown) date) a 25yo @11+0 unknown) presenting to follow up 10 days of brown (unknown) (no (unknown) (unknown) This patient is (units (unknown) date) a 25yo @12+4 unknown) presenting for routine obstetric care. (unknown) (no (unknown) (unknown) This patient is (units (unknown) date) a 25yo @16+4 unknown) presenting for routine OB care. Patient (unknown) (no (unknown) (unknown) This patient is (units (unknown) date) a 25yo @22+0 unknown) presenting for routine OB care. Patient (unknown) (no (unknown) (unknown) This patient is (units (unknown) date) a 25yo @23+5 unknown) presenting for an unscheduled visit due (unknown) (no (unknown) (unknown) This patient is (units (unknown) date) a 25yo @26+4 unknown) presenting for routine care. (unknown) (no (unknown) (unknown) This patient is (units (unknown) date) a 25yo @28+5 unknown) presenting for routine care. (unknown) (no (unknown) (unknown) This patient is (units (unknown) date) a 25yo unknown) @8+4 presenting to initiate care. (unknown) (no (unknown) (unknown) (no value) (units (unk nown) date) unknown) (unknown) (no (unknown) (unknown) none (units (unkno wn) date) unknown) (unknown) (no (unknown) (unknown) (no value) (units (unk nown) date) unknown) (unknown) (no (unknown) (unknown) (+2 lb 1 oz) (units (u nknown) date) 104/58 N unknown) (unknown) (no (unknown) (unknown) (+2 lb 3 oz) (units (u nknown) date) 106/60 N unknown) (unknown) (no (unknown) (unknown) (+20 lb) (units (unkno wn) date) 92/58 N unknown) (unknown) (no (unknown) (unknown) (+22 lb) (units (unkno wn) date) 106/62 unknown) (unknown) (no (unknown) (unknown) (+29 lb) (units (unkno wn) date) 94/52 N unknown) (unknown) (no (unknown) (unknown) (+3 lb) (units (unkno wn) date) 100/60 N unknown) (unknown) (no (unknown) (unknown) (+33 lb) (units (unkno wn) date) 102/62 N unknown) (unknown) (no (unknown) (unknown) (+36 lb) (units (unkno wn) date) 98/62 N unknown) (unknown) (no (unknown) (unknown) (+9 lb 7 oz) (units (u nknown) date) 110/60 N unknown) (unknown) (no (unknown) (unknown) 04/19/21 (units (unkno wn) date) unknown) (unknown) (no (unknown) (unknown) 05/06/21 (units (unkno wn) date) unknown) (unknown) (no (unknown) (unknown) 05/17/21 (units (unkno wn) date) unknown) (unknown) (no (unknown) (unknown) 06/14/21 (units (unkno wn) date) unknown) (unknown) (no (unknown) (unknown) 07/22/21 (units (unkno wn) date) unknown) (unknown) (no (unknown) (unknown) 08/03/21 (units (unkno wn) date) unknown) (unknown) (no (unknown) (unknown) 08/23/21 (units (unkno wn) date) unknown) (unknown) (no (unknown) (unknown) 09/07/21 (units (unkno wn) date) unknown) (unknown) (no (unknown) (unknown) 09/23/21 (units (unkno wn) date) unknown) (unknown) (no (unknown) (unknown) 10/06/21 (units (unkno wn) date) unknown) (unknown) (no (unknown) (unknown) 08:04 (units (unkno wn) date) unknown) (unknown) (no (unknown) (unknown) 11w 0d 113 lb (units (unknown) date) unknown) (unknown) (no (unknown) (unknown) 12w 4d 112 lb (units (unknown) date) 3 oz unknown) (unknown) (no (unknown) (unknown) 16w 4d 119 lb (units (unknown) date) 7 oz unknown) (unknown) (no (unknown) (unknown) 22w 0d 130 lb (units (unknown) date) unknown) (unknown) (no (unknown) (unknown) 23w 5d 132 lb (units (unknown) date) unknown) (unknown) (no (unknown) (unknown) 26w 4d 139 lb (units (unknown) date) unknown) (unknown) (no (unknown) (unknown) 28w 5d 143 lb (units (unknown) date) unknown) (unknown) (no (unknown) (unknown) 31w 0d 146 lb (units (unknown) date) unknown) (unknown) (no (unknown) (unknown) 8w 4d 112 lb (units (unknown) date) 1 oz unknown) (unknown) (no (unknown) (unknown) [place], [place] (units ( unknown) date) [id number] unknown) (unknown) (no (unknown) (unknown) Current Estimate (units (unknown) date) 11/25/21 unknown) Ultrasound #1 32w 6d (unknown) (no (unknown) (unknown) Draft (units (unkno wn) date) unknown) (unknown) (no (unknown) (unknown) Estimated (units (unkn own) date) Delivery Date unknown) Method Current (unknown) (no (unknown) (unknown) [facility]) (unknown) (no (unknown) (unknown) KF (units (unkno wn) date) unknown) (unknown) (no (unknown) (unknown) N 167 (units (unkno wn) date) absent wnl unknown) (unknown) (no (unknown) (unknown) OB Office Visit (units (unknown) date) unknown) (unknown) (no (unknown) (unknown) Other Estimates (units (unknown) date) 11/09/21 unknown) LMP (Uncertain) 35w 1d (unknown) (no (unknown) (unknown) TR 152 (units (unkn own) date) absent 4 w unknown) (unknown) (no (unknown) (unknown) TR 164 (units (unkn own) date) absent wnl unknown) (unknown) (no (unknown) (unknown) TR (units (unkno wn) date) unknown) (unknown) (no (unknown) (unknown) Yes no (units (u nknown) date) 153 absent unknown) (unknown) (no (unknown) (unknown) amh (units (unkno wn) date) unknown) (unknown) (no (unknown) (unknown) (no value) (units (unk nown) date) unknown) (unknown) (no (unknown) (unknown) N Yes no (units (unknown) date) 148 27 unknown) Breech absent See below 3 (unknown) (no (unknown) (unknown) 4 wks (units (unkno wn) date) unknown) (unknown) (no (unknown) (unknown) Not feeling any (units (unknown) date) contractions. No unknown) cramping, leakage of fluid or vaginal (unknown) (no (unknown) (unknown) as scheduled (units (u nknown) date) unknown) (unknown) (no (unknown) (unknown) Genetic (units (unkn own) date) Screening/Teratol unknown) ogy Counseling - Includes patient, baby's father, or (unknown) (no (unknown) (unknown) - Bipolar - (units (un known) date) Stable on unknown) lamotrigine, fluoxetine, and wellbutrin. Of note, did not (unknown) (no (unknown) (unknown) - Declined (units (unk nown) date) aneuploidy unknown) screening, MSAFP wnl (unknown) (no (unknown) (unknown) - New OB labs (units ( unknown) date) showed UTI, for unknown) MCKENZIE- sent 05/17 (unknown) (no (unknown) (unknown) - Placenta (units (unk nown) date) previously low unknown) lying, resolved (unknown) (no (unknown) (unknown) - Varicella (units (un known) date) non-immune unknown) (unknown) (no (unknown) (unknown) -?-?-?-?-?-?-?-? (units (unknown) date) -?-?-?-?- unknown) (unknown) (no (unknown) (unknown) 00 (units (unkno wn) date) unknown) (unknown) (no (unknown) (unknown) [id number] (units (unkn own) date) unknown) (unknown) (no (unknown) (unknown) 05/17/21 [Rx (units (u nknown) date) Confirmed unknown) 10/06/21] (unknown) (no (unknown) (unknown) 10/06/21 (units (unkno wn) date) unknown) (unknown) (no (unknown) (unknown) 10/06/21] (units (unkn own) date) unknown) (unknown) (no (unknown) (unknown) Abnormal lab (units (u nknown) date) values 1st unknown) trimester: discussed (unknown) (no (unknown) (unknown) Abnormal lab (units (u nknown) date) values 2nd unknown) trimester: discussed (unknown) (no (unknown) (unknown) Add'l Plan (units (unk nown) date) Details unknown) (unknown) (no (unknown) (unknown) Advised to check (units (unknown) date) for her routine unknown) movement daily. (unknown) (no (unknown) (unknown) Age/Sex: 25 / F (units (unknown) date) Date of unknown) Service: (unknown) (no (unknown) (unknown) Allergies (units (unkn own) date) unknown) (unknown) (no (unknown) (unknown) Aneuploidy (units (unk nown) date) Screening unknown) Offered: Accepted (considering options) (unknown) (no (unknown) (unknown) Antepartum (units (unk nown) date) precautions and unknown) kick counts discussed. (unknown) (no (unknown) (unknown) Anticipated (units (un known) date) course of unknown) care: discussed (unknown) (no (unknown) (unknown) Assessment and (units (unknown) date) Plan unknown) (unknown) (no (unknown) (unknown) Attending Dr: (units ( unknown) date) Clare Araya unknown) Prudence RAMÍREZ (unknown) (no (unknown) (unknown) BMI 28.7 (units (un known) date) unknown) (unknown) (no (unknown) (unknown) BP 110/64 (units (u nknown) date) unknown) (unknown) (no (unknown) (unknown) (units (unkno wn) date) Plan/Preferences unknown) (unknown) (no (unknown) (unknown) Planning (units (unknown) date) unknown) (unknown) (no (unknown) (unknown) Blood Pressure (units (unknown) date) Location Rt unknown) brachial (unknown) (no (unknown) (unknown) Blood (units (unkno wn) date) transfusions?: unknown) yes (unknown) (no (unknown) (unknown) Breastfeed (units (unk nown) date) Preg Comp Name unknown) (unknown) (no (unknown) (unknown) CRL, no gross (units ( unknown) date) abnormalities unknown) noted. Ovaries not visualized. (unknown) (no (unknown) (unknown) Caffeine use, (units ( unknown) date) Exercise and unknown) activity, work/environmenta l/hazards, Sexual (unknown) (no (unknown) (unknown) Childbirth (units (unk nown) date) Classes: unknown) discussed (unknown) (no (unknown) (unknown) Current (units (unkno wn) date) History unknown) (unknown) (no (unknown) (unknown) : 1995 (units (unknown) date) Acct:[id number] unknown) (unknown) (no (unknown) (unknown) Date (units (unkno wn) date) unknown) (unknown) (no (unknown) (unknown) Date of positive (units (unknown) date) home unknown) test: 03/20/21 (unknown) (no (unknown) (unknown) Del. Date (units (unkn own) date) GA/Weeks Labor unknown) Lgth Wt Sex Route Outcome Anesthesia Place (unknown) (no (unknown) (unknown) Delv (units (unkno wn) date) unknown) (unknown) (no (unknown) (unknown) Denies Congenital (units (unknown) date) Heart Defect, unknown) Denies Down Syndrome, Denies Muscular Dystrophy, (unknown) (no (unknown) (unknown) Denies Maternal (units (unknown) date) Metabolic unknown) Disorder (EG,TYPE 1 Diabetes, PKU), Denies Patient or (unknown) (no (unknown) (unknown) Denies Neural (units ( unknown) date) Tube Defect unknown) (Meningomyelocele , Spina Bifida, or Anencephaly), (unknown) (no (unknown) (unknown) Denies Sickle (units ( unknown) date) Cell Disease or unknown) Trait (), Denies Hemophilia or other blood (unknown) (no (unknown) (unknown) Denies Moustapha-Sachs (units (unknown) date) (Ashkenazi unknown) Adventism, Cajun, English Nigerien), Denies Sebastián (unknown) (no (unknown) (unknown) Denies other (units (u nknown) date) unknown) (unknown) (no (unknown) (unknown) Denies over the (units (unknown) date) counter unknown) medications, Denies alcohol, Denies illicit drugs and (unknown) (no (unknown) (unknown) Depression: (units (un known) date) discussed unknown) (unknown) (no (unknown) (unknown) Dept at (units (unkno wn) date) . unknown) (unknown) (no (unknown) (unknown) Diet and (units (unkno wn) date) Exercise unknown) (unknown) (no (unknown) (unknown) Discussed (units (unkn own) date) Zofran. Patient unknown) declines aneuploidy screening, MSAFP at next visit. (unknown) (no (unknown) (unknown) Disease (units (unkno wn) date) (Ashkenazi unknown) Adventism), Denies Familial Dysautonomia (Ashkenazi Adventism), (unknown) (no (unknown) (unknown) Documented By: (units (unknown) date) Clare Foss unknown) Quiana RAMÍREZ 10/06/21 08 (unknown) (no (unknown) (unknown) RERE Calculator (units (unknown) date) unknown) (unknown) (no (unknown) (unknown) EGA Weight BP (units ( unknown) date) UGlucose unknown) (unknown) (no (unknown) (unknown) Family History (units (unknown) date) (Updated 04/08/21 unknown) @ 08:07 by Sena Espinal RN) (unknown) (no (unknown) (unknown) Father (units (unkno wn) date) Metabolic unknown) syndrome (unknown) (no (unknown) (unknown) Father of Baby: (units (unknown) date) Abiam unknown) (unknown) (no (unknown) (unknown) First Trimester (units (unknown) date) Education unknown) Checklist (unknown) (no (unknown) (unknown) Genetic (units (unkno wn) date) Screening unknown) (unknown) (no (unknown) (unknown) Genetic (units (unkno wn) date) Screening + unknown) Counseling (unknown) (no (unknown) (unknown) Grandmother (units (un known) date) Breast cancer unknown) (unknown) (no (unknown) (unknown) 2 (units (unknown) date) Multiple unknown) births (unknown) (no (unknown) (unknown) H/O wisdom tooth (units (unknown) date) extraction unknown) (unknown) (no (unknown) (unknown) HIV risk (units (unkno wn) date) evaluation: low unknown) risk (unknown) (no (unknown) (unknown) Health Center (units ( unknown) date) Education unknown) (unknown) (no (unknown) (unknown) Health center (units ( unknown) date) information: unknown) nature of practice discussed, personnel (unknown) (no (unknown) (unknown) Height 5 ft (units (unknown) date) unknown) (unknown) (no (unknown) (unknown) Hepatitis C risk (units (unknown) date) evaluation: low unknown) risk (unknown) (no (unknown) (unknown) History of (units (unk nown) date) Hepatitis B: No unknown) (unknown) (no (unknown) (unknown) History of (units (unk nown) date) Hepatitis C: No unknown) (unknown) (no (unknown) (unknown) History of PCOS (units (unknown) date) unknown) (unknown) (no (unknown) (unknown) [facility] (units (u [facility]known[facility]) unknown) (unknown) (no (unknown) (unknown) [facility] (units (u nknown) date) Chorea, Denies unknown) Other inherited genetic or chromosomal disorder, (unknown) (no (unknown) (unknown) Hx # (units (u nknown) date) Pregnancies unknown) Elective abortions (unknown) (no (unknown) (unknown) Hx # Term (units (unkn own) date) Pregnancies unknown) Ectopic pregnancies (unknown) (no (unknown) (unknown) Infant will be (units (unknown) date) adopted?: no unknown) (unknown) (no (unknown) (unknown) Infection (units (unkn own) date) History unknown) (unknown) (no (unknown) (unknown) Infectious (units (unk nown) date) Disease Education unknown) (unknown) (no (unknown) (unknown) Infectious (units (unk nown) date) disease exposure: unknown) chicken pox immunity discussed, hepatitis risk (unknown) (no (unknown) (unknown) Initial Weight: (units (unknown) date) 110 lb unknown) (unknown) (no (unknown) (unknown) Initials (units (unkno wn) date) unknown) (unknown) (no (unknown) (unknown) Intake (units (unkno wn) date) unknown) (unknown) (no (unknown) (unknown) Intake Clinical (units (unknown) date) Staff unknown) (unknown) (no (unknown) (unknown) Intake Note: (units (u nknown) date) unknown) (unknown) (no (unknown) (unknown) Intake performed (units (unknown) date) by: Maria De Jesus Leo unknown) (unknown) (no (unknown) (unknown) Live with (units (unkn own) date) someone with TB unknown) or exposed to TB: No (unknown) (no (unknown) (unknown) Loc: [facility] (units (unkno wn) date) unknown) (unknown) (no (unknown) (unknown) Marital status: (units (unknown) date) unknown) (unknown) (no (unknown) (unknown) Medical History (units (unknown) date) (Updated 04/08/21 unknown) @ 08:06 by Sena Espinal RN) (unknown) (no (unknown) (unknown) Medications (units (un known) date) unknown) (unknown) (no (unknown) (unknown) No Known Drug (units ( unknown) date) Allergies Allergy unknown) (Unverified 07/22/21 15:29) (unknown) (no (unknown) (unknown) Notes (units (unkno wn) date) unknown) (unknown) (no (unknown) (unknown) Number of Living (units (unknown) date) Children unknown) (unknown) (no (unknown) (unknown) Number of (units (unkn own) date) fetuses:: Single unknown) (unknown) (no (unknown) (unknown) Nutrition and (units ( unknown) date) weight gain unknown) counseling: special diet: discussed (unknown) (no (unknown) (unknown) OB Visit Log (units (u nknown) date) unknown) (unknown) (no (unknown) (unknown) OB check (units (unkno wn) date) unknown) (unknown) (no (unknown) (unknown) On control (units (unknown) date) at conception?: unknown) No (unknown) (no (unknown) (unknown) PFSH (units (unkno wn) date) unknown) (unknown) (no (unknown) (unknown) Pap performed?: (units (unknown) date) No unknown) (unknown) (no (unknown) (unknown) Para 0 (units ( unknown) date) Spontaneous unknown) abortions 1 (unknown) (no (unknown) (unknown) Partner history (units (unknown) date) of STD: denies hx unknown) (unknown) (no (unknown) (unknown) Partner history (units (unknown) date) of genital unknown) herpes: No (unknown) (no (unknown) (unknown) Partner: Abiam (units (unknown) date) unknown) (unknown) (no (unknown) (unknown) Past Pregnancies (units (unknown) date) unknown) (unknown) (no (unknown) (unknown) Patient was (units (un known) date) recently treated unknown) for UTI with resolution of symptoms, no further (unknown) (no (unknown) (unknown) Patient's age 33 (units (unknown) date) years or older as unknown) of estimated date of delivery: No (unknown) (no (unknown) (unknown) Patient: (units (unkno wn) date) Sally Thurston Y unknown) MR#: M (unknown) (no (unknown) (unknown) 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) (unknown) (no (unknown) (unknown) Personal history (units (unknown) date) of STD: denies hx unknown) (unknown) (no (unknown) (unknown) Personal history (units (unknown) date) of genital unknown) herpes: No (unknown) (no (unknown) (unknown) Position (units (unkno wn) date) Sitting unknown) (unknown) (no (unknown) (unknown) (units (unkn own) date) History unknown) (unknown) (no (unknown) (unknown) type:: (units (unknown) date) Other Normal unknown) (unknown) (no (unknown) (unknown) (units (unkno wn) date) Education unknown) (unknown) (no (unknown) (unknown) Initial (units (unknown) date) Assessment unknown) (unknown) (no (unknown) (unknown) (units (unkno wn) date) Specific unknown) Issues/Plans (unknown) (no (unknown) (unknown) (units (unkno wn) date) Testing: unknown) discussed (unknown) (no (unknown) (unknown) Visit (units (unknown) date) unknown) (unknown) (no (unknown) (unknown) (units (unkno wn) date) education packet: unknown) Child education/plan, symptoms, (unknown) (no (unknown) (unknown) Primary Care (units (u nknown) date) Provider: MANISH unknown) Kristopher (unknown) (no (unknown) (unknown) Primary Ob (units (unk nown) date) Provider: unknown) [place] (unknown) (no (unknown) (unknown) Providers (units (unkn own) date) unknown) (unknown) (no (unknown) (unknown) Rash or viral (units ( unknown) date) illness since unknown) last menstrual period: No (unknown) (no (unknown) (unknown) Reason For Visit (units (unknown) date) unknown) (unknown) (no (unknown) (unknown) Recurrent (units (unkn own) date) loss or unknown) a stillbirth: No (unknown) (no (unknown) (unknown) Referred for 3rd (units (unknown) date) tri labs. unknown) (unknown) (no (unknown) (unknown) Reports good (units (u nknown) date) movement, unknown) no LOF or VB, no ctx, no further umbilical (unknown) (no (unknown) (unknown) Reports good (units (u nknown) date) movement, unknown) no LOF or VB, no ctx. Third tri labs wnl. (unknown) (no (unknown) (unknown) Safety (units (unkno wn) date) unknown) (unknown) (no (unknown) (unknown) Seatbelt use and (units (unknown) date) Influenza vaccine unknown) (ad thia fall) (unknown) (no (unknown) (unknown) Second Trimester (units (unknown) date) Education unknown) Checklist (unknown) (no (unknown) (unknown) Signed By: (units (unk nown) date) unknown) (unknown) (no (unknown) (unknown) Smoking Status: (units (unknown) date) Never smoker unknown) (unknown) (no (unknown) (unknown) Social History (units (unknown) date) unknown) (unknown) (no (unknown) (unknown) Surgical History (units (unknown) date) (Updated 04/08/21 unknown) @ 08:06 by Sena Espinal RN) (unknown) (no (unknown) (unknown) Surrogate (units (unkn own) date) ?: no unknown) (unknown) (no (unknown) (unknown) Symptoms since (units (unknown) date) LMP: Reports unknown) amenorrhea, nausea, vomiting, breast tenderness, (unknown) (no (unknown) (unknown) Tdap status: (units (u nknown) date) immunized unknown) (unknown) (no (unknown) (unknown) Teratogen (units (unkn own) date) Exposures since unknown) LMP/Conception: Denies prescription medications, (unknown) (no (unknown) (unknown) Testing (units (unkno wn) date) Education unknown) (unknown) (no (unknown) (unknown) Testing (units (unkno wn) date) education unknown) completed: Genetic testing, group B strep and Spina bifida (unknown) (no (unknown) (unknown) The patient has (units (unknown) date) irregular menses, unknown) and was dated by ultrasound today. She denies (unknown) (no (unknown) (unknown) The umbilicus (units ( unknown) date) was cleaned with unknown) a chlorhexadine swab, and we discussed keeping (unknown) (no (unknown) (unknown) This note may (units ( unknown) date) have been all or unknown) partially generated using voice recognition (unknown) (no (unknown) (unknown) Tobacco + (units (unkn own) date) Substance Use unknown) (unknown) (no (unknown) (unknown) Tobacco Status (units (unknown) date) unknown) (unknown) (no (unknown) (unknown) Trimester:: 3rd (units (unknown) date) Trimester unknown) (28wks-Del) (unknown) (no (unknown) (unknown) Type(s) of (units (unk nown) date) exercise: unknown) irregular exercise (unknown) (no (unknown) (unknown) UProtein Movement (units (unknown) date) PreLabor FHR Fndl unknown) Ht Pres Edema Cerv Exam US/Comment Next Appt (unknown) (no (unknown) (unknown) Ultrasound (units (unk nown) date) unknown) (unknown) (no (unknown) (unknown) Ultrasound (units (unk nown) date) Details:: TAUS unknown) performed. Viable SIUP visualized measuring 8+4 by (unknown) (no (unknown) (unknown) Ultrasound (units (unk nown) date) performed?: No unknown) (unknown) (no (unknown) (unknown) Varicella/chicke (units (unknown) date) n pox status: unknown) immunized (unknown) (no (unknown) (unknown) Visit Date: (units (un known) date) 04/19/21 Last unknown) Updated by: Katharine Martinez MD (unknown) (no (unknown) (unknown) Visit Date: (units (un known) date) 05/06/21 Last unknown) Updated by: Katharine Martinez MD (unknown) (no (unknown) (unknown) Visit Date: (units (un known) date) 05/17/21 Last unknown) Updated by: Katharine Martinez MD (unknown) (no (unknown) (unknown) Visit Date: (units (un known) date) 06/14/21 Last unknown) Updated by: Katharine Martinez MD (unknown) (no (unknown) (unknown) Visit Date: (units (un known) date) 07/22/21 Last unknown) Updated by: Katharine Martinez MD (unknown) (no (unknown) (unknown) Visit Date: (units (un known) date) 08/03/21 Last unknown) Updated by: Katharine Martinez MD (unknown) (no (unknown) (unknown) Visit Date: (units (un known) date) 08/23/21 Last unknown) Updated by: Katharine Martinez MD (unknown) (no (unknown) (unknown) Visit Date: (units (un known) date) 09/07/21 Last unknown) Updated by: Katharine Martinez MD (unknown) (no (unknown) (unknown) Visit Date: (units (un known) date) 09/23/21 Last unknown) Updated by: Clare Foss MD (unknown) (no (unknown) (unknown) Visit Reasons: (units (unknown) date) OB unknown) (unknown) (no (unknown) (unknown) Vitals (units (unkno wn) date) unknown) (unknown) (no (unknown) (unknown) Vitamins and (units (u nknown) date) iron, Diet and unknown) weight gain, Fish and mercury intake, Smoking, (unknown) (no (unknown) (unknown) WG (units (unkno wn) date) unknown) (unknown) (no (unknown) (unknown) Weeks (units (unkno wn) date) gestation:: 33 unknown) (unknown) (no (unknown) (unknown) Weight 147 lb (units (unknown) date) unknown) (unknown) (no (unknown) (unknown) Zika virus (units (unk nown) date) exposure: No unknown) (unknown) (no (unknown) (unknown) [History (units (unkno wn) date) Confirmed unknown) 10/06/21] (unknown) (no (unknown) (unknown) activity, X-ray (units (unknown) date) exposure, unknown) Medication use, ETOH use, Sauna/hot tub use, Dental (unknown) (no (unknown) (unknown) alcohol intake: (units (unknown) date) former (stopped unknown) with , always light) (unknown) (no (unknown) (unknown) and 2#2, 53%, (units ( unknown) date) MVP 4.3cm. Breech unknown) presentation. Antepartum precautions discussed. (unknown) (no (unknown) (unknown) aneuploidy (units (unk nown) date) screening. unknown) (unknown) (no (unknown) (unknown) any significant (units (unknown) date) history, unknown) medications for bipolar disorder were discussed with (unknown) (no (unknown) (unknown) anyone in either (units (unknown) date) family with: unknown) (unknown) (no (unknown) (unknown) baby's father (units ( unknown) date) had a child with unknown) defects not listed above and Denies Other (unknown) (no (unknown) (unknown) bleeding. (units (unkn own) date) Feeling good unknown) movement. labor precautions reviewed. (unknown) (no (unknown) (unknown) bloating and (units (u nknown) date) other (night unknown) sweats, constipation) (unknown) (no (unknown) (unknown) bupropion HCl (units ( unknown) date) 150 mg tablet,12 unknown) hr sustained-release 150 mg PO DAILY 04/08/21 (unknown) (no (unknown) (unknown) but no other (units (u nknown) date) abnormal unknown) discharge. Patient today reports longstanding dizziness (unknown) (no (unknown) (unknown) caffeine: Yes (units ( unknown) date) (200mg) unknown) (unknown) (no (unknown) (unknown) carbon monox (units (u nknown) date) detector in home: unknown) Yes (unknown) (no (unknown) (unknown) care, HIV (units (unkn own) date) education, unknown) Marijuana use, Substance use, Domestic violence, Travel, (unknown) (no (unknown) (unknown) cetirizine 10 mg (units (unknown) date) tablet (Zyrtec) unknown) 10 mg PO DAILY PRN 04/08/21 [History Confirmed (unknown) (no (unknown) (unknown) cramping or (units (un known) date) bleeding. Patient unknown) does report that nausea was worse over the (unknown) (no (unknown) (unknown) current (units (unkno wn) date) occupational unknown) exposures/hazards : No (unknown) (no (unknown) (unknown) daily servings (units (unknown) date) fruits/ve-1 unknown) (unknown) (no (unknown) (unknown) defects. Care in (units (unknown) date) our clinic and unknown) aneuploidy screening discussed. Antepartum (unknown) (no (unknown) (unknown) described, visit (units (unknown) date) schedule unknown) reviewed, ultrasounds policy reviewed, coverage 24 (unknown) (no (unknown) (unknown) despite her (units (un known) date) efforts to keep unknown) the area clean with a bulb syringe. She denies (unknown) (no (unknown) (unknown) discussed and (units ( unknown) date) ordered. unknown) Antepartum precautions discussed. (unknown) (no (unknown) (unknown) discussed (units (unkno wn) date) precautions for unknown) return. Ovaries not visualized on TAUS today. Declines (unknown) (no (unknown) (unknown) discussed, (units (unk nown) date) tuberculosis unknown) exposure discussed, CMV discussed, Toxoplasmosis (unknown) (no (unknown) (unknown) disorders, (units (unk nown) date) Denies Cystic unknown) Fibrosis, Denies Mental Retardation/Autis m, Denies (unknown) (no (unknown) (unknown) do you feel safe (units (unknown) date) at home: Yes unknown) (unknown) (no (unknown) (unknown) drainage. TVUS (units ( unknown) date) performed and unknown) placenta now >4cm from cervix. Growth US performed (unknown) (no (unknown) (unknown) during the past (units (unknown) date) year weight has: unknown) remained stable (unknown) (no (unknown) (unknown) education level: (units (unknown) date) other (YVONNE) unknown) (unknown) (no (unknown) (unknown) encouraged to (units ( unknown) date) call with any unknown) questions or concerns. (unknown) (no (unknown) (unknown) endorse at (units (unk nown) date) initial visit. unknown) (unknown) (no (unknown) (unknown) fevers, chills, (units (unknown) date) or any other unknown) symptoms or obstetrical complaints. The area was (unknown) (no (unknown) (unknown) fire (units (unkno wn) date) extinguisher in unknown) home: No (unknown) (no (unknown) (unknown) firearms in (units (un known) date) home: No unknown) (unknown) (no (unknown) (unknown) fluoxetine 20 mg (units (unknown) date) capsule See Rx unknown) Instructions PO BID 04/08/21 [History Confirmed (unknown) (no (unknown) (unknown) green, opaque (units ( unknown) date) drainage from her unknown) belly button. This has continued intermittently (unknown) (no (unknown) (unknown) have occurred. (units (unknown) date) If there are any unknown) questions, please contact the Medical Records (unknown) (no (unknown) (unknown) hours a day and (units (unknown) date) participation of unknown) father in care and office visits (unknown) (no (unknown) (unknown) household (units (unkn own) date) members: spouse unknown) (unknown) (no (unknown) (unknown) housing: house (units (unknown) date) unknown) (unknown) (no (unknown) (unknown) ks (units (unkno wn) date) unknown) (unknown) (no (unknown) (unknown) lamotrigine 100 (units (unknown) date) mg tablet 100 mg unknown) PO BID 04/08/21 [History Confirmed 10/06/21] (unknown) (no (unknown) (unknown) lives (units (unkno wn) date) independently: unknown) Yes (unknown) (no (unknown) (unknown) marital status: (units (unknown) date) unknown) (unknown) (no (unknown) (unknown) may occur. (units (unk nown) date) Occasional unknown) wrong-word or 'sound-alike' substitutions may have (unknown) (no (unknown) (unknown) movement. No (units (u nknown) date) other symptoms or unknown) concerns, anatomy scan already scheduled. MSAFP (unknown) (no (unknown) (unknown) noted to be (units (un known) date) mildly unknown) erythmatous. A forceps was used to spread the umbilicus and (unknown) (no (unknown) (unknown) number of (units (unkn own) date) children: 0 unknown) (unknown) (no (unknown) (unknown) occupational (units (u nknown) date) status: employed unknown) (unknown) (no (unknown) (unknown) occurred due to (units (unknown) date) the inherent unknown) limitations of voice recognition software. Please (unknown) (no (unknown) (unknown) ondansetron HCl (units (unknown) date) 4 mg tablet 4 mg unknown) PO Q8H PRN nausea and vomiting #20 tabs (unknown) (no (unknown) (unknown) pets and (units (unkno wn) date) animals: No unknown) (unknown) (no (unknown) (unknown) placenta 1.8 cm (units (unknown) date) from os unknown) posteriorly, discussed follow up at 28 weeks. Also 88%, (unknown) (no (unknown) (unknown) precautions (units (un known) date) discussed. unknown) (unknown) (no (unknown) (unknown) precautions, (units (u nknown) date) Listeriosis unknown) prevention and Rubella Immunization (unknown) (no (unknown) (unknown) predating her (units ( unknown) date) . UA unknown) wnl, plans to try OTC monistat 7 instead of Affirm, (unknown) (no (unknown) (unknown) prenat.vits,poornima, (units (unknown) date) [id number] 1 unknown) tab PO DAILY 04/08/21 [History Confirmed (unknown) (no (unknown) (unknown) read the note (units ( unknown) date) carefully and unknown) recognize, using context, where these substitutions (unknown) (no (unknown) (unknown) reports feeling (units (unknown) date) movement, no ctx unknown) no LOF or VB. Recent anatomy scan showing (unknown) (no (unknown) (unknown) reports feeling (units (unknown) date) well with no UTI unknown) sx, no cramping or bleeding, starting to feel (unknown) (no (unknown) (unknown) seatbelt use: (units ( unknown) date) always unknown) (unknown) (no (unknown) (unknown) second hand (units (un known) date) exposure: No unknown) (unknown) (no (unknown) (unknown) software. (units (unkn own) date) Although every unknown) effort is made to edit content, director family errors (unknown) (no (unknown) (unknown) spotting and RLQ (units (unknown) date) cramping. Viable unknown) SIUP seen via TAUS, +movement. Reports the (unknown) (no (unknown) (unknown) spotting has (units (un known) date) resolved and the unknown) cramping remains moderate, some vaginal irritation (unknown) (no (unknown) (unknown) substance use (units ( unknown) date) type: does not unknown) use (unknown) (no (unknown) (unknown) testing (units (unkno wn) date) unknown) (unknown) (no (unknown) (unknown) the area clean (units (unknown) date) and dry, using unknown) topical antifungal cream, and monitoring. She was (unknown) (no (unknown) (unknown) to belly button (units (unknown) date) drainage. 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 (unknown) (no (unknown) (unknown) water heater (units (u nknown) date) temp set < 120 unknown) deg: Yes (will check) (unknown) (no (unknown) (unknown) weekend, did (units (u nknown) date) have streaks of unknown) blood in her vomit x1 that has since resolved. (unknown) (no (unknown) (unknown) well-balanced (units ( unknown) date) diet: about half unknown) the time (unknown) (no (unknown) (unknown) will do growth (units (unknown) date) US at that time. unknown) Antepartum precautions discussed. (unknown) (no (unknown) (unknown) wks (units (unkno wn) date) unknown) (unknown) (no (unknown) (unknown) working smoke (units ( unknown) date) detector in home: unknown) Yes Result panel 16 (unknown) (no (unknown) (unknown) (no value) (units (unk nown) date) unknown) (unknown) (no (unknown) (unknown) 10/20/19 5-6 (units (u nknown) date) spontaneous unknown) (unknown) (no (unknown) (unknown) [id number] here (units ( unknown) date) for a routine OB unknown) appt at 31 weeks. She denies any problems. (unknown) (no (unknown) (unknown) N Yes no (units (unknown) date) 143 28 unknown) absent 2 wks (unknown) (no (unknown) (unknown) N Yes no (units (unknown) date) 144 32 unknown) Vertex absent 2wk (unknown) (no (unknown) (unknown) N Yes no (units (unknown) date) 146 absent unknown) 4 wks (unknown) (no (unknown) (unknown) N Yes no (units (unknown) date) 150 21 unknown) absent 4 wks (unknown) (no (unknown) (unknown) Orders: (units (unkno wn) date) unknown) (unknown) (no (unknown) (unknown) This patient is (units (unknown) date) a 25yo @11+0 unknown) presenting to follow up 10 days of brown (unknown) (no (unknown) (unknown) This patient is (units (unknown) date) a 25yo @12+4 unknown) presenting for routine obstetric care. (unknown) (no (unknown) (unknown) This patient is (units (unknown) date) a 25yo @16+4 unknown) presenting for routine OB care. Patient (unknown) (no (unknown) (unknown) This patient is (units (unknown) date) a 25yo @22+0 unknown) presenting for routine OB care. Patient (unknown) (no (unknown) (unknown) This patient is (units (unknown) date) a 25yo @23+5 unknown) presenting for an unscheduled visit due (unknown) (no (unknown) (unknown) This patient is (units (unknown) date) a 25yo @26+4 unknown) presenting for routine care. (unknown) (no (unknown) (unknown) This patient is (units (unknown) date) a 25yo @28+5 unknown) presenting for routine care. (unknown) (no (unknown) (unknown) This patient is (units (unknown) date) a 25yo unknown) @8+4 presenting to initiate care. (unknown) (no (unknown) (unknown) (no value) (units (unk nown) date) unknown) (unknown) (no (unknown) (unknown) none (units (unkno wn) date) unknown) (unknown) (no (unknown) (unknown) (no value) (units (unk nown) date) unknown) (unknown) (no (unknown) (unknown) (+2 lb 1 oz) (units (u nknown) date) 104/58 N unknown) (unknown) (no (unknown) (unknown) (+2 lb 3 oz) (units (u nknown) date) 106/60 N unknown) (unknown) (no (unknown) (unknown) (+20 lb) (units (unkno wn) date) 92/58 N unknown) (unknown) (no (unknown) (unknown) (+22 lb) (units (unkno wn) date) 106/62 unknown) (unknown) (no (unknown) (unknown) (+29 lb) (units (unkno wn) date) 94/52 N unknown) (unknown) (no (unknown) (unknown) (+3 lb) (units (unkno wn) date) 100/60 N unknown) (unknown) (no (unknown) (unknown) (+33 lb) (units (unkno wn) date) 102/62 N unknown) (unknown) (no (unknown) (unknown) (+36 lb) (units (unkno wn) date) 98/62 N unknown) (unknown) (no (unknown) (unknown) (+9 lb 7 oz) (units (u nknown) date) 110/60 N unknown) (unknown) (no (unknown) (unknown) 04/19/21 (units (unkno wn) date) unknown) (unknown) (no (unknown) (unknown) 05/06/21 (units (unkno wn) date) unknown) (unknown) (no (unknown) (unknown) 05/17/21 (units (unkno wn) date) unknown) (unknown) (no (unknown) (unknown) 06/14/21 (units (unkno wn) date) unknown) (unknown) (no (unknown) (unknown) 07/22/21 (units (unkno wn) date) unknown) (unknown) (no (unknown) (unknown) 08/03/21 (units (unkno wn) date) unknown) (unknown) (no (unknown) (unknown) 08/23/21 (units (unkno wn) date) unknown) (unknown) (no (unknown) (unknown) 09/07/21 (units (unkno wn) date) unknown) (unknown) (no (unknown) (unknown) 09/23/21 (units (unkno wn) date) unknown) (unknown) (no (unknown) (unknown) 10/06/21 (units (unkno wn) date) unknown) (unknown) (no (unknown) (unknown) 08:04 (units (unkno wn) date) unknown) (unknown) (no (unknown) (unknown) 11w 0d 113 lb (units (unknown) date) unknown) (unknown) (no (unknown) (unknown) 12w 4d 112 lb (units (unknown) date) 3 oz unknown) (unknown) (no (unknown) (unknown) 16w 4d 119 lb (units (unknown) date) 7 oz unknown) (unknown) (no (unknown) (unknown) 22w 0d 130 lb (units (unknown) date) unknown) (unknown) (no (unknown) (unknown) 23w 5d 132 lb (units (unknown) date) unknown) (unknown) (no (unknown) (unknown) 26w 4d 139 lb (units (unknown) date) unknown) (unknown) (no (unknown) (unknown) 28w 5d 143 lb (units (unknown) date) unknown) (unknown) (no (unknown) (unknown) 31w 0d 146 lb (units (unknown) date) unknown) (unknown) (no (unknown) (unknown) 8w 4d 112 lb (units (unknown) date) 1 oz unknown) (unknown) (no (unknown) (unknown) [place], [place] (units ( unknown) date) [id number] unknown) (unknown) (no (unknown) (unknown) Current Estimate (units (unknown) date) 11/25/21 unknown) Ultrasound #1 32w 6d (unknown) (no (unknown) (unknown) Draft (units (unkno wn) date) unknown) (unknown) (no (unknown) (unknown) Estimated (units (unkn own) date) Delivery Date unknown) Method Current (unknown) (no (unknown) (unknown) [facility]) (unknown) (no (unknown) (unknown) KF (units (unkno wn) date) unknown) (unknown) (no (unknown) (unknown) N 167 (units (unkno wn) date) absent wnl unknown) (unknown) (no (unknown) (unknown) OB Office Visit (units (unknown) date) unknown) (unknown) (no (unknown) (unknown) Other Estimates (units (unknown) date) 11/09/21 unknown) LMP (Uncertain) 35w 1d (unknown) (no (unknown) (unknown) TR 152 (units (unkn own) date) absent 4 w unknown) (unknown) (no (unknown) (unknown) TR 164 (units (unkn own) date) absent wnl unknown) (unknown) (no (unknown) (unknown) TR (units (unkno wn) date) unknown) (unknown) (no (unknown) (unknown) Yes no (units (u nknown) date) 153 absent unknown) (unknown) (no (unknown) (unknown) amh (units (unkno wn) date) unknown) (unknown) (no (unknown) (unknown) (no value) (units (unk nown) date) unknown) (unknown) (no (unknown) (unknown) N Yes no (units (unknown) date) 148 27 unknown) Breech absent See below 3 (unknown) (no (unknown) (unknown) 4 wks (units (unkno wn) date) unknown) (unknown) (no (unknown) (unknown) Not feeling any (units (unknown) date) contractions. No unknown) cramping, leakage of fluid or vaginal (unknown) (no (unknown) (unknown) as scheduled (units (u nknown) date) unknown) (unknown) (no (unknown) (unknown) Genetic (units (unkn own) date) Screening/Teratol unknown) ogy Counseling - Includes patient, baby's father, or (unknown) (no (unknown) (unknown) - Bipolar - (units (un known) date) Stable on unknown) lamotrigine, fluoxetine, and wellbutrin. Of note, did not (unknown) (no (unknown) (unknown) - Declined (units (unk nown) date) aneuploidy unknown) screening, MSAFP wnl (unknown) (no (unknown) (unknown) - New OB labs (units ( unknown) date) showed UTI, for unknown) MCKENZIE- sent 05/17 (unknown) (no (unknown) (unknown) - Placenta (units (unk nown) date) previously low unknown) lying, resolved (unknown) (no (unknown) (unknown) - Varicella (units (un known) date) non-immune unknown) (unknown) (no (unknown) (unknown) -?-?-?-?-?-?-?-? (units (unknown) date) -?-?-?-?- unknown) (unknown) (no (unknown) (unknown) 00 (units (unkno wn) date) unknown) (unknown) (no (unknown) (unknown) [id number] (units (unkn own) date) unknown) (unknown) (no (unknown) (unknown) 05/17/21 [Rx (units (u nknown) date) Confirmed unknown) 10/06/21] (unknown) (no (unknown) (unknown) 10/06/21 (units (unkno wn) date) unknown) (unknown) (no (unknown) (unknown) 10/06/21] (units (unkn own) date) unknown) (unknown) (no (unknown) (unknown) Abnormal lab (units (u nknown) date) values 1st unknown) trimester: discussed (unknown) (no (unknown) (unknown) Abnormal lab (units (u nknown) date) values 2nd unknown) trimester: discussed (unknown) (no (unknown) (unknown) Add'l Plan (units (unk nown) date) Details unknown) (unknown) (no (unknown) (unknown) Advised to check (units (unknown) date) for her routine unknown) movement daily. (unknown) (no (unknown) (unknown) Age/Sex: 25 / F (units (unknown) date) Date of unknown) Service: (unknown) (no (unknown) (unknown) Allergies (units (unkn own) date) unknown) (unknown) (no (unknown) (unknown) Aneuploidy (units (unk nown) date) Screening unknown) Offered: Accepted (considering options) (unknown) (no (unknown) (unknown) Antepartum (units (unk nown) date) precautions and unknown) kick counts discussed. (unknown) (no (unknown) (unknown) Anticipated (units (un known) date) course of unknown) care: discussed (unknown) (no (unknown) (unknown) Assessment and (units (unknown) date) Plan unknown) (unknown) (no (unknown) (unknown) Attending Dr: (units ( unknown) date) Clare Araya unknown) Prudence RAMÍREZ (unknown) (no (unknown) (unknown) BMI 28.7 (units (un known) date) unknown) (unknown) (no (unknown) (unknown) BP 110/64 (units (u nknown) date) unknown) (unknown) (no (unknown) (unknown) (units (unkno wn) date) Plan/Preferences unknown) (unknown) (no (unknown) (unknown) Planning (units (unknown) date) unknown) (unknown) (no (unknown) (unknown) Blood Pressure (units (unknown) date) Location Rt unknown) brachial (unknown) (no (unknown) (unknown) Blood (units (unkno wn) date) transfusions?: unknown) yes (unknown) (no (unknown) (unknown) Breastfeed (units (unk nown) date) Preg Comp Name unknown) (unknown) (no (unknown) (unknown) CRL, no gross (units ( unknown) date) abnormalities unknown) noted. Ovaries not visualized. (unknown) (no (unknown) (unknown) Caffeine use, (units ( unknown) date) Exercise and unknown) activity, work/environmenta l/hazards, Sexual (unknown) (no (unknown) (unknown) Childbirth (units (unk nown) date) Classes: unknown) discussed (unknown) (no (unknown) (unknown) Chlamydia (units (unkno wn) date) Gonorrhea PCR unknown) -URINE Today Z34.83 - Encounter for supervision of other (unknown) (no (unknown) (unknown) Current (units (unkno wn) date) History unknown) (unknown) (no (unknown) (unknown) : 1995 (units (unknown) date) Acct:[id number] unknown) (unknown) (no (unknown) (unknown) Date (units (unkno wn) date) unknown) (unknown) (no (unknown) (unknown) Date of positive (units (unknown) date) home unknown) test: 03/20/21 (unknown) (no (unknown) (unknown) Del. Date (units (unkn own) date) GA/Weeks Labor unknown) Lgth Wt Sex Route Outcome Anesthesia Place (unknown) (no (unknown) (unknown) Delv (units (unkno wn) date) unknown) (unknown) (no (unknown) (unknown) Denies Congenital (units (unknown) date) Heart Defect, unknown) Denies Down Syndrome, Denies Muscular Dystrophy, (unknown) (no (unknown) (unknown) Denies Maternal (units (unknown) date) Metabolic unknown) Disorder (EG,TYPE 1 Diabetes, PKU), Denies Patient or (unknown) (no (unknown) (unknown) Denies Neural (units ( unknown) date) Tube Defect unknown) (Meningomyelocele , Spina Bifida, or Anencephaly), (unknown) (no (unknown) (unknown) Denies Sickle (units ( unknown) date) Cell Disease or unknown) Trait (), Denies Hemophilia or other blood (unknown) (no (unknown) (unknown) Denies Moustapha-Sachs (units (unknown) date) (Ashkenazi unknown) Adventism, Cajun, English Nigerien), Denies Sebastián (unknown) (no (unknown) (unknown) Denies other (units (u nknown) date) unknown) (unknown) (no (unknown) (unknown) Denies over the (units (unknown) date) counter unknown) medications, Denies alcohol, Denies illicit drugs and (unknown) (no (unknown) (unknown) Depression: (units (un known) date) discussed unknown) (unknown) (no (unknown) (unknown) Dept at (units (unkno wn) date) . unknown) (unknown) (no (unknown) (unknown) Diet and (units (unkno wn) date) Exercise unknown) (unknown) (no (unknown) (unknown) Discussed (units (unkn own) date) Zofran. Patient unknown) declines aneuploidy screening, MSAFP at next visit. (unknown) (no (unknown) (unknown) Disease (units (unkno wn) date) (Ashkenazi unknown) Adventism), Denies Familial Dysautonomia (Ashkenazi Adventism), (unknown) (no (unknown) (unknown) Documented By: (units (unknown) date) Clare Foss unknown) Quiana RAMÍREZ 10/06/21 08 (unknown) (no (unknown) (unknown) RERE Calculator (units (unknown) date) unknown) (unknown) (no (unknown) (unknown) EGA Weight BP (units ( unknown) date) UGlucose unknown) (unknown) (no (unknown) (unknown) Family History (units (unknown) date) (Updated 04/08/21 unknown) @ 08:07 by Sena Espinal RN) (unknown) (no (unknown) (unknown) Father (units (unkno wn) date) Metabolic unknown) syndrome (unknown) (no (unknown) (unknown) Father of Baby: (units (unknown) date) Abiam unknown) (unknown) (no (unknown) (unknown) First Trimester (units (unknown) date) Education unknown) Checklist (unknown) (no (unknown) (unknown) Genetic (units (unkno wn) date) Screening unknown) (unknown) (no (unknown) (unknown) Genetic (units (unkno wn) date) Screening + unknown) Counseling (unknown) (no (unknown) (unknown) Grandmother (units (un known) date) Breast cancer unknown) (unknown) (no (unknown) (unknown) 2 (units (unknown) date) Multiple unknown) births (unknown) (no (unknown) (unknown) H/O wisdom tooth (units (unknown) date) extraction unknown) (unknown) (no (unknown) (unknown) HIV risk (units (unkno wn) date) evaluation: low unknown) risk (unknown) (no (unknown) (unknown) Health Center (units ( unknown) date) Education unknown) (unknown) (no (unknown) (unknown) Health center (units ( unknown) date) information: unknown) nature of practice discussed, personnel (unknown) (no (unknown) (unknown) Height 5 ft (units (unknown) date) unknown) (unknown) (no (unknown) (unknown) Hepatitis C risk (units (unknown) date) evaluation: low unknown) risk (unknown) (no (unknown) (unknown) History of (units (unk nown) date) Hepatitis B: No unknown) (unknown) (no (unknown) (unknown) History of (units (unk nown) date) Hepatitis C: No unknown) (unknown) (no (unknown) (unknown) History of PCOS (units (unknown) date) unknown) (unknown) (no (unknown) (unknown) [facility] (units (u [facility]known) date) unknown) (unknown) (no (unknown) (unknown) [facility] (units (u nknown) date) Chorea, Denies unknown) Other inherited genetic or chromosomal disorder, (unknown) (no (unknown) (unknown) Hx # (units (u nknown) date) Pregnancies unknown) Elective abortions (unknown) (no (unknown) (unknown) Hx # Term (units (unkn own) date) Pregnancies unknown) Ectopic pregnancies (unknown) (no (unknown) (unknown) Infant will be (units (unknown) date) adopted?: no unknown) (unknown) (no (unknown) (unknown) Infection (units (unkn own) date) History unknown) (unknown) (no (unknown) (unknown) Infectious (units (unk nown) date) Disease Education unknown) (unknown) (no (unknown) (unknown) Infectious (units (unk nown) date) disease exposure: unknown) chicken pox immunity discussed, hepatitis risk (unknown) (no (unknown) (unknown) Initial Weight: (units (unknown) date) 110 lb unknown) (unknown) (no (unknown) (unknown) Initials (units (unkno wn) date) unknown) (unknown) (no (unknown) (unknown) Intake (units (unkno wn) date) unknown) (unknown) (no (unknown) (unknown) Intake Clinical (units (unknown) date) Staff unknown) (unknown) (no (unknown) (unknown) Intake Note: (units (u nknown) date) unknown) (unknown) (no (unknown) (unknown) Intake performed (units (unknown) date) by: Maria De Jesus Leo unknown) (unknown) (no (unknown) (unknown) Live with (units (unkn own) date) someone with TB unknown) or exposed to TB: No (unknown) (no (unknown) (unknown) Loc: [facility] (units (unkno wn) date) unknown) (unknown) (no (unknown) (unknown) Marital status: (units (unknown) date) unknown) (unknown) (no (unknown) (unknown) Medical History (units (unknown) date) (Updated 04/08/21 unknown) @ 08:06 by Sena Espinal RN) (unknown) (no (unknown) (unknown) Medications (units (un known) date) unknown) (unknown) (no (unknown) (unknown) No Known Drug (units ( unknown) date) Allergies Allergy unknown) (Unverified 07/22/21 15:29) (unknown) (no (unknown) (unknown) Notes (units (unkno wn) date) unknown) (unknown) (no (unknown) (unknown) Number of Living (units (unknown) date) Children unknown) (unknown) (no (unknown) (unknown) Number of (units (unkn own) date) fetuses:: Single unknown) (unknown) (no (unknown) (unknown) Nutrition and (units ( unknown) date) weight gain unknown) counseling: special diet: discussed (unknown) (no (unknown) (unknown) OB Visit Log (units (u nknown) date) unknown) (unknown) (no (unknown) (unknown) OB check (units (unkno wn) date) unknown) (unknown) (no (unknown) (unknown) On control (units (unknown) date) at conception?: unknown) No (unknown) (no (unknown) (unknown) Orders (units (unkno wn) date) unknown) (unknown) (no (unknown) (unknown) PFSH (units (unkno wn) date) unknown) (unknown) (no (unknown) (unknown) Pap performed?: (units (unknown) date) No unknown) (unknown) (no (unknown) (unknown) Para 0 (units ( unknown) date) Spontaneous unknown) abortions 1 (unknown) (no (unknown) (unknown) Partner history (units (unknown) date) of STD: denies hx unknown) (unknown) (no (unknown) (unknown) Partner history (units (unknown) date) of genital unknown) herpes: No (unknown) (no (unknown) (unknown) Partner: Abiam (units (unknown) date) unknown) (unknown) (no (unknown) (unknown) Past Pregnancies (units (unknown) date) unknown) (unknown) (no (unknown) (unknown) Patient was (units (un known) date) recently treated unknown) for UTI with resolution of symptoms, no further (unknown) (no (unknown) (unknown) Patient's age 33 (units (unknown) date) years or older as unknown) of estimated date of delivery: No (unknown) (no (unknown) (unknown) Patient: (units (unkno wn) date) Sally Thurston unknown) MR#: M (unknown) (no (unknown) (unknown) 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) (unknown) (no (unknown) (unknown) Personal history (units (unknown) date) of STD: denies hx unknown) (unknown) (no (unknown) (unknown) Personal history (units (unknown) date) of genital unknown) herpes: No (unknown) (no (unknown) (unknown) Position (units (unkno wn) date) Sitting unknown) (unknown) (no (unknown) (unknown) (units (unkn own) date) History unknown) (unknown) (no (unknown) (unknown) type:: (units (unknown) date) Other Normal unknown) (unknown) (no (unknown) (unknown) (units (unkno wn) date) Education unknown) (unknown) (no (unknown) (unknown) Initial (units (unknown) date) Assessment unknown) (unknown) (no (unknown) (unknown) (units (unkno wn) date) Specific unknown) Issues/Plans (unknown) (no (unknown) (unknown) (units (unkno wn) date) Testing: unknown) discussed (unknown) (no (unknown) (unknown) Visit (units (unknown) date) unknown) (unknown) (no (unknown) (unknown) (units (unkno wn) date) education packet: unknown) Child education/plan, symptoms, (unknown) (no (unknown) (unknown) Primary Care (units (u nknown) date) Provider: MANISH unknown) Kristopher (unknown) (no (unknown) (unknown) Primary Ob (units (unk nown) date) Provider: unknown) [place] (no (unknown) (unknown) Providers (units (unkn own) date) unknown) (unknown) (no (unknown) (unknown) Rash or viral (units ( unknown) date) illness since unknown) last menstrual period: No (unknown) (no (unknown) (unknown) Reason For Visit (units (unknown) date) unknown) (unknown) (no (unknown) (unknown) Recurrent (units (unkn own) date) loss or unknown) a stillbirth: No (unknown) (no (unknown) (unknown) Referred for 3rd (units (unknown) date) tri labs. unknown) (unknown) (no (unknown) (unknown) Reports good (units (u nknown) date) movement, unknown) no LOF or VB, no ctx, no further umbilical (unknown) (no (unknown) (unknown) Reports good (units (u nknown) date) movement, unknown) no LOF or VB, no ctx. Third tri labs wnl. (unknown) (no (unknown) (unknown) Safety (units (unkno wn) date) unknown) (unknown) (no (unknown) (unknown) Seatbelt use and (units (unknown) date) Influenza vaccine unknown) (ad thia fall) (unknown) (no (unknown) (unknown) Second Trimester (units (unknown) date) Education unknown) Checklist (unknown) (no (unknown) (unknown) Signed By: (units (unk nown) date) unknown) (unknown) (no (unknown) (unknown) Smoking Status: (units (unknown) date) Never smoker unknown) (unknown) (no (unknown) (unknown) Social History (units (unknown) date) unknown) (unknown) (no (unknown) (unknown) Surgical History (units (unknown) date) (Updated 04/08/21 unknown) @ 08:06 by Sena Espinal RN) (unknown) (no (unknown) (unknown) Surrogate (units (unkn own) date) ?: no unknown) (unknown) (no (unknown) (unknown) Symptoms since (units (unknown) date) LMP: Reports unknown) amenorrhea, nausea, vomiting, breast tenderness, (unknown) (no (unknown) (unknown) Tdap status: (units (u nknown) date) immunized unknown) (unknown) (no (unknown) (unknown) Teratogen (units (unkn own) date) Exposures since unknown) LMP/Conception: Denies prescription medications, (unknown) (no (unknown) (unknown) Testing (units (unkno wn) date) Education unknown) (unknown) (no (unknown) (unknown) Testing (units (unkno wn) date) education unknown) completed: Genetic testing, group B strep and Spina bifida (unknown) (no (unknown) (unknown) The patient has (units (unknown) date) irregular menses, unknown) and was dated by ultrasound today. She denies (unknown) (no (unknown) (unknown) The umbilicus (units ( unknown) date) was cleaned with unknown) a chlorhexadine swab, and we discussed keeping (unknown) (no (unknown) (unknown) This note may (units ( unknown) date) have been all or unknown) partially generated using voice recognition (unknown) (no (unknown) (unknown) Tobacco + (units (unkn own) date) Substance Use unknown) (unknown) (no (unknown) (unknown) Tobacco Status (units (unknown) date) unknown) (unknown) (no (unknown) (unknown) Trimester:: 3rd (units (unknown) date) Trimester unknown) (28wks-Del) (unknown) (no (unknown) (unknown) Type(s) of (units (unk nown) date) exercise: unknown) irregular exercise (unknown) (no (unknown) (unknown) UProtein Movement (units (unknown) date) PreLabor FHR Fndl unknown) Ht Pres Edema Cerv Exam US/Comment Next Appt (unknown) (no (unknown) (unknown) Ultrasound (units (unk nown) date) unknown) (unknown) (no (unknown) (unknown) Ultrasound (units (unk nown) date) Details:: TAUS unknown) performed. Viable SIUP visualized measuring 8+4 by (unknown) (no (unknown) (unknown) Ultrasound (units (unk nown) date) performed?: No unknown) (unknown) (no (unknown) (unknown) Varicella/chicke (units (unknown) date) n pox status: unknown) immunized (unknown) (no (unknown) (unknown) Visit Date: (units (un known) date) 04/19/21 Last unknown) Updated by: Katharine Martinez MD (unknown) (no (unknown) (unknown) Visit Date: (units (un known) date) 05/06/21 Last unknown) Updated by: Katharine Martinez MD (unknown) (no (unknown) (unknown) Visit Date: (units (un known) date) 05/17/21 Last unknown) Updated by: Katharine Martinez MD (unknown) (no (unknown) (unknown) Visit Date: (units (un known) date) 06/14/21 Last unknown) Updated by: Katharine Martinez MD (unknown) (no (unknown) (unknown) Visit Date: (units (un known) date) 07/22/21 Last unknown) Updated by: Katharine Martinez MD (unknown) (no (unknown) (unknown) Visit Date: (units (un known) date) 08/03/21 Last unknown) Updated by: Katharine Martinez MD (unknown) (no (unknown) (unknown) Visit Date: (units (un known) date) 08/23/21 Last unknown) Updated by: Katharine Martinez MD (unknown) (no (unknown) (unknown) Visit Date: (units (un known) date) 09/07/21 Last unknown) Updated by: Katharine Martinez MD (unknown) (no (unknown) (unknown) Visit Date: (units (un known) date) 09/23/21 Last unknown) Updated by: Clare Foss MD (unknown) (no (unknown) (unknown) Visit Reasons: (units (unknown) date) OB unknown) (unknown) (no (unknown) (unknown) Vitals (units (unkno wn) date) unknown) (unknown) (no (unknown) (unknown) Vitamins and (units (u nknown) date) iron, Diet and unknown) weight gain, Fish and mercury intake, Smoking, (unknown) (no (unknown) (unknown) WG (units (unkno wn) date) unknown) (unknown) (no (unknown) (unknown) Weeks (units (unkno wn) date) gestation:: 33 unknown) (unknown) (no (unknown) (unknown) Weight 147 lb (units (unknown) date) unknown) (unknown) (no (unknown) (unknown) Zika virus (units (unk n) date) exposure: No unknown) (unknown) (no (unknown) (unknown) [History (units (o wn) date) Confirmed unknown) 10/06/21] (unknown) (no (unknown) (unknown) activity, X-ray (units (unknown) date) exposure, unknown) Medication use, ETOH use, Sauna/hot tub use, Dental (unknown) (no (unknown) (unknown) alcohol intake: (units (unknown) date) former (stopped unknown) with , always light) (unknown) (no (unknown) (unknown) and 2#2, 53%, (units ( unknown) date) MVP 4.3cm. Breech unknown) presentation. Antepartum precautions discussed. (unknown) (no (unknown) (unknown) aneuploidy (units (unk n) date) screening. unknown) (unknown) (no (unknown) (unknown) any significant (units (unknown) date) history, unknown) medications for bipolar disorder were discussed with (unknown) (no (unknown) (unknown) anyone in either (units (unknown) date) family with: unknown) (unknown) (no (unknown) (unknown) baby's father (units ( unknown) date) had a child with unknown) defects not listed above and Denies Other (unknown) (no (unknown) (unknown) bleeding. (units (unkn own) date) Feeling good unknown) movement. labor precautions reviewed. (unknown) (no (unknown) (unknown) bloating and (units (u nknown) date) other (night unknown) sweats, constipation) (unknown) (no (unknown) (unknown) bupropion HCl (units ( unknown) date) 150 mg tablet,12 unknown) hr sustained-release 150 mg PO DAILY 04/08/21 (unknown) (no (unknown) (unknown) but no other (units (u nknown) date) abnormal unknown) discharge. Patient today reports longstanding dizziness (unknown) (no (unknown) (unknown) caffeine: Yes (units ( unknown) date) (200mg) unknown) (unknown) (no (unknown) (unknown) carbon monox (units (u nknown) date) detector in home: unknown) Yes (unknown) (no (unknown) (unknown) care, HIV (units (unkn own) date) education, unknown) Marijuana use, Substance use, Domestic violence, Travel, (unknown) (no (unknown) (unknown) cetirizine 10 mg (units (unknown) date) tablet (Zyrtec) unknown) 10 mg PO DAILY PRN 04/08/21 [History Confirmed (unknown) (no (unknown) (unknown) cramping or (units (un known) date) bleeding. Patient unknown) does report that nausea was worse over the (unknown) (no (unknown) (unknown) current (units (unkno wn) date) occupational unknown) exposures/hazards : No (unknown) (no (unknown) (unknown) daily servings (units (unknown) date) fruits/ve-1 unknown) (unknown) (no (unknown) (unknown) defects. Care in (units (unknown) date) our clinic and unknown) aneuploidy screening discussed. Antepartum (unknown) (no (unknown) (unknown) described, visit (units (unknown) date) schedule unknown) reviewed, ultrasounds policy reviewed, coverage 24 (unknown) (no (unknown) (unknown) despite her (units (un known) date) efforts to keep unknown) the area clean with a bulb syringe. She denies (unknown) (no (unknown) (unknown) discussed and (units ( unknown) date) ordered. unknown) Antepartum precautions discussed. (unknown) (no (unknown) (unknown) discussed (units (unkno wn) date) precautions for unknown) return. Ovaries not visualized on TAUS today. Declines (unknown) (no (unknown) (unknown) discussed, (units (unk nown) date) tuberculosis unknown) exposure discussed, CMV discussed, Toxoplasmosis (unknown) (no (unknown) (unknown) disorders, (units (unk nown) date) Denies Cystic unknown) Fibrosis, Denies Mental Retardation/Autis m, Denies (unknown) (no (unknown) (unknown) do you feel safe (units (unknown) date) at home: Yes unknown) (unknown) (no (unknown) (unknown) drainage. TVUS (units ( unknown) date) performed and unknown) placenta now >4cm from cervix. Growth US performed (unknown) (no (unknown) (unknown) during the past (units (unknown) date) year weight has: unknown) remained stable (unknown) (no (unknown) (unknown) education level: (units (unknown) date) other (YVONNE) unknown) (unknown) (no (unknown) (unknown) encouraged to (units ( unknown) date) call with any unknown) questions or concerns. (unknown) (no (unknown) (unknown) endorse at (units (unk nown) date) initial visit. unknown) (unknown) (no (unknown) (unknown) fevers, chills, (units (unknown) date) or any other unknown) symptoms or obstetrical complaints. The area was (unknown) (no (unknown) (unknown) fire (units (unkno wn) date) extinguisher in unknown) home: No (unknown) (no (unknown) (unknown) firearms in (units (un known) date) home: No unknown) (unknown) (no (unknown) (unknown) fluoxetine 20 mg (units (unknown) date) capsule See Rx unknown) Instructions PO BID 04/08/21 [History Confirmed (unknown) (no (unknown) (unknown) green, opaque (units ( unknown) date) drainage from her unknown) belly button. This has continued intermittently (unknown) (no (unknown) (unknown) have occurred. (units (unknown) date) If there are any unknown) questions, please contact the Medical Records (unknown) (no (unknown) (unknown) hours a day and (units (unknown) date) participation of unknown) father in care and office visits (unknown) (no (unknown) (unknown) household (units (unkn own) date) members: spouse unknown) (unknown) (no (unknown) (unknown) housing: house (units (unknown) date) unknown) (unknown) (no (unknown) (unknown) ks (units (unkno wn) date) unknown) (unknown) (no (unknown) (unknown) lamotrigine 100 (units (unknown) date) mg tablet 100 mg unknown) PO BID 04/08/21 [History Confirmed 10/06/21] (unknown) (no (unknown) (unknown) lives (units (unkno wn) date) independently: unknown) Yes (unknown) (no (unknown) (unknown) marital status: (units (unknown) date) unknown) (unknown) (no (unknown) (unknown) may occur. (units (unk nown) date) Occasional unknown) wrong-word or 'sound-alike' substitutions may have (unknown) (no (unknown) (unknown) movement. No (units (u nknown) date) other symptoms or unknown) concerns, anatomy scan already scheduled. MSAFP (unknown) (no (unknown) (unknown) normal (units (unkno wn) date) , third unknown) trimester, [id number].33 - 33 weeks gestation of (unknown) (no (unknown) (unknown) noted to be (units (un known) date) mildly unknown) erythmatous. A forceps was used to spread the umbilicus and (unknown) (no (unknown) (unknown) number of (units (unkn own) date) children: 0 unknown) (unknown) (no (unknown) (unknown) occupational (units (u nknown) date) status: employed unknown) (unknown) (no (unknown) (unknown) occurred due to (units (unknown) date) the inherent unknown) limitations of voice recognition software. Please (unknown) (no (unknown) (unknown) ondansetron HCl (units (unknown) date) 4 mg tablet 4 mg unknown) PO Q8H PRN nausea and vomiting #20 tabs (unknown) (no (unknown) (unknown) pets and (units (unkno wn) date) animals: No unknown) (unknown) (no (unknown) (unknown) placenta 1.8 cm (units (unknown) date) from os unknown) posteriorly, discussed follow up at 28 weeks. Also 88%, (unknown) (no (unknown) (unknown) precautions (units (un known) date) discussed. unknown) (unknown) (no (unknown) (unknown) precautions, (units (u nknown) date) Listeriosis unknown) prevention and Rubella Immunization (unknown) (no (unknown) (unknown) predating her (units ( unknown) date) . UA unknown) wnl, plans to try OTC monistat 7 instead of Affirm, (unknown) (no (unknown) (unknown) prenat.vits,poornima, (units (unknown) date) [id number] 1 unknown) tab PO DAILY 04/08/21 [History Confirmed (unknown) (no (unknown) (unknown) read the note (units ( unknown) date) carefully and unknown) recognize, using context, where these substitutions (unknown) (no (unknown) (unknown) reports feeling (units (unknown) date) movement, no ctx unknown) no LOF or VB. Recent anatomy scan showing (unknown) (no (unknown) (unknown) reports feeling (units (unknown) date) well with no UTI unknown) sx, no cramping or bleeding, starting to feel (unknown) (no (unknown) (unknown) seatbelt use: (units ( unknown) date) always unknown) (unknown) (no (unknown) (unknown) second hand (units (un known) date) exposure: No unknown) (unknown) (no (unknown) (unknown) software. (units (unkn own) date) Although every unknown) effort is made to edit content, director family errors (unknown) (no (unknown) (unknown) spotting and RLQ (units (unknown) date) cramping. Viable unknown) SIUP seen via TAUS, +movement. Reports the (unknown) (no (unknown) (unknown) spotting has (units (un known) date) resolved and the unknown) cramping remains moderate, some vaginal irritation (unknown) (no (unknown) (unknown) substance use (units ( unknown) date) type: does not unknown) use (unknown) (no (unknown) (unknown) testing (units (unkno wn) date) unknown) (unknown) (no (unknown) (unknown) the area clean (units (unknown) date) and dry, using unknown) topical antifungal cream, and monitoring. She was (unknown) (no (unknown) (unknown) to belly button (units (unknown) date) drainage. 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 (unknown) (no (unknown) (unknown) water heater (units (u nknown) date) temp set < 120 unknown) deg: Yes (will check) (unknown) (no (unknown) (unknown) weekend, did (units (u nknown) date) have streaks of unknown) blood in her vomit x1 that has since resolved. (unknown) (no (unknown) (unknown) well-balanced (units ( unknown) date) diet: about half unknown) the time (unknown) (no (unknown) (unknown) will do growth (units (unknown) date) US at that time. unknown) Antepartum precautions discussed. (unknown) (no (unknown) (unknown) wks (units (unkno wn) date) unknown) (unknown) (no (unknown) (unknown) working smoke (units ( unknown) date) detector in home: unknown) Yes Result panel 17 (unknown) (no (unknown) (unknown) (no value) (units (unk nown) date) unknown) (unknown) (no (unknown) (unknown) 10/20/19 5-6 (units (u nknown) date) spontaneous unknown) (unknown) (no (unknown) (unknown) [id number] here (units ( unknown) date) for a routine OB unknown) appt at 31 weeks. She denies any problems. (unknown) (no (unknown) (unknown) 32wk3d. She (units (u nknown) date) reports some unknown) episodes of cramping, they do eventually (unknown) (no (unknown) (unknown) N Yes no (units (unknown) date) 143 28 unknown) absent 2 wks (unknown) (no (unknown) (unknown) N Yes no (units (unknown) date) 144 32 unknown) Vertex absent 2wk (unknown) (no (unknown) (unknown) N Yes no (units (unknown) date) 146 absent unknown) 4 wks (unknown) (no (unknown) (unknown) N Yes no (units (unknown) date) 150 21 unknown) absent 4 wks (unknown) (no (unknown) (unknown) Orders: (units (unkno wn) date) unknown) (unknown) (no (unknown) (unknown) This patient is (units (unknown) date) a 25yo @11+0 unknown) presenting to follow up 10 days of brown (unknown) (no (unknown) (unknown) This patient is (units (unknown) date) a 25yo @12+4 unknown) presenting for routine obstetric care. (unknown) (no (unknown) (unknown) This patient is (units (unknown) date) a 25yo @16+4 unknown) presenting for routine OB care. Patient (unknown) (no (unknown) (unknown) This patient is (units (unknown) date) a 25yo @22+0 unknown) presenting for routine OB care. Patient (unknown) (no (unknown) (unknown) This patient is (units (unknown) date) a 25yo @23+5 unknown) presenting for an unscheduled visit due (unknown) (no (unknown) (unknown) This patient is (units (unknown) date) a 25yo @26+4 unknown) presenting for routine care. (unknown) (no (unknown) (unknown) This patient is (units (unknown) date) a 25yo @28+5 unknown) presenting for routine care. (unknown) (no (unknown) (unknown) This patient is (units (unknown) date) a 25yo unknown) @8+4 presenting to initiate care. (unknown) (no (unknown) (unknown) (no value) (units (unk nown) date) unknown) (unknown) (no (unknown) (unknown) none (units (unkno wn) date) unknown) (unknown) (no (unknown) (unknown) (no value) (units (unk nown) date) unknown) (unknown) (no (unknown) (unknown) (+2 lb 1 oz) (units (u nknown) date) 104/58 N unknown) (unknown) (no (unknown) (unknown) (+2 lb 3 oz) (units (u nknown) date) 106/60 N unknown) (unknown) (no (unknown) (unknown) (+20 lb) (units (unkno wn) date) 92/58 N unknown) (unknown) (no (unknown) (unknown) (+22 lb) (units (unkno wn) date) 106/62 unknown) (unknown) (no (unknown) (unknown) (+29 lb) (units (unkno wn) date) 94/52 N unknown) (unknown) (no (unknown) (unknown) (+3 lb) (units (unkno wn) date) 100/60 N unknown) (unknown) (no (unknown) (unknown) (+33 lb) (units (unkno wn) date) 102/62 N unknown) (unknown) (no (unknown) (unknown) (+36 lb) (units (unkno wn) date) 98/62 N unknown) (unknown) (no (unknown) (unknown) (+37 lb) (units (unkno wn) date) 110/64 unknown) (unknown) (no (unknown) (unknown) (+9 lb 7 oz) (units (u nknown) date) 110/60 N unknown) (unknown) (no (unknown) (unknown) 04/19/21 (units (unkno wn) date) unknown) (unknown) (no (unknown) (unknown) 05/06/21 (units (unkno wn) date) unknown) (unknown) (no (unknown) (unknown) 05/17/21 (units (unkno wn) date) unknown) (unknown) (no (unknown) (unknown) 06/14/21 (units (unkno wn) date) unknown) (unknown) (no (unknown) (unknown) 07/22/21 (units (unkno wn) date) unknown) (unknown) (no (unknown) (unknown) 08/03/21 (units (unkno wn) date) unknown) (unknown) (no (unknown) (unknown) 08/23/21 (units (unkno wn) date) unknown) (unknown) (no (unknown) (unknown) 09/07/21 (units (unkno wn) date) unknown) (unknown) (no (unknown) (unknown) 09/23/21 (units (unkno wn) date) unknown) (unknown) (no (unknown) (unknown) 10/06/21 (units (unkno wn) date) unknown) (unknown) (no (unknown) (unknown) 10/06/21 0821 (units ( unknown) date) unknown) (unknown) (no (unknown) (unknown) 11w 0d 113 lb (units (unknown) date) unknown) (unknown) (no (unknown) (unknown) 12w 4d 112 lb (units (unknown) date) 3 oz unknown) (unknown) (no (unknown) (unknown) 16w 4d 119 lb (units (unknown) date) 7 oz unknown) (unknown) (no (unknown) (unknown) 22w 0d 130 lb (units (unknown) date) unknown) (unknown) (no (unknown) (unknown) 23w 5d 132 lb (units (unknown) date) unknown) (unknown) (no (unknown) (unknown) 26w 4d 139 lb (units (unknown) date) unknown) (unknown) (no (unknown) (unknown) 28w 5d 143 lb (units (unknown) date) unknown) (unknown) (no (unknown) (unknown) 31w 0d 146 lb (units (unknown) date) unknown) (unknown) (no (unknown) (unknown) 32w 6d 147 lb (units (unknown) date) unknown) (unknown) (no (unknown) (unknown) 8w 4d 112 lb (units (unknown) date) 1 oz unknown) (unknown) (no (unknown) (unknown) ROSARIO Jeong (units ( unknown) date) [id number] unknown) (unknown) (no (unknown) (unknown) Current Estimate (units (unknown) date) 11/25/21 unknown) Ultrasound #1 32w 6d (unknown) (no (unknown) (unknown) Estimated (units (unkn own) date) Delivery Date unknown) Method Current (unknown) (no (unknown) (unknown) [facility]) (unknown) (no (unknown) (unknown) KF (units (unkno wn) date) unknown) (unknown) (no (unknown) (unknown) N 167 (units (unkno wn) date) absent wnl unknown) (unknown) (no (unknown) (unknown) OB Office Visit (units (unknown) date) unknown) (unknown) (no (unknown) (unknown) Other Estimates (units (unknown) date) 11/09/21 unknown) LMP (Uncertain) 35w 1d (unknown) (no (unknown) (unknown) Signed (units (unkno wn) date) unknown) (unknown) (no (unknown) (unknown) TR 152 (units (unkn own) date) absent 4 w unknown) (unknown) (no (unknown) (unknown) TR 164 (units (unkn own) date) absent wnl unknown) (unknown) (no (unknown) (unknown) TR (units (unkno wn) date) unknown) (unknown) (no (unknown) (unknown) Yes no (units (u nknown) date) 153 absent unknown) (unknown) (no (unknown) (unknown) Yes no (units (unk nown) date) 142 34 unknown) Vertex absent 2wk (unknown) (no (unknown) (unknown) amh (units (unkno wn) date) unknown) (unknown) (no (unknown) (unknown) (no value) (units (unk nown) date) unknown) (unknown) (no (unknown) (unknown) N Yes no (units (unknown) date) 148 27 unknown) Breech absent See below 3 (unknown) (no (unknown) (unknown) 4 wks (units (unkno wn) date) unknown) (unknown) (no (unknown) (unknown) Not feeling any (units (unknown) date) contractions. No unknown) cramping, leakage of fluid or vaginal (unknown) (no (unknown) (unknown) as scheduled (units (u nknown) date) unknown) (unknown) (no (unknown) (unknown) (1) 32 weeks (units (u nknown) date) gestation of unknown) : (unknown) (no (unknown) (unknown) Genetic (units (unkn own) date) Screening/Teratol unknown) ogy Counseling - Includes patient, baby's father, or (unknown) (no (unknown) (unknown) - Bipolar - (units (un known) date) Stable on unknown) lamotrigine, fluoxetine, and wellbutrin. Of note, did not (unknown) (no (unknown) (unknown) - Declined (units (unk nown) date) aneuploidy unknown) screening, MSAFP wnl (unknown) (no (unknown) (unknown) - New OB labs (units ( unknown) date) showed UTI, for unknown) MCKENZIE- sent 05/17 (unknown) (no (unknown) (unknown) - Placenta (units (unk nown) date) previously low unknown) lying, resolved (unknown) (no (unknown) (unknown) - Varicella (units (un known) date) non-immune unknown) (unknown) (no (unknown) (unknown) -?-?-?-?-?-?-?-? (units (unknown) date) -?-?-?-?- unknown) (unknown) (no (unknown) (unknown) 00 (units (unkno wn) date) unknown) (unknown) (no (unknown) (unknown) [id number] (units (unkn own) date) unknown) (unknown) (no (unknown) (unknown) 05/17/21 [Rx (units (u nknown) date) Confirmed unknown) 10/06/21] (unknown) (no (unknown) (unknown) 10/06/21 (units (unkno wn) date) unknown) (unknown) (no (unknown) (unknown) 10/06/21] (units (unkn own) date) unknown) (unknown) (no (unknown) (unknown) Abnormal lab (units (u nknown) date) values 1st unknown) trimester: discussed (unknown) (no (unknown) (unknown) Abnormal lab (units (u nknown) date) values 2nd unknown) trimester: discussed (unknown) (no (unknown) (unknown) Add'l Plan (units (unk nown) date) Details unknown) (unknown) (no (unknown) (unknown) Advised to check (units (unknown) date) for her routine unknown) movement daily. (unknown) (no (unknown) (unknown) Age/Sex: 25 / F (units (unknown) date) Date of unknown) Service: (unknown) (no (unknown) (unknown) Allergies (units (unkn own) date) unknown) (unknown) (no (unknown) (unknown) Aneuploidy (units (unk nown) date) Screening unknown) Offered: Accepted (considering options) (unknown) (no (unknown) (unknown) Antepartum (units (unk nown) date) precautions and unknown) kick counts discussed. (unknown) (no (unknown) (unknown) Anticipated (units (un known) date) course of unknown) care: discussed (unknown) (no (unknown) (unknown) Assessment and (units (unknown) date) Plan unknown) (unknown) (no (unknown) (unknown) Attending Dr: (units ( unknown) date) Clare Araya unknown) Prudence RAMÍREZ (unknown) (no (unknown) (unknown) (units (unkno wn) date) Plan/Preferences unknown) (unknown) (no (unknown) (unknown) Planning (units (unknown) date) unknown) (unknown) (no (unknown) (unknown) Blood (units (unkno wn) date) transfusions?: unknown) yes (unknown) (no (unknown) (unknown) Breastfeed (units (unk nown) date) Preg Comp Name unknown) (unknown) (no (unknown) (unknown) CRL, no gross (units ( unknown) date) abnormalities unknown) noted. Ovaries not visualized. (unknown) (no (unknown) (unknown) Caffeine use, (units ( unknown) date) Exercise and unknown) activity, work/environmenta l/hazards, Sexual (unknown) (no (unknown) (unknown) Childbirth (units (unk nown) date) Classes: unknown) discussed (unknown) (no (unknown) (unknown) Chlamydia (units (unkno wn) date) Gonorrhea PCR unknown) -URINE Today Z34.83 - Encounter for supervision of other (unknown) (no (unknown) (unknown) Current (units (unkno wn) date) History unknown) (unknown) (no (unknown) (unknown) : 1995 (units (unknown) date) Acct:[id number] unknown) (unknown) (no (unknown) (unknown) Date (units (unkno wn) date) unknown) (unknown) (no (unknown) (unknown) Date of positive (units (unknown) date) home unknown) test: 03/20/21 (unknown) (no (unknown) (unknown) Del. Date (units (unkn own) date) GA/Weeks Labor unknown) Lgth Wt Sex Route Outcome Anesthesia Place (unknown) (no (unknown) (unknown) Delv (units (unkno wn) date) unknown) (unknown) (no (unknown) (unknown) Denies Congenital (units (unknown) date) Heart Defect, unknown) Denies Down Syndrome, Denies Muscular Dystrophy, (unknown) (no (unknown) (unknown) Denies Maternal (units (unknown) date) Metabolic unknown) Disorder (EG,TYPE 1 Diabetes, PKU), Denies Patient or (unknown) (no (unknown) (unknown) Denies Neural (units ( unknown) date) Tube Defect unknown) (Meningomyelocele , Spina Bifida, or Anencephaly), D (unknown) (no (unknown) (unknown) Denies Sickle (units ( unknown) date) Cell Disease or unknown) Trait (), Denies Hemophilia or other blood (unknown) (no (unknown) (unknown) Denies other (units (u nknown) date) unknown) (unknown) (no (unknown) (unknown) Denies over the (units (unknown) date) counter unknown) medications, Denies alcohol, Denies illicit drugs and (unknown) (no (unknown) (unknown) Depression: (units (un known) date) discussed unknown) (unknown) (no (unknown) (unknown) Dept at (units (unkno wn) date) . unknown) (unknown) (no (unknown) (unknown) Diet and (units (unkno wn) date) Exercise unknown) (unknown) (no (unknown) (unknown) Discussed (units (unkn own) date) Zofran. Patient unknown) declines aneuploidy screening, MSAFP at next visit. (unknown) (no (unknown) (unknown) Disease (units (unkno wn) date) (Ashkenazi unknown) Adventism), Denies Familial Dysautonomia (Ashkenazi Adventism), (unknown) (no (unknown) (unknown) Documented By: (units (unknown) date) Clare Foss unknown) Quiana RAMÍREZ 10/06/21 08 (unknown) (no (unknown) (unknown) RERE Calculator (units (unknown) date) unknown) (unknown) (no (unknown) (unknown) EGA Weight BP (units ( unknown) date) UGlucose unknown) (unknown) (no (unknown) (unknown) Family History (units (unknown) date) (Updated 04/08/21 unknown) @ 08:07 by Sena Espinal RN) (unknown) (no (unknown) (unknown) Father (units (unkno wn) date) Metabolic unknown) syndrome (unknown) (no (unknown) (unknown) Father of Baby: (units (unknown) date) Abiam unknown) (unknown) (no (unknown) (unknown) First Trimester (units (unknown) date) Education unknown) Checklist (unknown) (no (unknown) (unknown) Genetic (units (unkno wn) date) Screening unknown) (unknown) (no (unknown) (unknown) Genetic (units (unkno wn) date) Screening + unknown) Counseling (unknown) (no (unknown) (unknown) Grandmother (units (un known) date) Breast cancer unknown) (unknown) (no (unknown) (unknown) 2 (units (unknown) date) Multiple unknown) births (unknown) (no (unknown) (unknown) H/O wisdom tooth (units (unknown) date) extraction unknown) (unknown) (no (unknown) (unknown) HIV risk (units (unkno wn) date) evaluation: low unknown) risk (unknown) (no (unknown) (unknown) Health Center (units ( unknown) date) Education unknown) (unknown) (no (unknown) (unknown) Health center (units ( unknown) date) information: unknown) nature of practice discussed, personnel (unknown) (no (unknown) (unknown) Hepatitis C risk (units (unknown) date) evaluation: low unknown) risk (unknown) (no (unknown) (unknown) History of (units (unk nown) date) Hepatitis B: No unknown) (unknown) (no (unknown) (unknown) History of (units (unk nown) date) Hepatitis C: No unknown) (unknown) (no (unknown) (unknown) History of PCOS (units (unknown) date) unknown) (unknown) (no (unknown) (unknown) Hospital[facility] (units (u nknown) date) unknown) (unknown) (no (unknown) (unknown) Vahid's (units (u nknown) date) Chorea, Denies unknown) Other inherited genetic or chromosomal disorder, (unknown) (no (unknown) (unknown) Hx # (units (u nknown) date) Pregnancies unknown) Elective abortions (unknown) (no (unknown) (unknown) Hx # Term (units (unkn own) date) Pregnancies unknown) Ectopic pregnancies (unknown) (no (unknown) (unknown) Infant will be (units (unknown) date) adopted?: no unknown) (unknown) (no (unknown) (unknown) Infection (units (unkn own) date) History unknown) (unknown) (no (unknown) (unknown) Infectious (units (unk nown) date) Disease Education unknown) (unknown) (no (unknown) (unknown) Infectious (units (unk nown) date) disease exposure: unknown) chicken pox immunity discussed, hepatitis risk (unknown) (no (unknown) (unknown) Initial Weight: (units (unknown) date) 110 lb unknown) (unknown) (no (unknown) (unknown) Initials (units (unkno wn) date) unknown) (unknown) (no (unknown) (unknown) Intake (units (unkno wn) date) unknown) (unknown) (no (unknown) (unknown) Intake Clinical (units (unknown) date) Staff unknown) (unknown) (no (unknown) (unknown) Intake Note: (units (u nknown) date) unknown) (unknown) (no (unknown) (unknown) Intake performed (units (unknown) date) by: Maria De Jesus Leo unknown) (unknown) (no (unknown) (unknown) Live with (units (unkn own) date) someone with TB unknown) or exposed to TB: No (unknown) (no (unknown) (unknown) Loc: [facility] (units (unkno wn) date) unknown) (unknown) (no (unknown) (unknown) Marital status: (units (unknown) date) unknown) (unknown) (no (unknown) (unknown) Medical History (units (unknown) date) (Updated 04/08/21 unknown) @ 08:06 by Sena Espinal RN) (unknown) (no (unknown) (unknown) Medications (units (un known) date) unknown) (unknown) (no (unknown) (unknown) No Known Drug (units ( unknown) date) Allergies Allergy unknown) (Unverified 07/22/21 15:29) (unknown) (no (unknown) (unknown) Notes (units (unkno wn) date) unknown) (unknown) (no (unknown) (unknown) Number of Living (units (unknown) date) Children unknown) (unknown) (no (unknown) (unknown) Number of (units (unkn own) date) fetuses:: Single unknown) (unknown) (no (unknown) (unknown) Nutrition and (units ( unknown) date) weight gain unknown) counseling: special diet: discussed (unknown) (no (unknown) (unknown) OB Visit Log (units (u nknown) date) unknown) (unknown) (no (unknown) (unknown) OB check (units (unkno wn) date) unknown) (unknown) (no (unknown) (unknown) On control (units (unknown) date) at conception?: unknown) No (unknown) (no (unknown) (unknown) Orders (units (unkno wn) date) unknown) (unknown) (no (unknown) (unknown) PFSH (units (unkno wn) date) unknown) (unknown) (no (unknown) (unknown) Pap performed?: (units (unknown) date) No unknown) (unknown) (no (unknown) (unknown) Para 0 (units ( unknown) date) Spontaneous unknown) abortions 1 (unknown) (no (unknown) (unknown) Partner history (units (unknown) date) of STD: denies hx unknown) (unknown) (no (unknown) (unknown) Partner history (units (unknown) date) of genital unknown) herpes: No (unknown) (no (unknown) (unknown) Partner: Abiam (units (unknown) date) unknown) (unknown) (no (unknown) (unknown) Past Pregnancies (units (unknown) date) unknown) (unknown) (no (unknown) (unknown) Patient was (units (un known) date) recently treated unknown) for UTI with resolution of symptoms, no further (unknown) (no (unknown) (unknown) Patient's age 33 (units (unknown) date) years or older as unknown) of estimated date of delivery: No (unknown) (no (unknown) (unknown) Patient: (units (unkno wn) date) Sally Thurston Y unknown) MR#: [id number] (unknown) (no (unknown) (unknown) 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) (unknown) (no (unknown) (unknown) Personal history (units (unknown) date) of STD: denies hx unknown) (unknown) (no (unknown) (unknown) Personal history (units (unknown) date) of genital unknown) herpes: No (unknown) (no (unknown) (unknown) (units (unkn own) date) History unknown) (unknown) (no (unknown) (unknown) type:: (units (unknown) date) Other Normal unknown) (unknown) (no (unknown) (unknown) (units (unkno wn) date) Education unknown) (unknown) (no (unknown) (unknown) Initial (units (unknown) date) Assessment unknown) (unknown) (no (unknown) (unknown) (units (unkno wn) date) Specific unknown) Issues/Plans (unknown) (no (unknown) (unknown) (units (unkno wn) date) Testing: unknown) discussed (unknown) (no (unknown) (unknown) Visit (units (unknown) date) unknown) (unknown) (no (unknown) (unknown) (units (unkno wn) date) education packet: unknown) Child education/plan, symptoms, (unknown) (no (unknown) (unknown) Primary Care (units (u nknown) date) Provider: MANISH unknown) Kristopher (unknown) (no (unknown) (unknown) Primary Ob (units (unk nown) date) Provider: unknown) Katharine Martinez (unknown) (no (unknown) (unknown) Providers (units (unkn own) date) unknown) (unknown) (no (unknown) (unknown) Rash or viral (units ( unknown) date) illness since unknown) last menstrual period: No (unknown) (no (unknown) (unknown) Reason For Visit (units (unknown) date) unknown) (unknown) (no (unknown) (unknown) Recurrent (units (unkn own) date) loss or unknown) a stillbirth: No (unknown) (no (unknown) (unknown) Referred for 3rd (units (unknown) date) tri labs. unknown) (unknown) (no (unknown) (unknown) Reports good (units (u nknown) date) movement, unknown) no LOF or VB, no ctx, no further umbilical (unknown) (no (unknown) (unknown) Reports good (units (u nknown) date) movement, unknown) no LOF or VB, no ctx. Third tri labs wnl. (unknown) (no (unknown) (unknown) Safety (units (unkno wn) date) unknown) (unknown) (no (unknown) (unknown) Seatbelt use and (units (unknown) date) Influenza vaccine unknown) (ad thia fall) (unknown) (no (unknown) (unknown) Second Trimester (units (unknown) date) Education unknown) Checklist (unknown) (no (unknown) (unknown) Signed By: (units (unk nown) date) <Electronically unknown) signed by Clare Foss MD> (unknown) (no (unknown) (unknown) Smoking Status: (units (unknown) date) Never smoker unknown) (unknown) (no (unknown) (unknown) Social History (units (unknown) date) unknown) (unknown) (no (unknown) (unknown) Surgical History (units (unknown) date) (Updated 04/08/21 unknown) @ 08:06 by Sena Espinal RN) (unknown) (no (unknown) (unknown) Surrogate (units (unkn own) date) ?: no unknown) (unknown) (no (unknown) (unknown) Symptoms since (units (unknown) date) LMP: Reports unknown) amenorrhea, nausea, vomiting, breast tenderness, (unknown) (no (unknown) (unknown) Tdap status: (units (u nknown) date) immunized unknown) (unknown) (no (unknown) (unknown) Teratogen (units (unkn own) date) Exposures since unknown) LMP/Conception: Denies prescription medications, (unknown) (no (unknown) (unknown) Testing (units (unkno wn) date) Education unknown) (unknown) (no (unknown) (unknown) Testing (units (unkno wn) date) education unknown) completed: Genetic testing, group B strep and Spina bifida (unknown) (no (unknown) (unknown) The patient has (units (unknown) date) irregular menses, unknown) and was dated by ultrasound today. She denies (unknown) (no (unknown) (unknown) The umbilicus (units ( unknown) date) was cleaned with unknown) a chlorhexadine swab, and we discussed keeping (unknown) (no (unknown) (unknown) This note may (units ( unknown) date) have been all or unknown) partially generated using voice recognition (unknown) (no (unknown) (unknown) Tobacco + (units (unkn own) date) Substance Use unknown) (unknown) (no (unknown) (unknown) Tobacco Status (units (unknown) date) unknown) (unknown) (no (unknown) (unknown) Trimester:: 3rd (units (unknown) date) Trimester unknown) (28wks-Del) (unknown) (no (unknown) (unknown) Type(s) of (units (unk nown) date) exercise: unknown) irregular exercise (unknown) (no (unknown) (unknown) UProtein Movement (units (unknown) date) PreLabor FHR Fndl unknown) Ht Pres Edema Cerv Exam US/Comment Next Appt (unknown) (no (unknown) (unknown) Ultrasound (units (unk nown) date) unknown) (unknown) (no (unknown) (unknown) Ultrasound (units (unk nown) date) Details:: TAUS unknown) performed. Viable SIUP visualized measuring 8+4 by (unknown) (no (unknown) (unknown) Ultrasound (units (unk nown) date) performed?: No unknown) (unknown) (no (unknown) (unknown) Varicella/chicke (units (unknown) date) n pox status: unknown) immunized (unknown) (no (unknown) (unknown) Visit Date: (units (un known) date) 04/19/21 Last unknown) Updated by: Katharine Martinez MD (unknown) (no (unknown) (unknown) Visit Date: (units (un known) date) 05/06/21 Last unknown) Updated by: Katharine Martinez MD (unknown) (no (unknown) (unknown) Visit Date: (units (un known) date) 05/17/21 Last unknown) Updated by: Katharine Martinez MD (unknown) (no (unknown) (unknown) Visit Date: (units (un known) date) 06/14/21 Last unknown) Updated by: Katharine Martinez MD (unknown) (no (unknown) (unknown) Visit Date: (units (un known) date) 07/22/21 Last unknown) Updated by: Katharine Martinez MD (unknown) (no (unknown) (unknown) Visit Date: (units (un known) date) 08/03/21 Last unknown) Updated by: Katharine Martinez MD (unknown) (no (unknown) (unknown) Visit Date: (units (un known) date) 08/23/21 Last unknown) Updated by: Katharine Martinez MD (unknown) (no (unknown) (unknown) Visit Date: (units (un known) date) 09/07/21 Last unknown) Updated by: Katharine Martinez MD (unknown) (no (unknown) (unknown) Visit Date: (units (un known) date) 09/23/21 Last unknown) Updated by: Clare Foss MD (unknown) (no (unknown) (unknown) Visit Date: (units (un known) date) 10/06/21 Last unknown) Updated by: Clare Foss MD (unknown) (no (unknown) (unknown) Visit Reasons: (units (unknown) date) OB unknown) (unknown) (no (unknown) (unknown) Vitamins and (units (u nknown) date) iron, Diet and unknown) weight gain, Fish and mercury intake, Smoking, (unknown) (no (unknown) (unknown) WG (units (unkno wn) date) unknown) (unknown) (no (unknown) (unknown) Weeks (units (unkno wn) date) gestation:: 33 unknown) (unknown) (no (unknown) (unknown) Zika virus (units (unk nown) date) exposure: No unknown) (unknown) (no (unknown) (unknown) [History (units (unkno wn) date) Confirmed unknown) 10/06/21] (unknown) (no (unknown) (unknown) activity, X-ray (units (unknown) date) exposure, unknown) Medication use, ETOH use, Sauna/hot tub use, Dental (unknown) (no (unknown) (unknown) alcohol intake: (units (unknown) date) former (stopped unknown) with , always light) (unknown) (no (unknown) (unknown) and 2#2, 53%, (units ( unknown) date) MVP 4.3cm. Breech unknown) presentation. Antepartum precautions discussed. (unknown) (no (unknown) (unknown) aneuploidy (units (unk nown) date) screening. unknown) (unknown) (no (unknown) (unknown) any significant (units (unknown) date) history, unknown) medications for bipolar disorder were discussed with (unknown) (no (unknown) (unknown) anyone in either (units (unknown) date) family with: unknown) (unknown) (no (unknown) (unknown) baby's father (units ( unknown) date) had a child with unknown) defects not listed above and Denies Other (unknown) (no (unknown) (unknown) bleeding. (units (unkn own) date) Feeling good unknown) movement. labor precautions reviewed. (unknown) (no (unknown) (unknown) bloating and (units (u nknown) date) other (night unknown) sweats, constipation) (unknown) (no (unknown) (unknown) bupropion HCl (units ( unknown) date) 150 mg tablet,12 unknown) hr sustained-release 150 mg PO DAILY 04/08/21 (unknown) (no (unknown) (unknown) but no other (units (u nknown) date) abnormal unknown) discharge. Patient today reports longstanding dizziness (unknown) (no (unknown) (unknown) caffeine: Yes (units ( unknown) date) (200mg) unknown) (unknown) (no (unknown) (unknown) carbon monox (units (u nknown) date) detector in home: unknown) Yes (unknown) (no (unknown) (unknown) care, HIV (units (unkn own) date) education, unknown) Marijuana use, Substance use, Domestic violence, Travel, (unknown) (no (unknown) (unknown) cetirizine 10 mg (units (unknown) date) tablet (Zyrtec) unknown) 10 mg PO DAILY PRN 04/08/21 [History Confirmed (unknown) (no (unknown) (unknown) cramping or (units (un known) date) bleeding. Patient unknown) does report that nausea was worse over the (unknown) (no (unknown) (unknown) current (units (unkno wn) date) occupational unknown) exposures/hazards : No (unknown) (no (unknown) (unknown) daily servings (units (unknown) date) fruits/ve-1 unknown) (unknown) (no (unknown) (unknown) defects. Care in (units (unknown) date) our clinic and unknown) aneuploidy screening discussed. Antepartum (unknown) (no (unknown) (unknown) described, visit (units (unknown) date) schedule unknown) reviewed, ultrasounds policy reviewed, coverage 24 (unknown) (no (unknown) (unknown) despite her (units (un known) date) efforts to keep unknown) the area clean with a bulb syringe. She denies (unknown) (no (unknown) (unknown) discussed and (units ( unknown) date) ordered. unknown) Antepartum precautions discussed. (unknown) (no (unknown) (unknown) discussed (units (unkno wn) date) precautions for unknown) return. Ovaries not visualized on TAUS today. Declines (unknown) (no (unknown) (unknown) discussed, (units (unk nown) date) tuberculosis unknown) exposure discussed, CMV discussed, Toxoplasmosis (unknown) (no (unknown) (unknown) disorders, (units (unk nown) date) Denies Cystic unknown) Fibrosis, Denies Mental Retardation/Autis m, Denies (unknown) (no (unknown) (unknown) do you feel safe (units (unknown) date) at home: Yes unknown) (unknown) (no (unknown) (unknown) drainage. TVUS (units ( unknown) date) performed and unknown) placenta now >4cm from cervix. Growth US performed (unknown) (no (unknown) (unknown) during the past (units (unknown) date) year weight has: unknown) remained stable (unknown) (no (unknown) (unknown) education level: (units (unknown) date) other (YVONNE) unknown) (unknown) (no (unknown) (unknown) encouraged to (units ( unknown) date) call with any unknown) questions or concerns. (unknown) (no (unknown) (unknown) endorse at (units (unk nown) date) initial visit. unknown) (unknown) (no (unknown) (unknown) enies Moustapha-Sachs (units (unknown) date) (Ashkenazi unknown) Adventism, Cajun, English Nigerien), Denies Sebastián (unknown) (no (unknown) (unknown) fevers, chills, (units (unknown) date) or any other unknown) symptoms or obstetrical complaints. The area was (unknown) (no (unknown) (unknown) fire (units (unkno wn) date) extinguisher in unknown) home: No (unknown) (no (unknown) (unknown) firearms in (units (un known) date) home: No unknown) (unknown) (no (unknown) (unknown) fluoxetine 20 mg (units (unknown) date) capsule See Rx unknown) Instructions PO BID 04/08/21 [History Confirmed (unknown) (no (unknown) (unknown) green, opaque (units ( unknown) date) drainage from her unknown) belly button. This has continued intermittently (unknown) (no (unknown) (unknown) have occurred. (units (unknown) date) If there are any unknown) questions, please contact the Medical Records (unknown) (no (unknown) (unknown) hours a day and (units (unknown) date) participation of unknown) father in care and office visits (unknown) (no (unknown) (unknown) household (units (unkn own) date) members: spouse unknown) (unknown) (no (unknown) (unknown) housing: house (units (unknown) date) unknown) (unknown) (no (unknown) (unknown) ks (units (unkno wn) date) unknown) (unknown) (no (unknown) (unknown) lamotrigine 100 (units (unknown) date) mg tablet 100 mg unknown) PO BID 04/08/21 [History Confirmed 10/06/21] (unknown) (no (unknown) (unknown) lives (units (unkno wn) date) independently: unknown) Yes (unknown) (no (unknown) (unknown) marital status: (units (unknown) date) unknown) (unknown) (no (unknown) (unknown) may occur. (units (unk nown) date) Occasional unknown) wrong-word or 'sound-alike' substitutions may have (unknown) (no (unknown) (unknown) more. No VB or (units (unknown) date) LOF. Feeling unknown) some tingling beneath her right breast near (unknown) (no (unknown) (unknown) movement. No (units (u nknown) date) other symptoms or unknown) concerns, anatomy scan already scheduled. MSAFP (unknown) (no (unknown) (unknown) normal (units (unkno wn) date) , third unknown) trimester, Z3A.33 - 33 weeks gestation of (unknown) (no (unknown) (unknown) normal, skin (units (u nknown) date) exam normal in unknown) that area. No RUQ tenderness. Will check an (unknown) (no (unknown) (unknown) noted to be (units (un known) date) mildly unknown) erythmatous. A forceps was used to spread the umbilicus and (unknown) (no (unknown) (unknown) number of (units (unkn own) date) children: 0 unknown) (unknown) (no (unknown) (unknown) occupational (units (u nknown) date) status: employed unknown) (unknown) (no (unknown) (unknown) occurred due to (units (unknown) date) the inherent unknown) limitations of voice recognition software. Please (unknown) (no (unknown) (unknown) ondansetron HCl (units (unknown) date) 4 mg tablet 4 mg unknown) PO Q8H PRN nausea and vomiting #20 tabs (unknown) (no (unknown) (unknown) pets and (units (unkno wn) date) animals: No unknown) (unknown) (no (unknown) (unknown) placenta 1.8 cm (units (unknown) date) from os unknown) posteriorly, discussed follow up at 28 weeks. Also 88%, (unknown) (no (unknown) (unknown) precautions (units (un known) date) discussed. unknown) (unknown) (no (unknown) (unknown) precautions, (units (u nknown) date) Listeriosis unknown) prevention and Rubella Immunization (unknown) (no (unknown) (unknown) predating her (units ( unknown) date) . UA unknown) wnl, plans to try OTC monistat 7 instead of Affirm, (unknown) (no (unknown) (unknown) prenat.vits,poornima, (units (unknown) date) [id number] 1 unknown) tab PO DAILY 04/08/21 [History Confirmed (unknown) (no (unknown) (unknown) read the note (units ( unknown) date) carefully and unknown) recognize, using context, where these substitutions (unknown) (no (unknown) (unknown) reports feeling (units (unknown) date) movement, no ctx unknown) no LOF or VB. Recent anatomy scan showing (unknown) (no (unknown) (unknown) reports feeling (units (unknown) date) well with no UTI unknown) sx, no cramping or bleeding, starting to feel (unknown) (no (unknown) (unknown) resolved with (units ( unknown) date) getting off her unknown) feet. Advise off feet and hydration, did not (unknown) (no (unknown) (unknown) resolving call. (units (unknown) date) Discussed how to unknown) detect contractions and to call if 6 per hour (unknown) (no (unknown) (unknown) seatbelt use: (units ( unknown) date) always unknown) (unknown) (no (unknown) (unknown) second hand (units (un known) date) exposure: No unknown) (unknown) (no (unknown) (unknown) software. (units (unkn own) date) Although every unknown) effort is made to edit content, director family errors (unknown) (no (unknown) (unknown) spotting and RLQ (units (unknown) date) cramping. Viable unknown) SIUP seen via TAUS, +movement. Reports the (unknown) (no (unknown) (unknown) spotting has (units (un known) date) resolved and the unknown) cramping remains moderate, some vaginal irritation (unknown) (no (unknown) (unknown) substance use (units ( unknown) date) type: does not unknown) use (unknown) (no (unknown) (unknown) testing (units (unkno wn) date) unknown) (unknown) (no (unknown) (unknown) the area clean (units (unknown) date) and dry, using unknown) topical antifungal cream, and monitoring. She was (unknown) (no (unknown) (unknown) to belly button (units (unknown) date) drainage. The unknown) patient reports that late last week she noticed (unknown) (no (unknown) (unknown) triage nurses (units ( unknown) date) and are cat C in unknown) with no known associated with (unknown) (no (unknown) (unknown) ultrasound for (units (unknown) date) EFW within next unknown) visit, initially measured a little larger. (unknown) (no (unknown) (unknown) visualize the (units (u nknown) date) base, which was unknown) intact with no discrete lesions or foreign bodies. (unknown) (no (unknown) (unknown) water heater (units (u nknown) date) temp set < 120 unknown) deg: Yes (will check) (unknown) (no (unknown) (unknown) weekend, did (units (u nknown) date) have streaks of unknown) blood in her vomit x1 that has since resolved. (unknown) (no (unknown) (unknown) well-balanced (units ( unknown) date) diet: about half unknown) the time (unknown) (no (unknown) (unknown) will do growth (units (unknown) date) US at that time. unknown) Antepartum precautions discussed. (unknown) (no (unknown) (unknown) wks (units (unkno wn) date) unknown) (unknown) (no (unknown) (unknown) working smoke (units ( unknown) date) detector in home: unknown) Yes Result panel 18 (unknown) (no date) (unknown) (unknown) NOT DETECTED (units ( unknown) unknown) Result panel 19 (unknown) (no (unknown) (unknown) (no value) (units (unk nown) date) unknown) (unknown) (no (unknown) (unknown) 10/20/19 5-6 (units (u nknown) date) spontaneous unknown) (unknown) (no (unknown) (unknown) [id number] here (units ( unknown) date) for a routine OB unknown) appt at 31 weeks. She denies any problems. (unknown) (no (unknown) (unknown) [id number]. She (units (u nknown) date) reports some unknown) episodes of cramping, they do eventually (unknown) (no (unknown) (unknown) N Yes no (units (unknown) date) 142 34 unknown) Vertex absent 2wk (unknown) (no (unknown) (unknown) N Yes no (units (unknown) date) 143 28 unknown) absent 2 wks (unknown) (no (unknown) (unknown) N Yes no (units (unknown) date) 144 32 unknown) Vertex absent 2wk (unknown) (no (unknown) (unknown) N Yes no (units (unknown) date) 146 absent unknown) 4 wks (unknown) (no (unknown) (unknown) N Yes no (units (unknown) date) 150 21 unknown) absent 4 wks (unknown) (no (unknown) (unknown) This patient is (units (unknown) date) a 25yo @11+0 unknown) presenting to follow up 10 days of brown (unknown) (no (unknown) (unknown) This patient is (units (unknown) date) a 25yo @12+4 unknown) presenting for routine obstetric care. (unknown) (no (unknown) (unknown) This patient is (units (unknown) date) a 25yo @16+4 unknown) presenting for routine OB care. Patient (unknown) (no (unknown) (unknown) This patient is (units (unknown) date) a 25yo @22+0 unknown) presenting for routine OB care. Patient (unknown) (no (unknown) (unknown) This patient is (units (unknown) date) a 25yo @23+5 unknown) presenting for an unscheduled visit due (unknown) (no (unknown) (unknown) This patient is (units (unknown) date) a 25yo @26+4 unknown) presenting for routine care. (unknown) (no (unknown) (unknown) This patient is (units (unknown) date) a 25yo @28+5 unknown) presenting for routine care. (unknown) (no (unknown) (unknown) This patient is (units (unknown) date) a 25yo unknown) @8+4 presenting to initiate care. (unknown) (no (unknown) (unknown) (no value) (units (unk nown) date) unknown) (unknown) (no (unknown) (unknown) none (units (unkno wn) date) unknown) (unknown) (no (unknown) (unknown) (no value) (units (unk nown) date) unknown) (unknown) (no (unknown) (unknown) (+2 lb 1 oz) (units (u nknown) date) 104/58 N unknown) (unknown) (no (unknown) (unknown) (+2 lb 3 oz) (units (u nknown) date) 106/60 N unknown) (unknown) (no (unknown) (unknown) (+20 lb) (units (unkno wn) date) 92/58 N unknown) (unknown) (no (unknown) (unknown) (+22 lb) (units (unkno wn) date) 106/62 unknown) (unknown) (no (unknown) (unknown) (+29 lb) (units (unkno wn) date) 94/52 N unknown) (unknown) (no (unknown) (unknown) (+3 lb) (units (unkno wn) date) 100/60 N unknown) (unknown) (no (unknown) (unknown) (+33 lb) (units (unkno wn) date) 102/62 N unknown) (unknown) (no (unknown) (unknown) (+36 lb) (units (unkno wn) date) 98/62 N unknown) (unknown) (no (unknown) (unknown) (+37 lb) (units (unkno wn) date) 110/64 N unknown) (unknown) (no (unknown) (unknown) (+9 lb 7 oz) (units (u nknown) date) 110/60 N unknown) (unknown) (no (unknown) (unknown) 04/19/21 (units (unkno wn) date) unknown) (unknown) (no (unknown) (unknown) 05/06/21 (units (unkno wn) date) unknown) (unknown) (no (unknown) (unknown) 05/17/21 (units (unkno wn) date) unknown) (unknown) (no (unknown) (unknown) 06/14/21 (units (unkno wn) date) unknown) (unknown) (no (unknown) (unknown) 07/22/21 (units (unkno wn) date) unknown) (unknown) (no (unknown) (unknown) 08/03/21 (units (unkno wn) date) unknown) (unknown) (no (unknown) (unknown) 08/23/21 (units (unkno wn) date) unknown) (unknown) (no (unknown) (unknown) 09/07/21 (units (unkno wn) date) unknown) (unknown) (no (unknown) (unknown) 09/23/21 (units (unkno wn) date) unknown) (unknown) (no (unknown) (unknown) 10/06/21 (units (unkno wn) date) unknown) (unknown) (no (unknown) (unknown) 10/07/21 (units (unkno wn) date) unknown) (unknown) (no (unknown) (unknown) 11w 0d 113 lb (units (unknown) date) unknown) (unknown) (no (unknown) (unknown) 12w 4d 112 lb (units (unknown) date) 3 oz unknown) (unknown) (no (unknown) (unknown) 16:34 (units (unkno wn) date) unknown) (unknown) (no (unknown) (unknown) 16w 4d 119 lb (units (unknown) date) 7 oz unknown) (unknown) (no (unknown) (unknown) 22w 0d 130 lb (units (unknown) date) unknown) (unknown) (no (unknown) (unknown) 23w 5d 132 lb (units (unknown) date) unknown) (unknown) (no (unknown) (unknown) 26w 4d 139 lb (units (unknown) date) unknown) (unknown) (no (unknown) (unknown) 28w 5d 143 lb (units (unknown) date) unknown) (unknown) (no (unknown) (unknown) 31w 0d 146 lb (units (unknown) date) unknown) (unknown) (no (unknown) (unknown) 32w 6d 147 lb (units (unknown) date) unknown) (unknown) (no (unknown) (unknown) 8w 4d 112 lb (units (unknown) date) 1 oz unknown) (unknown) (no (unknown) (unknown) ROSARIO Jeong (units ( unknown) date) [id number] unknown) (unknown) (no (unknown) (unknown) Current Estimate (units (unknown) date) 11/25/21 unknown) Ultrasound #1 33w 0d (unknown) (no (unknown) (unknown) Draft (units (unkno wn) date) unknown) (unknown) (no (unknown) (unknown) Estimated (units (unkn own) date) Delivery Date unknown) Method Current (unknown) (no (unknown) (unknown) [facility]) (unknown) (no (unknown) (unknown) KF (units (unkno wn) date) unknown) (unknown) (no (unknown) (unknown) N 167 (units (unkno wn) date) absent wnl unknown) (unknown) (no (unknown) (unknown) OB Office Visit (units (unknown) date) unknown) (unknown) (no (unknown) (unknown) Other Estimates (units (unknown) date) 11/09/21 unknown) LMP (Uncertain) 35w 2d (unknown) (no (unknown) (unknown) TR 152 (units (unkn own) date) absent 4 w unknown) (unknown) (no (unknown) (unknown) TR 164 (units (unkn own) date) absent wnl unknown) (unknown) (no (unknown) (unknown) TR (units (unkno wn) date) unknown) (unknown) (no (unknown) (unknown) Yes no (units (u nknown) date) 153 absent unknown) (unknown) (no (unknown) (unknown) amh (units (unkno wn) date) unknown) (unknown) (no (unknown) (unknown) (no value) (units (unk nown) date) unknown) (unknown) (no (unknown) (unknown) N Yes no (units (unknown) date) 148 27 unknown) Breech absent See below 3 (unknown) (no (unknown) (unknown) 4 wks (units (unkno wn) date) unknown) (unknown) (no (unknown) (unknown) Not feeling any (units (unknown) date) contractions. No unknown) cramping, leakage of fluid or vaginal (unknown) (no (unknown) (unknown) as scheduled (units (u nknown) date) unknown) (unknown) (no (unknown) (unknown) Genetic (units (unkn own) date) Screening/Teratol unknown) ogy Counseling - Includes patient, baby's father, or (unknown) (no (unknown) (unknown) - Bipolar - (units (un known) date) Stable on unknown) lamotrigine, fluoxetine, and wellbutrin. Of note, did not (unknown) (no (unknown) (unknown) - Declined (units (unk nown) date) aneuploidy unknown) screening, MSAFP wnl (unknown) (no (unknown) (unknown) - New OB labs (units ( unknown) date) showed UTI, for unknown) MCKENZIE- sent 05/17 (unknown) (no (unknown) (unknown) - Placenta (units (unk nown) date) previously low unknown) lying, resolved (unknown) (no (unknown) (unknown) - Varicella (units (un known) date) non-immune unknown) (unknown) (no (unknown) (unknown) -?-?-?-?-?-?-?-? (units (unknown) date) -?-?-?-?- unknown) (unknown) (no (unknown) (unknown) [id number] (units (unkn own) date) unknown) (unknown) (no (unknown) (unknown) 05/17/21 [Rx (units (u nknown) date) Confirmed unknown) 10/07/21] (unknown) (no (unknown) (unknown) 10/07/21 (units (unkno wn) date) unknown) (unknown) (no (unknown) (unknown) 10/07/21] (units (unkn own) date) unknown) (unknown) (no (unknown) (unknown) 32 (units (unkno wn) date) unknown) (unknown) (no (unknown) (unknown) A little pelvic (units (unknown) date) cramping unknown) (unknown) (no (unknown) (unknown) Abnormal lab (units (u nknown) date) values 1st unknown) trimester: discussed (unknown) (no (unknown) (unknown) Abnormal lab (units (u nknown) date) values 2nd unknown) trimester: discussed (unknown) (no (unknown) (unknown) Add'l Plan (units (unk nown) date) Details unknown) (unknown) (no (unknown) (unknown) Advised to check (units (unknown) date) for her routine unknown) movement daily. (unknown) (no (unknown) (unknown) Age/Sex: 25 / F (units (unknown) date) Date of unknown) Service: (unknown) (no (unknown) (unknown) Allergies (units (unkn own) date) unknown) (unknown) (no (unknown) (unknown) Aneuploidy (units (unk nown) date) Screening unknown) Offered: Accepted (considering options) (unknown) (no (unknown) (unknown) Antepartum (units (unk nown) date) precautions and unknown) kick counts discussed. (unknown) (no (unknown) (unknown) Anticipated (units (un known) date) course of unknown) care: discussed (unknown) (no (unknown) (unknown) Assessment and (units (unknown) date) Plan unknown) (unknown) (no (unknown) (unknown) Attending Dr: (units ( unknown) date) Clare Araya unknown) Prudence RAMÍREZ (unknown) (no (unknown) (unknown) BMI 28.7 (units (un known) date) unknown) (unknown) (no (unknown) (unknown) BP 106/64 (units (u nknown) date) unknown) (unknown) (no (unknown) (unknown) (units (unkno wn) date) Plan/Preferences unknown) (unknown) (no (unknown) (unknown) Planning (units (unknown) date) unknown) (unknown) (no (unknown) (unknown) Blood Pressure (units (unknown) date) Location Rt unknown) brachial (unknown) (no (unknown) (unknown) Blood (units (unkno wn) date) transfusions?: unknown) yes (unknown) (no (unknown) (unknown) Breastfeed (units (unk nown) date) Preg Comp Name unknown) (unknown) (no (unknown) (unknown) CRL, no gross (units ( unknown) date) abnormalities unknown) noted. Ovaries not visualized. (unknown) (no (unknown) (unknown) Caffeine use, (units ( unknown) date) Exercise and unknown) activity, work/environmenta l/hazards, Sexual (unknown) (no (unknown) (unknown) Childbirth (units (unk nown) date) Classes: unknown) discussed (unknown) (no (unknown) (unknown) Current (units (unkno wn) date) History unknown) (unknown) (no (unknown) (unknown) : 1995 (units (unknown) date) Acct:[id number] unknown) (unknown) (no (unknown) (unknown) Date (units (unkno wn) date) unknown) (unknown) (no (unknown) (unknown) Date of positive (units (unknown) date) home unknown) test: 03/20/21 (unknown) (no (unknown) (unknown) Del. Date (units (unkn own) date) GA/Weeks Labor unknown) Lgth Wt Sex Route Outcome Anesthesia Place (unknown) (no (unknown) (unknown) Delv (units (unkno wn) date) unknown) (unknown) (no (unknown) (unknown) Denies Congenital (units (unknown) date) Heart Defect, unknown) Denies Down Syndrome, Denies Muscular Dystrophy, (unknown) (no (unknown) (unknown) Denies Maternal (units (unknown) date) Metabolic unknown) Disorder (EG,TYPE 1 Diabetes, PKU), Denies Patient or (unknown) (no (unknown) (unknown) Denies Neural (units ( unknown) date) Tube Defect unknown) (Meningomyelocele , Spina Bifida, or Anencephaly), (unknown) (no (unknown) (unknown) Denies Sickle (units ( unknown) date) Cell Disease or unknown) Trait (), Denies Hemophilia or other blood (unknown) (no (unknown) (unknown) Denies Moustapha-Sachs (units (unknown) date) (Ashkenazi unknown) Adventism, Cajun, English Nigerien), Denies Sebastián (unknown) (no (unknown) (unknown) Denies other (units (u nknown) date) unknown) (unknown) (no (unknown) (unknown) Denies over the (units (unknown) date) counter unknown) medications, Denies alcohol, Denies illicit drugs and (unknown) (no (unknown) (unknown) Depression: (units (un known) date) discussed unknown) (unknown) (no (unknown) (unknown) Dept at (units (unkno wn) date) . unknown) (unknown) (no (unknown) (unknown) Diet and (units (unkno wn) date) Exercise unknown) (unknown) (no (unknown) (unknown) Discussed (units (unkn own) date) Zofran. Patient unknown) declines aneuploidy screening, MSAFP at next visit. (unknown) (no (unknown) (unknown) Disease (units (unkno wn) date) (Ashkenazi unknown) Adventism), Denies Familial Dysautonomia (Ashkenazi Adventism), (unknown) (no (unknown) (unknown) Documented By: (units (unknown) date) Clare Foss unknown) Quiana RAMÍREZ 10/07/21 16 (unknown) (no (unknown) (unknown) RERE Calculator (units (unknown) date) unknown) (unknown) (no (unknown) (unknown) EGA Weight BP (units ( unknown) date) UGlucose unknown) (unknown) (no (unknown) (unknown) Family History (units (unknown) date) (Updated 04/08/21 unknown) @ 08:07 by Sena Espinal RN) (unknown) (no (unknown) (unknown) Father (units (unkno wn) date) Metabolic unknown) syndrome (unknown) (no (unknown) (unknown) Father of Baby: (units (unknown) date) Abiam unknown) (unknown) (no (unknown) (unknown) First Trimester (units (unknown) date) Education unknown) Checklist (unknown) (no (unknown) (unknown) Genetic (units (unkno wn) date) Screening unknown) (unknown) (no (unknown) (unknown) Genetic (units (unkno wn) date) Screening + unknown) Counseling (unknown) (no (unknown) (unknown) Grandmother (units (un known) date) Breast cancer unknown) (unknown) (no (unknown) (unknown) 2 (units (unknown) date) Multiple unknown) births (unknown) (no (unknown) (unknown) H/O wisdom tooth (units (unknown) date) extraction unknown) (unknown) (no (unknown) (unknown) HIV risk (units (unkno wn) date) evaluation: low unknown) risk (unknown) (no (unknown) (unknown) Health Center (units ( unknown) date) Education unknown) (unknown) (no (unknown) (unknown) Health center (units ( unknown) date) information: unknown) nature of practice discussed, personnel (unknown) (no (unknown) (unknown) Height 5 ft (units (unknown) date) unknown) (unknown) (no (unknown) (unknown) Hepatitis C risk (units (unknown) date) evaluation: low unknown) risk (unknown) (no (unknown) (unknown) History of (units (unk nown) date) Hepatitis B: No unknown) (unknown) (no (unknown) (unknown) History of (units (unk nown) date) Hepatitis C: No unknown) (unknown) (no (unknown) (unknown) History of PCOS (units (unknown) date) unknown) (unknown) (no (unknown) (unknown) Hospital[facility] (units (u nknown) date) unknown) (unknown) (no (unknown) (unknown) Vahid's (units (u nknown) date) Chorea, Denies unknown) Other inherited genetic or chromosomal disorder, (unknown) (no (unknown) (unknown) Hx # (units (u nknown) date) Pregnancies unknown) Elective abortions (unknown) (no (unknown) (unknown) Hx # Term (units (unkn own) date) Pregnancies unknown) Ectopic pregnancies (unknown) (no (unknown) (unknown) Infant will be (units (unknown) date) adopted?: no unknown) (unknown) (no (unknown) (unknown) Infection (units (unkn own) date) History unknown) (unknown) (no (unknown) (unknown) Infectious (units (unk nown) date) Disease Education unknown) (unknown) (no (unknown) (unknown) Infectious (units (unk nown) date) disease exposure: unknown) chicken pox immunity discussed, hepatitis risk (unknown) (no (unknown) (unknown) Initial Weight: (units (unknown) date) 110 lb unknown) (unknown) (no (unknown) (unknown) Initials (units (unkno wn) date) unknown) (unknown) (no (unknown) (unknown) Intake (units (unkno wn) date) unknown) (unknown) (no (unknown) (unknown) Intake Note: (units (u nknown) date) unknown) (unknown) (no (unknown) (unknown) Live with (units (unkn own) date) someone with TB unknown) or exposed to TB: No (unknown) (no (unknown) (unknown) Loc: [facility] (units (unkno wn) date) unknown) (unknown) (no (unknown) (unknown) Marital status: (units (unknown) date) unknown) (unknown) (no (unknown) (unknown) Medical History (units (unknown) date) (Updated 04/08/21 unknown) @ 08:06 by Sena Espinal RN) (unknown) (no (unknown) (unknown) Medications (units (un known) date) unknown) (unknown) (no (unknown) (unknown) No Known Drug (units ( unknown) date) Allergies Allergy unknown) (Unverified 10/07/21 16:34) (unknown) (no (unknown) (unknown) Notes (units (unkno wn) date) unknown) (unknown) (no (unknown) (unknown) Number of Living (units (unknown) date) Children unknown) (unknown) (no (unknown) (unknown) Number of (units (unkn own) date) fetuses:: Single unknown) (unknown) (no (unknown) (unknown) Nutrition and (units ( unknown) date) weight gain unknown) counseling: special diet: discussed (unknown) (no (unknown) (unknown) OB Visit Log (units (u nknown) date) unknown) (unknown) (no (unknown) (unknown) OB check (units (unkno wn) date) unknown) (unknown) (no (unknown) (unknown) On control (units (unknown) date) at conception?: unknown) No (unknown) (no (unknown) (unknown) PFSH (units (unkno wn) date) unknown) (unknown) (no (unknown) (unknown) Para 0 (units ( unknown) date) Spontaneous unknown) abortions 1 (unknown) (no (unknown) (unknown) Partner history (units (unknown) date) of STD: denies hx unknown) (unknown) (no (unknown) (unknown) Partner history (units (unknown) date) of genital unknown) herpes: No (unknown) (no (unknown) (unknown) Partner: Abiam (units (unknown) date) unknown) (unknown) (no (unknown) (unknown) Past Pregnancies (units (unknown) date) unknown) (unknown) (no (unknown) (unknown) Patient was (units (un known) date) recently treated unknown) for UTI with resolution of symptoms, no further (unknown) (no (unknown) (unknown) Patient's age 33 (units (unknown) date) years or older as unknown) of estimated date of delivery: No (unknown) (no (unknown) (unknown) Patient: (units (unkno wn) date) Sally Thurston Y unknown) MR#: M (unknown) (no (unknown) (unknown) 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 unknown) (unknown) (no (unknown) (unknown) Personal history (units (unknown) date) of STD: denies hx unknown) (unknown) (no (unknown) (unknown) Personal history (units (unknown) date) of genital unknown) herpes: No (unknown) (no (unknown) (unknown) Position (units (unkno wn) date) Sitting unknown) (unknown) (no (unknown) (unknown) (units (unkn own) date) History unknown) (unknown) (no (unknown) (unknown) type:: (units (unknown) date) Other Normal unknown) (unknown) (no (unknown) (unknown) (units (unkno wn) date) Education unknown) (unknown) (no (unknown) (unknown) Initial (units (unknown) date) Assessment unknown) (unknown) (no (unknown) (unknown) (units (unkno wn) date) Specific unknown) Issues/Plans (unknown) (no (unknown) (unknown) (units (unkno wn) date) Testing: unknown) discussed (unknown) (no (unknown) (unknown) Visit (units (unknown) date) unknown) (unknown) (no (unknown) (unknown) (units (unkno wn) date) education packet: unknown) Child education/plan, symptoms, (unknown) (no (unknown) (unknown) Primary Care (units (u nknown) date) Provider: MANISH unknown) Kristopher (unknown) (no (unknown) (unknown) Primary Ob (units (unk nown) date) Provider: unknown) Katharine Martinez (unknown) (no (unknown) (unknown) Providers (units (unkn own) date) unknown) (unknown) (no (unknown) (unknown) Pt states she (units ( unknown) date) has had some unknown) mucus type discharge (unknown) (no (unknown) (unknown) Rash or viral (units ( unknown) date) illness since unknown) last menstrual period: No (unknown) (no (unknown) (unknown) Reason For Visit (units (unknown) date) unknown) (unknown) (no (unknown) (unknown) Recurrent (units (unkn own) date) loss or unknown) a stillbirth: No (unknown) (no (unknown) (unknown) Referred for 3rd (units (unknown) date) tri labs. unknown) (unknown) (no (unknown) (unknown) Reports good (units (u nknown) date) movement, unknown) no LOF or VB, no ctx, no further umbilical (unknown) (no (unknown) (unknown) Reports good (units (u nknown) date) movement, unknown) no LOF or VB, no ctx. Third tri labs wnl. (unknown) (no (unknown) (unknown) Safety (units (unkno wn) date) unknown) (unknown) (no (unknown) (unknown) Seatbelt use and (units (unknown) date) Influenza vaccine unknown) (ad thia fall) (unknown) (no (unknown) (unknown) Second Trimester (units (unknown) date) Education unknown) Checklist (unknown) (no (unknown) (unknown) Signed By: (units (unk nown) date) unknown) (unknown) (no (unknown) (unknown) Smoking Status: (units (unknown) date) Never smoker unknown) (unknown) (no (unknown) (unknown) Social History (units (unknown) date) unknown) (unknown) (no (unknown) (unknown) Surgical History (units (unknown) date) (Updated 04/08/21 unknown) @ 08:06 by Sena Espinal RN) (unknown) (no (unknown) (unknown) Surrogate (units (unkn own) date) ?: no unknown) (unknown) (no (unknown) (unknown) Symptoms since (units (unknown) date) LMP: Reports unknown) amenorrhea, nausea, vomiting, breast tenderness, (unknown) (no (unknown) (unknown) Tdap status: (units (u nknown) date) immunized unknown) (unknown) (no (unknown) (unknown) Teratogen (units (unkn own) date) Exposures since unknown) LMP/Conception: Denies prescription medications, (unknown) (no (unknown) (unknown) Testing (units (unkno wn) date) Education unknown) (unknown) (no (unknown) (unknown) Testing (units (unkno wn) date) education unknown) completed: Genetic testing, group B strep and Spina bifida (unknown) (no (unknown) (unknown) The patient has (units (unknown) date) irregular menses, unknown) and was dated by ultrasound today. She denies (unknown) (no (unknown) (unknown) The umbilicus (units ( unknown) date) was cleaned with unknown) a chlorhexadine swab, and we discussed keeping (unknown) (no (unknown) (unknown) This note may (units ( unknown) date) have been all or unknown) partially generated using voice recognition (unknown) (no (unknown) (unknown) Tobacco + (units (unkn own) date) Substance Use unknown) (unknown) (no (unknown) (unknown) Tobacco Status (units (unknown) date) unknown) (unknown) (no (unknown) (unknown) Type(s) of (units (unk nown) date) exercise: unknown) irregular exercise (unknown) (no (unknown) (unknown) UProtein Movement (units (unknown) date) PreLabor FHR Fndl unknown) Ht Pres Edema Cerv Exam US/Comment Next Appt (unknown) (no (unknown) (unknown) Ultrasound (units (unk nown) date) unknown) (unknown) (no (unknown) (unknown) Ultrasound (units (unk nown) date) Details:: TAUS unknown) performed. Viable SIUP visualized measuring 8+4 by (unknown) (no (unknown) (unknown) Varicella/chicke (units (unknown) date) n pox status: unknown) immunized (unknown) (no (unknown) (unknown) Visit Date: (units (un known) date) 04/19/21 Last unknown) Updated by: Katharine Martinez MD (unknown) (no (unknown) (unknown) Visit Date: (units (un known) date) 05/06/21 Last unknown) Updated by: Katharine Martinez MD (unknown) (no (unknown) (unknown) Visit Date: (units (un known) date) 05/17/21 Last unknown) Updated by: Katharine Martinez MD (unknown) (no (unknown) (unknown) Visit Date: (units (un known) date) 06/14/21 Last unknown) Updated by: Katharine Martinez MD (unknown) (no (unknown) (unknown) Visit Date: (units (un known) date) 07/22/21 Last unknown) Updated by: Katharine Martinez MD (unknown) (no (unknown) (unknown) Visit Date: (units (un known) date) 08/03/21 Last unknown) Updated by: Katharine Martinez MD (unknown) (no (unknown) (unknown) Visit Date: (units (un known) date) 08/23/21 Last unknown) Updated by: Katharine Martinez MD (unknown) (no (unknown) (unknown) Visit Date: (units (un known) date) 09/07/21 Last unknown) Updated by: Katharine Martinez MD (unknown) (no (unknown) (unknown) Visit Date: (units (un known) date) 09/23/21 Last unknown) Updated by: Clare Foss MD (unknown) (no (unknown) (unknown) Visit Date: (units (un known) date) 10/06/21 Last unknown) Updated by: Clare Foss MD (unknown) (no (unknown) (unknown) Visit Reasons: (units (unknown) date) OB unknown) (unknown) (no (unknown) (unknown) Vitals (units (unkno wn) date) unknown) (unknown) (no (unknown) (unknown) Vitamins and (units (u nknown) date) iron, Diet and unknown) weight gain, Fish and mercury intake, Smoking, (unknown) (no (unknown) (unknown) WG (units (unkno wn) date) unknown) (unknown) (no (unknown) (unknown) Weight 147 lb (units (unknown) date) unknown) (unknown) (no (unknown) (unknown) Zika virus (units (unk nown) date) exposure: No unknown) (unknown) (no (unknown) (unknown) [History (units (unkno wn) date) Confirmed unknown) 10/07/21] (unknown) (no (unknown) (unknown) activity, X-ray (units (unknown) date) exposure, unknown) Medication use, ETOH use, Sauna/hot tub use, Dental (unknown) (no (unknown) (unknown) alcohol intake: (units (unknown) date) former (stopped unknown) with , always light) (unknown) (no (unknown) (unknown) and 2#2, 53%, (units ( unknown) date) MVP 4.3cm. Breech unknown) presentation. Antepartum precautions discussed. (unknown) (no (unknown) (unknown) aneuploidy (units (unk nown) date) screening. unknown) (unknown) (no (unknown) (unknown) any significant (units (unknown) date) history, unknown) medications for bipolar disorder were discussed with (unknown) (no (unknown) (unknown) anyone in either (units (unknown) date) family with: unknown) (unknown) (no (unknown) (unknown) baby's father (units ( unknown) date) had a child with unknown) defects not listed above and Denies Other (unknown) (no (unknown) (unknown) bleeding. (units (unkn own) date) Feeling good unknown) movement. labor precautions reviewed. (unknown) (no (unknown) (unknown) bloating and (units (u nknown) date) other (night unknown) sweats, constipation) (unknown) (no (unknown) (unknown) bupropion HCl (units ( unknown) date) 150 mg tablet,12 unknown) hr sustained-release 150 mg PO DAILY 04/08/21 (unknown) (no (unknown) (unknown) but no other (units (u nknown) date) abnormal unknown) discharge. Patient today reports longstanding dizziness (unknown) (no (unknown) (unknown) caffeine: Yes (units ( unknown) date) (200mg) unknown) (unknown) (no (unknown) (unknown) carbon monox (units (u nknown) date) detector in home: unknown) Yes (unknown) (no (unknown) (unknown) care, HIV (units (unkn own) date) education, unknown) Marijuana use, Substance use, Domestic violence, Travel, (unknown) (no (unknown) (unknown) cetirizine 10 mg (units (unknown) date) tablet (Zyrtec) unknown) 10 mg PO DAILY PRN 04/08/21 [History Confirmed (unknown) (no (unknown) (unknown) cramping or (units (un known) date) bleeding. Patient unknown) does report that nausea was worse over the (unknown) (no (unknown) (unknown) current (units (unkno wn) date) occupational unknown) exposures/hazards : No (unknown) (no (unknown) (unknown) daily servings (units (unknown) date) fruits/ve-1 unknown) (unknown) (no (unknown) (unknown) defects. Care in (units (unknown) date) our clinic and unknown) aneuploidy screening discussed. Antepartum (unknown) (no (unknown) (unknown) described, visit (units (unknown) date) schedule unknown) reviewed, ultrasounds policy reviewed, coverage 24 (unknown) (no (unknown) (unknown) despite her (units (un known) date) efforts to keep unknown) the area clean with a bulb syringe. She denies (unknown) (no (unknown) (unknown) discussed and (units ( unknown) date) ordered. unknown) Antepartum precautions discussed. (unknown) (no (unknown) (unknown) discussed (units (unkno wn) date) precautions for unknown) return. Ovaries not visualized on TAUS today. Declines (unknown) (no (unknown) (unknown) discussed, (units (unk nown) date) tuberculosis unknown) exposure discussed, CMV discussed, Toxoplasmosis (unknown) (no (unknown) (unknown) disorders, (units (unk nown) date) Denies Cystic unknown) Fibrosis, Denies Mental Retardation/Autis m, Denies (unknown) (no (unknown) (unknown) do you feel safe (units (unknown) date) at home: Yes unknown) (unknown) (no (unknown) (unknown) drainage. TVUS (units ( unknown) date) performed and unknown) placenta now >4cm from cervix. Growth US performed (unknown) (no (unknown) (unknown) during the past (units (unknown) date) year weight has: unknown) remained stable (unknown) (no (unknown) (unknown) education level: (units (unknown) date) other (YVONNE) unknown) (unknown) (no (unknown) (unknown) encouraged to (units ( unknown) date) call with any unknown) questions or concerns. (unknown) (no (unknown) (unknown) endorse at (units (unk nown) date) initial visit. unknown) (unknown) (no (unknown) (unknown) fevers, chills, (units (unknown) date) or any other unknown) symptoms or obstetrical complaints. The area was (unknown) (no (unknown) (unknown) fire (units (unkno wn) date) extinguisher in unknown) home: No (unknown) (no (unknown) (unknown) firearms in (units (un known) date) home: No unknown) (unknown) (no (unknown) (unknown) fluoxetine 20 mg (units (unknown) date) capsule See Rx unknown) Instructions PO BID 04/08/21 [History Confirmed (unknown) (no (unknown) (unknown) green, opaque (units ( unknown) date) drainage from her unknown) belly button. This has continued intermittently (unknown) (no (unknown) (unknown) have occurred. (units (unknown) date) If there are any unknown) questions, please contact the Medical Records (unknown) (no (unknown) (unknown) hours a day and (units (unknown) date) participation of unknown) father in care and office visits (unknown) (no (unknown) (unknown) household (units (unkn own) date) members: spouse unknown) (unknown) (no (unknown) (unknown) housing: house (units (unknown) date) unknown) (unknown) (no (unknown) (unknown) ks (units (unkno wn) date) unknown) (unknown) (no (unknown) (unknown) lamotrigine 100 (units (unknown) date) mg tablet 100 mg unknown) PO BID 04/08/21 [History Confirmed 10/07/21] (unknown) (no (unknown) (unknown) lives (units (unkno wn) date) independently: unknown) Yes (unknown) (no (unknown) (unknown) marital status: (units (unknown) date) unknown) (unknown) (no (unknown) (unknown) may occur. (units (unk nown) date) Occasional unknown) wrong-word or 'sound-alike' substitutions may have (unknown) (no (unknown) (unknown) more. No VB or (units (unknown) date) LOF. Feeling unknown) some tingling beneath her right breast near (unknown) (no (unknown) (unknown) movement. No (units (u nknown) date) other symptoms or unknown) concerns, anatomy scan already scheduled. MSAFP (unknown) (no (unknown) (unknown) normal, skin (units (u nknown) date) exam normal in unknown) that area. No RUQ tenderness. Will check an (unknown) (no (unknown) (unknown) noted to be (units (un known) date) mildly unknown) erythmatous. A forceps was used to spread the umbilicus and (unknown) (no (unknown) (unknown) number of (units (unkn own) date) children: 0 unknown) (unknown) (no (unknown) (unknown) occupational (units (u nknown) date) status: employed unknown) (unknown) (no (unknown) (unknown) occurred due to (units (unknown) date) the inherent unknown) limitations of voice recognition software. Please (unknown) (no (unknown) (unknown) ondansetron HCl (units (unknown) date) 4 mg tablet 4 mg unknown) PO Q8H PRN nausea and vomiting #20 tabs (unknown) (no (unknown) (unknown) pets and (units (unkno wn) date) animals: No unknown) (unknown) (no (unknown) (unknown) placenta 1.8 cm (units (unknown) date) from os unknown) posteriorly, discussed follow up at 28 weeks. Also 88%, (unknown) (no (unknown) (unknown) precautions (units (un known) date) discussed. unknown) (unknown) (no (unknown) (unknown) precautions, (units (u nknown) date) Listeriosis unknown) prevention and Rubella Immunization (unknown) (no (unknown) (unknown) predating her (units ( unknown) date) . UA unknown) wnl, plans to try OTC monistat 7 instead of Affirm, (unknown) (no (unknown) (unknown) prenat.vits,poornima, (units (unknown) date) [id number] 1 unknown) tab PO DAILY 04/08/21 [History Confirmed (unknown) (no (unknown) (unknown) read the note (units ( unknown) date) carefully and unknown) recognize, using context, where these substitutions (unknown) (no (unknown) (unknown) reports feeling (units (unknown) date) movement, no ctx unknown) no LOF or VB. Recent anatomy scan showing (unknown) (no (unknown) (unknown) reports feeling (units (unknown) date) well with no UTI unknown) sx, no cramping or bleeding, starting to feel (unknown) (no (unknown) (unknown) resolved with (units ( unknown) date) getting off her unknown) feet. Advise off feet and hydration, did not (unknown) (no (unknown) (unknown) resolving call. (units (unknown) date) Discussed how to unknown) detect contractions and to call if 6 per hour (unknown) (no (unknown) (unknown) seatbelt use: (units ( unknown) date) always unknown) (unknown) (no (unknown) (unknown) second hand (units (un known) date) exposure: No unknown) (unknown) (no (unknown) (unknown) software. (units (unkn own) date) Although every unknown) effort is made to edit content, director family errors (unknown) (no (unknown) (unknown) spotting and RLQ (units (unknown) date) cramping. Viable unknown) SIUP seen via TAUS, +movement. Reports the (unknown) (no (unknown) (unknown) spotting has (units (un known) date) resolved and the unknown) cramping remains moderate, some vaginal irritation (unknown) (no (unknown) (unknown) substance use (units ( unknown) date) type: does not unknown) use (unknown) (no (unknown) (unknown) testing (units (unkno wn) date) unknown) (unknown) (no (unknown) (unknown) the area clean (units (unknown) date) and dry, using unknown) topical antifungal cream, and monitoring. She was (unknown) (no (unknown) (unknown) to belly button (units (unknown) date) drainage. The unknown) patient reports that late last week she noticed (unknown) (no (unknown) (unknown) triage nurses (units ( unknown) date) and are cat C in unknown) with no known associated with (unknown) (no (unknown) (unknown) ultrasound for (units (unknown) date) EFW within next unknown) visit, initially measured a little larger. (unknown) (no (unknown) (unknown) visualize the (units (u nknown) date) base, which was unknown) intact with no discrete lesions or foreign bodies. (unknown) (no (unknown) (unknown) water heater (units (u nknown) date) temp set < 120 unknown) deg: Yes (will check) (unknown) (no (unknown) (unknown) weekend, did (units (u nknown) date) have streaks of unknown) blood in her vomit x1 that has since resolved. (unknown) (no (unknown) (unknown) well-balanced (units ( unknown) date) diet: about half unknown) the time (unknown) (no (unknown) (unknown) will do growth (units (unknown) date) US at that time. unknown) Antepartum precautions discussed. (unknown) (no (unknown) (unknown) wks (units (unkno wn) date) unknown) (unknown) (no (unknown) (unknown) working smoke (units ( unknown) date) detector in home: unknown) Yes Result panel 20 (unknown) (no (unknown) (unknown) (no value) (units (unk nown) date) unknown) (unknown) (no (unknown) (unknown) 10/20/19 5-6 (units (u nknown) date) spontaneous unknown) (unknown) (no (unknown) (unknown) [id number] here (units ( unknown) date) for a routine OB unknown) appt at 31 weeks. She denies any problems. (unknown) (no (unknown) (unknown) 32wk3d. She (units (u nknown) date) reports some unknown) episodes of cramping, they do eventually (unknown) (no (unknown) (unknown) Here yesterday. (units (unknown) date) Patient called unknown) today noticing some discharge consistent (unknown) (no (unknown) (unknown) N Yes no (units (unknown) date) 142 34 unknown) Vertex absent 2wk (unknown) (no (unknown) (unknown) N Yes no (units (unknown) date) 143 28 unknown) absent 2 wks (unknown) (no (unknown) (unknown) N Yes no (units (unknown) date) 144 32 unknown) Vertex absent 2wk (unknown) (no (unknown) (unknown) N Yes no (units (unknown) date) 146 Vertex unknown) absent 1/25% 2 wk (unknown) (no (unknown) (unknown) N Yes no (units (unknown) date) 146 absent unknown) 4 wks (unknown) (no (unknown) (unknown) N Yes no (units (unknown) date) 150 21 unknown) absent 4 wks (unknown) (no (unknown) (unknown) This patient is (units (unknown) date) a 25yo @11+0 unknown) presenting to follow up 10 days of brown (unknown) (no (unknown) (unknown) This patient is (units (unknown) date) a 25yo @12+4 unknown) presenting for routine obstetric care. (unknown) (no (unknown) (unknown) This patient is (units (unknown) date) a 25yo @16+4 unknown) presenting for routine OB care. Patient (unknown) (no (unknown) (unknown) This patient is (units (unknown) date) a 25yo @22+0 unknown) presenting for routine OB care. Patient (unknown) (no (unknown) (unknown) This patient is (units (unknown) date) a 25yo @23+5 unknown) presenting for an unscheduled visit due (unknown) (no (unknown) (unknown) This patient is (units (unknown) date) a 25yo @26+4 unknown) presenting for routine care. (unknown) (no (unknown) (unknown) This patient is (units (unknown) date) a 25yo @28+5 unknown) presenting for routine care. (unknown) (no (unknown) (unknown) This patient is (units (unknown) date) a 25yo unknown) @8+4 presenting to initiate care. (unknown) (no (unknown) (unknown) (no value) (units (unk nown) date) unknown) (unknown) (no (unknown) (unknown) none (units (unkno wn) date) unknown) (unknown) (no (unknown) (unknown) (no value) (units (unk nown) date) unknown) (unknown) (no (unknown) (unknown) (+2 lb 1 oz) (units (u nknown) date) 104/58 N unknown) (unknown) (no (unknown) (unknown) (+2 lb 3 oz) (units (u nknown) date) 106/60 N unknown) (unknown) (no (unknown) (unknown) (+20 lb) (units (unkno wn) date) 92/58 N unknown) (unknown) (no (unknown) (unknown) (+22 lb) (units (unkno wn) date) 106/62 unknown) (unknown) (no (unknown) (unknown) (+29 lb) (units (unkno wn) date) 94/52 N unknown) (unknown) (no (unknown) (unknown) (+3 lb) (units (unkno wn) date) 100/60 N unknown) (unknown) (no (unknown) (unknown) (+33 lb) (units (unkno wn) date) 102/62 N unknown) (unknown) (no (unknown) (unknown) (+36 lb) (units (unkno wn) date) 98/62 N unknown) (unknown) (no (unknown) (unknown) (+37 lb) (units (unkno wn) date) 106/64 N unknown) (unknown) (no (unknown) (unknown) (+37 lb) (units (unkno wn) date) 110/64 N unknown) (unknown) (no (unknown) (unknown) (+9 lb 7 oz) (units (u nknown) date) 110/60 N unknown) (unknown) (no (unknown) (unknown) 04/19/21 (units (unkno wn) date) unknown) (unknown) (no (unknown) (unknown) 05/06/21 (units (unkno wn) date) unknown) (unknown) (no (unknown) (unknown) 05/17/21 (units (unkno wn) date) unknown) (unknown) (no (unknown) (unknown) 06/14/21 (units (unkno wn) date) unknown) (unknown) (no (unknown) (unknown) 07/22/21 (units (unkno wn) date) unknown) (unknown) (no (unknown) (unknown) 08/03/21 (units (unkno wn) date) unknown) (unknown) (no (unknown) (unknown) 08/23/21 (units (unkno wn) date) unknown) (unknown) (no (unknown) (unknown) 09/07/21 (units (unkno wn) date) unknown) (unknown) (no (unknown) (unknown) 09/23/21 (units (unkno wn) date) unknown) (unknown) (no (unknown) (unknown) 10/06/21 (units (unkno wn) date) unknown) (unknown) (no (unknown) (unknown) 10/07/21 (units (unkno wn) date) unknown) (unknown) (no (unknown) (unknown) 10/07/21 1745 (units ( unknown) date) unknown) (unknown) (no (unknown) (unknown) 11w 0d 113 lb (units (unknown) date) unknown) (unknown) (no (unknown) (unknown) 12w 4d 112 lb (units (unknown) date) 3 oz unknown) (unknown) (no (unknown) (unknown) 16:34 (units (unkno wn) date) unknown) (unknown) (no (unknown) (unknown) 16w 4d 119 lb (units (unknown) date) 7 oz unknown) (unknown) (no (unknown) (unknown) 22w 0d 130 lb (units (unknown) date) unknown) (unknown) (no (unknown) (unknown) 23w 5d 132 lb (units (unknown) date) unknown) (unknown) (no (unknown) (unknown) 26w 4d 139 lb (units (unknown) date) unknown) (unknown) (no (unknown) (unknown) 28w 5d 143 lb (units (unknown) date) unknown) (unknown) (no (unknown) (unknown) 31w 0d 146 lb (units (unknown) date) unknown) (unknown) (no (unknown) (unknown) 32w 6d 147 lb (units (unknown) date) unknown) (unknown) (no (unknown) (unknown) 33w 0d 147 lb (units (unknown) date) unknown) (unknown) (no (unknown) (unknown) 8w 4d 112 lb (units (unknown) date) 1 oz unknown) (unknown) (no (unknown) (unknown) [place], [place] (units ( unknown) date) [id number] unknown) (unknown) (no (unknown) (unknown) Current Estimate (units (unknown) date) 11/25/21 unknown) Ultrasound #1 33w 0d (unknown) (no (unknown) (unknown) Estimated (units (unkn own) date) Delivery Date unknown) Method Current (unknown) (no (unknown) (unknown) [facility]) (unknown) (no (unknown) (unknown) KF (units (unkno wn) date) unknown) (unknown) (no (unknown) (unknown) N 167 (units (unkno wn) date) absent wnl unknown) (unknown) (no (unknown) (unknown) OB Office Visit (units (unknown) date) unknown) (unknown) (no (unknown) (unknown) Other Estimates (units (unknown) date) 11/09/21 unknown) LMP (Uncertain) 35w 2d (unknown) (no (unknown) (unknown) Signed (units (unkno wn) date) unknown) (unknown) (no (unknown) (unknown) TR 152 (units (unkn own) date) absent 4 w unknown) (unknown) (no (unknown) (unknown) TR 164 (units (unkn own) date) absent wnl unknown) (unknown) (no (unknown) (unknown) TR (units (unkno wn) date) unknown) (unknown) (no (unknown) (unknown) Yes no (units (u nknown) date) 153 absent unknown) (unknown) (no (unknown) (unknown) amh (units (unkno wn) date) unknown) (unknown) (no (unknown) (unknown) (no value) (units (unk nown) date) unknown) (unknown) (no (unknown) (unknown) N Yes no (units (unknown) date) 148 27 unknown) Breech absent See below 3 (unknown) (no (unknown) (unknown) 4 wks (units (unkno wn) date) unknown) (unknown) (no (unknown) (unknown) Cramping from (units ( unknown) date) back to words her unknown) front. Prior cramping she reported yesterday, (unknown) (no (unknown) (unknown) Not feeling any (units (unknown) date) contractions. No unknown) cramping, leakage of fluid or vaginal (unknown) (no (unknown) (unknown) as scheduled (units (u nknown) date) unknown) (unknown) (no (unknown) (unknown) (1) 33 weeks (units (u nknown) date) gestation of unknown) : (unknown) (no (unknown) (unknown) (2) Cramping (units (u nknown) date) affecting unknown) , antepartum: (unknown) (no (unknown) (unknown) Genetic (units (unkn own) date) Screening/Teratol unknown) ogy Counseling - Includes patient, baby's father, or (unknown) (no (unknown) (unknown) - Bipolar - (units (un known) date) Stable on unknown) lamotrigine, fluoxetine, and wellbutrin. Of note, did not (unknown) (no (unknown) (unknown) - Declined (units (unk nown) date) aneuploidy unknown) screening, MSAFP wnl (unknown) (no (unknown) (unknown) - New OB labs (units ( unknown) date) showed UTI, for unknown) MCKENZIE- sent 05/17 (unknown) (no (unknown) (unknown) - Placenta (units (unk nown) date) previously low unknown) lying, resolved (unknown) (no (unknown) (unknown) - Varicella (units (un known) date) non-immune unknown) (unknown) (no (unknown) (unknown) -?-?-?-?-?-?-?-? (units (unknown) date) -?-?-?-?- unknown) (unknown) (no (unknown) (unknown) [id number] (units (unkn own) date) unknown) (unknown) (no (unknown) (unknown) 05/17/21 [Rx (units (u nknown) date) Confirmed unknown) 10/07/21] (unknown) (no (unknown) (unknown) 10/07/21 (units (unkno wn) date) unknown) (unknown) (no (unknown) (unknown) 10/07/21] (units (unkn own) date) unknown) (unknown) (no (unknown) (unknown) 32 (units (unkno wn) date) unknown) (unknown) (no (unknown) (unknown) A little pelvic (units (unknown) date) cramping unknown) (unknown) (no (unknown) (unknown) Abnormal lab (units (u nknown) date) values 1st unknown) trimester: discussed (unknown) (no (unknown) (unknown) Abnormal lab (units (u nknown) date) values 2nd unknown) trimester: discussed (unknown) (no (unknown) (unknown) Add'l Plan (units (unk nown) date) Details unknown) (unknown) (no (unknown) (unknown) Advised to check (units (unknown) date) for her routine unknown) movement daily. (unknown) (no (unknown) (unknown) Age/Sex: 25 / F (units (unknown) date) Date of unknown) Service: (unknown) (no (unknown) (unknown) Allergies (units (unkn own) date) unknown) (unknown) (no (unknown) (unknown) Aneuploidy (units (unk nown) date) Screening unknown) Offered: Accepted (considering options) (unknown) (no (unknown) (unknown) Antepartum (units (unk nown) date) precautions and unknown) kick counts discussed. (unknown) (no (unknown) (unknown) Anticipated (units (un known) date) course of unknown) care: discussed (unknown) (no (unknown) (unknown) Assessment and (units (unknown) date) Plan unknown) (unknown) (no (unknown) (unknown) Attending Dr: (units ( unknown) date) Clare Araya unknown) Prudence RAMÍREZ (unknown) (no (unknown) (unknown) BMI 28.7 (units (un known) date) unknown) (unknown) (no (unknown) (unknown) BP 106/64 (units (u nknown) date) unknown) (unknown) (no (unknown) (unknown) (units (unkno wn) date) Plan/Preferences unknown) (unknown) (no (unknown) (unknown) Planning (units (unknown) date) unknown) (unknown) (no (unknown) (unknown) Blood Pressure (units (unknown) date) Location Rt unknown) brachial (unknown) (no (unknown) (unknown) Blood (units (unkno wn) date) transfusions?: unknown) yes (unknown) (no (unknown) (unknown) Breastfeed (units (unk nown) date) Preg Comp Name unknown) (unknown) (no (unknown) (unknown) CRL, no gross (units ( unknown) date) abnormalities unknown) noted. Ovaries not visualized. (unknown) (no (unknown) (unknown) Caffeine use, (units ( unknown) date) Exercise and unknown) activity, work/environmenta l/hazards, Sexual (unknown) (no (unknown) (unknown) Childbirth (units (unk nown) date) Classes: unknown) discussed (unknown) (no (unknown) (unknown) Current (units (unkno wn) date) History unknown) (unknown) (no (unknown) (unknown) : 1995 (units (unknown) date) Acct:[id number] unknown) (unknown) (no (unknown) (unknown) Date (units (unkno wn) date) unknown) (unknown) (no (unknown) (unknown) Date of positive (units (unknown) date) home unknown) test: 03/20/21 (unknown) (no (unknown) (unknown) Del. Date (units (unkn own) date) GA/Weeks Labor unknown) Lgth Wt Sex Route Outcome Anesthesia Place (unknown) (no (unknown) (unknown) Delv (units (unkno wn) date) unknown) (unknown) (no (unknown) (unknown) Denies Congenital (units (unknown) date) Heart Defect, unknown) Denies Down Syndrome, Denies Muscular Dystrophy, (unknown) (no (unknown) (unknown) Denies Maternal (units (unknown) date) Metabolic unknown) Disorder (EG,TYPE 1 Diabetes, PKU), Denies Patient or (unknown) (no (unknown) (unknown) Denies Neural (units ( unknown) date) Tube Defect unknown) (Meningomyelocele , Spina Bifida, or Anencephaly), (unknown) (no (unknown) (unknown) Denies Sickle (units ( unknown) date) Cell Disease or unknown) Trait (), Denies Hemophilia or other blood (unknown) (no (unknown) (unknown) Denies Moustapha-Sachs (units (unknown) date) (Ashkenazi unknown) Adventism, Cajun, English Nigerien), Denies Sebastián (unknown) (no (unknown) (unknown) Denies other (units (u nknown) date) unknown) (unknown) (no (unknown) (unknown) Denies over the (units (unknown) date) counter unknown) medications, Denies alcohol, Denies illicit drugs and (unknown) (no (unknown) (unknown) Depression: (units (un known) date) discussed unknown) (unknown) (no (unknown) (unknown) Dept at (units (unkno wn) date) . unknown) (unknown) (no (unknown) (unknown) Diet and (units (unkno wn) date) Exercise unknown) (unknown) (no (unknown) (unknown) Discussed (units (unkn own) date) Zofran. Patient unknown) declines aneuploidy screening, MSAFP at next visit. (unknown) (no (unknown) (unknown) Disease (units (unkno wn) date) (Ashkenazi unknown) Adventism), Denies Familial Dysautonomia (Ashkenazi Adventism), (unknown) (no (unknown) (unknown) Documented By: (units (unknown) date) Clare Foss unknown) Quiana RAMÍREZ 10/07/21 16 (unknown) (no (unknown) (unknown) RERE Calculator (units (unknown) date) unknown) (unknown) (no (unknown) (unknown) EGA Weight BP (units ( unknown) date) UGlucose unknown) (unknown) (no (unknown) (unknown) Family History (units (unknown) date) (Updated 04/08/21 unknown) @ 08:07 by Sena Espinal RN) (unknown) (no (unknown) (unknown) Father (units (unkno wn) date) Metabolic unknown) syndrome (unknown) (no (unknown) (unknown) Father of Baby: (units (unknown) date) Abiam unknown) (unknown) (no (unknown) (unknown) First Trimester (units (unknown) date) Education unknown) Checklist (unknown) (no (unknown) (unknown) Genetic (units (unkno wn) date) Screening unknown) (unknown) (no (unknown) (unknown) Genetic (units (unkno wn) date) Screening + unknown) Counseling (unknown) (no (unknown) (unknown) Grandmother (units (un known) date) Breast cancer unknown) (unknown) (no (unknown) (unknown) 2 (units (unknown) date) Multiple unknown) births (unknown) (no (unknown) (unknown) H/O wisdom tooth (units (unknown) date) extraction unknown) (unknown) (no (unknown) (unknown) HIV risk (units (unkno wn) date) evaluation: low unknown) risk (unknown) (no (unknown) (unknown) Health Center (units ( unknown) date) Education unknown) (unknown) (no (unknown) (unknown) Health center (units ( unknown) date) information: unknown) nature of practice discussed, personnel (unknown) (no (unknown) (unknown) Height 5 ft (units (unknown) date) unknown) (unknown) (no (unknown) (unknown) Hepatitis C risk (units (unknown) date) evaluation: low unknown) risk (unknown) (no (unknown) (unknown) History of (units (unk nown) date) Hepatitis B: No unknown) (unknown) (no (unknown) (unknown) History of (units (unk nown) date) Hepatitis C: No unknown) (unknown) (no (unknown) (unknown) History of PCOS (units (unknown) date) unknown) (unknown) (no (unknown) (unknown) [facility] ([facility] (u nknown[facility]) unknown) (unknown) (no (unknown) (unknown) [facility] (units (u nknown) date) Chorea, Denies unknown) Other inherited genetic or chromosomal disorder, (unknown) (no (unknown) (unknown) Hx # (units (u nknown) date) Pregnancies unknown) Elective abortions (unknown) (no (unknown) (unknown) Hx # Term (units (unkn own) date) Pregnancies unknown) Ectopic pregnancies (unknown) (no (unknown) (unknown) will be (units (unknown) date) adopted?: no unknown) (unknown) (no (unknown) (unknown) Infection (units (unkn own) date) History unknown) (unknown) (no (unknown) (unknown) Infectious (units (unk nown) date) Disease Education unknown) (unknown) (no (unknown) (unknown) Infectious (units (unk nown) date) disease exposure: unknown) chicken pox immunity discussed, hepatitis risk (unknown) (no (unknown) (unknown) Initial Weight: (units (unknown) date) 110 lb unknown) (unknown) (no (unknown) (unknown) Initials (units (unkno wn) date) unknown) (unknown) (no (unknown) (unknown) Intake (units (unkno wn) date) unknown) (unknown) (no (unknown) (unknown) Intake Note: (units (u nknown) date) unknown) (unknown) (no (unknown) (unknown) Live with (units (unkn own) date) someone with TB unknown) or exposed to TB: No (unknown) (no (unknown) (unknown) Loc: [facility] (units (unkno wn) date) unknown) (unknown) (no (unknown) (unknown) Marital status: (units (unknown) date) unknown) (unknown) (no (unknown) (unknown) Medical History (units (unknown) date) (Updated 04/08/21 unknown) @ 08:06 by Sena Espinal RN) (unknown) (no (unknown) (unknown) Medications (units (un known) date) unknown) (unknown) (no (unknown) (unknown) No Known Drug (units ( unknown) date) Allergies Allergy unknown) (Unverified 10/07/21 16:34) (unknown) (no (unknown) (unknown) Notes (units (unkno wn) date) unknown) (unknown) (no (unknown) (unknown) Number of Living (units (unknown) date) Children unknown) (unknown) (no (unknown) (unknown) Number of (units (unkn own) date) fetuses:: Single unknown) (unknown) (no (unknown) (unknown) Nutrition and (units ( unknown) date) weight gain unknown) counseling: special diet: discussed (unknown) (no (unknown) (unknown) OB Visit Log (units (u nknown) date) unknown) (unknown) (no (unknown) (unknown) OB check (units (unkno wn) date) unknown) (unknown) (no (unknown) (unknown) On control (units (unknown) date) at conception?: unknown) No (unknown) (no (unknown) (unknown) PFSH (units (unkno wn) date) unknown) (unknown) (no (unknown) (unknown) Para 0 (units ( unknown) date) Spontaneous unknown) abortions 1 (unknown) (no (unknown) (unknown) Partner history (units (unknown) date) of STD: denies hx unknown) (unknown) (no (unknown) (unknown) Partner history (units (unknown) date) of genital unknown) herpes: No (unknown) (no (unknown) (unknown) Partner: Abiam (units (unknown) date) unknown) (unknown) (no (unknown) (unknown) Past Pregnancies (units (unknown) date) unknown) (unknown) (no (unknown) (unknown) Patient was (units (un known) date) recently treated unknown) for UTI with resolution of symptoms, no further (unknown) (no (unknown) (unknown) Patient's age 33 (units (unknown) date) years or older as unknown) of estimated date of delivery: No (unknown) (no (unknown) (unknown) Patient: (units (unkno wn) date) Sally Thurston Y unknown) MR#: M (unknown) (no (unknown) (unknown) 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) (unknown) (no (unknown) (unknown) Personal history (units (unknown) date) of STD: denies hx unknown) (unknown) (no (unknown) (unknown) Personal history (units (unknown) date) of genital unknown) herpes: No (unknown) (no (unknown) (unknown) Position (units (unkno wn) date) Sitting unknown) (unknown) (no (unknown) (unknown) (units (unkn own) date) History unknown) (unknown) (no (unknown) (unknown) type:: (units (unknown) date) Other Normal unknown) (unknown) (no (unknown) (unknown) (units (unkno wn) date) Education unknown) (unknown) (no (unknown) (unknown) Initial (units (unknown) date) Assessment unknown) (unknown) (no (unknown) (unknown) (units (unkno wn) date) Specific unknown) Issues/Plans (unknown) (no (unknown) (unknown) (units (unkno wn) date) Testing: unknown) discussed (unknown) (no (unknown) (unknown) Visit (units (unknown) date) unknown) (unknown) (no (unknown) (unknown) (units (unkno wn) date) education packet: unknown) Child education/plan, symptoms, (unknown) (no (unknown) (unknown) Primary Care (units (u nknown) date) Provider: MANISH unknown) Kristopher (unknown) (no (unknown) (unknown) Primary Ob (units (unk nown) date) Provider: unknown) Katharine Martinez (unknown) (no (unknown) (unknown) Providers (units (unkn own) date) unknown) (unknown) (no (unknown) (unknown) Pt states she (units ( unknown) date) has had some unknown) mucus type discharge (unknown) (no (unknown) (unknown) Rash or viral (units ( unknown) date) illness since unknown) last menstrual period: No (unknown) (no (unknown) (unknown) Reason For Visit (units (unknown) date) unknown) (unknown) (no (unknown) (unknown) Recurrent (units (unkn own) date) loss or unknown) a stillbirth: No (unknown) (no (unknown) (unknown) Referred for 3rd (units (unknown) date) tri labs. unknown) (unknown) (no (unknown) (unknown) Reports good (units (u nknown) date) movement, unknown) no LOF or VB, no ctx, no further umbilical (unknown) (no (unknown) (unknown) Reports good (units (u nknown) date) movement, unknown) no LOF or VB, no ctx. Third tri labs wnl. (unknown) (no (unknown) (unknown) Safety (units (unkno wn) date) unknown) (unknown) (no (unknown) (unknown) Seatbelt use and (units (unknown) date) Influenza vaccine unknown) (ad thia fall) (unknown) (no (unknown) (unknown) Second Trimester (units (unknown) date) Education unknown) Checklist (unknown) (no (unknown) (unknown) Signed By: (units (unk nown) date) <Electronically unknown) signed by Clare Foss MD> (unknown) (no (unknown) (unknown) Smoking Status: (units (unknown) date) Never smoker unknown) (unknown) (no (unknown) (unknown) Social History (units (unknown) date) unknown) (unknown) (no (unknown) (unknown) Surgical History (units (unknown) date) (Updated 04/08/21 unknown) @ 08:06 by Sena Espinal RN) (unknown) (no (unknown) (unknown) Surrogate (units (unkn own) date) ?: no unknown) (unknown) (no (unknown) (unknown) Symptoms since (units (unknown) date) LMP: Reports unknown) amenorrhea, nausea, vomiting, breast tenderness, (unknown) (no (unknown) (unknown) Tdap status: (units (u nknown) date) immunized unknown) (unknown) (no (unknown) (unknown) Teratogen (units (unkn own) date) Exposures since unknown) LMP/Conception: Denies prescription medications, (unknown) (no (unknown) (unknown) Testing (units (unkno wn) date) Education unknown) (unknown) (no (unknown) (unknown) Testing (units (unkno wn) date) education unknown) completed: Genetic testing, group B strep and Spina bifida (unknown) (no (unknown) (unknown) The patient has (units (unknown) date) irregular menses, unknown) and was dated by ultrasound today. She denies (unknown) (no (unknown) (unknown) The umbilicus (units ( unknown) date) was cleaned with unknown) a chlorhexadine swab, and we discussed keeping (unknown) (no (unknown) (unknown) This note may (units ( unknown) date) have been all or unknown) partially generated using voice recognition (unknown) (no (unknown) (unknown) Tobacco + (units (unkn own) date) Substance Use unknown) (unknown) (no (unknown) (unknown) Tobacco Status (units (unknown) date) unknown) (unknown) (no (unknown) (unknown) Type(s) of (units (unk nown) date) exercise: unknown) irregular exercise (unknown) (no (unknown) (unknown) UProtein Movement (units (unknown) date) PreLabor FHR Fndl unknown) Ht Pres Edema Cerv Exam US/Comment Next Appt (unknown) (no (unknown) (unknown) Ultrasound (units (unk nown) date) unknown) (unknown) (no (unknown) (unknown) Ultrasound (units (unk nown) date) Details:: TAUS unknown) performed. Viable SIUP visualized measuring 8+4 by (unknown) (no (unknown) (unknown) Varicella/chicke (units (unknown) date) n pox status: unknown) immunized (unknown) (no (unknown) (unknown) Visit Date: (units (un known) date) 04/19/21 Last unknown) Updated by: Katharine Martinez MD (unknown) (no (unknown) (unknown) Visit Date: (units (un known) date) 05/06/21 Last unknown) Updated by: Katharine Martinez MD (unknown) (no (unknown) (unknown) Visit Date: (units (un known) date) 05/17/21 Last unknown) Updated by: Katharine Martinez MD (unknown) (no (unknown) (unknown) Visit Date: (units (un known) date) 06/14/21 Last unknown) Updated by: Katharine Martinez MD (unknown) (no (unknown) (unknown) Visit Date: (units (un known) date) 07/22/21 Last unknown) Updated by: Katharine Martinez MD (unknown) (no (unknown) (unknown) Visit Date: (units (un known) date) 08/03/21 Last unknown) Updated by: Katharine Martinez MD (unknown) (no (unknown) (unknown) Visit Date: (units (un known) date) 08/23/21 Last unknown) Updated by: Katharine Martinez MD (unknown) (no (unknown) (unknown) Visit Date: (units (un known) date) 09/07/21 Last unknown) Updated by: Katharine Martinez MD (unknown) (no (unknown) (unknown) Visit Date: (units (un known) date) 09/23/21 Last unknown) Updated by: Clare Foss MD (unknown) (no (unknown) (unknown) Visit Date: (units (un known) date) 10/06/21 Last unknown) Updated by: Clare Foss MD (unknown) (no (unknown) (unknown) Visit Date: (units (un known) date) 10/07/21 Last unknown) Updated by: Clare Foss MD (unknown) (no (unknown) (unknown) Visit Reasons: (units (unknown) date) OB unknown) (unknown) (no (unknown) (unknown) Vitals (units (unkno wn) date) unknown) (unknown) (no (unknown) (unknown) Vitamins and (units (u nknown) date) iron, Diet and unknown) weight gain, Fish and mercury intake, Smoking, (unknown) (no (unknown) (unknown) WG (units (unkno wn) date) unknown) (unknown) (no (unknown) (unknown) Weight 147 lb (units (unknown) date) unknown) (unknown) (no (unknown) (unknown) Zika virus (units (unk nown) date) exposure: No unknown) (unknown) (no (unknown) (unknown) [History (units (unkno wn) date) Confirmed unknown) 10/07/21] (unknown) (no (unknown) (unknown) activity, X-ray (units (unknown) date) exposure, unknown) Medication use, ETOH use, Sauna/hot tub use, Dental (unknown) (no (unknown) (unknown) alcohol intake: (units (unknown) date) former (stopped unknown) with , always light) (unknown) (no (unknown) (unknown) and 2#2, 53%, (units ( unknown) date) MVP 4.3cm. Breech unknown) presentation. Antepartum precautions discussed. (unknown) (no (unknown) (unknown) aneuploidy (units (unk nown) date) screening. unknown) (unknown) (no (unknown) (unknown) any significant (units (unknown) date) history, unknown) medications for bipolar disorder were discussed with (unknown) (no (unknown) (unknown) anyone in either (units (unknown) date) family with: unknown) (unknown) (no (unknown) (unknown) baby's father (units ( unknown) date) had a child with unknown) defects not listed above and Denies Other (unknown) (no (unknown) (unknown) bleeding. (units (unkn own) date) Feeling good unknown) movement. labor precautions reviewed. (unknown) (no (unknown) (unknown) bloating and (units (u nknown) date) other (night unknown) sweats, constipation) (unknown) (no (unknown) (unknown) bupropion HCl (units ( unknown) date) 150 mg tablet,12 unknown) hr sustained-release 150 mg PO DAILY 04/08/21 (unknown) (no (unknown) (unknown) but no other (units (u nknown) date) abnormal unknown) discharge. Patient today reports longstanding dizziness (unknown) (no (unknown) (unknown) caffeine: Yes (units ( unknown) date) (200mg) unknown) (unknown) (no (unknown) (unknown) carbon monox (units (u nknown) date) detector in home: unknown) Yes (unknown) (no (unknown) (unknown) care, HIV (units (unkn own) date) education, unknown) Marijuana use, Substance use, Domestic violence, Travel, (unknown) (no (unknown) (unknown) cervical exam (units ( unknown) date) with long unknown) effacement. With some cramping the past 2 days, (unknown) (no (unknown) (unknown) cetirizine 10 mg (units (unknown) date) tablet (Zyrtec) unknown) 10 mg PO DAILY PRN 04/08/21 [History Confirmed (unknown) (no (unknown) (unknown) contractions. (units ( unknown) date) unknown) (unknown) (no (unknown) (unknown) cramping or (units (un known) date) bleeding. Patient unknown) does report that nausea was worse over the (unknown) (no (unknown) (unknown) current (units (unkno wn) date) occupational unknown) exposures/hazards : No (unknown) (no (unknown) (unknown) daily servings (units (unknown) date) fruits/ve-1 unknown) (unknown) (no (unknown) (unknown) defects. Care in (units (unknown) date) our clinic and unknown) aneuploidy screening discussed. Antepartum (unknown) (no (unknown) (unknown) described, visit (units (unknown) date) schedule unknown) reviewed, ultrasounds policy reviewed, coverage 24 (unknown) (no (unknown) (unknown) despite her (units (un known) date) efforts to keep unknown) the area clean with a bulb syringe. She denies (unknown) (no (unknown) (unknown) discussed and (units ( unknown) date) ordered. unknown) Antepartum precautions discussed. (unknown) (no (unknown) (unknown) discussed (units (unkno wn) date) precautions for unknown) return. Ovaries not visualized on TAUS today. Declines (unknown) (no (unknown) (unknown) discussed, (units (unk nown) date) tuberculosis unknown) exposure discussed, CMV discussed, Toxoplasmosis (unknown) (no (unknown) (unknown) disorders, (units (unk nown) date) Denies Cystic unknown) Fibrosis, Denies Mental Retardation/Autis m, Denies (unknown) (no (unknown) (unknown) do you feel safe (units (unknown) date) at home: Yes unknown) (unknown) (no (unknown) (unknown) drainage. TVUS (units ( unknown) date) performed and unknown) placenta now >4cm from cervix. Growth US performed (unknown) (no (unknown) (unknown) during the past (units (unknown) date) year weight has: unknown) remained stable (unknown) (no (unknown) (unknown) education level: (units (unknown) date) other (YVONNE) unknown) (unknown) (no (unknown) (unknown) encouraged to (units ( unknown) date) call with any unknown) questions or concerns. (unknown) (no (unknown) (unknown) endorse at (units (unk nown) date) initial visit. unknown) (unknown) (no (unknown) (unknown) fevers, chills, (units (unknown) date) or any other unknown) symptoms or obstetrical complaints. The area was (unknown) (no (unknown) (unknown) fire (units (unkno wn) date) extinguisher in unknown) home: No (unknown) (no (unknown) (unknown) firearms in (units (un known) date) home: No unknown) (unknown) (no (unknown) (unknown) fluoxetine 20 mg (units (unknown) date) capsule See Rx unknown) Instructions PO BID 04/08/21 [History Confirmed (unknown) (no (unknown) (unknown) green, opaque (units ( unknown) date) drainage from her unknown) belly button. This has continued intermittently (unknown) (no (unknown) (unknown) have occurred. (units (unknown) date) If there are any unknown) questions, please contact the Medical Records (unknown) (no (unknown) (unknown) hours a day and (units (unknown) date) participation of unknown) father in care and office visits (unknown) (no (unknown) (unknown) household (units (unkn own) date) members: spouse unknown) (unknown) (no (unknown) (unknown) housing: house (units (unknown) date) unknown) (unknown) (no (unknown) (unknown) ks (units (unkno wn) date) unknown) (unknown) (no (unknown) (unknown) lamotrigine 100 (units (unknown) date) mg tablet 100 mg unknown) PO BID 04/08/21 [History Confirmed 10/07/21] (unknown) (no (unknown) (unknown) lives (units (unkno wn) date) independently: unknown) Yes (unknown) (no (unknown) (unknown) marital status: (units (unknown) date) unknown) (unknown) (no (unknown) (unknown) may occur. (units (unk nown) date) Occasional unknown) wrong-word or 'sound-alike' substitutions may have (unknown) (no (unknown) (unknown) more. No VB or (units (unknown) date) LOF. Feeling unknown) some tingling beneath her right breast near (unknown) (no (unknown) (unknown) movement. No (units (u nknown) date) other symptoms or unknown) concerns, anatomy scan already scheduled. MSAFP (unknown) (no (unknown) (unknown) normal, skin (units (u nknown) date) exam normal in unknown) that area. No RUQ tenderness. Will check an (unknown) (no (unknown) (unknown) noted to be (units (un known) date) mildly unknown) erythmatous. A forceps was used to spread the umbilicus and (unknown) (no (unknown) (unknown) number of (units (unkn own) date) children: 0 unknown) (unknown) (no (unknown) (unknown) occupational (units (u nknown) date) status: employed unknown) (unknown) (no (unknown) (unknown) occurred due to (units (unknown) date) the inherent unknown) limitations of voice recognition software. Please (unknown) (no (unknown) (unknown) ondansetron HCl (units (unknown) date) 4 mg tablet 4 mg unknown) PO Q8H PRN nausea and vomiting #20 tabs (unknown) (no (unknown) (unknown) pets and (units (unkno wn) date) animals: No unknown) (unknown) (no (unknown) (unknown) placenta 1.8 cm (units (unknown) date) from os unknown) posteriorly, discussed follow up at 28 weeks. Also 88%, (unknown) (no (unknown) (unknown) possible (units (unkno wn) date) abdominal unknown) tightening, will send to birthing center to rule out frequent (unknown) (no (unknown) (unknown) precautions (units (un known) date) discussed. unknown) (unknown) (no (unknown) (unknown) precautions, (units (u nknown) date) Listeriosis unknown) prevention and Rubella Immunization (unknown) (no (unknown) (unknown) predating her (units ( unknown) date) . UA unknown) wnl, plans to try OTC monistat 7 instead of Affirm, (unknown) (no (unknown) (unknown) prenat.vits,poornima, (units (unknown) date) [id number] 1 unknown) tab PO DAILY 04/08/21 [History Confirmed (unknown) (no (unknown) (unknown) read the note (units ( unknown) date) carefully and unknown) recognize, using context, where these substitutions (unknown) (no (unknown) (unknown) reports feeling (units (unknown) date) movement, no ctx unknown) no LOF or VB. Recent anatomy scan showing (unknown) (no (unknown) (unknown) reports feeling (units (unknown) date) well with no UTI unknown) sx, no cramping or bleeding, starting to feel (unknown) (no (unknown) (unknown) resolved with (units ( unknown) date) getting off her unknown) feet. Advise off feet and hydration, did not (unknown) (no (unknown) (unknown) resolving call. (units (unknown) date) Discussed how to unknown) detect contractions and to call if 6 per hour (unknown) (no (unknown) (unknown) seatbelt use: (units ( unknown) date) always unknown) (unknown) (no (unknown) (unknown) second hand (units (un known) date) exposure: No unknown) (unknown) (no (unknown) (unknown) she says she was (units (unknown) date) noticing unknown) tightening in her upper abdomen. That had resolved as (unknown) (no (unknown) (unknown) software. (units (unkn own) date) Although every unknown) effort is made to edit content, director family errors (unknown) (no (unknown) (unknown) spotting and RLQ (units (unknown) date) cramping. Viable unknown) SIUP seen via TAUS, +movement. Reports the (unknown) (no (unknown) (unknown) spotting has (units (un known) date) resolved and the unknown) cramping remains moderate, some vaginal irritation (unknown) (no (unknown) (unknown) substance use (units ( unknown) date) type: does not unknown) use (unknown) (no (unknown) (unknown) testing (units (unkno wn) date) unknown) (unknown) (no (unknown) (unknown) the area clean (units (unknown) date) and dry, using unknown) topical antifungal cream, and monitoring. She was (unknown) (no (unknown) (unknown) to belly button (units (unknown) date) drainage. The unknown) patient reports that late last week she noticed (unknown) (no (unknown) (unknown) triage nurses (units ( unknown) date) and are cat C in unknown) with no known associated with (unknown) (no (unknown) (unknown) ultrasound for (units (unknown) date) EFW within next unknown) visit, initially measured a little larger. (unknown) (no (unknown) (unknown) visualize the (units (u nknown) date) base, which was unknown) intact with no discrete lesions or foreign bodies. (unknown) (no (unknown) (unknown) water heater (units (u nknown) date) temp set < 120 unknown) deg: Yes (will check) (unknown) (no (unknown) (unknown) weekend, did (units (u nknown) date) have streaks of unknown) blood in her vomit x1 that has since resolved. (unknown) (no (unknown) (unknown) well-balanced (units ( unknown) date) diet: about half unknown) the time (unknown) (no (unknown) (unknown) well. On exam (units (unknown) date) cervix 1cm/25%/-3 unknown) vertex in BRANDI. Discussed overall reassuring (unknown) (no (unknown) (unknown) will do growth (units (unknown) date) US at that time. unknown) Antepartum precautions discussed. (unknown) (no (unknown) (unknown) with mucus plug. (units (unknown) date) Having some mild unknown) cramping, but does not feel it is persistent. (unknown) (no (unknown) (unknown) wks (units (unkno wn) date) unknown) (unknown) (no (unknown) (unknown) working smoke (units ( unknown) date) detector in home: unknown) Yes Result panel 21 (unknown) (no (unknown) (unknown) (no value) (units (unk nown) date) unknown) (unknown) (no (unknown) (unknown) Date of (units (unkno wn) date) Service: unknown) 10/07/21 (unknown) (no (unknown) (unknown) 10/07/21 1848 (units ( unknown) date) unknown) (unknown) (no (unknown) (unknown) [facility] (units (unknown) date) [address] unknown) [place] [address] (unknown) (no (unknown) (unknown) Labor and (units (unkn own) date) Delivery Triage unknown) Note (unknown) (no (unknown) (unknown) (no value) (units (unk nown) date) unknown) (unknown) (no (unknown) (unknown) [phone] (units (unkn own) date) unknown) (unknown) (no (unknown) (unknown) 25 yo P0 sent (units ( unknown) date) from office to unknown) evaluate for contractions. She has had some (unknown) (no (unknown) (unknown) 33 weeks EGA. (units (u nknown) date) Having some unknown) contractions but not frequent or regular, no signs of (unknown) (no (unknown) (unknown) Age/Sex: 25 / F (units (unknown) date) unknown) (unknown) (no (unknown) (unknown) Allergies (units (unkn own) date) unknown) (unknown) (no (unknown) (unknown) Baseline (units (unknown) date) heart rate: 135 unknown) (unknown) (no (unknown) (unknown) Category of (units (un known) date) Tracing: unknown) Reactive (unknown) (no (unknown) (unknown) Cervical (units (unkno wn) date) dilation (cm): 1 unknown) (unknown) (no (unknown) (unknown) Cervical (units (unkno wn) date) effacement (%): unknown) 25 (unknown) (no (unknown) (unknown) Cervical exam (units ( unknown) date) 1/25% in office. unknown) Since initially a few regular contractions in a (unknown) (no (unknown) (unknown) Comments/Additi (units (unknown) date) onal reasons for unknown) admission: (unknown) (no (unknown) (unknown) : 1995 (units (unknown) date) unknown) Acct:[id number] (unknown) (no (unknown) (unknown) Date of (units (unkno wn) date) evaluation: unknown) 10/07/21 (unknown) (no (unknown) (unknown) Diagnosis, (units (unk nown) date) Plan/Disposition unknown) (unknown) (no (unknown) (unknown) Evaluation (units (unk nown) date) unknown) (unknown) (no (unknown) (unknown) Family History (units (unknown) date) (Updated unknown) 04/08/21 @ 08:07 by Sena Espinal RN) (unknown) (no (unknown) (unknown) Father (units (unkno wn) date) Metabolic unknown) syndrome (unknown) (no (unknown) (unknown) Monitor (units ( unknown) date) Decelerations: unknown) Absent (unknown) (no (unknown) (unknown) Status: (units ( unknown) date) Category l unknown) (unknown) (no (unknown) (unknown) monitor (units ( unknown) date) accelerations: unknown) Present (unknown) (no (unknown) (unknown) station: (units (unknown) date) -3 unknown) (unknown) (no (unknown) (unknown) Grandmother (units (un known) date) Breast cancer unknown) (unknown) (no (unknown) (unknown) H/O wisdom (units (unk nown) date) tooth extraction unknown) (unknown) (no (unknown) (unknown) History of PCOS (units (unknown) date) unknown) (unknown) (no (unknown) (unknown) Medical History (units (unknown) date) (Updated unknown) 04/08/21 @ 08:06 by Sena Espinal RN) (unknown) (no (unknown) (unknown) No signs of (units (unk nown) date) labor at unknown) this time however. Reviewed calling for persistent (unknown) (no (unknown) (unknown) Noted she passed (units (unknown) date) some discharge unknown) consistent with mucus plug today called. In the (unknown) (no (unknown) (unknown) OB Disposition: (units (unknown) date) home unknown) (unknown) (no (unknown) (unknown) On-call OB (units (unk nown) date) Provider: Clare unknown) Quiana Foss (unknown) (no (unknown) (unknown) PFSH (units (unkno wn) date) unknown) (unknown) (no (unknown) (unknown) Patient: (units (unkno wn) date) Sally Thurston unknown) Y MR#: M (unknown) (no (unknown) (unknown) Plan/Dispositio (units (unknown) date) n unknown) (unknown) (no (unknown) (unknown) Plan: (units (unkno wn) date) unknown) (unknown) (no (unknown) (unknown) Possible mild (units ( unknown) date) palpable unknown) contractions in the office. Due to subtle cervical (unknown) (no (unknown) (unknown) Primary OB (units (unk nown) date) Provider: Clare unknown) Quiana Foss (unknown) (no (unknown) (unknown) Provider: (units (unkn own) date) Clare Foss unknown) Quiana RAMÍREZ (unknown) (no (unknown) (unknown) Reason for (units (unk nown) date) Evaluation: Yes unknown) non-stress test (unknown) (no (unknown) (unknown) Signed (units (unkno wn) date) By:<Electronical unknown) ly signed by Clare Foss MD> (unknown) (no (unknown) (unknown) Smoking Status: (units (unknown) date) Never smoker unknown) (unknown) (no (unknown) (unknown) Social History (units (unknown) date) unknown) (unknown) (no (unknown) (unknown) Surgical (units (unkno wn) date) History (Updated unknown) 04/08/21 @ 08:06 by Sena Espinal RN) (unknown) (no (unknown) (unknown) Type(s) of (units (unk nown) date) exercise: unknown) irregular exercise (unknown) (no (unknown) (unknown) Uterine (units (unkno wn) date) Contraction unknown) Intensity: Mild (Initially every 4 minutes times for (unknown) (no (unknown) (unknown) Variability: (units (u nknown) date) Average (6-10) unknown) (unknown) (no (unknown) (unknown) Visit (units (unkno wn) date) Information unknown) (unknown) (no (unknown) (unknown) alcohol intake: (units (unknown) date) former (stopped unknown) with , always light) (unknown) (no (unknown) (unknown) applied. (units (unkno wn) date) unknown) (unknown) (no (unknown) (unknown) caffeine: Yes (units (unknown) date) (200mg) unknown) (unknown) (no (unknown) (unknown) carbon monox (units (u nknown) date) detector in unknown) home: Yes (unknown) (no (unknown) (unknown) change, sent (units (u nknown) date) for evaluation unknown) to be certain she is not having more frequent (unknown) (no (unknown) (unknown) contractions 6 (units (unknown) date) or more per unknown) hour. (unknown) (no (unknown) (unknown) contractions (units (u nknown) date) that she is not unknown) feeling. (unknown) (no (unknown) (unknown) contractions, (units ( unknown) date) then infrequent) unknown) (unknown) (no (unknown) (unknown) cramping over (units ( unknown) date) the past few unknown) days, sometimes notes upper abdominal tightening. (unknown) (no (unknown) (unknown) current (units (unkno wn) date) occupational unknown) exposures/hazard s: No (unknown) (no (unknown) (unknown) daily servings (units (unknown) date) fruits/ve-1 unknown) (unknown) (no (unknown) (unknown) do you feel (units (un known) date) safe at home: unknown) Yes (unknown) (no (unknown) (unknown) during the past (units (unknown) date) year weight has: unknown) remained stable (unknown) (no (unknown) (unknown) education (units (unkn own) date) level: other unknown) (YVONNE) (unknown) (no (unknown) (unknown) fire (units (unkno wn) date) extinguisher in unknown) home: No (unknown) (no (unknown) (unknown) firearms in (units (un known) date) home: No unknown) (unknown) (no (unknown) (unknown) household (units (unkn own) date) members: spouse unknown) (unknown) (no (unknown) (unknown) housing: house (units (unknown) date) unknown) (unknown) (no (unknown) (unknown) lives (units (unkno wn) date) independently: unknown) Yes (unknown) (no (unknown) (unknown) marital status: (units (unknown) date) unknown) (unknown) (no (unknown) (unknown) number of (units (unkn own) date) children: 0 unknown) (unknown) (no (unknown) (unknown) occupational (units (u nknown) date) status: unknown) employed (unknown) (no (unknown) (unknown) office she was (units (unknown) date) 1 cm/25%/-3 with unknown) vertex in lower uterine segment but not well (unknown) (no (unknown) (unknown) pets and (units (unkno wn) date) animals: No unknown) (unknown) (no (unknown) (unknown) labor. (units (unknown) date) unknown) (unknown) (no (unknown) (unknown) row,advised her (units (unknown) date) to take unknown) increased rest periods off her feet for the next week. (unknown) (no (unknown) (unknown) rule out (units (unkno wn) date) labor unknown) (unknown) (no (unknown) (unknown) seatbelt use: (units ( unknown) date) always unknown) (unknown) (no (unknown) (unknown) second hand (units (un known) date) exposure: No unknown) (unknown) (no (unknown) (unknown) substance use (units ( unknown) date) type: does not unknown) use (unknown) (no (unknown) (unknown) water heater (units (u nknown) date) temp set < 120 unknown) deg: Yes (will check) (unknown) (no (unknown) (unknown) well-balanced (units ( unknown) date) diet: about unknown) half the time (unknown) (no (unknown) (unknown) working smoke (units ( unknown) date) detector in unknown) home: Yes Social History date description facility (no date) Never smoked tobacco (finding) [facility] Vital Signs date measurement value units +0000 BMI BMI 25.7 kg/m2 +0000 BP_diastolic BP_diastolic 62 mm[H g] +0000 BP_systolic BP_systolic 106 mm[Hg] +0000 height_metric height_metric 152.4 cm +0000 height_standard height_standard 60 in +0000 weight_metric weight_metric 27.16 kg +0000 weight_standard weight_standard 59.87 lb +0000 BMI BMI 27.1 kg/m2 [id number]+0000 BP_diastolic BP_diastolic 52 mm[H g] +0000 BP_systolic BP_systolic 94 mm[Hg] +0000 height_metric height_metric 152.4 cm +0000 height_standard height_standard 60 in +0000 weight_metric weight_metric 28.6 kg +0000 weight_standard weight_standard 63.05 lb [id number]+0000 BMI BMI 27.9 kg/m2 [id number]+0000 BP_diastolic BP_diastolic 62 mm[H g] +0000 BP_systolic BP_systolic 102 mm[Hg] +0000 height_metric height_metric 152.4 cm +0000 height_standard height_standard 60 in +0000 weight_metric weight_metric 29.42 kg +0000 weight_standard weight_standard 64.86 lb
[2021-10-31 21:37] LABS: BILIRUBIN,URINE NEGATIVE (NEGATIVE); GLUCOSE, URINE (UA) NEGATIVE (NEGATIVE); KETONES,URINE (UA) NEGATIVE (NEGATIVE); LEUKOCYTE ESTERASE, URINE LARGE (NEGATIVE); NITRITE,URINE NEGATIVE (NEGATIVE); OCCULT BLOOD,URINE LARGE (NEGATIVE); PH,URINE 6.5 PH (5.0-7.5); PROTEIN,URINE NEGATIVE (NEGATIVE); UROBILINOGEN,URINE 0.2 (NORMAL) E.U./dL (NORMAL)
[2021-10-31 21:38] LABS: CLARITY,URINE HAZY (CLEAR)
[2021-10-31 21:46] LABS: BACTERIA,URINE Moderate /HPF (None Seen); SQUAMOUS EPITHELIAL CELL,UR FEW Squamous (<= Few); WBC,URINE >25 /HPF (0-5)
[2021-10-31 21:53] LABS: BASOPHILS # (AUTO) 0.1 10^3/uL (0.0-0.1); BASOPHILS % (AUTO) 0.4 %; EOSINOPHILS # (AUTO) 0.1 10^3/uL (0.0-0.7); EOSINOPHILS % (AUTO) 0.9 %; HCT - HEMATOCRIT 40.5 % (37.0-47.0); HGB - HEMOGLOBIN 13.6 g/dL (12.0-16.0); LYMPHOCYTES # (AUTO) 0.6 10^3/uL (1.5-3.5); LYMPHOCYTES % (AUTO) 4.5 %; MEAN CORPUSCULAR HEMOGLOBIN 32.2 pg (27.0-31.0); MEAN CORPUSCULAR HGB CONC 33.6 g/dL (32.0-36.0); MEAN PLATELET VOLUME 9.2 fL (7.9-10.8); MONOCYTES # (AUTO) 0.4 10^3/uL (0.0-1.0); MONOCYTES % (AUTO) 3.1 %; NEUTROPHILS # (AUTO) 11.7 10^3/uL (1.5-6.6); NEUTROPHILS % (AUTO) 90.8 %; PLT - PLATELET COUNT 271 10^3/uL (130-450); RED BLOOD COUNT 4.22 10^6/uL (4.20-5.40); RED CELL DISTRIBUTION WIDTH 12.5 % (12.0-15.0); WHITE BLOOD COUNT 12.9 x10^3/uL (4.8-10.8)
[2021-10-31 22:08] LABS: ALBUMIN 3.8 g/dL (3.2-5.5); ALBUMIN/GLOBULIN RATIO 1.1 (1.0-2.2); ALKALINE PHOSPHATASE 95 IU/L (42-121); ALT ALANINE AMINOTRANSFERASE 22 IU/L (10-60); AST ASPARTATE AMINOTRANSFERASE 21 IU/L (10-42); BILIRUBIN,TOTAL 0.5 mg/dL (0.2-1.0); BUN - BLOOD UREA NITROGEN 10 mg/dL (6-20); CALCIUM 9.7 mg/dL (8.5-10.3); CARBON DIOXIDE - CO2 24 mmol/L (21-32); CHLORIDE 103 mmol/L (101-111); CK- CREATINE KINASE 72 IU/L (22-269); CREATININE 0.6 mg/dL (0.4-1.0); ETOH - ETHANOL < 5.0 mg/dL; GFR - MDRD 119 (>89); GLUCOSE 122 mg/dL (70-100); LIPASE 37 U/L (22-51); POTASSIUM 3.7 mmol/L (3.5-5.0); SODIUM 139 mmol/L (135-145); TOTAL PROTEIN 7.2 g/dL (6.7-8.2)
[2021-10-31] MEDS ORDERED: ACETAMINOPHEN 325 MG TABLET PO STA (22:19)
[2021-10-31] MEDS ORDERED: SODIUM CHLORIDE 0.9% 1,000 ML IV STA (22:19)
--- NOTE | 2021-11-01 00:19 | ED Physician Documentation ---
History of Present Illness - Stated complaint Stated Complaint: FEVER - Chief complaint Chief Complaint: Fever - Additonal information Additional information: Patient is 26-year-old female, approximately 14 days from vaginal delivery that was complicated by premature rupture of membranes at 35 weeks 4 days[address]ivering [employer] Dr. Escobedo. Reports 1 day fever and chills at home with T-max 102.0 at home. States did have some increasing discharge that was malodorous from the vagina. Some mild increase in lower pelvic discomfort. States has had a low amount of dysuria ever since childbirth that is unchanged. Denies any cough, congestion, shortness of breath, or chest pain. Does report is actively nursing. Has had pain to her breasts bilaterally right greater than left.Denies any color change to skin of breast or purulent discharge. Review of Systems Unable to obtain: Unresponsive Ten Systems: 10 systems reviewed and negative Constitutional: reports: Fever, Chills, Fatigue Eyes: denies: Loss of vision, Decreased vision Ears: denies: Loss of hearing, Ear pain Nose: denies: Rhinorrhea / runny nose Throat: denies: Dental pain / toothache Cardiac: reports: Palpitations. denies: Chest pain / pressure Respiratory: denies: Dyspnea, Hemoptysis : reports: Dysuria, Discharge. denies: Frequency, Hesitancy, Unable to Void, Incontinent, Hematuria Skin: denies: Rash Musculoskeletal: denies: Neck pain Neurologic: denies: Generalized weakness PD PAST MEDICAL HISTORY - Past Medical History Cardiovascular: None Respiratory: None - Present Medications Home Medications: Ambulatory Orders Medication Instructions Recorded Confirmed Pnv No.121/Iron/Folic Acid 11/01/21 [ Multivitamin Tablet] - Allergies Allergies/Adverse Reactions: Allergies Allergy/AdvReac Type Severity Reaction Status Date / Time No Known Drug Allergies Allergy Verified 10/31/21 21:04 - Social History Smoking Status: Never smoker PD ED PE NORMAL - Vitals Vital signs reviewed: Yes - General General: Alert and oriented X 3, No acute distress - HEENT HEENT: Atraumatic - Neck Neck: Supple, no meningeal sign - Cardiac Cardiac: RRR, No gallop - Respiratory Respiratory: No respiratory distress, Clear bilaterally - Abdomen Abdomen: Non tender - Female Female : Pt declined, Wire Bound Box Machine Helper present, Other (Some suprapubic tenderness to palpation. Malodorous discharge that is scant and dark brown in color. Patient was intolerant of speculum exam and exam was terminated early at patient's request.) - Derm Derm: Other (Breast exam demonstrates diffusely tender engorged breasts bilaterally without clear indication of mastitis, mass or abscess.) - Extremities Extremities: No deformity - Neuro Neuro: Alert and oriented X 3, shape carver 2-12 intact, No motor deficit Results - Vitals Vitals: Vital Signs - 24 hr 10/31/21 10/31/21 11/01/21 20:59 23:04 01:00 Temperature 37.4 C Heart Rate 137 H 121 H 115 H Respiratory 18 20 19 Rate Blood Pressure 117/77 118/75 101/68 O2 Saturation 99 99 98 11/01/21 11/01/21 11/01/21 03:00 03:19 04:30 Temperature 37.1 C 37.8 C 39.4 C H Heart Rate 125 H 125 H 129 H Respiratory 25 H 25 H 28 H Rate Blood Pressure 107/71 111/76 O2 Saturation 99 98 98 Oxygen O2 Source Room air - EKG (time done) 2124 Rate: Rate (enter#) (115) Rhythm: NSR [place]: Normal Intervals: Normal VA QRS: Normal Ischemia: Normal ST segments - Labs Labs: Laboratory Tests 10/31/21 10/31/21 10/31/21 21:22 21:22 21:37 WBC 12.9 H RBC 4.22 Hgb 13.6 Hct 40.5 MCV 96.0 MCH 32.2 H MCHC 33.6 RDW 12.5 Plt Count 271 MPV 9.2 Neut # (Auto) 11.7 H Lymph # (Auto) 0.6 L [place] # (Auto) 0.4 Eos # (Auto) 0.1 Baso # (Auto) 0.1 Absolute Nucleated RBC 0.00 Nucleated RBC % 0.0 PT INR Sodium Potassium Chloride Carbon Dioxide Anion Gap BUN Creatinine Estimated GFR (MDRD) Glucose Lactic Acid Calcium Total Bilirubin AST ALT Alkaline Phosphatase Total Creatine Kinase Total Protein Albumin Globulin Albumin/Globulin Ratio Lipase HCG, Quant Urine Color YELLOW Urine Clarity HAZY Urine pH 6.5 Ur Specific [place] 1.010 Urine Protein NEGATIVE Urine Glucose (UA) NEGATIVE Urine Ketones NEGATIVE Urine Occult Blood LARGE H Urine Nitrite NEGATIVE Urine Bilirubin NEGATIVE Urine Urobilinogen 0.2 (NORMAL) Ur Leukocyte Esterase LARGE H Urine RBC 6-10 H Urine WBC >25 H Ur Squamous Epith Cells FEW Squamous Urine Bacteria Moderate H Ur Microscopic Review INDICATED Urine Culture Comments INDICATED Nasal Adenovirus (PCR) Nasal B. parapertussis DNA (PCR) Nasal Coronavir 229E PCR Nasal Coronavir HKU1 PCR Nasal Coronavir NL63 PCR Nasal Coronavir OC43 PCR Nasal Enterovir/Rhinovir PCR Nasal Influenza B PCR Nasal Influenza A PCR Nasal Parainfluen 1 PCR Nasal Parainfluen 2 PCR Nasal Parainfluen 3 PCR Nasal Parainfluen 4 PCR Nasal RSV (PCR) Nasal B.pertussis DNA PCR Nasal C.pneumoniae (PCR) Mina Human Metapneumo PCR Nasal M.pneumoniae (PCR) Nasal SARS-CoV-2 (PCR) Ethyl Alcohol Chlam trachomat DNA PCR NEGATIVE N.gonorrhoeae DNA (PCR) NEGATIVE T. vaginalis (PCR) NEGATIVE 10/31/21 10/31/21 10/31/21 21:37 21:37 21:37 WBC RBC Hgb Hct MCV MCH MCHC RDW Plt Count MPV Neut # (Auto) Lymph # (Auto) [place] # (Auto) Eos # (Auto) Baso # (Auto) Absolute Nucleated RBC Nucleated RBC % PT 11.0 INR 1.0 Sodium 139 Potassium 3.7 Chloride 103 Carbon Dioxide 24 Anion Gap 12.0 BUN 10 Creatinine 0.6 Estimated GFR (MDRD) 119 Glucose 122 H Lactic Acid 1.5 Calcium 9.7 Total Bilirubin 0.5 AST 21 ALT 22 Alkaline Phosphatase 95 Total Creatine Kinase 72 Total Protein 7.2 Albumin 3.8 Globulin 3.4 Albumin/Globulin Ratio 1.1 Lipase 37 HCG, Quant Urine Color Urine Clarity Urine pH Ur Specific [place] Urine Protein Urine Glucose (UA) Urine Ketones Urine Occult Blood Urine Nitrite Urine Bilirubin Urine Urobilinogen Ur Leukocyte Esterase Urine RBC Urine WBC Ur Squamous Epith Cells Urine Bacteria Ur Microscopic Review Urine Culture Comments Nasal Adenovirus (PCR) Nasal B. parapertussis DNA (PCR) Nasal Coronavir 229E PCR Nasal Coronavir HKU1 PCR Nasal Coronavir NL63 PCR Nasal Coronavir OC43 PCR Nasal Enterovir/Rhinovir PCR Nasal Influenza B PCR Nasal Influenza A PCR Nasal Parainfluen 1 PCR Nasal Parainfluen 2 PCR Nasal Parainfluen 3 PCR Nasal Parainfluen 4 PCR Nasal RSV (PCR) Nasal B.pertussis DNA PCR Nasal C.pneumoniae (PCR) Mina Human Metapneumo PCR Nasal M.pneumoniae (PCR) Nasal SARS-CoV-2 (PCR) Ethyl Alcohol < 5.0 Chlam trachomat DNA PCR N.gonorrhoeae DNA (PCR) T. vaginalis (PCR) 10/31/21 11/01/21 21:37 02:50 WBC RBC Hgb Hct MCV MCH MCHC RDW Plt Count MPV Neut # (Auto) Lymph # (Auto) [place] # (Auto) Eos # (Auto) Baso # (Auto) Absolute Nucleated RBC Nucleated RBC % PT INR Sodium Potassium Chloride Carbon Dioxide Anion Gap BUN Creatinine Estimated GFR (MDRD) Glucose Lactic Acid Calcium Total Bilirubin AST ALT Alkaline Phosphatase Total Creatine Kinase Total Protein Albumin Globulin Albumin/Globulin Ratio Lipase HCG, Quant 4.28 Urine Color Urine Clarity Urine pH Ur Specific [place] Urine Protein Urine Glucose (UA) Urine Ketones Urine Occult Blood Urine Nitrite Urine Bilirubin Urine Urobilinogen Ur Leukocyte Esterase Urine RBC Urine WBC Ur Squamous Epith Cells Urine Bacteria Ur Microscopic Review Urine Culture Comments Nasal Adenovirus (PCR) NOT DETECTED Nasal B. parapertussis DNA (PCR) NOT DETECTED Nasal Coronavir 229E PCR NOT DETECTED Nasal Coronavir HKU1 PCR NOT DETECTED Nasal Coronavir NL63 PCR NOT DETECTED Nasal Coronavir OC43 PCR NOT DETECTED Nasal Enterovir/Rhinovir PCR NOT DETECTED Nasal Influenza B PCR NOT DETECTED Nasal Influenza A PCR NOT DETECTED Nasal Parainfluen 1 PCR NOT DETECTED Nasal Parainfluen 2 PCR NOT DETECTED Nasal Parainfluen 3 PCR NOT DETECTED Nasal Parainfluen 4 PCR NOT DETECTED Nasal RSV (PCR) NOT DETECTED Nasal B.pertussis DNA PCR NOT DETECTED Nasal C.pneumoniae (PCR) NOT DETECTED Mina Human Metapneumo PCR NOT DETECTED Nasal M.pneumoniae (PCR) NOT DETECTED Nasal SARS-CoV-2 (PCR) NOT DETECTED Ethyl Alcohol Chlam trachomat DNA PCR N.gonorrhoeae DNA (PCR) T. vaginalis (PCR) PD MEDICAL DECISION MAKING - ED course Complexity details: reviewed results, d/w patient, d/w home planning consultant salesperson ED course: Patient is a 26-year-old female presenting to the emergency department 2 weeks from a vaginal delivery complicated by premature rupture of membranes, now with fever, generalized malaise and reported increase vaginal discharge. Afebrile but tachycardic on arrival. Abdominal exam benign. Pelvic exam was attempted however patient reported feeling nauseous and as though she were going to faint and exam was terminated at her request. There was some modest malodorous discharge from the vagina noted but no suprapubic tenderness, visible lesions or inguinal adenopathy appreciated on exam. Patient did complain of breast discomfort and breast exam was performed with cost control supervisor present. Findings consistent with engorged breast bilaterally without clear indication of mastitis or abscess. Labs demonstrate mild leukocytosis. Renal function and electrolytes within normal limits. Urinalysis does have some indications of infection and urine culture is pending at this time. Imaging obtained demonstrated nonspecific findings potentially concerning for endometrial-itis. Initially had planned on treatment with clindamycin and gentamicin however told by nursing staff that gentamicin is not available at our facility. In lieu of this patient was treated with Unasyn and doxycycline. Blood cultures are pending. Case discussed with the telemetry hospitalist service. At this time patient will be hospitalized for further evaluation and treatment. Departure - Departure Disposition: ED Place in Observation Clinical Impression: Fever, Tachycardia, Leukocytosis, Acute lower UTI, Endometritis following delivery Discharge Date/Time: 11/01/21 05:15
--- NOTE | 2021-11-01 01:38 | CT Report ---
PROCEDURE: ANGIO CHEST W/WO INDICATIONS: Rule out PE CONTRAST: IV CONTRAST: Optiray 320 ml: 100 PO CONTRAST: *NO PO CONTRAST TECHNIQUE: After the administration of intravenous contrast, 2 mm axial images were acquired from the pulmonary apices to the posterior costophrenic angles during the arterial phase. In addition, 1 mm lung kernel and 5 mm soft tissue kernel reconstructions were performed. 3-dimensional coronal oblique maximum int ensity projection (MIP) reformats, 8 mm axial MIP, and 5 mm coronal and sagittal MPR reformats were t hen performed through the thorax. For radiation dose reduction, the following was used: automated exp osure control, adjustment of mA and/or kV according to patient size. COMPARISON: Concurrent CT of the abdomen and pelvis. FINDINGS: Image quality: Excellent. Pulmonary arteries: Pulmonary arteries are normal in size, and demonstrate no intraluminal filling d efects to suggest central pulmonary embolism. Lower Neck: No lymphadenopathy by size criteria. Thyroid: Visualized thyroid demonstrates no discrete nodules. Axillae: No lymphadenopathy by size criteria. Chest Wall: Unremarkable. Bones: Visualized osseous structures demonstrate no suspicious lesions. Lungs and Airways: No acute consolidation. No suspicious pulmonary nodules. There is minimal depend ent atelectasis. The trachea and central airways are patent. Pleura: No pneumothorax or pleural effusions. Heart: Heart size is normal. No pericardial effusion. Thoracic Vessels: The thoracic aorta is normal in size. Mediastinum and [place]: No lymphadenopathy by size criteria. Esophagus: No wall thickening. No hiatal hernia. Abdomen: Visualized upper abdominal solid organs appear normal in the early arterial phase of enhanc ement. IMPRESSION: 1. No evidence of pulmonary medicine. 2. No acute airspace consolidation the lungs. Reviewed by: Stanton Alexander MD on 11/01/2021 1:37 AM PDT Approved by: Stanton Alexander MD on 11/01/2021 1:37 AM PDT Station ID: [id number]
--- NOTE | 2021-11-01 01:45 | CT Report ---
PROCEDURE: Abdomen/Pelvis W INDICATIONS: Evaluation for endometritis. Fever, abdominal pain, vaginal discharge 2 week s . CONTRAST: IV CONTRAST: Optiray 320 ml: 100 PO CONTRAST: *NO PO CONTRAST TECHNIQUE: After the administration of intravenous contrast, 5 mm thick sections acquired from the diaphragms to the symphysis. 5 mm thick coronal and sagittal reformats were acquired. For radiation dose reducti on, the following was used: automated exposure control, adjustment of mA and/or kV according to fatou ent size. COMPARISON: Concurrent CT of the chest. FINDINGS: Image quality: Excellent. Lung bases: Unremarkable. Heart: Heart is normal in size. ABDOMEN: Liver:There is mild focal fatty infiltration in the anterior left hepatic lobe. Gallbladder: Within normal limits without calcified gallstones. Biliary ducts: No biliary ductal dilatation. Pancreas: Unremarkable. Spleen: Normal in size. Adrenal Glands: No adrenal nodules. Kidneys and Ureters: No hydronephrosis.A small hypodense focus in the left kidney is too small to c haracterize but likely represents a cyst. Stomach and Bowel: Stomach, small bowel loops, and colon are normal in caliber and wall thickness. N o evidence of appendicitis. Peritoneum: No abnormal intraperitoneal fluid. No free air. Ventral Wall: No hernia. Abdominal Nodes: No retroperitoneal or mesenteric adenopathy by size criteria. Vessels: Aorta and inferior vena cava are normal in size. PELVIS: Pelvic Organs:The endometrium demonstrates mild indistinct hypoattenuation along its margins with a suspected small amount of endometrial fluid. The uterus is mildly enlarged likely reflecting postpart um state. Ovaries aren't normal in size bilaterally. No definite adnexal masses. Bladder: Unremarkable. Pelvic Nodes: No enlarged lymph nodes. Miscellaneous: No inguinal hernias are seen. Bones: Visualized osseous structures demonstrate no suspicious focal lesions. IMPRESSION: 1. Nonspecific hypoattenuation along the endometrium with a suspected small amount of endometrial flu id. The findings are nonspecific but may reflect endometritis as clinically suspected. Recommend foll ow-up ultrasound when clinically feasible. Reviewed by: Stanton Gao MD on 11/01/2021 1:43 AM PDT Approved by: Stanton Gao MD on 11/01/2021 1:43 AM PDT Station ID: [id number]
[2021-11-01] MEDS ORDERED: METOCLOPRAMIDE 10 MG/2 ML VIAL IVP STA (01:48)
[2021-11-01] MEDS ORDERED: diphenhydrAMINE INJ 50 MG/ML VIAL IVP STA (01:48)
[2021-11-01] MEDS ORDERED: cefTRIAXone 1 GM in SODIUM CHLORIDE 0.9% MINIBAG 100 ML IV STA (01:48)
[2021-11-01] MEDS ORDERED: SODIUM CHLORIDE 0.9% IV ONE (02:09)
[2021-11-01] MEDS ORDERED: CLINDAMYCIN 900 MG/50 ML 50 ML IV ONE (02:09)
[2021-11-01] MEDS ORDERED: GENTAMICIN IV ONE (02:09)
[2021-11-01] MEDS ORDERED: AMPICILLIN/SULBACTAM 3 GM in SODIUM CHLORIDE 0.9% MINIBAG 100 ML IV STA (02:31)
[2021-11-01] MEDS ORDERED: DOXYCYCLINE INJ 100 MG in SODIUM CHLORIDE 0.9% MINIBAG 100 ML IV STA (02:31)
[2021-11-01 03:50] LABS: B. PARAPERTUSSIS- RESP PCR PAN NOT DETECTED; B. PERTUSSIS- RESP PCR PANEL NOT DETECTED; C. PNEUMONIAE- RESP PCR PANEL NOT DETECTED; CORONAVIRUS 229E-RESP PCR NOT DETECTED; CORONAVIRUS HKU1-RESP PCR NOT DETECTED; CORONAVIRUS NL63-RESP PCR NOT DETECTED; CORONAVIRUS OC43-RESP PCR NOT DETECTED; HUMAN METAPNEUMOVIRUS NOT DETECTED; INFLUENZA A- RESP PCR PANEL NOT DETECTED; INFLUENZA B - RESP PCR PANEL NOT DETECTED; M. PNEUMONIAE- RESP PCR PANEL NOT DETECTED; PARAINFLUENZA VIRUS 1 NOT DETECTED; PARAINFLUENZA VIRUS 2 NOT DETECTED; PARAINFLUENZA VIRUS 3 NOT DETECTED; PARAINFLUENZA VIRUS 4 NOT DETECTED; RHINOVIRUS/ENTEROVIRUS NOT DETECTED; RSV- RESP PCR PANEL NOT DETECTED; SARS-CoV-2 -RESP PCR PANEL NOT DETECTED
--- NOTE | 2021-11-01 04:14 | HISTORY & PHYSICAL EXAMINATION ---
Chief Complaint - Chief Complaint Chief Complaint: fever, vaginal discharge History of Present Illness - Admitted From Admitted From:: ER - History Obtained From History obtained from: Patient Exam Limitations: Telemedicine/video call - History of Present Illness HPI Comment/Other: Ms Yap is a 26 yo F , 2 weeks post , vaginal delivery complicated with PROM at 35w4d. Patient reports she just got home on , baby was in NICU. She states that her vaginal bleeding had stopped, however, she has had malodorous vaginal discharge since delivery. She is now having pink/yellow discharge, malodorous. Denies any pelvic pain or abdominal pain, denies hematuria or dysuria. She does have occasional headaches and dizziness. Onset of fevers/chills at home yesterday with hot flashes. No sick contacts. Denies cough, sputum production, chest pain, palpitations, vomiting. Feels nauseous at times. Denies any history of STI. History - Past Medical History Cardiovascular: reports: None Respiratory: reports: None HEENT: reports: None Psych: reports: None Musculoskeletal: reports: None Other Past Medical History: seasonal allergies - Family & Social History Family History: Father: Diabetes, Type 2 (pre-diabetic) Living arrangement: At home - Substance History Use: Uses substance without health or social issues: NONE Meds/Allgy - Home Medications Home Medications: Ambulatory Orders Medication Instructions Recorded Confirmed Pnv No.121/Iron/Folic Acid 11/01/21 [ Multivitamin Tablet] - Allergies Allergies/Adverse Reactions: Allergies Allergy/AdvReac Type Severity Reaction Status Date / Time No Known Drug Allergies Allergy Verified 10/31/21 21:04 Review of Systems - Constitutional Constitutional: reports: Fatigue, Fever, Chills, Malaise, Diaphoresis - Eyes Eyes: denies: Blurred vision - Ears, Nose & Throat Ears, Nose & Throat: denies: Ear pain, Sore throat - Cardiovascular Cariovascular: denies: Palpitations, Chest pain, Lightheadedness - Respiratory Respiratory: denies: Cough, Sputum production, Wheezing, SOB at rest - Gastrointestinal Gastrointestinal: reports: Nausea. denies: Abdominal pain, Diarrhea, Vomiting - Genitourinary Genitourinary: denies: Dysuria, Hematuria - Musculoskeletal Musculoskeletal: denies: Muscle pain, Back pain - Integumentary Integumentary: denies: Rash, Pruritis, Lesions - Neurological Neurological: reports: Headache, Dizziness. denies: General weakness, Focal weakness - Hematologic/Lymphatic Hematologic/Lymphatic: denies: Anemia, Bruising, Recurrent infections - All Other Systems All Other Systems: reports: Reviewed and negative Exam - Vital Signs Vital Signs: Vital Signs x48h Temp Pulse Resp BP Pulse Ox 11/01/21 03:19 37.8 C 125 H 25 H 107/71 98 11/01/21 03:00 37.1 C 125 H 25 H 99 11/01/21 01:00 115 H 19 101/68 98 10/31/21 23:04 121 H 20 118/75 99 10/31/21 20:59 37.4 C 137 H 18 117/77 99 - Physical Exam General Appearance: positive: No acute distress, Alert ENT: positive: No signs of dehydration Neck: positive: Nml inspection, Trachea midline Respiratory: positive: No respiratory distress Abdomen: positive: Non-tender, No distention Skin: positive: Color nml, No rash Neurologic/Psychiatric: positive: Oriented x3, Mood/affect nml Conclusion/Plan - Lab Results Fish Bones: 10/31/21 21:37 10/31/21 21:37 Core Measures - Anticipated LOS I expect patient to be DC'd or transferred within 96 hours.: Yes - DVT/VTE - Prophylaxis VTE/DVT Device ordered at admit?: Yes Assessment/Plan - Lab Results Darian Bones: 10/31/21 21:37 10/31/21 21:37 - Other Other Results/Comments: Sepsis secondary to suspected endometritis -2 weeks vaginal delivery with PROM at 35w4d -Pt w fever 102.7 at home, tachycardia, leukocytosis -Lactic 1.5 -Follow up blood cultures, vaginal cultures, GC/Chlamydia -CT reviewed, nonspecific findings possibly endometritis -Treated with IV unasyn and IV doxycycline, continue -IV fluids for hydration -Consult Ob in a.m. for further recs -Pelvic US ordered in ER, pending DVT ppx: Lovenox sc - Additional Planning Condition/Complexity: Stable Consult/Specialty: Obstetrics Plan Discussed with:: Patient Time Spent: 31-60 minutes
[2021-11-01] MEDS ORDERED: ACETAMINOPHEN 325 MG TABLET PO STA (04:34)
[2021-11-01] MEDS ORDERED: ONDANSETRON 4 MG/2 ML VIAL IVP PRN (04:57)
[2021-11-01] MEDS ORDERED: SODIUM CHLORIDE FLUSH 0.9% 10 ML SYRINGE IVP PRN (04:57)
[2021-11-01] MEDS: SODIUM CHLORIDE 0.9% 1,000 ML IV SCH ×2 (05:07→16:02)
[2021-11-01 05:26] LABS: CHLAMYDIA TRACHOMATIS DNA NEGATIVE (NEGATIVE); NEISSERIA GONORRHOEAE DNA NEGATIVE (NEGATIVE); TRICHOMONAS VAGINALIS DNA NEGATIVE (NEGATIVE)
[2021-11-01] MEDS: IBUPROFEN 400 MG TABLET PO PRN ×2 (05:38→14:17)
[2021-11-01 08:36] LABS: BASOPHILS % (AUTO) 0.3 %; EOSINOPHILS % (AUTO) 0.2 %; HCT - HEMATOCRIT 38.5 % (37.0-47.0); HGB - HEMOGLOBIN 13.2 g/dL (12.0-16.0); LYMPHOCYTES # (AUTO) 0.9 10^3/uL (1.5-3.5); LYMPHOCYTES % (AUTO) 7.1 %; MEAN CORPUSCULAR HEMOGLOBIN 32.8 pg (27.0-31.0); MEAN CORPUSCULAR HGB CONC 34.3 g/dL (32.0-36.0); MEAN CORPUSCULAR VOLUME 95.8 fL (81.0-99.0); MONOCYTES # (AUTO) 0.4 10^3/uL (0.0-1.0); MONOCYTES % (AUTO) 3.1 %; NEUTROPHILS # (AUTO) 11.8 10^3/uL (1.5-6.6); NEUTROPHILS % (AUTO) 88.8 %; PLT - PLATELET COUNT 240 10^3/uL (130-450); RED BLOOD COUNT 4.02 10^6/uL (4.20-5.40); RED CELL DISTRIBUTION WIDTH 12.6 % (12.0-15.0); WHITE BLOOD COUNT 13.3 x10^3/uL (4.8-10.8)
[2021-11-01 08:47] LABS: CALCIUM 8.6 mg/dL (8.5-10.3); CREATININE 0.5 mg/dL (0.4-1.0); POTASSIUM 3.6 mmol/L (3.5-5.0)
[2021-11-01] MEDS: PIPERACILLIN/TAZOBACTAM 3.375 GM in SODIUM CHLORIDE 0.9% MINIBAG 100 ML IV SCH ×2 (09:22→16:03)
[2021-11-01] MEDS: ENOXAPARIN 40 MG/0.4 ML SYRINGE SUBQ SCH (09:26)
[2021-11-01] MEDS: SODIUM CHLORIDE FLUSH 0.9% 10 ML SYRINGE IVP SCH ×2 (09:27→16:06)
--- NOTE | 2021-11-01 09:55 | PROVIDER PROGRESS NOTE ---
Subjective - Prog Note Date Prog Note Date: 11/01/21 Prog Note Time: 09:53 - Subjective Pt reports feeling: Improved Subjective: She feels better than yesterday. Not as much pelvic pain. Unfortunately still spiking temps to 39 and still tachycardic. Lactic acid is been negative. She asked if she can give her breastmilk to her baby or does she need to worry. Current Medications - Current Medications Current Medications: Active Medications Enoxaparin Sodium (Enoxaparin 40 Mg/0.4 Ml Syringe) 40 mg SUBQ DAILY [facility] Last Admin: 11/01/21 09:26 Dose: 40 mg Sodium Chloride (Normal Saline 0.9%) 1,000 mls @ 100 mls/hr IV .Q10H [facility] Last Infusion: 11/01/21 05:15 Dose: 100 mls/hr Ceftriaxone Sodium 1 gm/ (Sodium Chloride) 100 mls @ 200 mls/hr IV 1100 [facility] Piperacillin Sod/Tazobactam (Sod 3.375 gm/ Sodium Chloride) 100 mls @ 200 mls/hr IV Q6H [facility] Last Admin: 11/01/21 09:22 Dose: 200 mls/hr Clindamycin Phosphate (Cleocin 900 Mg/50 Ml) 50 mls @ 50 mls/hr IV Q8H [facility] Ibuprofen (Ibuprofen 400 Mg Tablet) 400 mg PO Q4HR PRN PRN Reason: Pain 1 to 4 Last Admin: 11/01/21 05:38 Dose: 400 mg Ondansetron HCl (Ondansetron 4 Mg/2 Ml Vial) 4 mg IVP Q6HR PRN PRN Reason: Nausea / Vomiting Sodium Chloride (Sodium Chloride Flush 0.9% 10 Ml Syringe) 10 ml IVP PRN PRN PRN Reason: NEEDED PER PROVIDER ORDERS Sodium Chloride (Sodium Chloride Flush 0.9% 10 Ml Syringe) 10 ml IVP 0100,0900,1700 [facility] Last Admin: 11/01/21 09:27 Dose: Not Given Pnv No.121/Iron/Folic Acid [ Multivitamin Tablet] 11/01/21 Objective - Vital Signs/Intake & Output Reviewed Vital Signs: Yes Vital Signs: Vital Signs x48h Temp Pulse Pulse Resp BP BP Pulse Ox 11/01/21 08:00 37.2 C 103 H 18 119/66 95 11/01/21 05:20 38.0 C H 132 H 20 109/70 95 11/01/21 05:07 39.4 C H 127 H 27 H 111/74 98 11/01/21 04:30 39.4 C H 129 H 28 H 111/76 98 11/01/21 03:19 37.8 C 125 H 25 H 107/71 98 11/01/21 03:00 37.1 C 125 H 25 H 99 Intake & Output: Intake & Output 10/29/21 10/30/21 10/31/21 11/01/21 23:59 23:59 23:59 23:59 Intake Total 1323.333 Balance 1323.333 - Objective General Appearance: positive: No acute distress, Alert, Other (26-year-old young white female looks stated age just fatigued appearing) Eyes Bilateral: positive: PERRL, EOMI ENT: positive: No signs of dehydration Neck: positive: No JVD. negative: Stiff neck Respiratory: positive: No respiratory distress. negative: Wheezes, Rales, Rhonchi Cardiovascular: positive: Regular rate & rhythm, Tachycardia Abdomen: positive: No organomegaly, Nml bowel sounds, Tenderness Skin: positive: Warm, Dry Extremities: positive: Full ROM, No pedal edema Neurologic/Psychiatric: positive: Oriented x3, CN's nml (2-12), Motor nml - Lab Results Fish Bones: 11/01/21 08:33 11/01/21 08:33 Other Labs: Lab Results x24hrs 11/01/21 11/01/21 11/01/21 Range/Units 08:34 08:33 08:33 WBC 13.3 H (4.8-10.8) x10^3/uL RBC 4.02 L (4.20-5.40) 10^6/uL Hgb 13.2 (12.0-16.0) g/dL Hct 38.5 (37.0-47.0) % MCV 95.8 (81.0-99.0) fL MCH 32.8 H (27.0-31.0) pg MCHC 34.3 (32.0-36.0) g/dL RDW 12.6 (12.0-15.0) % Plt Count 240 (130-450) 10^3/uL MPV 9.0 (7.9-10.8) fL Neut # (Auto) 11.8 H (1.5-6.6) 10^3/uL Lymph # (Auto) 0.9 L (1.5-3.5) 10^3/uL [place] # (Auto) 0.4 (0.0-1.0) 10^3/uL Eos # (Auto) 0.0 (0.0-0.7) 10^3/uL Baso # (Auto) 0.0 (0.0-0.1) 10^3/uL Absolute Nucleated RBC 0.00 x10^3/uL Nucleated RBC % 0.0 /100WBC PT (9.9-12.6) secs INR (0.8-1.2) Sodium 138 (135-145) mmol/L Potassium 3.6 (3.5-5.0) mmol/L Chloride 106 (101-111) mmol/L Carbon Dioxide 23 (21-32) mmol/L Anion Gap 9.0 (6-13) BUN 6 (6-20) mg/dL Creatinine 0.5 (0.4-1.0) mg/dL Estimated GFR (MDRD) 147 (>89) Glucose 122 H (70-100) mg/dL Lactic Acid 0.7 (0.5-2.2) mmol/L Calcium 8.6 (8.5-10.3) mg/dL Total Bilirubin (0.2-1.0) mg/dL AST (10-42) IU/L ALT (10-60) IU/L Alkaline Phosphatase (42-121) IU/L Total Creatine Kinase (22-269) IU/L Total Protein (6.7-8.2) g/dL Albumin (3.2-5.5) g/dL Globulin (2.1-4.2) g/dL Albumin/Globulin Ratio (1.0-2.2) Lipase (22-51) U/L HCG, Quant mIU/mL Urine Color Urine Clarity (CLEAR) Urine pH (5.0-7.5) PH Ur Specific [place] (1.002-1.030) Urine Protein (NEGATIVE) mg/dL Urine Glucose (UA) (NEGATIVE) mg/dL Urine Ketones (NEGATIVE) mg/dL Urine Occult Blood (NEGATIVE) Urine Nitrite (NEGATIVE) Urine Bilirubin (NEGATIVE) Urine Urobilinogen (NORMAL) E.U./dL Ur Leukocyte Esterase (NEGATIVE) Urine RBC (0-5) /HPF Urine WBC (0-5) /HPF Ur Squamous Epith Cells (<= Few) Urine Bacteria (None Seen) /HPF Ur Microscopic Review Urine Culture Comments Nasal Adenovirus (PCR) Nasal B. parapertussis DNA (PCR) Nasal Coronavir 229E PCR Nasal Coronavir HKU1 PCR Nasal Coronavir NL63 PCR Nasal Coronavir OC43 PCR Nasal Enterovir/Rhinovir PCR Nasal Influenza B PCR Nasal Influenza A PCR Nasal Parainfluen 1 PCR Nasal Parainfluen 2 PCR Nasal Parainfluen 3 PCR Nasal Parainfluen 4 PCR Nasal RSV (PCR) Nasal B.pertussis DNA PCR Nasal C.pneumoniae (PCR) Mina Human Metapneumo PCR Nasal M.pneumoniae (PCR) Nasal SARS-CoV-2 (PCR) Ethyl Alcohol mg/dL Chlam trachomat DNA PCR (NEGATIVE) N.gonorrhoeae DNA (PCR) (NEGATIVE) T. vaginalis (PCR) (NEGATIVE) 11/01/21 10/31/21 10/31/21 Range/Units 02:50 21:37 21:37 WBC (4.8-10.8) x10^3/uL RBC (4.20-5.40) 10^6/uL Hgb (12.0-16.0) g/dL Hct (37.0-47.0) % MCV (81.0-99.0) fL MCH (27.0-31.0) pg MCHC (32.0-36.0) g/dL RDW (12.0-15.0) % Plt Count (130-450) 10^3/uL MPV (7.9-10.8) fL Neut # (Auto) (1.5-6.6) 10^3/uL Lymph # (Auto) (1.5-3.5) 10^3/uL [place] # (Auto) (0.0-1.0) 10^3/uL Eos # (Auto) (0.0-0.7) 10^3/uL Baso # (Auto) (0.0-0.1) 10^3/uL Absolute Nucleated RBC x10^3/uL Nucleated RBC % /100WBC PT (9.9-12.6) secs INR (0.8-1.2) Sodium (135-145) mmol/L Potassium (3.5-5.0) mmol/L Chloride (101-111) mmol/L Carbon Dioxide (21-32) mmol/L Anion Gap (6-13) BUN (6-20) mg/dL Creatinine (0.4-1.0) mg/dL Estimated GFR (MDRD) (>89) Glucose (70-100) mg/dL Lactic Acid 1.5 (0.5-2.2) mmol/L Calcium (8.5-10.3) mg/dL Total Bilirubin (0.2-1.0) mg/dL AST (10-42) IU/L ALT (10-60) IU/L Alkaline Phosphatase (42-121) IU/L Total Creatine Kinase (22-269) IU/L Total Protein (6.7-8.2) g/dL Albumin (3.2-5.5) g/dL Globulin (2.1-4.2) g/dL Albumin/Globulin Ratio (1.0-2.2) Lipase (22-51) U/L HCG, Quant 4.28 mIU/mL Urine Color Urine Clarity (CLEAR) Urine pH (5.0-7.5) PH Ur Specific [place] (1.002-1.030) Urine Protein (NEGATIVE) mg/dL Urine Glucose (UA) (NEGATIVE) mg/dL Urine Ketones (NEGATIVE) mg/dL Urine Occult Blood (NEGATIVE) Urine Nitrite (NEGATIVE) Urine Bilirubin (NEGATIVE) Urine Urobilinogen (NORMAL) E.U./dL Ur Leukocyte Esterase (NEGATIVE) Urine RBC (0-5) /HPF Urine WBC (0-5) /HPF Ur Squamous Epith Cells (<= Few) Urine Bacteria (None Seen) /HPF Ur Microscopic Review Urine Culture Comments Nasal Adenovirus (PCR) NOT DETECTED Nasal B. parapertussis DNA (PCR) NOT DETECTED Nasal Coronavir 229E PCR NOT DETECTED Nasal Coronavir HKU1 PCR NOT DETECTED Nasal Coronavir NL63 PCR NOT DETECTED Nasal Coronavir OC43 PCR NOT DETECTED Nasal Enterovir/Rhinovir PCR NOT DETECTED Nasal Influenza B PCR NOT DETECTED Nasal Influenza A PCR NOT DETECTED Nasal Parainfluen 1 PCR NOT DETECTED Nasal Parainfluen 2 PCR NOT DETECTED Nasal Parainfluen 3 PCR NOT DETECTED Nasal Parainfluen 4 PCR NOT DETECTED Nasal RSV (PCR) NOT DETECTED Nasal B.pertussis DNA PCR NOT DETECTED Nasal C.pneumoniae (PCR) NOT DETECTED Mina Human Metapneumo PCR NOT DETECTED Nasal M.pneumoniae (PCR) NOT DETECTED Nasal SARS-CoV-2 (PCR) NOT DETECTED Ethyl Alcohol mg/dL Chlam trachomat DNA PCR (NEGATIVE) N.gonorrhoeae DNA (PCR) (NEGATIVE) T. vaginalis (PCR) (NEGATIVE) 10/31/21 10/31/21 10/31/21 Range/Units 21:37 21:37 21:37 WBC 12.9 H (4.8-10.8) x10^3/uL RBC 4.22 (4.20-5.40) 10^6/uL Hgb 13.6 (12.0-16.0) g/dL Hct 40.5 (37.0-47.0) % MCV 96.0 (81.0-99.0) fL MCH 32.2 H (27.0-31.0) pg MCHC 33.6 (32.0-36.0) g/dL RDW 12.5 (12.0-15.0) % Plt Count 271 (130-450) 10^3/uL MPV 9.2 (7.9-10.8) fL Neut # (Auto) 11.7 H (1.5-6.6) 10^3/uL Lymph # (Auto) 0.6 L (1.5-3.5) 10^3/uL [place] # (Auto) 0.4 (0.0-1.0) 10^3/uL Eos # (Auto) 0.1 (0.0-0.7) 10^3/uL Baso # (Auto) 0.1 (0.0-0.1) 10^3/uL Absolute Nucleated RBC 0.00 x10^3/uL Nucleated RBC % 0.0 /100WBC PT 11.0 (9.9-12.6) secs INR 1.0 (0.8-1.2) Sodium 139 (135-145) mmol/L Potassium 3.7 (3.5-5.0) mmol/L Chloride 103 (101-111) mmol/L Carbon Dioxide 24 (21-32) mmol/L Anion Gap 12.0 (6-13) BUN 10 (6-20) mg/dL Creatinine 0.6 (0.4-1.0) mg/dL Estimated GFR (MDRD) 119 (>89) Glucose 122 H (70-100) mg/dL Lactic Acid (0.5-2.2) mmol/L Calcium 9.7 (8.5-10.3) mg/dL Total Bilirubin 0.5 (0.2-1.0) mg/dL AST 21 (10-42) IU/L ALT 22 (10-60) IU/L Alkaline Phosphatase 95 (42-121) IU/L Total Creatine Kinase 72 (22-269) IU/L Total Protein 7.2 (6.7-8.2) g/dL Albumin 3.8 (3.2-5.5) g/dL Globulin 3.4 (2.1-4.2) g/dL Albumin/Globulin Ratio 1.1 (1.0-2.2) Lipase 37 (22-51) U/L HCG, Quant mIU/mL Urine Color Urine Clarity (CLEAR) Urine pH (5.0-7.5) PH Ur Specific [place] (1.002-1.030) Urine Protein (NEGATIVE) mg/dL Urine Glucose (UA) (NEGATIVE) mg/dL Urine Ketones (NEGATIVE) mg/dL Urine Occult Blood (NEGATIVE) Urine Nitrite (NEGATIVE) Urine Bilirubin (NEGATIVE) Urine Urobilinogen (NORMAL) E.U./dL Ur Leukocyte Esterase (NEGATIVE) Urine RBC (0-5) /HPF Urine WBC (0-5) /HPF Ur Squamous Epith Cells (<= Few) Urine Bacteria (None Seen) /HPF Ur Microscopic Review Urine Culture Comments Nasal Adenovirus (PCR) Nasal B. parapertussis DNA (PCR) Nasal Coronavir 229E PCR Nasal Coronavir HKU1 PCR Nasal Coronavir NL63 PCR Nasal Coronavir OC43 PCR Nasal Enterovir/Rhinovir PCR Nasal Influenza B PCR Nasal Influenza A PCR Nasal Parainfluen 1 PCR Nasal Parainfluen 2 PCR Nasal Parainfluen 3 PCR Nasal Parainfluen 4 PCR Nasal RSV (PCR) Nasal B.pertussis DNA PCR Nasal C.pneumoniae (PCR) Mina Human Metapneumo PCR Nasal M.pneumoniae (PCR) Nasal SARS-CoV-2 (PCR) Ethyl Alcohol < 5.0 mg/dL Chlam trachomat DNA PCR (NEGATIVE) N.gonorrhoeae DNA (PCR) (NEGATIVE) T. vaginalis (PCR) (NEGATIVE) 10/31/21 10/31/21 Range/Units 21:22 21:22 WBC (4.8-10.8) x10^3/uL RBC (4.20-5.40) 10^6/uL Hgb (12.0-16.0) g/dL Hct (37.0-47.0) % MCV (81.0-99.0) fL MCH (27.0-31.0) pg MCHC (32.0-36.0) g/dL RDW (12.0-15.0) % Plt Count (130-450) 10^3/uL MPV (7.9-10.8) fL Neut # (Auto) (1.5-6.6) 10^3/uL Lymph # (Auto) (1.5-3.5) 10^3/uL [place] # (Auto) (0.0-1.0) 10^3/uL Eos # (Auto) (0.0-0.7) 10^3/uL Baso # (Auto) (0.0-0.1) 10^3/uL Absolute Nucleated RBC x10^3/uL Nucleated RBC % /100WBC PT (9.9-12.6) secs INR (0.8-1.2) Sodium (135-145) mmol/L Potassium (3.5-5.0) mmol/L Chloride (101-111) mmol/L Carbon Dioxide (21-32) mmol/L Anion Gap (6-13) BUN (6-20) mg/dL Creatinine (0.4-1.0) mg/dL Estimated GFR (MDRD) (>89) Glucose (70-100) mg/dL Lactic Acid (0.5-2.2) mmol/L Calcium (8.5-10.3) mg/dL Total Bilirubin (0.2-1.0) mg/dL AST (10-42) IU/L ALT (10-60) IU/L Alkaline Phosphatase (42-121) IU/L Total Creatine Kinase (22-269) IU/L Total Protein (6.7-8.2) g/dL Albumin (3.2-5.5) g/dL Globulin (2.1-4.2) g/dL Albumin/Globulin Ratio (1.0-2.2) Lipase (22-51) U/L HCG, Quant mIU/mL Urine Color YELLOW Urine Clarity HAZY (CLEAR) Urine pH 6.5 (5.0-7.5) PH Ur Specific [place] 1.010 (1.002-1.030) Urine Protein NEGATIVE (NEGATIVE) mg/dL Urine Glucose (UA) NEGATIVE (NEGATIVE) mg/dL Urine Ketones NEGATIVE (NEGATIVE) mg/dL Urine Occult Blood LARGE H (NEGATIVE) Urine Nitrite NEGATIVE (NEGATIVE) Urine Bilirubin NEGATIVE (NEGATIVE) Urine Urobilinogen 0.2 (NORMAL) (NORMAL) E.U./dL Ur Leukocyte Esterase LARGE H (NEGATIVE) Urine RBC 6-10 H (0-5) /HPF Urine WBC >25 H (0-5) /HPF Ur Squamous Epith Cells FEW Squamous (<= Few) Urine Bacteria Moderate H (None Seen) /HPF Ur Microscopic Review INDICATED Urine Culture Comments INDICATED Nasal Adenovirus (PCR) Nasal B. parapertussis DNA (PCR) Nasal Coronavir 229E PCR Nasal Coronavir HKU1 PCR Nasal Coronavir NL63 PCR Nasal Coronavir OC43 PCR Nasal Enterovir/Rhinovir PCR Nasal Influenza B PCR Nasal Influenza A PCR Nasal Parainfluen 1 PCR Nasal Parainfluen 2 PCR Nasal Parainfluen 3 PCR Nasal Parainfluen 4 PCR Nasal RSV (PCR) Nasal B.pertussis DNA PCR Nasal C.pneumoniae (PCR) Mina Human Metapneumo PCR Nasal M.pneumoniae (PCR) Nasal SARS-CoV-2 (PCR) Ethyl Alcohol mg/dL Chlam trachomat DNA PCR NEGATIVE (NEGATIVE) N.gonorrhoeae DNA (PCR) NEGATIVE (NEGATIVE) T. vaginalis (PCR) NEGATIVE (NEGATIVE) ABX Reporting Has patient been on IV antibiotics over the past 48 hours?: Yes Sepsis Event Note (H) - Evaluation Current Stage of Sepsis: Sepsis Possible source of Sepsis: positive: Genitourinary - Sepsis Criteria Sepsis Criteria: Recorded Temperature greater than 38.3C or Less than 36C, Recorded Heart Rate greater than 90 bpm, Recorded Respiratory Rate greater than 20, WBC count greater than 12,000 or less than 4000 Assessment/Plan - Problem List (1) Sepsis Impression: She meets criteria for sepsis. Even after receiving antibiotics overnight, she is still febrile, tachycardic, and white cell count is slightly up. Plan: Change to inpatient status I have contacted OB. Usually these patients get admitted to the obstetrics service. There is a new ER doctor on last night as well as a new telemedicine service on last night. I do not believe either one of them knew that they should have contacted OB. Qualifiers: Sepsis type: sepsis due to unspecified organism Sepsis acute organ dysfunction status: without acute organ dysfunction Qualified Code(s): A41.9 - Sepsis, unspecified organism (2) Endometritis following delivery Impression: Continue antibiotics. Shaniko antibiotic guide recommends Zosyn or meropenem or ceftriaxone and clinda. May need kenzie mitten doxycycline if positive for see trachomatous. Duration of therapy is up to 10 days. Try to avoid aminoglycosides due to risk of nephro and ototoxicity. Pelvic ultrasound complete ordered last night. Unable to be read yet because it cannot be pushed due to the wrong order being put in. I have corrected the order this morning and the ict help desk technician will be pushing it through to our radiology reading group staff. (3) Mother currently breast-feeding Impression: Mom is asking if she can breast-feed her baby using her current milk. She did receive doxycycline in the emergency room. So she will have to pump and dump for a day. Pharmacy states that there is no pro or con 10 not feeding at this time on the antibiotics we have ordered for today.
[2021-11-01] MEDS: CLINDAMYCIN 900 MG/50 ML 50 ML IV SCH ×2 (10:19→17:38)
--- NOTE | 2021-11-01 10:23 | Ultrasound Report ---
PROCEDURE: Pelvic Complete INDICATIONS: 2 week endometritis TECHNIQUE: Real-time transabdominal scanning was performed of the pelvic organs, with image documentation. Mendoza svaginal images were not performed. COMPARISON: CT abdomen/pelvis 11/01/2021 FINDINGS: No pathologic free abdominal or pelvic fluid. Uterus: Uterus is measures 13.9 x 5.5 8.9 cm. The endometrium measures 4 mm in combined thickness. T race fluid is seen within the endometrial canal. The myometrium is homogeneous. The uterus is antever marlin. No significant hypervascularity is identified. Ovaries: Right ovary measures 3.1 x 2.0 x 2.7 cm (8.8 cc). The left ovary measures 3.6 x 2.0 x 2.4 c m (9.0 cc). No suspicious adnexal mass. IMPRESSION: 1.Mildly enlarged uterus is consistent with status. 2.Trace nonspecific fluid within the endometrial canal as seen on recent CT. No significant endometri al thickening or hypervascularity. Reviewed by: eKvin Pickard MD on 11/01/2021 9:21 AM DANNIE Approved by: Kevin Pickard MD on 11/01/2021 9:21 AM DANNIE Station ID: [id number]
[2021-11-01] MEDS ORDERED: cefTRIAXone 1 GM in SODIUM CHLORIDE 0.9% MINIBAG 100 ML IV SCH (11:00)
--- NOTE | 2021-11-01 12:09 | PROVIDER PROGRESS NOTE ---
Subjective - Prog Note Date Prog Note Date: 11/01/21 - Subjective Pt reports feeling: Improved Subjective: Currently she is comfortable. Denies pelvic pain. Reports malodorous discharge. Feels better today. 26yo s/p VAVD 10/19 at 34.4 following labor admission for PPROM, PPD#13 admitted today for endometritis. Patient was discharged 12h as her baby boy Nate was transferred to [facility] nursery. She stayed there with Nate and he was discharged , 4d prior. She reports lochia has diminished and has had odor since delivery but this has worsened past couple days. She was treated with ampicillin during labor for GBS prophylaxis. She also had pelvic pain, fevers, chills the past few days. She has been and pumping well, denies breast redness or tenderness. She was given doxycycline this am and she will discard milk until tomorrow. She may resume tomorrow. Denies painful urination. Normal BM. Denies nausea or vomiting. Tolerates diet also less appetite recently. She has history of bipolar and stopped her medication in the first trimester. She is currently coping despite complications and has good support. Declines medication for her mood. Objective - Vital Signs/Intake & Output Reviewed Vital Signs: Yes Vital Signs: Vital Signs x48h Temp Pulse Pulse Resp BP BP Pulse Ox 11/01/21 08:00 99.0 F 103 H 18 119/66 95 11/01/21 05:20 100.4 F H 132 H 20 109/70 95 11/01/21 05:07 103.0 F H 127 H 27 H 111/74 98 11/01/21 04:30 103.0 F H 129 H 28 H 111/76 98 Intake & Output: Intake & Output 10/29/21 10/30/21 10/31/21 11/01/21 23:59 23:59 23:59 23:59 Intake Total 1423.333 Balance 1423.333 - Objective General Appearance: positive: No acute distress Respiratory: positive: No respiratory distress Cardiovascular: positive: Tachycardia Abdomen: positive: Non-tender Extremities: positive: Non-tender Comments/Other: Breasts: no redness, possible clogged duct right breast - Lab Results Fish Bones: 11/01/21 08:33 11/01/21 08:33 Other Labs: Lab Results x24hrs 11/01/21 11/01/21 11/01/21 Range/Units 08:34 08:33 08:33 WBC 13.3 H (4.8-10.8) x10^3/uL RBC 4.02 L (4.20-5.40) 10^6/uL Hgb 13.2 (12.0-16.0) g/dL Hct 38.5 (37.0-47.0) % MCV 95.8 (81.0-99.0) fL MCH 32.8 H (27.0-31.0) pg MCHC 34.3 (32.0-36.0) g/dL RDW 12.6 (12.0-15.0) % Plt Count 240 (130-450) 10^3/uL MPV 9.0 (7.9-10.8) fL Neut # (Auto) 11.8 H (1.5-6.6) 10^3/uL Lymph # (Auto) 0.9 L (1.5-3.5) 10^3/uL Bartholomew # (Auto) 0.4 (0.0-1.0) 10^3/uL Eos # (Auto) 0.0 (0.0-0.7) 10^3/uL Baso # (Auto) 0.0 (0.0-0.1) 10^3/uL Absolute Nucleated RBC 0.00 x10^3/uL Nucleated RBC % 0.0 /100WBC PT (9.9-12.6) secs INR (0.8-1.2) Sodium 138 (135-145) mmol/L Potassium 3.6 (3.5-5.0) mmol/L Chloride 106 (101-111) mmol/L Carbon Dioxide 23 (21-32) mmol/L Anion Gap 9.0 (6-13) BUN 6 (6-20) mg/dL Creatinine 0.5 (0.4-1.0) mg/dL Estimated GFR (MDRD) 147 (>89) Glucose 122 H (70-100) mg/dL Lactic Acid 0.7 (0.5-2.2) mmol/L Calcium 8.6 (8.5-10.3) mg/dL Total Bilirubin (0.2-1.0) mg/dL AST (10-42) IU/L ALT (10-60) IU/L Alkaline Phosphatase (42-121) IU/L Total Creatine Kinase (22-269) IU/L Total Protein (6.7-8.2) g/dL Albumin (3.2-5.5) g/dL Globulin (2.1-4.2) g/dL Albumin/Globulin Ratio (1.0-2.2) Lipase (22-51) U/L HCG, Quant mIU/mL Urine Color Urine Clarity (CLEAR) Urine pH (5.0-7.5) PH Ur Specific Brady (1.002-1.030) Urine Protein (NEGATIVE) mg/dL Urine Glucose (UA) (NEGATIVE) mg/dL Urine Ketones (NEGATIVE) mg/dL Urine Occult Blood (NEGATIVE) Urine Nitrite (NEGATIVE) Urine Bilirubin (NEGATIVE) Urine Urobilinogen (NORMAL) E.U./dL Ur Leukocyte Esterase (NEGATIVE) Urine RBC (0-5) /HPF Urine WBC (0-5) /HPF Ur Squamous Epith Cells (<= Few) Urine Bacteria (None Seen) /HPF Ur Microscopic Review Urine Culture Comments Nasal Adenovirus (PCR) Nasal B. parapertussis DNA (PCR) Nasal Coronavir 229E PCR Nasal Coronavir HKU1 PCR Nasal Coronavir NL63 PCR Nasal Coronavir OC43 PCR Nasal Enterovir/Rhinovir PCR Nasal Influenza B PCR Nasal Influenza A PCR Nasal Parainfluen 1 PCR Nasal Parainfluen 2 PCR Nasal Parainfluen 3 PCR Nasal Parainfluen 4 PCR Nasal RSV (PCR) Nasal B.pertussis DNA PCR Nasal C.pneumoniae (PCR) Mina Human Metapneumo PCR Nasal M.pneumoniae (PCR) Nasal SARS-CoV-2 (PCR) Ethyl Alcohol mg/dL Chlam trachomat DNA PCR (NEGATIVE) N.gonorrhoeae DNA (PCR) (NEGATIVE) T. vaginalis (PCR) (NEGATIVE) 11/01/21 10/31/21 10/31/21 Range/Units 02:50 21:37 21:37 WBC (4.8-10.8) x10^3/uL RBC (4.20-5.40) 10^6/uL Hgb (12.0-16.0) g/dL Hct (37.0-47.0) % MCV (81.0-99.0) fL MCH (27.0-31.0) pg MCHC (32.0-36.0) g/dL RDW (12.0-15.0) % Plt Count (130-450) 10^3/uL MPV (7.9-10.8) fL Neut # (Auto) (1.5-6.6) 10^3/uL Lymph # (Auto) (1.5-3.5) 10^3/uL Bartholomew # (Auto) (0.0-1.0) 10^3/uL Eos # (Auto) (0.0-0.7) 10^3/uL Baso # (Auto) (0.0-0.1) 10^3/uL Absolute Nucleated RBC x10^3/uL Nucleated RBC % /100WBC PT (9.9-12.6) secs INR (0.8-1.2) Sodium (135-145) mmol/L Potassium (3.5-5.0) mmol/L Chloride (101-111) mmol/L Carbon Dioxide (21-32) mmol/L Anion Gap (6-13) BUN (6-20) mg/dL Creatinine (0.4-1.0) mg/dL Estimated GFR (MDRD) (>89) Glucose (70-100) mg/dL Lactic Acid 1.5 (0.5-2.2) mmol/L Calcium (8.5-10.3) mg/dL Total Bilirubin (0.2-1.0) mg/dL AST (10-42) IU/L ALT (10-60) IU/L Alkaline Phosphatase (42-121) IU/L Total Creatine Kinase (22-269) IU/L Total Protein (6.7-8.2) g/dL Albumin (3.2-5.5) g/dL Globulin (2.1-4.2) g/dL Albumin/Globulin Ratio (1.0-2.2) Lipase (22-51) U/L HCG, Quant 4.28 mIU/mL Urine Color Urine Clarity (CLEAR) Urine pH (5.0-7.5) PH Ur Specific Brady (1.002-1.030) Urine Protein (NEGATIVE) mg/dL Urine Glucose (UA) (NEGATIVE) mg/dL Urine Ketones (NEGATIVE) mg/dL Urine Occult Blood (NEGATIVE) Urine Nitrite (NEGATIVE) Urine Bilirubin (NEGATIVE) Urine Urobilinogen (NORMAL) E.U./dL Ur Leukocyte Esterase (NEGATIVE) Urine RBC (0-5) /HPF Urine WBC (0-5) /HPF Ur Squamous Epith Cells (<= Few) Urine Bacteria (None Seen) /HPF Ur Microscopic Review Urine Culture Comments Nasal Adenovirus (PCR) NOT DETECTED Nasal B. parapertussis DNA (PCR) NOT DETECTED Nasal Coronavir 229E PCR NOT DETECTED Nasal Coronavir HKU1 PCR NOT DETECTED Nasal Coronavir NL63 PCR NOT DETECTED Nasal Coronavir OC43 PCR NOT DETECTED Nasal Enterovir/Rhinovir PCR NOT DETECTED Nasal Influenza B PCR NOT DETECTED Nasal Influenza A PCR NOT DETECTED Nasal Parainfluen 1 PCR NOT DETECTED Nasal Parainfluen 2 PCR NOT DETECTED Nasal Parainfluen 3 PCR NOT DETECTED Nasal Parainfluen 4 PCR NOT DETECTED Nasal RSV (PCR) NOT DETECTED Nasal B.pertussis DNA PCR NOT DETECTED Nasal C.pneumoniae (PCR) NOT DETECTED Mina Human Metapneumo PCR NOT DETECTED Nasal M.pneumoniae (PCR) NOT DETECTED Nasal SARS-CoV-2 (PCR) NOT DETECTED Ethyl Alcohol mg/dL Chlam trachomat DNA PCR (NEGATIVE) N.gonorrhoeae DNA (PCR) (NEGATIVE) T. vaginalis (PCR) (NEGATIVE) 10/31/21 10/31/21 10/31/21 Range/Units 21:37 21:37 21:37 WBC 12.9 H (4.8-10.8) x10^3/uL RBC 4.22 (4.20-5.40) 10^6/uL Hgb 13.6 (12.0-16.0) g/dL Hct 40.5 (37.0-47.0) % MCV 96.0 (81.0-99.0) fL MCH 32.2 H (27.0-31.0) pg MCHC 33.6 (32.0-36.0) g/dL RDW 12.5 (12.0-15.0) % Plt Count 271 (130-450) 10^3/uL MPV 9.2 (7.9-10.8) fL Neut # (Auto) 11.7 H (1.5-6.6) 10^3/uL Lymph # (Auto) 0.6 L (1.5-3.5) 10^3/uL Bartholomew # (Auto) 0.4 (0.0-1.0) 10^3/uL Eos # (Auto) 0.1 (0.0-0.7) 10^3/uL Baso # (Auto) 0.1 (0.0-0.1) 10^3/uL Absolute Nucleated RBC 0.00 x10^3/uL Nucleated RBC % 0.0 /100WBC PT 11.0 (9.9-12.6) secs INR 1.0 (0.8-1.2) Sodium 139 (135-145) mmol/L Potassium 3.7 (3.5-5.0) mmol/L Chloride 103 (101-111) mmol/L Carbon Dioxide 24 (21-32) mmol/L Anion Gap 12.0 (6-13) BUN 10 (6-20) mg/dL Creatinine 0.6 (0.4-1.0) mg/dL Estimated GFR (MDRD) 119 (>89) Glucose 122 H (70-100) mg/dL Lactic Acid (0.5-2.2) mmol/L Calcium 9.7 (8.5-10.3) mg/dL Total Bilirubin 0.5 (0.2-1.0) mg/dL AST 21 (10-42) IU/L ALT 22 (10-60) IU/L Alkaline Phosphatase 95 (42-121) IU/L Total Creatine Kinase 72 (22-269) IU/L Total Protein 7.2 (6.7-8.2) g/dL Albumin 3.8 (3.2-5.5) g/dL Globulin 3.4 (2.1-4.2) g/dL Albumin/Globulin Ratio 1.1 (1.0-2.2) Lipase 37 (22-51) U/L HCG, Quant mIU/mL Urine Color Urine Clarity (CLEAR) Urine pH (5.0-7.5) PH Ur Specific Brady (1.002-1.030) Urine Protein (NEGATIVE) mg/dL Urine Glucose (UA) (NEGATIVE) mg/dL Urine Ketones (NEGATIVE) mg/dL Urine Occult Blood (NEGATIVE) Urine Nitrite (NEGATIVE) Urine Bilirubin (NEGATIVE) Urine Urobilinogen (NORMAL) E.U./dL Ur Leukocyte Esterase (NEGATIVE) Urine RBC (0-5) /HPF Urine WBC (0-5) /HPF Ur Squamous Epith Cells (<= Few) Urine Bacteria (None Seen) /HPF Ur Microscopic Review Urine Culture Comments Nasal Adenovirus (PCR) Nasal B. parapertussis DNA (PCR) Nasal Coronavir 229E PCR Nasal Coronavir HKU1 PCR Nasal Coronavir NL63 PCR Nasal Coronavir OC43 PCR Nasal Enterovir/Rhinovir PCR Nasal Influenza B PCR Nasal Influenza A PCR Nasal Parainfluen 1 PCR Nasal Parainfluen 2 PCR Nasal Parainfluen 3 PCR Nasal Parainfluen 4 PCR Nasal RSV (PCR) Nasal B.pertussis DNA PCR Nasal C.pneumoniae (PCR) Mina Human Metapneumo PCR Nasal M.pneumoniae (PCR) Nasal SARS-CoV-2 (PCR) Ethyl Alcohol < 5.0 mg/dL Chlam trachomat DNA PCR (NEGATIVE) N.gonorrhoeae DNA (PCR) (NEGATIVE) T. vaginalis (PCR) (NEGATIVE) 10/31/21 10/31/21 Range/Units 21:22 21:22 WBC (4.8-10.8) x10^3/uL RBC (4.20-5.40) 10^6/uL Hgb (12.0-16.0) g/dL Hct (37.0-47.0) % MCV (81.0-99.0) fL MCH (27.0-31.0) pg MCHC (32.0-36.0) g/dL RDW (12.0-15.0) % Plt Count (130-450) 10^3/uL MPV (7.9-10.8) fL Neut # (Auto) (1.5-6.6) 10^3/uL Lymph # (Auto) (1.5-3.5) 10^3/uL Bartholomew # (Auto) (0.0-1.0) 10^3/uL Eos # (Auto) (0.0-0.7) 10^3/uL Baso # (Auto) (0.0-0.1) 10^3/uL Absolute Nucleated RBC x10^3/uL Nucleated RBC % /100WBC PT (9.9-12.6) secs INR (0.8-1.2) Sodium (135-145) mmol/L Potassium (3.5-5.0) mmol/L Chloride (101-111) mmol/L Carbon Dioxide (21-32) mmol/L Anion Gap (6-13) BUN (6-20) mg/dL Creatinine (0.4-1.0) mg/dL Estimated GFR (MDRD) (>89) Glucose (70-100) mg/dL Lactic Acid (0.5-2.2) mmol/L Calcium (8.5-10.3) mg/dL Total Bilirubin (0.2-1.0) mg/dL AST (10-42) IU/L ALT (10-60) IU/L Alkaline Phosphatase (42-121) IU/L Total Creatine Kinase (22-269) IU/L Total Protein (6.7-8.2) g/dL Albumin (3.2-5.5) g/dL Globulin (2.1-4.2) g/dL Albumin/Globulin Ratio (1.0-2.2) Lipase (22-51) U/L HCG, Quant mIU/mL Urine Color YELLOW Urine Clarity HAZY (CLEAR) Urine pH 6.5 (5.0-7.5) PH Ur Specific Brady 1.010 (1.002-1.030) Urine Protein NEGATIVE (NEGATIVE) mg/dL Urine Glucose (UA) NEGATIVE (NEGATIVE) mg/dL Urine Ketones NEGATIVE (NEGATIVE) mg/dL Urine Occult Blood LARGE H (NEGATIVE) Urine Nitrite NEGATIVE (NEGATIVE) Urine Bilirubin NEGATIVE (NEGATIVE) Urine Urobilinogen 0.2 (NORMAL) (NORMAL) E.U./dL Ur Leukocyte Esterase LARGE H (NEGATIVE) Urine RBC 6-10 H (0-5) /HPF Urine WBC >25 H (0-5) /HPF Ur Squamous Epith Cells FEW Squamous (<= Few) Urine Bacteria Moderate H (None Seen) /HPF Ur Microscopic Review INDICATED Urine Culture Comments INDICATED Nasal Adenovirus (PCR) Nasal B. parapertussis DNA (PCR) Nasal Coronavir 229E PCR Nasal Coronavir HKU1 PCR Nasal Coronavir NL63 PCR Nasal Coronavir OC43 PCR Nasal Enterovir/Rhinovir PCR Nasal Influenza B PCR Nasal Influenza A PCR Nasal Parainfluen 1 PCR Nasal Parainfluen 2 PCR Nasal Parainfluen 3 PCR Nasal Parainfluen 4 PCR Nasal RSV (PCR) Nasal B.pertussis DNA PCR Nasal C.pneumoniae (PCR) Mina Human Metapneumo PCR Nasal M.pneumoniae (PCR) Nasal SARS-CoV-2 (PCR) Ethyl Alcohol mg/dL Chlam trachomat DNA PCR NEGATIVE (NEGATIVE) N.gonorrhoeae DNA (PCR) NEGATIVE (NEGATIVE) T. vaginalis (PCR) NEGATIVE (NEGATIVE) - Diagnostic Imaging Diagnostic Imaging Results: positive: Final report reviewed - Other Results/Comments Other Results/Comments: : malodorous discharge noted, white/yellow discharge at introitus, second repair appears to be intact without redness or swelling ABX Reporting Has patient been on IV antibiotics over the past 48 hours?: Yes Sepsis Event Note (H) - Evaluation Current Stage of Sepsis: Sepsis Possible source of Sepsis: positive: Genitourinary - Sepsis Criteria Sepsis Criteria: Recorded Temperature greater than 38.3C or Less than 36C, Recorded Heart Rate greater than 90 bpm, Recorded Respiratory Rate greater than 20, WBC count greater than 12,000 or less than 4000 Assessment/Plan - Problem List (1) endometritis Impression: 26yo s/p VAVD 10/19 at 34.4 following labor admission for PPROM, PPD#13 admitted today for endometritis - OB to resume care from medicine hospitalist - Received Unasyn, doxycycline in ED. Currently with Zosyn, clindamycin, ceftriaxone. T99 today 0800 and VSS improved. Continue IV antibiotics and plan for admission until 10/03. - CT and US reviewed, no retained POCs identified. - [facility]BP RN to assist with supplies, breastmilk. Advised patient to continue pumping/massage to prevent clogged ducts.
--- NOTE | 2021-11-01 15:34 | PHARMACY PROGRESS NOTE ---
- Best Possible Medication History Admit Date and Time: 11/01/21 1001 Processed by: Nursing Medication History completed: Yes Patient Interview: Completed As the person ultimately responsible for medication therapy, providers are able to order a medication from an existing home medication list in [facility] via the "Reconcile Routine" prior to Confirmation of that medication by business support associate. Such practice is discouraged except when the physician, in their clinical judg ment, deems that a medical need exists for a medication without regard to previous use.
[2021-11-01] MEDS: ACETAMINOPHEN 500 MG TABLET PO SCH (16:11)
[2021-11-01] MEDS: IBUPROFEN 800 MG TABLET PO SCH ×2 (17:38→21:02)
[2021-11-01] MEDS ORDERED: GENTAMICIN IV SCH (18:00)
[2021-11-01] MEDS ORDERED: SODIUM CHLORIDE 0.9% IV SCH (18:00)
[2021-11-01] MEDS: AMPICILLIN 2 GM in SODIUM CHLORIDE 0.9% MINIBAG 100 ML IV SCH (18:46)
[2021-11-02] MEDS: ACETAMINOPHEN 500 MG TABLET PO SCH ×3 (00:12→15:45)
[2021-11-02] MEDS: AMPICILLIN 2 GM in SODIUM CHLORIDE 0.9% MINIBAG 100 ML IV SCH ×5 (00:14→23:47)
[2021-11-02] MEDS: SODIUM CHLORIDE FLUSH 0.9% 10 ML SYRINGE IVP SCH ×4 (00:14→23:38)
[2021-11-02] MEDS: SODIUM CHLORIDE 0.9% 1,000 ML IV SCH ×3 (01:59→20:06)
[2021-11-02] MEDS: CLINDAMYCIN 900 MG/50 ML 50 ML IV SCH ×3 (01:59→17:17)
[2021-11-02] MEDS: IBUPROFEN 800 MG TABLET PO SCH ×3 (04:27→15:45)
[2021-11-02 04:53] LABS: BASOPHILS % (AUTO) 0.3 %; EOSINOPHILS # (AUTO) 0.5 10^3/uL (0.0-0.7); EOSINOPHILS % (AUTO) 4.1 %; HCT - HEMATOCRIT 36.9 % (37.0-47.0); HGB - HEMOGLOBIN 12.2 g/dL (12.0-16.0); LYMPHOCYTES % (AUTO) 8.3 %; MEAN CORPUSCULAR HGB CONC 33.1 g/dL (32.0-36.0); MEAN CORPUSCULAR VOLUME 96.9 fL (81.0-99.0); MEAN PLATELET VOLUME 9.2 fL (7.9-10.8); MONOCYTES # (AUTO) 0.6 10^3/uL (0.0-1.0); MONOCYTES % (AUTO) 5.1 %; NEUTROPHILS # (AUTO) 9.5 10^3/uL (1.5-6.6); NEUTROPHILS % (AUTO) 81.8 %; PLT - PLATELET COUNT 212 10^3/uL (130-450); RED BLOOD COUNT 3.81 10^6/uL (4.20-5.40); RED CELL DISTRIBUTION WIDTH 12.9 % (12.0-15.0); WHITE BLOOD COUNT 11.6 x10^3/uL (4.8-10.8)
[2021-11-02 05:02] LABS: CALCIUM 8.5 mg/dL (8.5-10.3); CREATININE 0.5 mg/dL (0.4-1.0); POTASSIUM 3.6 mmol/L (3.5-5.0)
[2021-11-02] MEDS ORDERED: SODIUM CHLORIDE 0.9% IV SCH ×2 (07:00→08:00)
[2021-11-02] MEDS ORDERED: GENTAMICIN IV SCH ×2 (07:00→08:00)
--- NOTE | 2021-11-02 07:27 | PROVIDER PROGRESS NOTE ---
<Jarod Escobedo - Last Filed: 11/02/21 07:25> Subjective - Prog Note Date Prog Note Date: 11/02/21 - Subjective Pt reports feeling: Improved Subjective: Patient doing well. Objective - Vital Signs/Intake & Output Reviewed Vital Signs: Yes Vital Signs: Vital Signs x48h Temp Pulse Resp BP Pulse Ox 11/02/21 04:30 97.5 F L 70 16 99/67 97 11/02/21 00:07 98.6 F 87 12 100/58 L 96 Intake & Output: Intake & Output 10/30/21 10/31/21 11/01/21 11/02/21 23:59 23:59 23:59 23:59 Intake Total 3450.000 1445 Balance 3450.000 1445 - Objective General Appearance: positive: No acute distress Respiratory: positive: No respiratory distress Cardiovascular: positive: Regular rate & rhythm Abdomen: positive: Tenderness Skin: positive: Color nml (mild in suprapubic pressure) - Lab Results Fish Bones: 11/02/21 04:39 11/02/21 04:39 Other Labs: Lab Results x24hrs 11/02/21 11/02/21 11/01/21 Range/Units 04:39 04:39 08:34 WBC 11.6 H (4.8-10.8) x10^3/uL RBC 3.81 L (4.20-5.40) 10^6/uL Hgb 12.2 (12.0-16.0) g/dL Hct 36.9 L (37.0-47.0) % MCV 96.9 (81.0-99.0) fL MCH 32.0 H (27.0-31.0) pg MCHC 33.1 (32.0-36.0) g/dL RDW 12.9 (12.0-15.0) % Plt Count 212 (130-450) 10^3/uL MPV 9.2 (7.9-10.8) fL Neut # (Auto) 9.5 H (1.5-6.6) 10^3/uL Lymph # (Auto) 1.0 L (1.5-3.5) 10^3/uL Stonewall # (Auto) 0.6 (0.0-1.0) 10^3/uL Eos # (Auto) 0.5 (0.0-0.7) 10^3/uL Baso # (Auto) 0.0 (0.0-0.1) 10^3/uL Absolute Nucleated RBC 0.00 x10^3/uL Nucleated RBC % 0.0 /100WBC Sodium 141 (135-145) mmol/L Potassium 3.6 (3.5-5.0) mmol/L Chloride 109 (101-111) mmol/L Carbon Dioxide 24 (21-32) mmol/L Anion Gap 8.0 (6-13) BUN 7 (6-20) mg/dL Creatinine 0.5 (0.4-1.0) mg/dL Estimated GFR (MDRD) 147 (>89) Glucose 88 (70-100) mg/dL Lactic Acid 0.7 (0.5-2.2) mmol/L Calcium 8.5 (8.5-10.3) mg/dL 11/01/21 11/01/21 Range/Units 08:33 08:33 WBC 13.3 H (4.8-10.8) x10^3/uL RBC 4.02 L (4.20-5.40) 10^6/uL Hgb 13.2 (12.0-16.0) g/dL Hct 38.5 (37.0-47.0) % MCV 95.8 (81.0-99.0) fL MCH 32.8 H (27.0-31.0) pg MCHC 34.3 (32.0-36.0) g/dL RDW 12.6 (12.0-15.0) % Plt Count 240 (130-450) 10^3/uL MPV 9.0 (7.9-10.8) fL Neut # (Auto) 11.8 H (1.5-6.6) 10^3/uL Lymph # (Auto) 0.9 L (1.5-3.5) 10^3/uL Stonewall # (Auto) 0.4 (0.0-1.0) 10^3/uL Eos # (Auto) 0.0 (0.0-0.7) 10^3/uL Baso # (Auto) 0.0 (0.0-0.1) 10^3/uL Absolute Nucleated RBC 0.00 x10^3/uL Nucleated RBC % 0.0 /100WBC Sodium 138 (135-145) mmol/L Potassium 3.6 (3.5-5.0) mmol/L Chloride 106 (101-111) mmol/L Carbon Dioxide 23 (21-32) mmol/L Anion Gap 9.0 (6-13) BUN 6 (6-20) mg/dL Creatinine 0.5 (0.4-1.0) mg/dL Estimated GFR (MDRD) 147 (>89) Glucose 122 H (70-100) mg/dL Lactic Acid (0.5-2.2) mmol/L Calcium 8.6 (8.5-10.3) mg/dL Sepsis Event Note (H) - Evaluation Current Stage of Sepsis: Sepsis Possible source of Sepsis: positive: Genitourinary - Sepsis Criteria Sepsis Criteria: Recorded Temperature greater than 38.3C or Less than 36C, Recorded Heart Rate greater than 90 bpm, Recorded Respiratory Rate greater than 20, WBC count greater than 12,000 or less than 4000 Assessment/Plan - Problem List (1) Endometritis following delivery Impression: -Continue on Ampicillin and Gentamicin. -Last fever 1536 on 11/01/21. WBC 11.6. -Likely discharge tomorrow. (2) Mother currently breast-feeding Impression: -Support from [facility] staff for and support. <Rosa Maria Wheeler V - Last Filed: 11/02/21 17:41> Subjective - Subjective Pt reports feeling: Improved Subjective: Comfortable, feels better than yesterday. Denies feeling fevers/chills. Lochia now red, less odor. Ambulating. Tolerating diet, denies n/v. Objective - Vital Signs/Intake & Output Reviewed Vital Signs: Yes Vital Signs: Vital Signs x48h Temp Pulse Resp BP Pulse Ox 11/02/21 15:40 97.7 F 73 16 105/70 96 11/02/21 13:13 97.7 F 88 16 96/55 L 98 Intake & Output: Intake & Output 10/30/21 10/31/21 11/01/21 11/02/21 23:59 23:59 23:59 23:59 Intake Total 3450.000 3341.5 Balance 3450.000 3341.5 - Objective General Appearance: positive: No acute distress Respiratory: positive: No respiratory distress Cardiovascular: positive: Regular rate & rhythm (minimal tenderness) Skin: positive: Color nml Extremities: positive: Non-tender Neurologic/Psychiatric: positive: Oriented x3 - Lab Results Fish Bones: 11/02/21 04:39 11/02/21 04:39 Other Labs: Lab Results x24hrs 11/02/21 11/02/21 11/02/21 Range/Units 13:00 04:39 04:39 WBC 11.6 H (4.8-10.8) x10^3/uL RBC 3.81 L (4.20-5.40) 10^6/uL Hgb 12.2 (12.0-16.0) g/dL Hct 36.9 L (37.0-47.0) % MCV 96.9 (81.0-99.0) fL MCH 32.0 H (27.0-31.0) pg MCHC 33.1 (32.0-36.0) g/dL RDW 12.9 (12.0-15.0) % Plt Count 212 (130-450) 10^3/uL MPV 9.2 (7.9-10.8) fL Neut # (Auto) 9.5 H (1.5-6.6) 10^3/uL Lymph # (Auto) 1.0 L (1.5-3.5) 10^3/uL [place]wall # (Auto) 0.6 (0.0-1.0) 10^3/uL Eos # (Auto) 0.5 (0.0-0.7) 10^3/uL Baso # (Auto) 0.0 (0.0-0.1) 10^3/uL Absolute Nucleated RBC 0.00 x10^3/uL Nucleated RBC % 0.0 /100WBC Sodium 141 (135-145) mmol/L Potassium 3.6 (3.5-5.0) mmol/L Chloride 109 (101-111) mmol/L Carbon Dioxide 24 (21-32) mmol/L Anion Gap 8.0 (6-13) BUN 7 (6-20) mg/dL Creatinine 0.5 (0.4-1.0) mg/dL Estimated GFR (MDRD) 147 (>89) Glucose 88 (70-100) mg/dL Calcium 8.5 (8.5-10.3) mg/dL Stl C. diff Tox B Gene NEGATIVE (NEGATIVE) ABX Reporting Has patient been on IV antibiotics over the past 48 hours?: Yes Assessment/Plan - Problem List (1) endometritis Impression: 26yo s/p VAVD 10/19 at 34.4 following labor admission for PPROM, PPD#14, admitted with endometritis - Received gentamicin, clindamycin, ampicillin today. Will discontinue gentamicin. Continue ampicillin and clindamycin. Afebrile and improving. - Anticipate discharge tomorrow
[2021-11-02] MEDS: ENOXAPARIN 40 MG/0.4 ML SYRINGE SUBQ SCH (08:56)
[2021-11-02] MEDS ORDERED: LOPERAMIDE 2 MG CAPSULE PO PRN (16:12)
--- NOTE | 2021-11-02 16:19 | PROVIDER PROGRESS NOTE ---
Assessment/Plan - Problem List (1) Diarrhea Assessment/Plan: This is likely a side effect of being on several antibiotics for 2 days. Will order C. difficile test of her stool If the C. difficile result is negative, will order Imodium as an antidiarrheal and also Florastor probiotic (2) Endometritis following delivery Impression: [place] antibiotic guide recommended Zosyn or meropenem or ceftriaxone plus clindamycin, and stated she may need concomitant doxycycline if positive fo trachomatous. Duration of therapy is up to 10 days. She is improving on Gent, Amp and Clindamycin. (3) Mother currently breast-feeding Impression: Mom was asking if she can breast-feed her baby using her current milk. She did receive doxycycline in the emergency room. So she would have to pump and dump, for as many days as ordered by [facility] (4) Sepsis Impression: Resolved. She met criteria for sepsis. After receiving antibiotic, she defervesced, is no longer tachycardic, and white cell count is improving. We will sign off the case. Thank you for allowing us to participate in cares patient. - Current Meds Current Meds: Current Medications Generic Name Dose Route Start Last Admin Trade Name Freq PRN Reason Stop Dose Admin Acetaminophen 1,000 mg 11/01/21 16:00 11/02/21 15:45 Acetaminophen 500 Mg Tablet PO 1,000 mg Q8H PETER Administration Enoxaparin Sodium 40 mg 11/01/21 09:00 11/02/21 08:56 Enoxaparin 40 Mg/0.4 Ml Syringe SUBQ 40 mg DAILY PETER Administration Sodium Chloride 1,000 mls @ 100 mls/hr 11/01/21 05:00 11/02/21 15:45 Normal Saline 0.9% IV 100 mls/hr .Q10H PETER Administration Clindamycin Phosphate 50 mls @ 50 mls/hr 11/01/21 10:00 11/02/21 11:05 Cleocin 900 Mg/50 Ml IV Infused Q8H PETER Infusion Ampicillin Sodium 2 gm/ Sodium 100 mls @ 100 mls/hr 11/01/21 18:00 11/02/21 13:34 Chloride IV Infused Q6HR PETER Infusion Gentamicin Sulfate 260 mg/ 106.5 mls @ 100 mls/hr 11/02/21 08:00 11/02/21 10:00 Sodium Chloride IV Infused Q24H PETER Infusion Ibuprofen 800 mg 11/01/21 16:00 11/02/21 15:45 Ibuprofen 800 Mg Tablet PO 800 mg Q6H PETER Administration Sodium Chloride 10 ml 11/01/21 09:00 11/02/21 15:46 Sodium Chloride Flush 0.9% 10 Ml Syringe IVP Not Given 0100,0900,1700 PETER - Lab Result Fish Bone Diagrams: 11/02/21 04:39 11/02/21 04:39 - Additional Planning My Orders: My Active Orders 11/02/21 16:12 Loperamide [Imodium] 2 mg PO QID PRN Subjective - Subjective Patient Reports: Diarrhea (She started to get 2-3 watery brown bowel movements today, no cramping, no fever) Objective Vital Signs: Vital Signs - 24 hr 11/01/21 11/01/21 11/02/21 17:35 21:00 00:07 Temperature 36.9 C 36.6 C 37 C Heart Rate [ 98 87 Brachial] Respiratory 19 12 Rate Blood Pressure 99/63 100/58 L [Left Brachial artery] O2 Saturation 97 96 11/02/21 11/02/21 11/02/21 04:30 07:40 13:13 Temperature 36.4 C L 36.7 C 36.5 C Heart Rate [ 70 86 88 Brachial] Respiratory 16 16 16 Rate Blood Pressure 99/67 100/58 L 96/55 L [Left Brachial artery] O2 Saturation 97 98 98 11/02/21 15:40 Temperature 36.5 C Heart Rate [ 73 Brachial] Respiratory 16 Rate Blood Pressure 105/70 [Left Brachial artery] O2 Saturation 96 Oxygen O2 Source Room air I&O (Last 24 Hrs): Intake and Output Totals x24h 10/31/21 11/01/21 11/02/21 23:59 23:59 23:59 Intake Total 3450.000 3161.5 Balance 3450.000 3161.5 General: Alert, Oriented x3 HEENT: Mucous membr. moist/pink Neck: Supple Neuro: Alert, Non Focal Cardiovascular: Regular rate Respiratory: No respiratory distress Abdomen: Soft, No tenderness Extremities: No edema - Results Results: Laboratory Results WBC 11.6 x10^3/uL (4.8-10.8) H 11/02/21 04:39 RBC 3.81 10^6/uL (4.20-5.40) L 11/02/21 04:39 Hgb 12.2 g/dL (12.0-16.0) 11/02/21 04:39 Hct 36.9 % (37.0-47.0) L 11/02/21 04:39 MCV 96.9 fL (81.0-99.0) 11/02/21 04:39 MCH 32.0 pg (27.0-31.0) H 11/02/21 04:39 MCHC 33.1 g/dL (32.0-36.0) 11/02/21 04:39 RDW 12.9 % (12.0-15.0) 11/02/21 04:39 Plt Count 212 10^3/uL (130-450) 11/02/21 04:39 MPV 9.2 fL (7.9-10.8) 11/02/21 04:39 Neut # (Auto) 9.5 10^3/uL (1.5-6.6) H 11/02/21 04:39 Lymph # (Auto) 1.0 10^3/uL (1.5-3.5) L 11/02/21 04:39 [place] # (Auto) 0.6 10^3/uL (0.0-1.0) 11/02/21 04:39 Eos # (Auto) 0.5 10^3/uL (0.0-0.7) 11/02/21 04:39 Baso # (Auto) 0.0 10^3/uL (0.0-0.1) 11/02/21 04:39 Absolute Nucleated RBC 0.00 x10^3/uL 11/02/21 04:39 Nucleated RBC % 0.0 /100WBC 11/02/21 04:39 PT 11.0 secs (9.9-12.6) 10/31/21 21:37 INR 1.0 (0.8-1.2) 10/31/21 21:37 Sodium 141 mmol/L (135-145) 11/02/21 04:39 Potassium 3.6 mmol/L (3.5-5.0) 11/02/21 04:39 Chloride 109 mmol/L (101-111) 11/02/21 04:39 Carbon Dioxide 24 mmol/L (21-32) 11/02/21 04:39 Anion Gap 8.0 (6-13) 11/02/21 04:39 BUN 7 mg/dL (6-20) 11/02/21 04:39 Creatinine 0.5 mg/dL (0.4-1.0) 11/02/21 04:39 Estimated GFR (MDRD) 147 (>89) 11/02/21 04:39 Glucose 88 mg/dL (70-100) 11/02/21 04:39 Lactic Acid 0.7 mmol/L (0.5-2.2) 11/01/21 08:34 Calcium 8.5 mg/dL (8.5-10.3) 11/02/21 04:39 Total Bilirubin 0.5 mg/dL (0.2-1.0) 10/31/21 21:37 AST 21 IU/L (10-42) 10/31/21 21:37 ALT 22 IU/L (10-60) 10/31/21 21:37 Alkaline Phosphatase 95 IU/L (42-121) 10/31/21 21:37 Total Creatine Kinase 72 IU/L (22-269) 10/31/21 21:37 Total Protein 7.2 g/dL (6.7-8.2) 10/31/21 21:37 Albumin 3.8 g/dL (3.2-5.5) 10/31/21 21:37 Globulin 3.4 g/dL (2.1-4.2) 10/31/21 21:37 Albumin/Globulin Ratio 1.1 (1.0-2.2) 10/31/21 21:37 Lipase 37 U/L (22-51) 10/31/21 21:37 HCG, Quant 4.28 mIU/mL 10/31/21 21:37 Urine Color YELLOW 10/31/21 21:22 Urine Clarity HAZY (CLEAR) 10/31/21 21:22 Urine pH 6.5 PH (5.0-7.5) 10/31/21 21:22 Ur Specific [place] 1.010 (1.002-1.030) 10/31/21 21:22 Urine Protein NEGATIVE mg/dL (NEGATIVE) 10/31/21 21:22 Urine Glucose (UA) NEGATIVE mg/dL (NEGATIVE) 10/31/21 21:22 Urine Ketones NEGATIVE mg/dL (NEGATIVE) 10/31/21 21:22 Urine Occult Blood LARGE (NEGATIVE) H 10/31/21 21:22 Urine Nitrite NEGATIVE (NEGATIVE) 10/31/21 21: Urine Bilirubin NEGATIVE (NEGATIVE) 10/31/21 21:22 Urine Urobilinogen 0.2 (NORMAL) E.U./dL (NORMAL) 10/31/21 21:22 Ur Leukocyte Esterase LARGE (NEGATIVE) H 10/31/21 21:22 Urine RBC 6-10 /HPF (0-5) H 10/31/21 21:22 Urine WBC >25 /HPF (0-5) H 10/31/21 21:22 Ur Squamous Epith Cells FEW Squamous (<= Few) 10/31/21 21: Urine Bacteria Moderate /HPF (None Seen) H 10/31/21 21:22 Ur Microscopic Review INDICATED 10/31/21 21: Urine Culture Comments INDICATED 10/31/21 21: Nasal Adenovirus (PCR) NOT DETECTED 11/01/21 02:50 Nasal B. parapertussis DNA (PCR) NOT DETECTED 11/01/21 02:50 Nasal Coronavir 229E PCR NOT DETECTED 11/01/21 02:50 Nasal Coronavir HKU1 PCR NOT DETECTED 11/01/21 02:50 Nasal Coronavir NL63 PCR NOT DETECTED 11/01/21 02:50 Nasal Coronavir OC43 PCR NOT DETECTED 11/01/21 02:50 Nasal Enterovir/Rhinovir PCR NOT DETECTED 11/01/21 02:50 Nasal Influenza B PCR NOT DETECTED 11/01/21 02:50 Nasal Influenza A PCR NOT DETECTED 11/01/21 02:50 Nasal Parainfluen 1 PCR NOT DETECTED 11/01/21 02:50 Nasal Parainfluen 2 PCR NOT DETECTED 11/01/21 02:50 Nasal Parainfluen 3 PCR NOT DETECTED 11/01/21 02:50 Nasal Parainfluen 4 PCR NOT DETECTED 11/01/21 02:50 Nasal RSV (PCR) NOT DETECTED 11/01/21 02:50 Nasal B.pertussis DNA PCR NOT DETECTED 11/01/21 02:50 Nasal C.pneumoniae (PCR) NOT DETECTED 11/01/21 02:50 [place] Human Metapneumo PCR NOT DETECTED 11/01/21 02:50 Nasal M.pneumoniae (PCR) NOT DETECTED 11/01/21 02:50 Nasal SARS-CoV-2 (PCR) NOT DETECTED 11/01/21 02:50 Stl C. diff Tox B Gene NEGATIVE (NEGATIVE) 11/02/21 13:00 Ethyl Alcohol < 5.0 mg/dL 10/31/21 21:37 Chlam trachomat DNA PCR NEGATIVE (NEGATIVE) 10/31/21 21:22 N.gonorrhoeae DNA (PCR) NEGATIVE (NEGATIVE) 10/31/21 21:22 T. vaginalis (PCR) NEGATIVE (NEGATIVE) 10/31/21 21:22 - Procedures Procedures: Procedures EXTRACTION OF PRODUCTS OF CONCEPTION, VACUUM, VIA OPENING (10/18/21) REPAIR PERINEUM MUSCLE, OPEN APPROACH (10/18/21) Sepsis Event Note (H) - Evaluation Current Stage of Sepsis: Sepsis Possible source of Sepsis: positive: Genitourinary - Sepsis Criteria Sepsis Criteria: Recorded Temperature greater than 38.3C or Less than 36C, Recorded Heart Rate greater than 90 bpm, Recorded Respiratory Rate greater than 20, WBC count greater than 12,000 or less than 4000
[2021-11-02] MEDS: SACCHAROMYCES BOULARDII 250 MG CAPSULE PO SCH (16:39)
[2021-11-02] MEDS ORDERED: ACETAMINOPHEN 500 MG TABLET PO PRN (17:31)
[2021-11-02] MEDS ORDERED: IBUPROFEN 800 MG TABLET PO PRN (17:32)
[2021-11-03] MEDS: CLINDAMYCIN 900 MG/50 ML 50 ML IV SCH (02:06)
[2021-11-03] MEDS: AMPICILLIN 2 GM in SODIUM CHLORIDE 0.9% MINIBAG 100 ML IV SCH (05:29)
[2021-11-03] MEDS: SODIUM CHLORIDE 0.9% 1,000 ML IV SCH (05:29)
[2021-11-03 07:39] VITALS: BP 113/71
[2021-11-03] MEDS: SODIUM CHLORIDE FLUSH 0.9% 10 ML SYRINGE IVP SCH (07:47)
[2021-11-03] MEDS: SACCHAROMYCES BOULARDII 250 MG CAPSULE PO SCH (07:47)
--- NOTE | 2021-11-03 08:23 | DISCHARGE SUMMARY ---
"Discharge Summary Admit Date: 11/01/21 Discharge Date: 11/03/21 Discharging Provider: Jarod Escobedo MD Code Status: Attempt Resuscitation Condition at Discharge: Good Discharge Disposition: 01 Home, Self Care - DIAGNOSES Admission Diagnoses: Endometritis Sepsis Discharge Diagnoses with Status of Each Condition: Endometritis: Resolved Sepsis: Resolved Diarrhea: Improved - HPI History of Present Illness: No acute events overnight. Remains afebrile. No pain. Overall doing well. Diarrhea has improved. Physical Constitutional: alert, no acute distress, well hydrated, well developed, well nourished, appropriate dress. Cardiovascular: Regular rate and rhythm. Respiratory: no respiratory distress. Abdomen: nondistended, nontender, no guarding. Psych: affect and mood appropriate, normal interaction, good eye contact. - CONSULTS | PROCEDURES Consultations: Hospitalist - HOSPITAL COURSE Hospital Course: Patient is approximately 2 weeks and developed metritis. She was started on doxycycline and Unasyn. She then switched to Zosyn, clindamycin, Ceftriaxone. She was then switched to clindamycin, gentamicin, ampicillin. After fever resolved, gentamicin was discontinued. She remained afebrile for greater than 36 hours and was discharged home in good condition. - ALLERGIES Allergies/Adverse Reactions: Allergies Allergy/AdvReac Type Severity Reaction Status Date / Time No Known Drug Allergies Allergy Verified 10/31/21 21:04 - MEDICATIONS Home Medications: Ambulatory Orders Medication Instructions Recorded Confirmed Pnv No.121/Iron/Folic Acid 1 tab PO DAILY 11/01/21 11/01/21 [ Multivitamin Tablet] - LABS Result Diagrams: 11/02/21 04:39 11/02/21 04:39 - SEPSIS Current Stage of Sepsis: Resolved Possible source of Sepsis: Genitourinary Sepsis Criteria: Recorded Temperature greater than 38.3C or Less than 36C, Recorded Heart Rate greater than 90 bpm, Recorded Respiratory Rate greater than 20, WBC count greater than 12,000 or less than 4000 - FOLLOW UP Follow Up: With primary [facility] or with [facility] - TIME SPENT Time Spent in Discharge (Minutes): 20"
[2021-11-03 08:29] LABS: BASOPHILS % (AUTO) 0.5 %; EOSINOPHILS # (AUTO) 0.8 10^3/uL (0.0-0.7); EOSINOPHILS % (AUTO) 10.2 %; HCT - HEMATOCRIT 36.3 % (37.0-47.0); HGB - HEMOGLOBIN 12.2 g/dL (12.0-16.0); LYMPHOCYTES # (AUTO) 1.3 10^3/uL (1.5-3.5); LYMPHOCYTES % (AUTO) 16.9 %; MEAN CORPUSCULAR HEMOGLOBIN 32.3 pg (27.0-31.0); MEAN CORPUSCULAR HGB CONC 33.6 g/dL (32.0-36.0); MEAN PLATELET VOLUME 9.6 fL (7.9-10.8); MONOCYTES # (AUTO) 0.4 10^3/uL (0.0-1.0); MONOCYTES % (AUTO) 5.6 %; NEUTROPHILS % (AUTO) 66.4 %; PLT - PLATELET COUNT 251 10^3/uL (130-450); RED BLOOD COUNT 3.78 10^6/uL (4.20-5.40); RED CELL DISTRIBUTION WIDTH 12.8 % (12.0-15.0); WHITE BLOOD COUNT 7.5 x10^3/uL (4.8-10.8)
== END 2021-11-03 10:15 | disposition home or self-care (01) | DRG 776 ==
LOC: ED 20:53 → MS2 11-01 04:57 → OBSVTOIN 11-01 10:01
PROVIDERS: ADMIT Student in an Organized Health Care Education/Training Program; ATTEND Obstetrics & Gynecology
DX: O86.12 Endometritis following delivery (principal); K52.1 Toxic gastroenteritis and colitis; T36.95XA Adverse effect of unspecified systemic antibiotic, initial encounter; Y92.230 Patient room in hospital as the place of occurrence of the external cause; Z20.822 Contact with and (suspected) exposure to COVID-19
CPT/HCPCS: 36415; 71275; 74177; 76856; 80048; 80053; 80320; 81001; 82550; 83605; 83690; 84702; 85025; 85610; 87040; 87086; 87491; 87493; 87591; 87633; 87661; 93005; 96365; 96367; 96375; 99284; 99285; A9270; J1200; J1580; J1650; J2765; Q9967; 81003